=== PATIENT | male | born 1935 | race Caucasian/White ===

== ENCOUNTER 2017-09-04 11:50 | Day surgery (SDC) | payer OTHER, SELFPAY ==
--- NOTE | 2017-09-04 | PATH_ITS ---
[facility] Accession Number: [id number] . 01 Material submitted: . PART A: RANDOM COLON BIOPSIES PART B: COLON BIOPSY AT 20CM . 02 Diagnosis: A. Random Colon, Biopsies: Colonic mucosa with no diagnostic abnormality. Negative for active or microscopic colitis. Negative for granulomata, dysplasia or malignancy. . B. Colon at 20 cm, Biopsy: Colonic mucosa with no diagnostic abnormality. Negative for active or microscopic colitis. Negative for granulomata, dysplasia or malignancy. MRV/09/06/2017 . 02 Electronically signed: . Chau Carney MD, PhD, Pathologist NPI- [id number] . 01 Gross description: . Part A: RANDOM COLON BIOPSIES: Received in formalin is 1 fragment(s) of mathur, soft tissue measuring 1.5 x 0.6 x 0.2 cm in aggregate submitted entirely in 1 cassette(s) Part B: COLON BIOPSY AT 20CM: Received in formalin are 3 fragment(s) of mathur, soft tissue measuring 0.3 x 0.2 x 0.1 cm to 0.2 x 0.2 x 0.1 cm submitted entirely in 1 cassette(s) /TRC /TRC . 02 Pathologist provided ICD-10: R19.7 . 02 CPT . 631271, [id number] Performed at: 01 [facility] [address], [place], [place] [id number] MD Kendell Garcia MD Phone: [phone] Performed at: 02 [facility] [address] [place], [place] [id number] MD Ángel Duran MD Phone: [phone]
[2017-09-04 12:23] VITALS: BP 143/76; PULSE 64; RESP 20; TEMP 36.6; O2SAT 98
[2017-09-04] MEDS: SODIUM CHLORIDE 0.9% 1,000 ML 200 ML IV (12:30)
--- NOTE | 2017-09-04 14:08 | PM.OP.1 ---
Operative Date/Time/Diagnoses - Date of procedure: 09/04/17 Time of procedure: 14:08 Pre-op diagnosis: Personal history of colon cancer status post sigmoid colectomy Personal history of recurrent diff colitis Personal history of chronic diarrhea Post-op diagnosis: same Procedure & Clinicians Procedure: Colonoscopy to the cecum with multiple mucosal biopsies and cultures Same procedure as scheduled: Yes Indications: First history of colon cancer with last colonoscopy approximately 18 ago Surgeon: Judith Moreno Click Yes if Unassisted: Yes Anesthesia Type: Sedation (Versed 4 mg, fentanyl 150 mcg) Operative Notes Findings: 1. Excellent prep 2. No polyps or mass lesions 3. Anastomosis identified at 25 cm from the anal verge without any evidence of recurrence or stricture 4. Area of inflammation 20 cm from the anal verge. The inflammation is circumferential without any narrowing of the lumen. 5. Scattered diverticula throughout the colon 6. Grade 1 internal hemorrhoids Closure Type: not applicable Specimen(s): other (1. Random mucosal biopsies, 2. Biopsy at 20 cm from the anal verge, 3. Cultures) Estimated Blood Loss (mL): 1 Procedure in detail: After obtaining informed consent, the patient was brought to the GI suite and placed in the left lateral decubitus position on the examination table. After placement of appropriate monitors, the patient was given incremental doses of Versed and Fentanyl until an appropriate level of sedation was achieved. A time out was held per SCOAP protocol. A digital rectal examination was performed and did not reveal any masses or obstructing lesions. The colonoscope was gently passed into the patient's anus and the entire colon navigated to the level of the cecum with minimal difficulty. Once in the cecum, the scope was withdrawn being sure to go before and beyond all mucosal folds and prominences and get an excellent examination. The findings are noted above. At 25 cm from anal verge, the anastomosis was identified. It was widely patent without any evidence of narrowing. At 20 cm from the anal verge, we noted that area of circumferential inflammation with some fibrinous exudate superficially. Multiple biopsies were taken here and submitted separately. At the level of the rectal vault, the scope was retroflexed and the internal anal canal was examined. The scope was straightened and air aspirated from the colon. The instrument was removed from the patient's body and the procedure was concluded. The patient was allowed to awaken from sedation without difficulty and taken to the post-anesthesia care unit in good condition. Complications: none Condition: stable Disposition: PACU Plan for aftercare: 1. Discharge to home 2. We will contact you with pathology results and recommendations 3. Stop all antibiotics for now
[2017-09-04 14:14] VITALS: RESP 16; TEMP 36.4; O2SAT 98
[2017-09-04 14:24] VITALS: BP 147/69; PULSE 53; RESP 16; TEMP 36.3; O2SAT 99
--- NOTE | 2017-09-04 14:24 | PM.PREOP ---
Pre-operative Note Interval Note Pre-op Check: History & Physical Reviewed by Physician ASA Class (for procedural sedation): II
[2017-09-04 14:42] VITALS: PULSE 58; RESP 14; TEMP 36.3; O2SAT 99
[2017-09-04 15:35] LABS: Clostridium Difficile Tox PCR Negative for C. diff
--- NOTE | 2017-09-04 15:37 | SUR.PHASEII ---
pt ready to go at 1500.. dressed and conversant.. vss withinm preop levels.. abdomen soft... no nausea.. no pain.. taking hime home and dc instructions reviewedf
== END 2017-09-04 15:00 | disposition home or self-care (01) ==
PROVIDERS: PCP Internal Medicine; Visit Provider Surgery
PROC: 0DJD8ZZ Inspection of Lower Intestinal Tract, Via Natural or Artificial Opening Endoscopic (ICD-10-PCS; CPT 45378; principal; 2017-09-04 13:00)
DX: Z85.038 Personal history of other malignant neoplasm of large intestine (principal); K64.0 First degree hemorrhoids; K57.30 Diverticulosis of large intestine without perforation or abscess without bleeding; Z86.19 Personal history of other infectious and parasitic diseases
CPT/HCPCS: 45380; 87015; 87045; 87177; 87427; 87493; 87899; 99152

== ENCOUNTER 2017-11-22 13:29 | Inpatient (IN) | payer OTHER, SELFPAY ==
[2017-11-22 13:43] VITALS: BP 151/78; PULSE 74; RESP 17; TEMP 36.6; O2SAT 100; BMI 27.5
--- NOTE | 2017-11-22 13:55 | ED_ITS ---
HPI - Abdominal Pain General Chief Complaint: Abdominal Pain Stated Complaint: sent from dr vazquez office to get US Time Seen by Provider: 11/22/17 13:48 Source: patient Mode of arrival: ambulatory Limitations: no limitations History of Present Illness HPI narrative: Patient is an 82-year-old male who presents with abdominal pain. He says he feels like he has a blockage. He says for the last week or so does not feel like his food is going down. He was actually seen by his primary care physician today on I was instructed to come to emergency department for further evaluation. He has a history of colon cancer and pseudomembranous colitis. He is actually scheduled for a fecal transplant next week. He denies any nausea or vomiting he is passing gas and having some bowel movements but he overall feels like something is wrong. MD complaint: abdominal pain Related Data Home Medications Medication Instructions Recorded Confirmed enalapril maleate 5 mg PO QDAY #0 07/25/16 11/22/17 simvastatin 5 mg PO HS #0 07/25/16 11/22/17 promethazine 25 mg PO Q6H PRN 11/22/17 11/22/17 Previous Rx's Medication Instructions Recorded vancomycin 125 mg capsule 125 mg PO QID 28 Days #150 caplet 10/30/17 MDD 4 Allergies Allergy/AdvReac Type Severity Reaction Status Date / Time No Known Allergies Allergy Uncoded 11/22/17 13:49 Review of Systems Review of Systems All systems reviewed & are unremarkable except as noted in HPI and below Constitutional Denies chills, Denies fever(s), Denies lethargy and Denies weakness Cardiovascular Denies chest pain, Denies irregular heart rhythm, Denies lightheadedness, Denies palpitations, Denies dyspnea, Denies dyspnea on exertion and Denies orthopnea Respiratory Denies cough, Denies dyspnea, Denies dyspnea on exertion and Denies wheezing Gastrointestinal Gastrointestinal: Reports as per HPI Genitourinary Denies hematuria, Denies flank pain, Denies urinary incontinence and Denies urinary urgency Musculoskeletal Denies back pain, Denies muscle weakness, Denies numbness and Denies tingling Integumentary/Breasts Denies pruritus, Denies erythema, Denies rash and Denies wounds Neurologic Denies numbness, Denies tingling and Denies weakness Endocrine Denies palpitations Allergic/Immunologic Denies wheezing [facility] Medical History C. difficile colitis (Acute) Colon cancer (Acute) Surgical History History of colon resection (Acute) Social History household members: spouse Smoking Status: Former smoker alcohol intake: current Exam Initial Vital Signs Initial Vital Signs: Vital Signs Temperature 97.9 F 11/22/17 13:43 Pulse Rate 74 11/22/17 13:43 Respiratory Rate 17 11/22/17 13:43 Blood Pressure 151/78 H 11/22/17 13:43 Pulse Oximetry 100 11/22/17 13:43 Const General: cooperative, healthy appearing and well hydrated Nutritional Appearance: average body habitus and well nourished [facility] Head: normal to inspection and normocephalic Eyes General: appearance normal, both eyes and all related structures Neck Neck: normal visual inspection Resp Effort & Inspection: normal respiratory effort, able to speak in complete sentences, no respiratory distress and no use of accessory muscles Auscultation: clear to auscultation bilaterally, no rales, no rhonchi and no wheezes Cardio Rate: regular rate Rhythm: regular rhythm Heart Sounds: no click, no gallops, no murmurs and no rubs Pulses: normal peripheral pulses GI Inspection: normal to inspection Palpation: soft, No firm, No guarding and tender (Minimal, no localization) Skin General: no rashes or lesions noted, No jaundice and No petechiae Neuro General: alert, oriented x3, gait normal and no focal motor deficits Speech: speech normal Course Orders Ordered: ED Orders 11/22/17 14:04 Complete Blood Count AUTO DIFF Stat Comprehensive Metabolic Panel Stat Lipase Stat 11/22/17 14:05 CT abdomen pelvis w con Stat 11/22/17 17:32 Consult to General Surgery Routine 11/22/17 17:47 Consult to Dietitian, Adult Routine Sodium Chloride (Normal Saline 0.9%) 1,000 mls @ 125 mls/hr IV CONT FELY Last Admin: 11/22/17 17:54 Dose: 125 mls/hr Ondansetron HCl (Zofran) 4 mg IV Q4HR PRN PRN Reason: Nausea And Vomiting Discontinued Medications Sodium Chloride (Normal Saline 0.9%) 1,000 mls @ 150 mls/hr IV CONT FELY Last Infusion: 11/22/17 17:54 Dose: 150 mls/hr Infusion: 11/22/17 17:26 Dose: 150 mls/hr Admin: 11/22/17 14:30 Dose: 150 mls/hr Ondansetron HCl (Zofran) 4 mg IV NOW ONE Stop: 11/22/17 14:05 Last Admin: 11/22/17 14:30 Dose: 4 mg Vital Signs - 8 hr 11/22/17 13:43 11/22/17 16:30 11/22/17 17:00 Temperature 97.9 F Pulse Rate 74 72 63 Respiratory Rate 17 15 16 Blood Pressure 151/78 H Blood Pressure [Left Arm] 151/78 H 147/59 H Pulse Oximetry 100 100 99 11/22/17 17:37 Temperature 97.9 F Pulse Rate 67 Respiratory Rate 18 Blood Pressure 161/79 H Blood Pressure [Left Arm] Pulse Oximetry 97 MDM - Abdominal Pain Medical Records Attestation: I reviewed the patient's medical records. Lab Data Attestation: I reviewed the patient's lab results. Result diagrams: 11/22/17 14:04 11/22/17 14:04 Lab Results 11/22/17 11/22/17 Range/Units 14:04 14:04 WBC 6.5 (4.5-11.0) X10^3/uL RBC 4.08 L (4.5-5.9) X10^6/uL Hgb 13.0 L (13.5-17.5) g/dL Hct 37.3 L (41-53) % MCV 91.4 (80-100) fL MCH 31.9 (26-34) PG MCHC 34.9 (30-36) % RDW 13.2 (11.6-14.8) % Plt Count 270 (150-400) X10^3/uL Neut % (Auto) 78.8 H (50-75) % Lymph % (Auto) 10.6 L (25-40) % [place] % (Auto) 8.4 (3-14) % Eos % (Auto) 1.5 L (2-4) % Baso % (Auto) 0.7 (0-2) % Neut # (Auto) 5100 (2468-2872) /uL Sodium 138 (137-145) mmol/L Potassium 4.2 (3.4-5.1) mmol/L Chloride 100 (98-107) mmol/L Carbon Dioxide 29 (22-32) mmol/L BUN 14 (9-20) mg/dL Creatinine 0.70 (0.66-1.25) mg/dL Estimated GFR > 60.0 (>60) mL/min BUN/Creatinine Ratio 20.0 (6-22) Glucose 101 (80-110) mg/dL Calcium 8.9 (8.4-10.2) mg/dL Total Bilirubin 0.8 (0.2-1.3) mg/dL AST 31 (17-59) IU/L ALT 34 (21-72) IU/L Alkaline Phosphatase 46 (38-126) U/L Total Protein 6.1 L (6.3-8.2) g/dL Albumin 3.8 (3.5-5.0) g/dL Globulin 2.3 (1.7-4.1) g/dL Albumin/Globulin Ratio 1.7 (1.0-2.8) Lipase 181 (23-300) U/L Imaging Data CT scan - abdomen: Radiologist's impression: PROCEDURE: CT ABDOMEN PELVIS W CON INDICATIONS: abdominal pain history of colectomy and cancer TECHNIQUE: After the administration of intravenous contrast, 5 mm thick sections acquired from the diaphragm to the symphysis. 5 mm coronal and sagittal reformats were acquired. For radiation dose reduction, the following was used: automated exposure control, adjustment of mA and/or kV according to patient size. COMPARISON: [facility], CT, CHEST/ABD/PEL WITH CONTRAST, 08/10/2016, 9:09. FINDINGS: Image quality: Excellent. ABDOMEN: Lung bases: Lung bases are clear. Heart size is normal. Solid organs: There is a 9 mm area of low density in the right dome of the liver (im 14). Otherwise liver is radiographic normal. The pancreas, spleen, adrenal glands and right kidney are normal. Nonobstructive renal calculus otherwise left kidney is radiographically normal. Peritoneum and bowel: Postoperative changes in the distal colon. There is marked fluid filled enlargement of the small bowel with air-fluid levels which terminates in soft tissue adjacent to colonic wall postoperative change of the deep pelvis (best seen on se 5 im 41). Moderate stool throughout the remaining colon. Stomach and appendix are radiographically normal. Trace ascites. Nodes and vessels: Prominent mesenteric lymph nodes. Small mesenteric area of soft tissue measuring 11 mm may represent a further lymph node (se 2 im 60). Aorta and inferior vena cava are normal in size. Miscellaneous: No ventral hernias. PELVIS: Genitourinary: Bladder is decompressed causing wall thickening. Miscellaneous: Small fat-containing inguinal hernias with fluid extending into the right inguinal canal. There is soft tissue density in the presacral pelvic fat with several areas of low density with peripheral enhancement the largest of which measures 25 x 7 mm (se 2 im 73). Bones: No suspicious bony lesions. No vertebral body compression fractures. IMPRESSION: 1. High-grade partial small bowel obstruction with transition point in the deep pelvis adjacent to soft tissue thickening in the presacral fat and adjacent to postoperative change in the colon. 2. Extensive soft tissue in the presacral fat with areas of low density which do not definitely connect to loops of small bowel. This finding may represent tiny abscesses too small for aspiration or loops of small bowel distorted by the postoperative change in the surrounding fat. Following resolution of the patient's obstruction a CT of the pelvis with oral, rectal and IV contrast could differentiate these possibilities. 3. Tiny hepatic nodule new since the previous study is indeterminate. Given the patient's likely history of malignancy consider an MRI with and without contrast for further evaluation. Dictated by: Ronald Bennett M.D. on 11/22/2017 at 15:59 MDM Narrative Medical decision making narrative: Patient is ambulatory to the restroom. He appears comfortable he has not had any nausea or vomiting while in the ED. Dr. Moreno has refused CT and blood work. Agrees with admission. If no vomiting been no NG is needed. Discharge Plan Departure Patient Disposition: Admitted As Inpatient Clinical Impression: Small bowel obstruction Discharge Date/Time: 11/22/17 17:25 Interventions: ED Discharge Assessment Last Done: 11/22/17 17:24 Admit Date/Time: 11/22/17 16:56 Admit Provider: Judith Moreno
--- NOTE | 2017-11-22 14:05 | DI.CT.S_ITS ---
PROCEDURE: CT ABDOMEN PELVIS W CON INDICATIONS: abdominal pain history of colectomy and cancer TECHNIQUE: After the administration of intravenous contrast, 5 mm thick sections acquired from the diaphragm to the symphysis. 5 mm coronal and sagittal reformats were acquired. For radiation dose reduction, the following was used: automated exposure control, adjustment of mA and/or kV according to patient size. COMPARISON: [facility], CT, CHEST/ABD/PEL WITH CONTRAST, 08/10/2016, 9:09. FINDINGS: Image quality: Excellent. ABDOMEN: Lung bases: Lung bases are clear. Heart size is normal. Solid organs: There is a 9 mm area of low density in the right dome of the liver (im 14). Otherwise liver is radiographic normal. The pancreas, spleen, adrenal glands and right kidney are normal. Nonobstructive renal calculus otherwise left kidney is radiographically normal. Peritoneum and bowel: Postoperative changes in the distal colon. There is marked fluid filled enlargement of the small bowel with air-fluid levels which terminates in soft tissue adjacent to colonic wall postoperative change of the deep pelvis (best seen on se 5 im 41). Moderate stool throughout the remaining colon. Stomach and appendix are radiographically normal. Trace ascites. Nodes and vessels: Prominent mesenteric lymph nodes. Small mesenteric area of soft tissue measuring 11 mm may represent a further lymph node (se 2 im 60). Aorta and inferior vena cava are normal in size. Miscellaneous: No ventral hernias. PELVIS: Genitourinary: Bladder is decompressed causing wall thickening. Miscellaneous: Small fat-containing inguinal hernias with fluid extending into the right inguinal canal. There is soft tissue density in the presacral pelvic fat with several areas of low density with peripheral enhancement the largest of which measures 25 x 7 mm (se 2 im 73). Bones: No suspicious bony lesions. No vertebral body compression fractures. IMPRESSION: 1. High-grade partial small bowel obstruction with transition point in the deep pelvis adjacent to soft tissue thickening in the presacral fat and adjacent to postoperative change in the colon. 2. Extensive soft tissue in the presacral fat with areas of low density which do not definitely connect to loops of small bowel. This finding may represent tiny abscesses too small for aspiration or loops of small bowel distorted by the postoperative change in the surrounding fat. Following resolution of the patient's obstruction a CT of the pelvis with oral, rectal and IV contrast could differentiate these possibilities. 3. Tiny hepatic nodule new since the previous study is indeterminate. Given the patient's likely history of malignancy consider an MRI with and without contrast for further evaluation. Dictated by: Ronald Bennett M.D. on 11/22/2017 at 15:59 Approved by: Ronald Bennett M.D. on 11/22/2017 at 16:08
[2017-11-22] MEDS: ONDANSETRON 4 MG/2 ML INJ IV (14:30)
[2017-11-22] MEDS: SODIUM CHLORIDE 0.9% 1,000 ML 150 ML IV (14:30)
[2017-11-22 14:48] LABS: Add Manual Diff / Slide Review NO; Basophils Percent Auto 0.7 % (0-2); Eosinophils Percent Auto 1.5 % (2-4); Hematocrit 37.3 % (41-53); Lymphocytes Percent Auto 10.6 % (25-40); Mean Corpuscular HGB Conc 34.9 % (30-36); Mean Corpuscular Hemoglobin 31.9 PG (26-34); Mean Corpuscular Volume 91.4 fL (80-100); Monocytes Percent Auto 8.4 % (3-14); Neutrophils Absolute Auto 5100 /uL (3000-5900); Neutrophils Percent Auto 78.8 % (50-75); Platelet Count 270 X10^3/uL (150-400); Red Blood Cell Count 4.08 X10^6/uL (4.5-5.9); Red Cell Distribution Width 13.2 % (11.6-14.8); White Blood Cell Count 6.5 X10^3/uL (4.5-11.0)
[2017-11-22 15:13] LABS: Alanine Aminotransferase 34 IU/L (21-72); Albumin 3.8 g/dL (3.5-5.0); Albumin Globulin Ratio 1.7 (1.0-2.8); Alkaline Phosphatase 46 U/L (38-126); Aspartate Aminotransferase 31 IU/L (17-59); Bilirubin Total 0.8 mg/dL (0.2-1.3); Blood Urea Nitrogen 14 mg/dL (9-20); Calcium 8.9 mg/dL (8.4-10.2); Carbon Dioxide 29 mmol/L (22-32); Chloride 100 mmol/L (98-107); Estimated Glomerular Filt Rate > 60.0 mL/min (>60); Globulin 2.3 g/dL (1.7-4.1); Glucose 101 mg/dL (80-110); HEMOLYSIS < 15 (0-50); Lipase 181 U/L (23-300); Potassium 4.2 mmol/L (3.4-5.1); Sodium 138 mmol/L (137-145); Total Protein 6.1 g/dL (6.3-8.2)
[2017-11-22 16:30] VITALS: BP 151/78; PULSE 72; RESP 15; O2SAT 100
[2017-11-22 17:00] VITALS: BP 147/59; PULSE 63; RESP 16; O2SAT 99
[2017-11-22 17:37] VITALS: BP 161/79; PULSE 67; RESP 18; TEMP 36.6; O2SAT 97; BMI 27.8
[2017-11-22] MEDS: SODIUM CHLORIDE 0.9% 1,000 ML 125 ML IV (17:54)
--- NOTE | 2017-11-22 18:29 | P.HP_ITS ---
History of Present Illness Date Patient Seen: 11/22/17 Time Patient Seen: 18:22 Chief complaint: sent from dr vazquez office to get US Narrative: Pleasant 82-year-old gentleman who is well known to me from prior visits. He has a history of colon cancer and underwent a sigmoid colectomy and ileostomy with subsequent ostomy reversal. He also has a history of prostate cancer status post radical prostatectomy and radiation therapy. He presented to his primary care doctor this morning complaining of about 3 weeks of irregular bowels. He says that for the last 3 weeks or so he has had periods where he just had no appetite. He says that these episodes were interspersed with periods with large bowel movements. This most recent episode started this past Sunday and became progressively worse until last evening when he was very uncomfortable. He is quite stoic gentleman and so opted to not go to the emergency room and presented to his primary care physician's office today. He says he does not feel bad other than his belly is ?big and hard?. He has no appetite. He is not currently nauseated. He has been continuing to take all of his oral meds throughout this time. This includes vancomycin for recurrent C diff colitis. Dr. Vazquez sent him over to our emergency room for radiographic studies. He had a CT scan of the abdomen and pelvis that revealed a high-grade partial small-bowel obstruction and he is now admitted to the surgical service. Patient History Medical History C. difficile colitis (Acute) Colon cancer (Acute) Surgical History History of colon resection (Acute) Family & Social History Family History: Reviewed 11/22/17 by Judith Moreno MD Social History: household members spouse Prior Living Arrangements House Safety & Behavioral: Feels Safe in Current Yes Environment Been Physically Hurt or No Threatened By a Person Suicidal Ideation Description None Suicide Plan Description No Plan Tobacco & Substance use: Tobacco type cigarettes Smoking Status Former smoker alcohol intake current alcohol intake frequency holiday/special occasion Substance Use Type does not use Meds Home Medications Medication Instructions Recorded Confirmed Type enalapril maleate 5 mg PO QDAY #0 07/25/16 11/22/17 History simvastatin 5 mg PO HS #0 07/25/16 11/22/17 History vancomycin 125 mg capsule 125 mg PO QID 28 Days #150 caplet 10/30/17 11/22/17 Rx MDD 4 promethazine 25 mg PO Q6H PRN 11/22/17 11/22/17 History Allergies Allergy/AdvReac Type Severity Reaction Status Date / Time No Known Allergies Allergy Uncoded 11/22/17 13:49 Review of Systems Review of Systems All systems reviewed & are unremarkable except as noted in HPI and below Exam Vital Signs (past 8 hours): - 11/22/17 13:43 11/22/17 16:30 11/22/17 17:00 Temperature 97.9 F Pulse Rate 74 72 63 Respiratory Rate 17 15 16 Blood Pressure 151/78 H Blood Pressure [Left Arm] 151/78 H 147/59 H Pulse Oximetry 100 100 99 11/22/17 17:37 Temperature 97.9 F Pulse Rate 67 Respiratory Rate 18 Blood Pressure 161/79 H Blood Pressure [Left Arm] Pulse Oximetry 97 Oxygen Delivery Method Room Air Narrative Exam Narrative: Very pleasant gentleman he is in no obvious distress. He is comfortably conversing about his condition. He denies any abdominal pain or nausea currently. HEENT: Normocephalic and atraumatic, pupils equal round reactive to light accommodation with anicteric sclera Lungs: Clear to auscultation bilaterally Heart: Regular rate and rhythm without murmur Abdomen: Distended, tympanic, few high-pitched bowel sounds. Well-healed surgical incisions without palpable defect. Nontender to palpation. Extremities: Warm and well perfused. Objective Labs Result Diagrams: 11/22/17 14:04 11/22/17 14:04 Labs: Laboratory Results - last 24 hr 11/22/17 11/22/17 14:04 14:04 WBC 6.5 RBC 4.08 L Hgb 13.0 L Hct 37.3 L MCV 91.4 MCH 31.9 MCHC 34.9 RDW 13.2 Plt Count 270 Neut % (Auto) 78.8 H Lymph % (Auto) 10.6 L [place] % (Auto) 8.4 Eos % (Auto) 1.5 L Baso % (Auto) 0.7 Neut # (Auto) 5100 Sodium 138 Potassium 4.2 Chloride 100 Carbon Dioxide 29 BUN 14 Creatinine 0.70 Estimated GFR > 60.0 BUN/Creatinine Ratio 20.0 Glucose 101 Calcium 8.9 Total Bilirubin 0.8 AST 31 ALT 34 Alkaline Phosphatase 46 Total Protein 6.1 L Albumin 3.8 Globulin 2.3 Albumin/Globulin Ratio 1.7 Lipase 181 Assessment & Plan Plan: Assessment/Plan Narrative: Very pleasant gentleman with a fairly extensive past medical history who now presents with a high-grade small-bowel obstruction. I have talked to Laurel about the options. His labs are reassuring and he has no evidence of ischemic bowel. We are going to place an NG tube tonight and decompress his bowel. We will proceed with bowel rest and watchful waiting. Hopefully, this will resolve without surgical intervention. If not, he is a reasonable surgical candidate for our hospital. Quality VTE Deep Vein Thrombosis/Pulmonary Embolism Present on Admission: No
[2017-11-22] MEDS: DEXTROSE 5%-0.45% NS 1,000 ML 125 ML IV (18:56)
[2017-11-22] MEDS: LORazepam 2 MG/ML SYRINGE 0.5 MG IV (18:56)
--- NOTE | 2017-11-22 19:40 | PC.NURSE ---
ADMISSION received pt at approximately 1730 via fiona, accompanied by ED staff and . A&Ox3, pleasant and cooperative. abdomen slightly rounded, pt reports as hard but currently denies any abdominal pain or nausea/vomiting. bowel sounds hypoactive. pt reports + BM this morning and + burping currently. NG placed and connected to medium intermittent suction. pt tolerated placement well but unhappy about tubing having to stay in place. oriented to room, call light within reach.
[2017-11-22 20:10] VITALS: BP 154/79; PULSE 66; RESP 14; TEMP 36.5; O2SAT 97
[2017-11-22 23:00] VITALS: BP 147/70; PULSE 66; RESP 16; TEMP 36.7; O2SAT 99
--- NOTE | 2017-11-23 | DI.RAD.S_ITS ---
PROCEDURE: FL UPPER GI/SMALL BOWEL FOLLOW-THROUGH INDICATIONS: Small bowel obstruction. COMPARISON: [facility], CR, XR ACUTE ABDOMEN SERIES, 11/23/2017, 5:39. [facility], CT, CT ABDOMEN PELVIS W CON, 11/22/2017, 15:18. [facility], RF, BARIUM ENEMA, 11/13/2016, 9:49. [facility], CT, CHEST/ABD/PEL WITH CONTRAST, 08/10/2016, 9:09. FINDINGS: Preprocedural manager costing film demonstrates multiple loops of dilated small bowel consistent with known small bowel obstruction. There is a nasogastric tube with tip projecting over the expected location of the stomach and side-port over the expected location of the esophagus. Pelvic phleboliths and a surgical clip project over the pelvis. There are multilevel degenerative changes of the lumbar spine. Initial water-soluble Gastrografin administration through the nasogastric tube occurred at approximately 1230 hrs. on 11/23/17. Followup radiographs were obtained documenting the transit of the Gastrografin oral contrast through the small bowel throughout the abdomen, and demonstrated multiple loops of dilated small bowel consistent with known obstruction. Final abdominal radiograph obtained at 1615 hrs. on 11/23/17 (approximately 3 hours and 45 minutes later) documents failure of administered oral Gastrografin contrast to reach the cecum. IMPRESSION: Delayed transit time through the small bowel, consistent with known small bowel obstruction. Consider followup abdominal radiographs to resolution. Dictated by: Vinod Mohr M.D. on 11/23/2017 at 19:59 Approved by: Vinod Mohr M.D. on 11/23/2017 at 20:17
--- NOTE | 2017-11-23 | DI.RAD.S_ITS ---
PROCEDURE: XR ACUTE ABDOMEN SERIES INDICATIONS: Small bowel obstruction TECHNIQUE: One view chest and two views of the abdomen were acquired. COMPARISON: [facility], CT, CT ABDOMEN PELVIS W CON, 11/22/2017, 15:18. [facility], RF, BARIUM ENEMA, 11/13/2016, 9:49. FINDINGS: Surgical changes and devices: Nasogastric tube side port extends to above the EG junction. Chest: Lungs are clear. Heart size is normal. No pleural effusions. No pneumoperitoneum. Abdomen: Bowel gas pattern is abnormal with persistent small bowel mild gaseous prominence, and no free air. No suspicious calcifications. Visualized solid organ contours appear normal. Bones: No suspicious bony lesions. IMPRESSION: The nasogastric tube is within the esophagus and extends with its inferior tip into the gastric cardia but the side-port appears above the EG junction. It could be advanced 10-20 cm. Gas prominence within the small bowel is stable, no free air is found. Dictated by: Janes Rosales M.D. on 11/23/2017 at 11:06 Approved by: Janes Rosales M.D. on 11/23/2017 at 11:08
[2017-11-23 05:53] VITALS: BP 147/62; PULSE 64; RESP 18; TEMP 36.5; O2SAT 97
[2017-11-23 06:24] LABS: Blood Urea Nitrogen 9 mg/dL (9-20); Calcium 8.4 mg/dL (8.4-10.2); Carbon Dioxide 27 mmol/L (22-32); Chloride 103 mmol/L (98-107); Estimated Glomerular Filt Rate > 60.0 mL/min (>60); Glucose 107 mg/dL (80-110); HEMOLYSIS < 15 (0-50); Potassium 3.9 mmol/L (3.4-5.1); Sodium 137 mmol/L (137-145)
[2017-11-23 06:26] LABS: Add Manual Diff / Slide Review NO; Basophils Percent Auto 0.7 % (0-2); Hematocrit 35.5 % (41-53); Hemoglobin 12.2 g/dL (13.5-17.5); Lymphocytes Percent Auto 11.3 % (25-40); Mean Corpuscular HGB Conc 34.5 % (30-36); Mean Corpuscular Hemoglobin 31.8 PG (26-34); Monocytes Percent Auto 10.3 % (3-14); Neutrophils Absolute Auto 3900 /uL (3000-5900); Neutrophils Percent Auto 75.7 % (50-75); Platelet Count 219 X10^3/uL (150-400); Red Blood Cell Count 3.86 X10^6/uL (4.5-5.9); Red Cell Distribution Width 13.4 % (11.6-14.8); White Blood Cell Count 5.1 X10^3/uL (4.5-11.0)
[2017-11-23] MEDS: ENOXAPARIN 40 MG/0.4 ML SYRINGE SUBCUT (08:36)
--- NOTE | 2017-11-23 08:39 | CM.DANOTE ---
Addendum entered by Kayla Bragg LPN 11/23/17 08:48: Pt is alert and oriented at this time. Original Note: Discharge Planning/Care Management DCP: assessment: Case received, EMR reviewed and met this morning with pt. He is found lying in bed, looks comfortable, ng to suction in place and draining light colored material. Introduced self and role. Pt is an 82 year old male who admitted to care of surgical team. Dr. Moreno has dx high grade partial small bowel obstruction/in setting of prior abdominal surgeries. Payer: [employer] PCP: Dr. Florentino DCP team will follow as POC unfolds to assist with d/c issues and options as they arise. CM Discharge Assessment Start: 11/23/17 08:36 Freq: Status: Active Protocol: Document 11/23/17 08:37 ITV (Rec: 11/23/17 08:39 ITV [id number]) Discharge Planning Assessment Advance Directives? Yes Advance Directives on File No History Provided By Patient Medical Record Prior Living Arrangements House Household Members spouse Whiteboard Updated in Patient Room with Yes name and ext. 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
[2017-11-23 08:56] VITALS: BP 147/87; PULSE 62; RESP 18; TEMP 36.4; O2SAT 98
--- NOTE | 2017-11-23 11:25 | PC.NURSE ---
Addendum entered by Saira Wheeler R.N. 11/23/17 14:16: Pts NG tube advanced 7.8 inches. He tolerated well. Back to bed and ng tube with suction. He will be going back down for procedure for more pictures of his abdomen. Visiting with his now. Original Note: NG to low intermitant suction. Some drainage in canister. Pt incontinent of large amounts of urine. He is wearing a brief and pad, which he has soaked through both and needed a bed change. 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 He is getting IVF, this may be contributing to pts incontinence. Abdomen a bit distended and bt are hypoactive. Pt is resting supine and denies any pain.
--- NOTE | 2017-11-23 11:41 | PM.PN.1 ---
Subjective Date Patient Seen: 11/23/17 Time Patient Seen: 11:41 Interval history: Barry reports he had the ?most miserable night of my life? with the NG tube. He denies any nausea and denies any real abdominal pain. He says he still feels ?backed up?. He says he passed some gas this morning and had a bowel movement that his nurse describes as more of a smear. He is quite unhappy today. Exam Vital Signs (past 8 hours): - 11/23/17 05:53 11/23/17 08:56 Temperature 97.7 F 97.5 F L Pulse Rate 64 62 Respiratory Rate 18 18 Blood Pressure 147/62 H 147/87 H Pulse Oximetry 97 98 Oxygen Delivery Method Room Air Narrative Exam Narrative: Abdomen remains soft, hypoactive bowel sounds, nontender to palpation. Objective Labs Result Diagrams: 11/23/17 05:58 11/23/17 05:58 Labs: Laboratory Results - last 24 hr 11/22/17 11/22/17 11/23/17 14:04 14:04 05:58 WBC 6.5 5.1 RBC 4.08 L 3.86 L Hgb 13.0 L 12.2 L Hct 37.3 L 35.5 L MCV 91.4 92.0 MCH 31.9 31.8 MCHC 34.9 34.5 RDW 13.2 13.4 Plt Count 270 219 Neut % (Auto) 78.8 H 75.7 H Lymph % (Auto) 10.6 L 11.3 L [place] % (Auto) 8.4 10.3 Eos % (Auto) 1.5 L 2.0 Baso % (Auto) 0.7 0.7 Neut # (Auto) 5100 3900 Sodium 138 Potassium 4.2 Chloride 100 Carbon Dioxide 29 BUN 14 Creatinine 0.70 Estimated GFR > 60.0 BUN/Creatinine Ratio 20.0 Glucose 101 Calcium 8.9 Total Bilirubin 0.8 AST 31 ALT 34 Alkaline Phosphatase 46 Total Protein 6.1 L Albumin 3.8 Globulin 2.3 Albumin/Globulin Ratio 1.7 Lipase 181 11/23/17 05:58 WBC RBC Hgb Hct MCV MCH MCHC RDW Plt Count Neut % (Auto) Lymph % (Auto) [place] % (Auto) Eos % (Auto) Baso % (Auto) Neut # (Auto) Sodium 137 Potassium 3.9 Chloride 103 Carbon Dioxide 27 BUN 9 Creatinine 0.60 L Estimated GFR > 60.0 BUN/Creatinine Ratio 15.0 Glucose 107 Calcium 8.4 Total Bilirubin AST ALT Alkaline Phosphatase Total Protein Albumin Globulin Albumin/Globulin Ratio Lipase Assessment & Plan Plan: Assessment/Plan Narrative: Partial small bowel obstruction that was described as high-grade on recent CT scan. I have recommended an upper GI with Gastrografin to either correct this situation or further define the problem so that we can corrected surgically. Cole would like to avoid surgical intervention if at all possible. We will proceed with the study today. Quality VTE Deep Vein Thrombosis/Pulmonary Embolism Present on Admission: No
[2017-11-23] MEDS: ONDANSETRON 4 MG/2 ML INJ IV (15:56)
[2017-11-23 16:12] VITALS: BP 142/90; PULSE 84; RESP 18; TEMP 36.7; O2SAT 98
[2017-11-23] MEDS: SODIUM CHLORIDE 0.9% FLUSH 10 ML IV (17:58)
[2017-11-23] MEDS: DEXTROSE 5%-0.45% NS 1,000 ML 125 ML IV (17:58)
[2017-11-23 20:12] VITALS: BP 129/74; PULSE 90; RESP 16; TEMP 36.5; O2SAT 96
--- NOTE | 2017-11-23 21:19 | PC.NURSE ---
SHIFT NOTE Received pt with most of upper GI series completed. pt reports nausea, PRN zofran administered. pt also reports positive BM this shift x2 but pt had flushed his BM down the toilet before staff could inspect it. at approximately 1820, pt with large emesis, about 400ml. NG reconnected to LIS and MD notified. pt with about 1300ml output in canister thus far, states great relief from nausea. denies any abdominal pain. per MD, possible surgery tomorrow. call light within reach.
[2017-11-23 23:49] VITALS: BP 153/81; PULSE 75; RESP 18; TEMP 37.1; O2SAT 95
[2017-11-24] VITALS (24 sets, daily range): BP systolic 110–159; BP diastolic 59–94; PULSE 70–97; RESP 13–21; TEMP 35.9–36.6; O2SAT 91–98; BMI 27.8
--- NOTE | 2017-11-24 | PATH_ITS ---
[facility] Accession Number: [id number] . 01 Material submitted: . PART A: SMALL BOWEL PART B: PERITONEAL NODULE PART C: OMENTAL NODULE . 02 Diagnosis: A. 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 Multiple serosal adhesions and serositis. Negative for in situ dysplasia. . B. 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 . C. 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 V/11/30/2017 . 02 Comment: This case is reviewed in conjunction with the patient's previous colon resection specimen ([id number], 2016), and the adenocarcinoma in the current case is morphologically similar to the known colonic adenocarcinoma. . As part of routine research quality assurance analyst, Dr. Monzon has reviewed financial service representative sections from this case and agrees with the diagnosis of adenocarcinoma, morphologically consistent with colon primary. The finding of adenocarcinoma was reported to Dr. Moreno's office on 11/29/2017 at 11:50 a.m. . 02 Electronically signed: . Chau Carney MD, PhD, Pathologist NPI- [id number] . 01 Gross description: . A. Received in formalin, labeled with the patient's name and small bowel are five segments of small bowel. All of the segments have a dusky external surface with multiple adhesions. Segment #1 measures 23.5 cm in length by 4.5 cm in diameter and appears dilated. One end is stapled and one end is open. There is a centrally located defect partially closed by sutures. The mucosa from the defect to the stapled margin appears dark brown and the mucosa from the defect to the opened margin appears light brown. No masses are grossly identified. Segment #2 is stapled at both ends and measures 14 cm in length by 2.8 cm in diameter. The specimen is disrupted in multiple areas with hemorrhagic mucosa surrounding the disruptions. No masses are grossly identified. Segment #3 measures 0.7 cm in length by 2 cm in diameter and has a staple line running along the length of the specimen. There is a centrally located 4 cm disruption of the bowel wall. The mucosa appears hemorrhagic and granular. Segment #4 measures 3.2 cm in length by 1.3 cm in diameter and is stapled at one end and open at the opposite end. The mucosa is mathur-brown and granular. Segment #5 measures 4 cm in length by 1.3 cm in diameter with a staple line running along the length of the specimen. There is a 0.3 cm defect in the bowel wall. The mucosa is mathur-brown and granular. Also received separately are three pieces of firm mathur-brown fibrofatty tissue measuring 2 x 1.1 x 0.9 cm, 4.3 x 3.4 x 1.4 cm, and 5.5 x 2.9 x 1.5 cm. On sectioning, these pieces have a mathur-yellow to mathur-white, lobulated cut surface. Well Cleaner sections are submitted as follows: A1 - resection margins, segment #1; A2 - defect, segment #1; A3 - mucosa near stapled end, segment #1; A4 - mucosa near opened end segment #1; A5 - resection margin segment #2; A6 - disrupted area segment #2; A7 - normal appearing mucosa segment #2; A8 - financial service representative mucosa segment #3; A9 - financial service representative mucosa segment #4; A10 - financial service representative mucosa segment #5; A11 - separate fatty tissue; A12-A13 - additional sampling of serosal irregularities. Note: The gross specimen for part A is reviewed by Dr. Carney on 11/29/2017. No mucosal lesions are identified. Additional samples of serosal irregularities are submitted. (MS:[id number]) B. Received in formalin, labeled with the patient's name and peritoneal nodule is a 1.4 x 1 x 0.9 cm mathur-brown, fatty tissue. The specimen is bisected to reveal a mathur-yellow to mathur-white cut surface and entirely submitted in cassette B1. C. Received in formalin, labeled with the patient's name and omentum nodule is a 4.2 x 2.5 x 1.4 cm mathur-brown fatty tissue within which there is a 1.6 x 1.5 x 1.1 cm firm nodule which is bisected to reveal a mathur-white to mathur-brown cut surface. The nodule is entirely submitted in cassettes C1 and C2. (TESSA:[id number]) /MRV . 02 Pathologist provided ICD-10: Z85.038, C79.9 . 02 CPT . 168577, 493846, 901340 Performed at: 01 [facility] [address] [place] [address], [place], [place] [id number] MD Kendell Garcia MD Phone: [phone] Performed at: 02 [facility] [address] [place] [id number] MD Ángel Duran MD Phone: [phone]
--- NOTE | 2017-11-24 | DI.RAD.S_ITS ---
PROCEDURE: XR ABDOMEN 1V INDICATIONS: POSSIBLE LOST SUTURE NEEDLE TECHNIQUE: One view of the abdomen acquired. COMPARISON: None. FINDINGS: Surgical changes and devices: A surgical drain or epidural catheter is projected over the pelvis. Surgical clips are scattered throughout the pelvis. Anastomotic suture is present within the right upper quadrant. No radiodense suture needles visualized. Bowel: Bowel gas pattern is normal. Soft tissues: No suspicious abdominal calcifications. Visualized solid organ contours appear normal in size. Bones: No suspicious bony lesions. IMPRESSION: Postsurgical changes above. No radiodense needles visualized. Dictated by: Nabila Presley M.D. on 11/24/2017 at 15:25 Approved by: Nabila Presley M.D. on 11/24/2017 at 15:26
--- NOTE | 2017-11-24 | DI.RAD.S_ITS ---
PROCEDURE: XR CHEST 1V INDICATIONS: CENTRAL LINE TECHNIQUE: One view of the chest was acquired. COMPARISON: None. FINDINGS: Surgical changes and devices: Central venous catheter, the tip of which is projected over the SVC. There is an NG tube, the tip of which is projected over the gastric fundus. Lungs and pleura: No pleural effusions or pneumothorax. Lungs are clear. Mediastinum: Mediastinal contours appear normal. Heart size is normal. Bones and chest wall: No suspicious bony lesions. Overlying soft tissues appear unremarkable. IMPRESSION: Tubes and lines as above. No acute cardiopulmonary findings. Dictated by: Nabila Presley M.D. on 11/24/2017 at 15:24 Approved by: Nabila Presley M.D. on 11/24/2017 at 15:25
[2017-11-24] MEDS: DEXTROSE 5%-0.45% NS 1,000 ML 125 ML IV (02:44)
--- NOTE | 2017-11-24 08:53 | PC.NURSE ---
Patient spoke with Dr. Moreno over the phone and agreeable with plan of care and prepping for surgery at 9am. vss, patient up to bathroom, denies complaints. Picked up for surgery by team at 855am.
[2017-11-24] MEDS: LACTATED RINGERS 1,000 ML 42 ML IV ×5 (09:00→14:59)
[2017-11-24] MEDS: CEFOTETAN 2 GM/50 ML PIGGYBACK IV (09:42)
--- NOTE | 2017-11-24 10:24 | SUR.OPER ---
Supine on padded OR bed, head on pillow, arms secured on padded arm boards at <90 degrees abduction, legs uncrossed, safety belt at thigh, tape over blanket over lower legs.
[2017-11-24] MEDS: BUPIVACAINE 0.5% (PF) VIAL 30 ML INJ (10:34)
[2017-11-24] MEDS: LIDOCAINE 1% W/EPI INJ 20 ML INJ (10:34)
[2017-11-24] MEDS: metroNIDAZOLE 500 MG/100 ML PIGGYBACK 100 MG IV ×3 (13:02→23:13)
[2017-11-24] MEDS: ONDANSETRON 4 MG/2 ML INJ IV (15:14)
[2017-11-24] MEDS: HYDROMORPHONE 2 MG INJ 0.5 MG IV (15:16)
--- NOTE | 2017-11-24 15:21 | SUR.PHASEI ---
At 1505, emptied 450 ml of light red/blood tinged drainage out of pt illeostomy bag.
--- NOTE | 2017-11-24 15:56 | SUR.PHASEI ---
DIRECTLY BEFORE TRANSFERING PT TO ICU ROOM, JAMIE DRAINS WERE EMPTIED. LEFT JAMIE DRAIN EMPTIED OUT 50ML OF SANGUINEOUS FLUID AND RIGHT JAMIE DRAIN EMPTIED OUT 150 ML OF SANGUINEOUS FLUID. WHILE IN PACU, NG DRAINAGE AMOUNT 200ML OF BROWN LIQUID. PT TRANSFERED TO ICU IN STABLE CONDITION, VSS REMAINED STABLE. BEDSIDE REPORT GIVEN TO EFFIE BONILLA. TRANSFERED CARE OF PT TO EFFIE BONILLA.
[2017-11-24] MEDS: LACTATED RINGERS 1,000 ML 200 ML IV ×2 (16:15→22:40)
[2017-11-24] MEDS: HYDROMORPHONE PCA 6 MG/30 ML PCA.VIAL 2.5 MG IV ×2 (16:41→22:42)
--- NOTE | 2017-11-24 17:01 | P.OP_ITS ---
Operative Date/Time/Diagnoses Date of procedure: 11/24/17 Time of procedure: 17:01 Pre-op diagnosis: Small-bowel obstruction Post-op diagnosis: same Procedure & Clinicians Procedure: Laparotomy with extensive lysis of adhesions, small-bowel resection, and ileostomy Same procedure as scheduled: Yes Indications: Small-bowel obstruction Surgeon: Judith Moreno [employer] Instructor: Kofi Elizalde Click Yes if Unassisted: No Anesthesia Type: General (Kotlarczyk) Operative Notes Findings: 1. Extremely dilated and thickened small bowel from the ligament of Treitz to the proximal to mid ileum 2. Extensive intra-abdominal adhesive disease 3. Multiple peritoneal and mesenteric nodules ranging in size from 2 mm to 10 mm and larger. 4. Thin walled sigmoid colon with intact and patent anastomosis Closure Type: non-primary (Abdominal incision closed with loosely placed nylon and packed in between with iodoform gauze) Specimen(s): other Implants & Drains: Two - nineteen Anguillan Cristi drains Estimated Blood Loss (mL): 200 Blood products transfused: none Procedure in detail: After obtaining informed consent, the patient brought to the operating room and placed in the supine position on the operating table. Following successful induction of general endotracheal anesthesia, appropriate padding of all bony prominences, and placement of appropriate monitors, the abdomen is prepped and draped in the standard surgical fashion. A time-out was held per SCOAP protocol. Following infiltration with local anesthetic to create a field block, a midline incision was created to include the entire lower midline incision that existed as well as an additional segment about 3 cm proximally. The proximal portion was carried down through the skin subcutaneous tissue to enter the abdominal cavity sharply. We immediately visualized very thickened and edematous small bowel densely adherent to and within the anterior abdominal wall. This bowel was carefully and pains taking we liberated from the anterior abdominal wall, with the entire process of adhesiolysis taking at least 3 hr. Multiple sites of obstruction were noted including the abdominal wall and deep within the pelvis where several loops of bowel were densely adherent to the sacral promontory posteriorly and to the pelvic floor more anteriorly. We were eventually able to free the most dilated loops from the anterior abdominal wall. These loops appeared dusky and ischemic and profoundly thickened. I elected to resect the most damaged and abnormal appearing central portion of the segments. This was done by placing bowel clamps proximally and distally and dividing the bowel using EMMIE stapling devices. The bowel clamps were left in place while a stable anastomosis was created and the edges oversewn. It is notable that the stay sutures tore through the wall of the small bowel creating a leak proximal and distal to the new anastomosis. The stay sutures removed and the small leaks oversewn with 3 0 Vicryl suture. The stay sutures were replaced more medially. We were not able to safely free the more anterior attachments to the pelvic floor and so these loops were clamped with bowel clamps proximally and distally and delivered into the field with the understanding that an enterotomy would likely occur. It did in fact took her but spillage was extremely minimal due to the presence of bowel clamps. As these segments of bowel were very close to the ileocecal valve, we elected to divide the distal ileum at the ileocecal valve and then proximal to this enterotomy. This was done using a EMMIE stapling device. This entire segment of bowel was passed from the table with both ends stapled and bowel clamps in place. It was at approximately this time that I noted a very tiny leak, approximately 1 mm, in the anterior wall of the sigmoid colon. It was at this site that a loop of inflamed small bowel had been adherent. This area of the sigmoid was oversewn with Vicryl suture and then covered with omentum. No leak could be appreciated afterward. Due to the condition of the small bowel loops, the multiple enterotomies and leaks, and the general condition of the tissue, I elected to perform an ileostomy. This was done by creating a defect in the abdominal wall just medial to the anterior superior spine on the right side. The stapled ileum was passed through this defect. The ileum was quite edematous and the mesentery quite short creating quite a difficult ostomy. The abdomen was irrigated with multiple L of saline solution and aspirated free of all blood and particulate matter. Two hundred nineteen Anguillan Cristi drains were placed in the abdominal cavity. The 1st was placed deep within the pelvis and the 2nd in the right pericolic gutter inferior to the injured sigmoid colon. These were brought out on either side of the abdominal incision in the pelvis and sewn into place. The abdominal incision was closed with a looped Maxon suture and internal retention sutures were placed using 0 Prolene suture. The skin incision was irrigated copiously with saline solution and aspirated free of all fluid. It was closed loosely with nylon suture with the dermal tissues packed with half-inch iodoform gauze. A dry dressing was applied. We now turned our attention to the maturing of the ostomy. I attempted to create a traditional [place] ileostomy by rolling the edges of the ileum over creating a lip at the edges of the ostomy. The tissue was so edematous and so thickened that as it rolled over the mucosa would split and bleed slightly. The ostomy was matured as was allowed and the Gina fashion and otherwise the edges directly sewn to the dermal interface with Vicryl suture. The ostomy appeared viable and clear succus was obtained from it. The appliance was applied securely to the abdominal wall. All sponge, needle, and instrument counts were correct at conclusion of the case. The patient was allowed awaken from anesthesia without difficulty and taken to the postanesthesia care unit in good condition.
[2017-11-24] MEDS: PIPERACILLIN-TAZO 3.375 GM/50 ML FROZ.PIGGY IV ×2 (18:34→22:38)
--- NOTE | 2017-11-24 23:02 | PC.NURSE ---
klever note pt received from PACU. large abd drsg CDI iwth 2 Cristi drains. PERFECT BINDER FEEDER OFFBEARER initiated, settings 0.2/12/29. Later added 0.5 mg continuous per order. NGT with light brown fluid in tube, but not draining into suction tubing. Removed 3 way valve, added air to sump port, but no change. Advanced NGT 1 cm and retaped to nose.
[2017-11-25] VITALS (10 sets, daily range): BP systolic 100–128; BP diastolic 57–71; PULSE 93–99; RESP 10–16; TEMP 36.4–37; O2SAT 92–99
[2017-11-25] MEDS: PIPERACILLIN-TAZO 3.375 GM/50 ML FROZ.PIGGY IV ×4 (04:00→22:01)
[2017-11-25] MEDS: metroNIDAZOLE 500 MG/100 ML PIGGYBACK 100 MG IV ×4 (04:44→22:52)
[2017-11-25] MEDS: LACTATED RINGERS 1,000 ML 200 ML IV ×3 (04:44→16:59)
[2017-11-25 05:31] LABS: Add Manual Diff / Slide Review NO; Hematocrit 35.8 % (41-53); Hemoglobin 12.4 g/dL (13.5-17.5); Lymphocytes Percent Auto 3.5 % (25-40); Mean Corpuscular HGB Conc 34.6 % (30-36); Mean Corpuscular Hemoglobin 31.8 PG (26-34); Mean Corpuscular Volume 92.1 fL (80-100); Monocytes Percent Auto 7.6 % (3-14); Neutrophils Absolute Auto 10000 /uL (3000-5900); Neutrophils Percent Auto 88.9 % (50-75); Platelet Count 228 X10^3/uL (150-400); Red Blood Cell Count 3.88 X10^6/uL (4.5-5.9); Red Cell Distribution Width 13.4 % (11.6-14.8); White Blood Cell Count 11.2 X10^3/uL (4.5-11.0)
[2017-11-25 05:43] LABS: Alanine Aminotransferase 27 IU/L (21-72); Albumin 2.6 g/dL (3.5-5.0); Albumin Globulin Ratio 1.2 (1.0-2.8); Alkaline Phosphatase 31 U/L (38-126); Aspartate Aminotransferase 18 IU/L (17-59); BUN Creatinine Ratio 18.9 (6-22); Bilirubin Total 0.7 mg/dL (0.2-1.3); Blood Urea Nitrogen 17 mg/dL (9-20); Calcium 7.8 mg/dL (8.4-10.2); Carbon Dioxide 30 mmol/L (22-32); Chloride 101 mmol/L (98-107); Estimated Glomerular Filt Rate > 60.0 mL/min (>60); Globulin 2.1 g/dL (1.7-4.1); Glucose 150 mg/dL (80-110); HEMOLYSIS < 15 (0-50); Magnesium 1.5 mg/dL (1.6-2.3); Potassium 4.5 mmol/L (3.4-5.1); Sodium 137 mmol/L (137-145); Total Protein 4.7 g/dL (6.3-8.2)
[2017-11-25] MEDS: HYDROMORPHONE PCA 6 MG/30 ML PCA.VIAL 2.5 MG IV ×3 (06:20→22:11)
--- NOTE | 2017-11-25 07:27 | PC.NURSE ---
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 SR 90s, VSS, RA sats >92%, see vital trends. 100ml rust colored fluid from NGT, 225ml from Perez, Cristi drains patent with total 75ml, no output from ileostomy, see I/Os.
--- NOTE | 2017-11-25 14:36 | CM.DPC ---
DCP Cont: Met with patient, son and . Discussed needs for discharge. Patient has new ostomy. Patient alert and oriented, pleasant demeanor. Son and supportive. Asked patient about skilled rehab. Son and patient do not feel that he needs long term, did discuss home health, and feels that this would be adequate for him. Patient stated that he will be here for a few more days. Would be feasable for patient to see Gianna Sarkar for ostomy training. Gave Medicare choice list for patient and son, they can decide which home health agency thay want. Reminded them that [facility] does not service [facility]. Stated that he has had home health before. Patient still has NG tube and central line as well. Patient has had history of colon cancer, and has also had C-diff. P: DCP to continue to assess, likely home with home health, but will be determined by how he progresses in hospital. Helga Penaloza RN/Joint Machine Operator
[2017-11-25] MEDS: AA 5 %/CALCIUM/LYTES/DEXT 20 % 1,000 ML with MULTIVITAMIN 10 ML, TRACE ELEMENTS 1 ML 42.125 ML IV (18:21)
[2017-11-25] MEDS: FAT EMULSIONS 50 GM/250 ML EMULSION IV (18:26)
[2017-11-25] MEDS: PANTOPRAZOLE 40 MG VIAL IV (18:28)
--- NOTE | 2017-11-25 19:46 | PM.PN.1 ---
Subjective Date Patient Seen: 11/25/17 Time Patient Seen: 19:47 Interval history: Barry looks remarkably good this morning. He is already out of bed and into a chair with his family at his bedside. He says his pain is well controlled. Denies any nausea. Has many questions about what we found yesterday at about the implications. Urine output has picked up and is becoming ink technician in color. Exam Vital Signs (past 8 hours): - 11/25/17 12:12 11/25/17 16:00 Temperature 98 F 97.6 F Pulse Rate 99 H Respiratory Rate 12 10 L Blood Pressure 117/65 100/59 L Pulse Oximetry 94 92 Oxygen Delivery Method Room Air Oxygen Flow Rate 0 Narrative Exam Narrative: Lungs: Clear with good air movement bilaterally Heart: Sinus tachycardia, no murmur Abdomen: Soft, appropriately tender, hypoactive bowel sounds. Objective Labs Result Diagrams: 11/25/17 04:40 11/26/17 11:45 Labs: Laboratory Results - last 24 hr 11/25/17 11/25/17 04:40 04:40 WBC 11.2 H D RBC 3.88 L Hgb 12.4 L Hct 35.8 L MCV 92.1 MCH 31.8 MCHC 34.6 RDW 13.4 Plt Count 228 Neut % (Auto) 88.9 H Lymph % (Auto) 3.5 L [place] % (Auto) 7.6 Eos % (Auto) 0.0 L Baso % (Auto) 0.0 Neut # (Auto) 96900 H Sodium 137 Potassium 4.5 Chloride 101 Carbon Dioxide 30 BUN 17 Creatinine 0.90 Estimated GFR > 60.0 BUN/Creatinine Ratio 18.9 Glucose 150 H Calcium 7.8 L Magnesium 1.5 L Total Bilirubin 0.7 AST 18 ALT 27 Alkaline Phosphatase 31 L Total Protein 4.7 L Albumin 2.6 L Globulin 2.1 Albumin/Globulin Ratio 1.2 Assessment & Plan Plan: Assessment/Plan Narrative: Postop day 1 after extensive lysis of adhesions and small-bowel resection with ileostomy. We had a long conversation in the presence of his and son regarding the findings and the possibility of either extensive radiation damage to the small bowel or recurrent malignancy or both. Albumin is notably low but I think this is largely due to dilution. At any rate, he has not been eating well for at least 3-6 months. I have ordered TPN to start tonight. Quality VTE Deep Vein Thrombosis/Pulmonary Embolism Present on Admission: No
--- NOTE | 2017-11-25 19:50 | P.PN_ITS ---
Subjective Date Patient Seen: 11/25/17 Time Patient Seen: 19:47 Interval history: Barry looks remarkably good this morning. He is already out of bed and into a chair with his family at his bedside. He says his pain is well controlled. Denies any nausea. Has many questions about what we found yesterday at about the implications. Urine output has picked up and is becoming machine silver stripper in color. Exam Vital Signs (past 8 hours): - 11/25/17 12:12 11/25/17 16:00 Temperature 98 F 97.6 F Pulse Rate 99 H Respiratory Rate 12 10 L Blood Pressure 117/65 100/59 L Pulse Oximetry 94 92 Oxygen Delivery Method Room Air Oxygen Flow Rate 0 Narrative Exam Narrative: Lungs: Clear with good air movement bilaterally Heart: Sinus tachycardia, no murmur Abdomen: Soft, appropriately tender, hypoactive bowel sounds. Objective Labs Result Diagrams: 11/25/17 04:40 11/26/17 11:45 Labs: Laboratory Results - last 24 hr 11/25/17 11/25/17 04:40 04:40 WBC 11.2 H D RBC 3.88 L Hgb 12.4 L Hct 35.8 L MCV 92.1 MCH 31.8 MCHC 34.6 RDW 13.4 Plt Count 228 Neut % (Auto) 88.9 H Lymph % (Auto) 3.5 L [place] % (Auto) 7.6 Eos % (Auto) 0.0 L Baso % (Auto) 0.0 Neut # (Auto) 07260 H Sodium 137 Potassium 4.5 Chloride 101 Carbon Dioxide 30 BUN 17 Creatinine 0.90 Estimated GFR > 60.0 BUN/Creatinine Ratio 18.9 Glucose 150 H Calcium 7.8 L Magnesium 1.5 L Total Bilirubin 0.7 AST 18 ALT 27 Alkaline Phosphatase 31 L Total Protein 4.7 L Albumin 2.6 L Globulin 2.1 Albumin/Globulin Ratio 1.2 Assessment & Plan Plan: Assessment/Plan Narrative: Postop day 1 after extensive lysis of adhesions and small-bowel resection with ileostomy. We had a long conversation in the presence of his and son regarding the findings and the possibility of either extensive radiation damage to the small bowel or recurrent malignancy or both. Albumin is notably low but I think this is largely due to dilution. At any rate, he has not been eating well for at least 3-6 months. I have ordered TPN to start tonight. Quality VTE Deep Vein Thrombosis/Pulmonary Embolism Present on Admission: No
[2017-11-26] VITALS (7 sets, daily range): BP systolic 105–128; BP diastolic 46–60; PULSE 76–84; RESP 14–18; TEMP 36.4–37.1; O2SAT 94–98
[2017-11-26] MEDS: LACTATED RINGERS 1,000 ML 200 ML IV ×3 (00:34→13:09)
--- NOTE | 2017-11-26 01:15 | PC.NURSE ---
Requirements Engineer Note: 0000: Awake, alert, oriented X3. Resting in bed with HOB elevated 30 degrees. Dressing to rt IJ line reinforced. TPN infusing at 42cc/hr, with intralipids infusing at 25cc/hr and LR infusing at 200cc/hr. NGT to low intermittent suction, with small amt thick dark green secretions. Perez catheter patent, urine is clear yellow. Abdominal dressing cdi, Severino drains X2 intact and compressed. Ileostomy stoma is beefy red, with small amt serous fluid in bag.
[2017-11-26] MEDS: PIPERACILLIN-TAZO 3.375 GM/50 ML FROZ.PIGGY IV ×4 (03:38→22:00)
[2017-11-26] MEDS: metroNIDAZOLE 500 MG/100 ML PIGGYBACK 100 MG IV ×4 (04:59→23:36)
[2017-11-26] MEDS: HYDROMORPHONE PCA 6 MG/30 ML PCA.VIAL 2.5 MG IV ×3 (06:40→22:02)
[2017-11-26] MEDS: ENOXAPARIN 40 MG/0.4 ML SYRINGE SUBCUT (08:14)
[2017-11-26] MEDS: PANTOPRAZOLE 40 MG VIAL IV (08:14)
[2017-11-26 12:05] LABS: Alanine Aminotransferase 24 IU/L (21-72); Albumin 2.3 g/dL (3.5-5.0); Alkaline Phosphatase 32 U/L (38-126); Aspartate Aminotransferase 13 IU/L (17-59); BUN Creatinine Ratio 27.1 (6-22); Bilirubin Total 0.5 mg/dL (0.2-1.3); Blood Urea Nitrogen 19 mg/dL (9-20); Calcium 7.6 mg/dL (8.4-10.2); Carbon Dioxide 33 mmol/L (22-32); Chloride 101 mmol/L (98-107); Estimated Glomerular Filt Rate > 60.0 mL/min (>60); Globulin 2.2 g/dL (1.7-4.1); Glucose 134 mg/dL (80-110); HEMOLYSIS < 15 (0-50); Potassium 3.5 mmol/L (3.4-5.1); Sodium 136 mmol/L (137-145); Total Protein 4.5 g/dL (6.3-8.2)
[2017-11-26] MEDS: INSULIN ASPART 100 UNIT/ML INSULN PEN SUBCUT ×2 (12:46→18:16)
--- NOTE | 2017-11-26 14:48 | PC.NURSE ---
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 Pt states, I have so much more I need to get done. Pt up in chair for 3 hours in the am and then returned to bed. Hypoactive Bowel tones present but little drainage and no flatus evident in ileostomy bag (25 cc of SS fluid) Using DIESEL RETROFIT INSTALLER when reminded to when transferring but otherwise basal rate seems to be effective for pain control. Pt alert and oriented. TPN to continue.
--- NOTE | 2017-11-26 18:06 | PM.PNPO.1 ---
Subjective Date Patient Seen: 11/26/17 Time Patient Seen: 18:00 Interval history: Patient feels very well. His pain is well controlled on continuous low-dose LOGGING RAFTER LABORER. Said no ostomy output. He says his breathing is okay. He says he feels much better than he did the last time he had an operation. Exam Vital Signs (past 8 hours): - 11/26/17 12:00 11/26/17 16:21 Temperature 97.6 F 97.9 F Pulse Rate 78 78 Respiratory Rate 14 18 Blood Pressure 114/47 L 121/59 L Pulse Oximetry 96 98 Oxygen Delivery Method Room Air Oxygen Flow Rate 0 Narrative Exam Narrative: Operative no apparent distress. Moving air fairly well. His lungs are clear. Heart regular rate and rhythm. He does have a murmur about a 2 to 3/6 systolic murmur heard well at the left sternal border. His abdomen is distended but soft. Dressing is intact. I did not remove it. His ostomy is is a little discolored but clearly viable. Urine output has been adequate. Objective Labs Result Diagrams: 11/25/17 04:40 11/26/17 11:45 Labs: Laboratory Results - last 24 hr 11/26/17 11:45 Sodium 136 L Potassium 3.5 Chloride 101 Carbon Dioxide 33 H BUN 19 Creatinine 0.70 Estimated GFR > 60.0 BUN/Creatinine Ratio 27.1 H Glucose 134 H Calcium 7.6 L Total Bilirubin 0.5 AST 13 L ALT 24 Alkaline Phosphatase 32 L Total Protein 4.5 L Albumin 2.3 L Globulin 2.2 Albumin/Globulin Ratio 1.0 Assessment & Plan Post-op Postoperative Procedures Operation Date: 11/24/17 10:00 Actual Procedures Side Surgeon p small bowel resection with illeostomy and lysis of adhesions, central line placement Judith Moreno MD Postoperative day: 2 Postoperative status narrative: Patient is doing very well. Expected him to be in much more discomfort than he is. He had a lot of questions that I really could not answer beginning with his pathology report. I did explain to him that he was very ill at the time of his operation with I also mentioned to him the effect of radiation on his intestine. Await pathology report. I will back off on his IV fluid. Continue his TPN and increase the rate. Added more insulin to the bag. Time Spent With Patient less than 15 minutes Quality VTE Deep Vein Thrombosis/Pulmonary Embolism Present on Admission: No
[2017-11-26] MEDS: AA 5 %/CALCIUM/LYTES/DEXT 20 % 1,500 ML with MULTIVITAMIN 10 ML, TRACE ELEMENTS 1 ML, P... 62.958 ML IV (18:12)
[2017-11-26] MEDS: FAT EMULSIONS 50 GM/250 ML EMULSION IV (18:13)
[2017-11-26] MEDS: LACTATED RINGERS 1,000 ML 80 ML IV (20:19)
[2017-11-27] VITALS (10 sets, daily range): BP systolic 110–136; BP diastolic 49–61; PULSE 70–77; RESP 16–20; TEMP 36.3–36.9; O2SAT 93–97; BMI 27.8
[2017-11-27] MEDS: PIPERACILLIN-TAZO 3.375 GM/50 ML FROZ.PIGGY IV ×4 (03:35→21:14)
[2017-11-27] MEDS: metroNIDAZOLE 500 MG/100 ML PIGGYBACK 100 MG IV ×4 (04:38→22:34)
[2017-11-27] MEDS: HYDROMORPHONE PCA 6 MG/30 ML PCA.VIAL 2.5 MG IV ×3 (05:56→21:16)
[2017-11-27] MEDS: INSULIN ASPART 100 UNIT/ML INSULN PEN SUBCUT ×2 (05:59→12:05)
[2017-11-27] MEDS: PANTOPRAZOLE 40 MG VIAL IV (08:01)
[2017-11-27] MEDS: ENOXAPARIN 40 MG/0.4 ML SYRINGE SUBCUT (08:02)
[2017-11-27] MEDS: LACTATED RINGERS 1,000 ML 80 ML IV (12:04)
--- NOTE | 2017-11-27 14:18 | CM.DPC ---
Addendum entered by Kayla Bragg LPN 11/27/17 14:47: Would anticipate that PT/OT would be involved when appropriate to help define functional abilities and recommend d/c dispo setting from a therapy standpoint. Original Note: DCP: continued: case received, EMR reviewed. Pt progressing slowly, is on TPN. NG to suction still in place. Met with pt's and son in room while pt slept in bedside chair. Both confirmed that Dr. Moreno has been in earlier and that the pathologies from the surgery should be known tomorrow. (Dr. Moreno's noted not currently available.). Ostomy care: Did confirm with RN Keyonna that the appliance was on but no output since no input and she was unaware if an ostomy nurse was involved yet for teach/appliance specifics. Discussed this with family. Pt's said that ostomy specialist, Kimberly who works with the [facility] team in clinic was involved when pt had a prior surgery with ostomy (eventually ending in a surgical take-down) but that pt did not wish to have her involved again. She said Dr. Moreno was aware of same. DCPlanning team to followup on the HH issues. Need: Agency identified/family has choice list. Referral. HH orders. Face/Face completed. Need to make sure HH agency can accept [employer]. Pt has had HH in past but cannot remember which agency. At this point pt would seem several days out from d/c. Will look to Dr. Moreno for direction and DCP team will continue to follow to assist with d/c issues and options.
[2017-11-27] MEDS: AA 5 %/CALCIUM/LYTES/DEXT 20 % 1,500 ML with MULTIVITAMIN 10 ML, TRACE ELEMENTS 1 ML, P... 63.375 ML IV (18:13)
[2017-11-28] VITALS (12 sets, daily range): BP systolic 112–142; BP diastolic 49–78; PULSE 69–79; RESP 17–18; TEMP 36.3–36.9; O2SAT 96–99
[2017-11-28] MEDS: PIPERACILLIN-TAZO 3.375 GM/50 ML FROZ.PIGGY IV ×4 (03:45→21:34)
[2017-11-28] MEDS: metroNIDAZOLE 500 MG/100 ML PIGGYBACK 100 MG IV ×3 (05:03→17:30)
[2017-11-28] MEDS: HYDROMORPHONE PCA 6 MG/30 ML PCA.VIAL 2.5 MG IV ×3 (05:04→21:39)
[2017-11-28] MEDS: INSULIN ASPART 100 UNIT/ML INSULN PEN SUBCUT (06:13)
[2017-11-28] MEDS: LACTATED RINGERS 1,000 ML 80 ML IV (06:30)
--- NOTE | 2017-11-28 08:27 | PM.PN.1 ---
Subjective Date Patient Seen: 11/27/17 Time Patient Seen: 13:27 Interval history: Barry is in good spirits today. He has lots of questions about how ?serious? this situation with his pathology is. He says his pain is well controlled. All in all, he reports he feels pretty well. Exam Vital Signs (past 8 hours): - 11/28/17 00:35 11/28/17 04:05 Temperature 97.9 F 97.8 F Pulse Rate 72 71 Respiratory Rate 17 17 Blood Pressure 138/66 132/68 Pulse Oximetry 97 98 Oxygen Delivery Method Room Air Oxygen Flow Rate 0 Narrative Exam Narrative: Lungs are clear bilaterally Abdomen is soft, appropriately tender to palpation. Midline incision is clean with shadow drainage. Ostomy is dusky but viable. Minimal serous output. Extremities are warm with trace edema Objective Labs Result Diagrams: 11/25/17 04:40 11/26/17 11:45 Assessment & Plan Plan: Assessment/Plan Narrative: 1. Renew TPN 2. Check labs in the a.m. 3. Continue NG decompression Quality VTE Deep Vein Thrombosis/Pulmonary Embolism Present on Admission: No
[2017-11-28] MEDS: PANTOPRAZOLE 40 MG VIAL IV (09:13)
[2017-11-28] MEDS: ENOXAPARIN 40 MG/0.4 ML SYRINGE SUBCUT (09:13)
[2017-11-28 09:44] LABS: Alanine Aminotransferase 21 IU/L (21-72); Albumin 2.3 g/dL (3.5-5.0); Alkaline Phosphatase 35 U/L (38-126); Aspartate Aminotransferase 12 IU/L (17-59); BUN Creatinine Ratio 21.7 (6-22); Bilirubin Total 0.4 mg/dL (0.2-1.3); Blood Urea Nitrogen 13 mg/dL (9-20); Calcium 7.7 mg/dL (8.4-10.2); Carbon Dioxide 33 mmol/L (22-32); Chloride 98 mmol/L (98-107); Estimated Glomerular Filt Rate > 60.0 mL/min (>60); Globulin 2.2 g/dL (1.7-4.1); Glucose 120 mg/dL (80-110); HEMOLYSIS < 15 (0-50); Sodium 133 mmol/L (137-145); Total Protein 4.5 g/dL (6.3-8.2)
[2017-11-28 10:37] LABS: Add Manual Diff / Slide Review NO; Basophils Percent Auto 0.5 % (0-2); Eosinophils Percent Auto 3.8 % (2-4); Hematocrit 25.1 % (41-53); Hemoglobin 8.8 g/dL (13.5-17.5); Lymphocytes Percent Auto 7.1 % (25-40); Mean Corpuscular HGB Conc 35.1 % (30-36); Mean Corpuscular Hemoglobin 32.1 PG (26-34); Mean Corpuscular Volume 91.3 fL (80-100); Monocytes Percent Auto 10.9 % (3-14); Neutrophils Absolute Auto 4100 /uL (3000-5900); Neutrophils Percent Auto 77.7 % (50-75); Platelet Count 152 X10^3/uL (150-400); Red Blood Cell Count 2.75 X10^6/uL (4.5-5.9); Red Cell Distribution Width 13.3 % (11.6-14.8); White Blood Cell Count 5.2 X10^3/uL (4.5-11.0)
--- NOTE | 2017-11-28 10:52 | CM.DPC ---
DCP Cont: Checked in with patient, alert and oriented. Has re-emphasized that he does want home health for nursing. Surgeon had seen patient today. Is continuing on TPN at this time. Patient is also to work with ostomy nurse before discharge as well. P: DCP to continue to assess. Will need face to face signed before patient is discharged. Helga Penaloza RN/Personal Development Coach
--- NOTE | 2017-11-28 12:55 | CM.DPC ---
Addendum entered by Helga Penaloza R.N. 11/28/17 15:32: Spoke to Alexus at [facility], they do accept his insurance. Original Note: DCP Cont: Called and spoke to Alexus at [facility] to inquire if they take patient's insurance, which is [employer]. Alexus is requesting that we fax a face sheet for her to review and will let us know. Went ahead and faxed face sheet to her. P: DCP to continue to assess. Patient is not concerned about which home health agency he uses, as long as he gets nursing to come in and help with ostomy supplies. Will await response from Alexus regarding insurance. Helga Penaloza RN/Smoking Tobacco Cutter Operator
--- NOTE | 2017-11-28 17:13 | PM.PN.1 ---
Subjective Date Patient Seen: 11/28/17 Time Patient Seen: 17:13 Interval history: Postop day 4 after laparotomy with extensive lysis of adhesions, small-bowel resection, and ileostomy. Barry is in good spirits today. He reports his pain is controlled as usual. His Anne Marie is at his bedside and reports that he slept most of the day. She admits that he says he has not been able to sleep at night so she is grateful he has been sleeping in the day. Both ask about pathology. Pathology report is not available yet. Exam Vital Signs (past 8 hours): - 11/28/17 12:53 11/28/17 15:54 Temperature 98.5 F 97.4 F L Pulse Rate 69 70 Respiratory Rate 18 18 Blood Pressure 112/49 L 121/60 Pulse Oximetry 97 99 Oxygen Delivery Method Room Air Oxygen Flow Rate 0 Narrative Exam Narrative: Lungs: Clear bilaterally Heart: Regular rate and rhythm Abdomen: Soft, distended, very few bowel sounds. Minimal stool in the ostomy. Ostomy mucosa is dark but the ostomy itself is viable. Midline wound is clean. Packing is removed with significant drainage of serous fluid. Dressing is replaced with dry gauze after cleansing of the wound with Betadine. Extremities: Warm and well perfused Objective Labs Result Diagrams: 11/28/17 08:45 11/28/17 08:45 Labs: Laboratory Results - last 24 hr 11/28/17 11/28/17 08:45 08:45 WBC 5.2 RBC 2.75 L Hgb 8.8 L Hct 25.1 L MCV 91.3 MCH 32.1 MCHC 35.1 RDW 13.3 Plt Count 152 Neut % (Auto) 77.7 H Lymph % (Auto) 7.1 L [place] % (Auto) 10.9 Eos % (Auto) 3.8 Baso % (Auto) 0.5 Neut # (Auto) 4100 Sodium 133 L Potassium 4.0 Chloride 98 Carbon Dioxide 33 H BUN 13 Creatinine 0.60 L Estimated GFR > 60.0 BUN/Creatinine Ratio 21.7 Glucose 120 H Calcium 7.7 L Total Bilirubin 0.4 AST 12 L ALT 21 Alkaline Phosphatase 35 L Total Protein 4.5 L Albumin 2.3 L Globulin 2.2 Albumin/Globulin Ratio 1.0 Assessment & Plan Plan: Assessment/Plan Narrative: Cole continues to make progress. Bowel function is slow to return in this is not unexpected. TPN has been renewed. Continue antibiotics. Quality VTE Deep Vein Thrombosis/Pulmonary Embolism Present on Admission: No
[2017-11-28] MEDS: FAT EMULSIONS 50 GM/250 ML EMULSION IV (18:27)
[2017-11-28] MEDS: AA 5 %/CALCIUM/LYTES/DEXT 20 % 1,500 ML with MULTIVITAMIN 10 ML, TRACE ELEMENTS 1 ML, P... 63.375 ML IV (18:28)
--- NOTE | 2017-11-28 23:51 | PC.NURSE ---
Called Dr. Moreno to report patients NGT had fallen out. Okay to leave NGT out this shift, and she will be in to see patient in the morning.
[2017-11-29] MEDS: metroNIDAZOLE 500 MG/100 ML PIGGYBACK 100 MG IV ×5 (00:04→22:53)
--- NOTE | 2017-11-29 03:55 | PC.NURSE ---
NGT fell out. Received order to leave out overnight.
[2017-11-29] MEDS: PIPERACILLIN-TAZO 3.375 GM/50 ML FROZ.PIGGY IV ×4 (04:23→22:11)
[2017-11-29 05:30] VITALS: BP 112/52; PULSE 62; RESP 16; TEMP 36.5; O2SAT 98
[2017-11-29] MEDS: HYDROMORPHONE PCA 6 MG/30 ML PCA.VIAL 2.5 MG IV ×3 (06:27→22:13)
[2017-11-29] MEDS: INSULIN ASPART 100 UNIT/ML INSULN PEN SUBCUT ×2 (06:33→14:06)
--- NOTE | 2017-11-29 06:45 | PC.NURSE ---
LINUX SECURITY ADMINISTRATOR use this shift was 5.1mg.
[2017-11-29 09:00] VITALS: BP 115/56; PULSE 67; RESP 18; TEMP 36.6; O2SAT 99
[2017-11-29] MEDS: ENOXAPARIN 40 MG/0.4 ML SYRINGE SUBCUT (09:24)
[2017-11-29] MEDS: PANTOPRAZOLE 40 MG VIAL IV (09:25)
[2017-11-29 09:29] LABS: Magnesium 1.9 mg/dL (1.6-2.3); Phosphorous 3.1 mg/dL (2.3-3.7)
--- NOTE | 2017-11-29 11:53 | CM.DPC ---
DCP Cont: Spoke to . Let her know that the plan when patient is stable to return home with home health. She stated to leave [id number] form in chart. Placed in red chart, and asked about physical therapy as well. P: DCP to continue to assess. Patient's preference is to return home with home health. Have already confirmed with Alexus from [facility], they will accept his insurance. Will need to go home with some ostomy supplies so [facility] will be able to order. Helga Penaloza RN/Director Of Strategic Alliances
[2017-11-29 12:43] VITALS: BP 126/57; PULSE 62; RESP 18; TEMP 36.7; O2SAT 97
[2017-11-29 15:54] VITALS: BP 128/63; PULSE 65; RESP 20; TEMP 36.6; O2SAT 98
[2017-11-29] MEDS: AA 5 %/CALCIUM/LYTES/DEXT 20 % 1,500 ML with MULTIVITAMIN 10 ML, TRACE ELEMENTS 1 ML, P... 63.375 ML IV (18:25)
[2017-11-29 19:35] VITALS: BP 147/77; PULSE 76; RESP 20; TEMP 36.8; O2SAT 100
--- NOTE | 2017-11-29 20:52 | PC.NURSE ---
SHIFT NOTE Received pt sitting up in chair. A&Ox3, pleasant and cooperative. midline abdominal dressing CDI, bilateral CRYSTAL drains and ileostomy CDI. per pt report, Dr. Moreno came in during the evening and told him the preliminary pathology results. c/o minimal pain with dilaudid COMMAND POST SUPERINTENDENT. when transferring back to bed, pt reported feeling as though he could feel his stomach content about to come up, sensation subsided when HOB raised and pt denies any further sensation of nausea. pt currently resting on and off. call light within reach.
--- NOTE | 2017-11-29 21:11 | PM.PN.1 ---
Subjective Date Patient Seen: 11/29/17 Time Patient Seen: 16:11 Interval history: Barry is in good spirits this afternoon and sitting talking with his family. He reports he has minimal pain. He wants to know when he can go home. Concerned about his scrotal swelling. Asks again about pathology results. Denies nausea. Exam Vital Signs (past 8 hours): - 11/29/17 15:54 11/29/17 19:35 Temperature 97.9 F 98.3 F Pulse Rate 65 76 Respiratory Rate 20 20 Blood Pressure 128/63 147/77 H Pulse Oximetry 98 100 Oxygen Delivery Method Room Air Oxygen Flow Rate 0 Narrative Exam Narrative: Abdomen is soft with hypoactive bowel sounds. Ostomy is dusky but viable. Minimal bile tinged output. Wound is draining serous fluid through the widely spaced nylon sutures. Packing is removed. Objective Labs Result Diagrams: 11/28/17 08:45 11/28/17 08:45 Labs: Laboratory Results - last 24 hr 11/29/17 09:00 Phosphorus 3.1 Magnesium 1.9 Assessment & Plan Plan: Assessment/Plan Narrative: 1. Small-bowel obstruction. Ostomy is viable but he has minimal output and no evidence of true bowel function returned yet. TPN has been renewed. Electrolytes are all within acceptable limits. 2. Pathology-I have a verbal report from the pathologist only. 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 It will take another 48-72 hours to do further stains on the specimen. We have talked about various scenarios of available treatments. He wants to think about this tonight and will write down his questions so that we can discuss them on Sunday when I return. 3. Cole continues to have significant edema. I have decreased his IV fluid rate to a total of about 85 cc including TPN. Continued patient's and watchful waiting until edema improved some bowel function returns. 4. Cole his family both know that I will be out of town this weekend. My very capable partner, Dr. Isaac, we will see him in the interim. Quality VTE Deep Vein Thrombosis/Pulmonary Embolism Present on Admission: No
[2017-11-29] MEDS: ONDANSETRON 4 MG/2 ML INJ IV (22:13)
[2017-11-29 23:57] VITALS: BP 123/48; PULSE 63; RESP 16; TEMP 36.5; O2SAT 98
[2017-11-30] VITALS (8 sets, daily range): BP systolic 107–137; BP diastolic 49–73; PULSE 57–69; RESP 12–18; TEMP 36.3–36.9; O2SAT 93–98
[2017-11-30] MEDS: ONDANSETRON 4 MG/2 ML INJ IV (04:21)
[2017-11-30] MEDS: PIPERACILLIN-TAZO 3.375 GM/50 ML FROZ.PIGGY IV ×4 (04:21→21:36)
[2017-11-30] MEDS: metroNIDAZOLE 500 MG/100 ML PIGGYBACK 100 MG IV ×4 (05:07→22:21)
[2017-11-30] MEDS: INSULIN ASPART 100 UNIT/ML INSULN PEN SUBCUT ×3 (06:04→18:11)
[2017-11-30] MEDS: HYDROMORPHONE PCA 6 MG/30 ML PCA.VIAL 2.5 MG IV ×3 (06:09→22:24)
[2017-11-30] MEDS: PANTOPRAZOLE 40 MG VIAL IV (09:33)
[2017-11-30] MEDS: ENOXAPARIN 40 MG/0.4 ML SYRINGE SUBCUT (09:33)
[2017-11-30] MEDS: LACTATED RINGERS 1,000 ML 25 ML IV (14:42)
[2017-11-30] MEDS: FAT EMULSIONS 50 GM/250 ML EMULSION IV (18:19)
[2017-11-30] MEDS: AA 5 %/CALCIUM/LYTES/DEXT 20 % 1,500 ML with MULTIVITAMIN 10 ML, TRACE ELEMENTS 1 ML, P... 63.375 ML IV (18:19)
--- NOTE | 2017-11-30 18:49 | PM.PN.1 ---
Subjective Date Patient Seen: 11/30/17 Time Patient Seen: 17:29 Interval history: Denies any significant pain. No nausea or vomiting. Remains NPO except ice chips however. 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 He is not ambulating much as he feels somewhat weak. However, he has not worked with physical therapy since admission. Denies subjective fever or chills. Exam Vital Signs (past 8 hours): - 11/30/17 11:45 11/30/17 16:02 Temperature 97.6 F 98.1 F Pulse Rate 57 L 64 Respiratory Rate 12 18 Blood Pressure 137/57 L 107/54 L Pulse Oximetry 97 97 Oxygen Delivery Method Room Air Oxygen Flow Rate 0 Narrative Exam Narrative: Elderly male sitting comfortably in bedside chair in no acute distress. Alert oriented x3 and family are at the bedside during my entire visit Remains afebrile and hemodynamically stable with no tachycardia Urine output is adequate. Urine is clear in the Perez bag. Ileostomy is pink and viable with air in the pouch along with liquid effluent. Abdomen is soft and minimally distended. He is appropriately tender with no guarding or rebound. Midline incision is clean, dry, and intact without erythema or ecchymosis. No drainage. Extremities show no clubbing or cyanosis Objective Labs Result Diagrams: 11/28/17 08:45 11/28/17 08:45 Labs: No recent laboratory radiographic studies review Assessment & Plan Plan: Assessment/Plan Narrative: 82-year-old male slowly improving after laparotomy for malignant bowel obstruction requiring ileostomy. Final pathology is still pending. Patient is having return of bowel function somewhat slowly which is not unanticipated after the nature of his disease and operation required. Continue TPN. Repeat laboratory studies tomorrow. Consult physical therapy for ambulation and mobility. He may leave the incision open to air if he wishes in shower. Continue the drains although the output is quite minimal and serous only on examination. If he continues to have ileostomy output and we will advance him to liquid diet tomorrow. All questions were answered to his satisfaction, and he voiced understanding. Orders were written. Quality VTE Deep Vein Thrombosis/Pulmonary Embolism Present on Admission: No
[2017-12-01] VITALS (8 sets, daily range): BP systolic 103–128; BP diastolic 50–61; PULSE 61–70; RESP 16–20; TEMP 36.3–37.1; O2SAT 95–99
[2017-12-01] MEDS: PIPERACILLIN-TAZO 3.375 GM/50 ML FROZ.PIGGY IV ×4 (03:50→21:51)
[2017-12-01] MEDS: metroNIDAZOLE 500 MG/100 ML PIGGYBACK 100 MG IV ×4 (05:52→22:33)
[2017-12-01] MEDS: HYDROMORPHONE PCA 6 MG/30 ML PCA.VIAL 2.5 MG IV ×3 (05:53→21:53)
[2017-12-01] MEDS: INSULIN ASPART 100 UNIT/ML INSULN PEN SUBCUT ×3 (05:53→18:36)
[2017-12-01 05:57] LABS: BUN Creatinine Ratio 23.3 (6-22); Blood Urea Nitrogen 14 mg/dL (9-20); Calcium 8.3 mg/dL (8.4-10.2); Carbon Dioxide 30 mmol/L (22-32); Chloride 100 mmol/L (98-107); Estimated Glomerular Filt Rate > 60.0 mL/min (>60); Glucose 131 mg/dL (80-110); HEMOLYSIS < 15 (0-50); Potassium 4.3 mmol/L (3.4-5.1); Sodium 135 mmol/L (137-145)
[2017-12-01 05:59] LABS: Hematocrit 27.9 % (41-53); Hemoglobin 9.8 g/dL (13.5-17.5); Mean Corpuscular HGB Conc 35.1 % (30-36); Mean Corpuscular Hemoglobin 31.9 PG (26-34); Mean Corpuscular Volume 90.8 fL (80-100); Platelet Count 225 X10^3/uL (150-400); Red Blood Cell Count 3.07 X10^6/uL (4.5-5.9); Red Cell Distribution Width 13.5 % (11.6-14.8); White Blood Cell Count 5.4 X10^3/uL (4.5-11.0)
[2017-12-01 06:02] LABS: Add Manual Diff / Slide Review YES
[2017-12-01 06:24] LABS: Neutrophils Absolute Manual 4374 /uL (3000-5900); Total Cells Counted 100
[2017-12-01 06:25] LABS: RBC Morphology Normal Morphology
--- NOTE | 2017-12-01 06:45 | PC.NURSE ---
Pt is a very pleasant 82M who is AxOx4, vital signs stable. Abdominal incision is JILL, well approximated, clean, scant oozing drainage. Perez patent draining clear yellow urine Two CRYSTAL drains with negligible serosanguinous draingage. Ileostomy with good output of 250mL of dark greenish/black stool. Triple lumen IJ is clean, dry, intact, with IVF infusing including TPN. FS checked q6h and within normal ranges. No complaints of pain. Dilaudid RAW HIDE TRIMMER amount for shift was 3.6mL No nausea/emesis NPO except ice chips. Doing well with incentive spirometer use, does it on his own without needing encouragement. Able to reach 2,000. B/L SCDs on
[2017-12-01] MEDS: PANTOPRAZOLE 40 MG VIAL IV (09:33)
[2017-12-01] MEDS: ENOXAPARIN 40 MG/0.4 ML SYRINGE SUBCUT (09:33)
--- NOTE | 2017-12-01 12:11 | PC.NURSE ---
Addendum entered by Blanca Olson R.N. 12/01/17 15:00: pt tried beef broth, approx 50mls and stated feeling nauseated and couldn't stand the smell, ice water left at bedside for now. Other clear liquid diet options reviewed and pt declined at this time. Original Note: Day shift-Pt OOB to shower, 2PA, using walker, walks slowly. Ileostomy leaking at left side under wafer. After shower. Old ostomy pouch removed, area cleansed, stoma moist and red, surrounding skin intact. 45mm 2 piece ostomy pouch and wafer applied, pt tolerated well. Midline incision cleaned with NS flushes and gauze, incision draining at mid point sero-sang drainage. Abd pad loosely secured with paper tape. Pt tolerated well.
--- NOTE | 2017-12-01 12:26 | PM.PN.1 ---
Subjective Date Patient Seen: 12/01/17 Time Patient Seen: 11:31 Interval history: Denies nausea or vomiting. Otherwise had a relatively uneventful night. No subjective fever or chills. He is not particularly hungry at the moment. Continues to feel mildly distended throughout the abdomen. Also feeling somewhat weak and requires 2 person assistance to get out of bed. He is in good spirits otherwise and has no new complaints. No chest pain or shortness of breath. Pain is well controlled. Exam Vital Signs (past 8 hours): - 12/01/17 06:00 12/01/17 07:40 12/01/17 08:02 Temperature 98.8 F 98.0 F Pulse Rate 67 70 Respiratory Rate 16 20 Blood Pressure 115/52 L 103/51 L Pulse Oximetry 96 95 96 12/01/17 12:01 Temperature 97.8 F Pulse Rate 68 Respiratory Rate 18 Blood Pressure 127/61 Pulse Oximetry 99 Oxygen Delivery Method Room Air Oxygen Flow Rate 0 Narrative Exam Narrative: Elderly male lying comfortably in bed in no acute distress. Alert oriented x3. is at the bedside for my entire visit. Sclera nonicteric Chest clear to auscultation bilaterally with regular rate and rhythm. No crackles or wheezes. Abdomen is mildly distended and tympanitic. Bowel sounds are quiet. He is otherwise soft and appropriately tender. No guarding or rebound. Wound is clean, dry, and intact. Sutures remain in place. No purulent drainage. No erythema or ecchymoses. Ileostomy is pink and viable with some bilious effluent in the appliance. Appliance was recently changed this morning following his shower. Total output has been approximately 125 cc since yesterday. Extremities show no clubbing or cyanosis Objective Labs Result Diagrams: 12/01/17 05:30 12/01/17 05:30 Labs: Laboratory Results - last 24 hr 12/01/17 12/01/17 05:30 05:30 WBC 5.4 RBC 3.07 L Hgb 9.8 L Hct 27.9 L MCV 90.8 MCH 31.9 MCHC 35.1 RDW 13.5 Plt Count 225 Neut % (Auto) Not Reportable Lymph % (Auto) Not Reportable [place] % (Auto) Not Reportable Eos % (Auto) Not Reportable Baso % (Auto) Not Reportable Total Counted 100 Seg Neutrophils % 73.0 H Band Neutrophils % 8.0 H Lymphocytes % (Manual) 8.0 L Monocytes % (Manual) 4.0 Eosinophils % (Manual) 4.0 Basophils % (Manual) 1.0 Metamyelocytes % 2.0 H Neutrophils # (Manual) 4374 RBC Morphology Normal morphology Sodium 135 L Potassium 4.3 Chloride 100 Carbon Dioxide 30 BUN 14 Creatinine 0.60 L Estimated GFR > 60.0 BUN/Creatinine Ratio 23.3 H Glucose 131 H Calcium 8.3 L Magnesium 2.0 Assessment & Plan Plan: Assessment/Plan Narrative: 82-year-old male who remains stable following laparotomy and bowel resection for malignant obstruction requiring ileostomy. He continues to have postoperative ileus as anticipated following the required operation as well as his underlying pathology. Final pathology regarding the malignancy is still pending. Patient is aware of such. I will allow him some clear liquids by mouth today but will not advance his diet until such time he begins to have more vigorous ileostomy output and flatus in the appliance. Continue to be out of bed with the physical therapist and nursing staff. Continue TPN with no significant changes currently. Electrolytes are unremarkable. Continue Perez catheter per patient request. We discussed the risks and benefits of indwelling Perez catheter, but at this time the benefit outweighs the risk given his lack of mobility and baseline urinary incontinence which may lead to skin breakdown. Patient had questions regarding timing of ileostomy reversal. I explained that I could not answer his questions since it is unclear what further treatment he may or may not require and whether he would be a good candidate for ostomy reversal in the setting of a recurrent tumor. He voiced understanding. His also was in agreement with that assessment. Case was discussed with the attending nurse today. Orders were written. Quality VTE Deep Vein Thrombosis/Pulmonary Embolism Present on Admission: No
--- NOTE | 2017-12-01 15:00 | PT.IIE ---
Current Diagnoses Partial intestinal obstruction, unspecified as to cause (11/22/17) Surgery Performed Operation Date: 11/24/17 10:00 Actual Procedures p small bowel resection with illeostomy and lysis of adhesions, central line placement - Judith Moreno MD Surgical History (Last Reviewed 11/22/17 @ 18:25 by Judith Moreno MD) History of colon resection (Acute) Medical History (Last Reviewed 11/22/17 @ 18:25 by Judith Moreno MD) C. difficile colitis (Acute) Colon cancer (Acute) Physical Therapy Inpatient Evaluation/Re-Eval M1 PT/OT-IP Prior Functional Status Start: 12/01/17 15:43 Freq: Status: Active Protocol: Document 12/01/17 15:00 [facility] (Rec: 12/01/17 16:06 [facility] [id number]) Medical Review Prior Functional Status Medical History Reviewed Yes Communication WNL Mobility and Gait indep. community ambulation without device Activities of Daily Living and IADL's indep. 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 Social History Household Members spouse Living Arrangements House Number of Floors (Floors) Two Floors Number of Stairs To Enter/Railing? 3 SE R ascending bar to hold on to, stairs inside but does not need to use them Home Environment Standard Height Toilet Walk in Shower Built-In Shower Seat Additional Social History Comment unable to physically assist the pt. M2 PT-IP Current Condition Start: 12/01/17 15:43 Freq: Status: Active Protocol: Document 12/01/17 15:00 [facility] (Rec: 12/01/17 16:06 [facility] [id number]) Physical Therapy Current Condition Current Condition Evaluation Date 12/01/17 Treatment Diagnosis SBO s/p laparotomy, small bowel resection, ileostomy 11/24, dec. mobility Precautions Abdominal Surgery Precautions Log Roll Lifting Restrictions Gait Belt above Incisional Area Weight Bearing Status Weight Bearing Status Weight Bear as Tolerated M3 PT-IP Subjective Start: 12/01/17 15:43 Freq: Status: Active Protocol: Document 12/01/17 15:00 [facility] (Rec: 12/01/17 16:06 [facility] [id number]) Subjective Physical Therapy Visit Type Type Initial Evaluation Visit Start Time 14:30 Visit Stop Time 15:00 Total Visit Minutes 30 Number of MATRIX WORKER Visits 0 Physical Therapy Visit Comments Patient Comments pt notes that his goal is to go home Short Term Goals go home upon d/c. Therapy Pain Assessment Location Abdomen Intensity 2 Scale Used Numeric (1 - 10) M4 PT-IP Mobility and Gait Start: 12/01/17 15:43 Freq: Status: Active Protocol: Document 12/01/17 15:00 [facility] (Rec: 12/01/17 16:06 [facility] [id number]) PT-Bed Mobility Assessment Rolling Type of Rolling Log Rolling Roll to Right Level of Assist Minimal Assistance 1 Person Assistance Supine to Sit Supine to Sit Minimal Assistance 1 Person Assistance Bedrails Scooting Scooting to Edge of Bed Contact Guard Assistance PT-Transfer Assessment Sit to and From Stand Sit to and from Stand Contact Guard Assistance Equipment Transfer Assistive Device Gait Belt Front Wheeled Walker Transfers Transfer Destination Chair Transfer Technique Stand Step Pivot Transfer Ability Level of Assist Standby Assistance Gait Assessment Gait Gait Assistance Required: Standby Assistance Distance (Feet) (feet) 75 Assistive Devices Assistive Device Gait Belt Front Wheeled Walker Gait Deviations General Gait Pattern Decreased Stride Length Decreased Feet Clearance Factors Limiting Gait Function Factors Limiting Gait Function Decreased Activity Tolerance Decreased Strength Pain Poor Balance Comments Gait Comments standing rest break x1 min @ 35 ft. PT-Balance Assessment Sitting Balance and Reactions Static Sitting Balance Ability Good Dynamic Sitting Balance Ability Good Standing Balance and Reactions Static Standing Balance Ability Good Dynamic Standing Balance Ability Fair Device Used FWW M5 PT-IP Objective Assessments Start: 12/01/17 15:43 Freq: Status: Active Protocol: Document 12/01/17 15:00 [facility] (Rec: 12/01/17 16:06 [facility] [id number]) Orientation Orientation/Cognition Level of Alertness Alert Orientation Name Age Birthday Month Date Year Day of Week Place Situation Strength Comments Strength Comments not tested with MMT due to surgery, at least 3/5 for major LE muscle groups Coordination Assessment Gross Coordination Gross Coordination WNL Muscle Tone Muscle Tone WNL Yes Other Assessments Other Other Assessments mild swelling BLEs M6 PT-IP Treatment Start: 12/01/17 15:43 Freq: Status: Active Protocol: Document 12/01/17 15:00 [facility] (Rec: 12/01/17 16:06 [facility] [id number]) Physical Therapy Treatment Education Education Provided Precautions Safety M7 PT-IP Assessment and Plan Start: 12/01/17 15:43 Freq: Status: Active Protocol: Document 12/01/17 15:00 [facility] (Rec: 12/01/17 16:06 [facility] [id number]) PT Summary Assessment and Plan Potential Rehabilitation Potential Excellent Status of Condition at Evaluation Evolving Summary Impairments Pain Strength Balance Bed Mobility Transfers Gait Activity Tolerance Assessment Summary POD #7 laparotomy, small bowel resection, and ileostomy with potential malignant tumor. Unknown lab results as of this date. Pt able to ambulate 75 ft, with standing rest break in-between. He does require manual assistance and cuing to get safely out of bed, and would benefit from further log roll training. Pt at this time will need to achieve the listed goals in order to return home, but expect pt to continue to progress if pain and medical issues are under control. Goals Bed Mobility Goal Standby Assistance Transfer Goal Standby Assistance Gait Goal Standby Assistance Front Wheel Walker Gait Distance 150 Other Goals up/down 3 steps with R ascending rail and CGA Days to Meet Goals 4 Frequency of Treatment Frequency Of Treatment Twice a Day Treatment Plan Physical Therapy Treatment Plan Bed Mobility Training Transfer Training Gait Training Therapeutic Exercise Discharge Planning Neuromuscular Re-ed Recommendations To Nursing Amount of Assist Needed 1 Person Assist Discharge Recommendations PT Discharge Recommendations Home with 16/10 Assist Home Health
[2017-12-01] MEDS: AA 5 %/CALCIUM/LYTES/DEXT 20 % 1,500 ML with MULTIVITAMIN 10 ML, TRACE ELEMENTS 1 ML, P... 63.5 ML IV (18:36)
--- NOTE | 2017-12-01 23:25 | PC.NURSE ---
SHIFT NOTE per family, pt supposed to walk in hallways BID. pt reluctant to take second walk in hallways with staff, states he's too tired tonight and will try again tomorrow.
[2017-12-02] VITALS (9 sets, daily range): BP systolic 115–154; BP diastolic 51–74; PULSE 59–78; RESP 16–20; TEMP 36.3–36.8; O2SAT 96–100
[2017-12-02] MEDS: PIPERACILLIN-TAZO 3.375 GM/50 ML FROZ.PIGGY IV ×4 (03:52→22:02)
[2017-12-02] MEDS: metroNIDAZOLE 500 MG/100 ML PIGGYBACK 100 MG IV ×4 (05:45→22:56)
[2017-12-02] MEDS: HYDROMORPHONE PCA 6 MG/30 ML PCA.VIAL 2.5 MG IV ×3 (05:47→22:05)
[2017-12-02] MEDS: INSULIN ASPART 100 UNIT/ML INSULN PEN SUBCUT ×2 (05:48→11:57)
[2017-12-02] MEDS: PANTOPRAZOLE 40 MG VIAL IV (09:35)
[2017-12-02] MEDS: ENOXAPARIN 40 MG/0.4 ML SYRINGE SUBCUT (09:35)
--- NOTE | 2017-12-02 13:53 | PC.NURSE ---
Day Shift- Multiple offers of clear liquid items to pt, pt only wanted water, then agreed to try jello around 1215, pt still working slowly on jello. Very mild nausea ambulating to chair/halls, settles once in resting position. OOB to chair for approx 3hrs and ambulated in halls with PT. Back to bed around 1215, asleep from [id number]. Pt had multiple visitors this AM. Ileostomy appliance has small amount of flatus present in bag, liquid stool dark green/black in color. Midline dressing CDI with small amount of sero-sang drainage along bottom of ostomy appliance, area cleansed and dry gauze applied. Pt reports 0-2/10 dull aching across abd. High fall risk precautions in place.
--- NOTE | 2017-12-02 14:02 | PT.IPTN ---
Current Diagnoses Partial intestinal obstruction, unspecified as to cause (11/22/17) Surgery Performed Operation Date: 11/24/17 10:00 Actual Procedures p small bowel resection with illeostomy and lysis of adhesions, central line placement - Judith Moreno MD Physical Therapy Treatment Note M2 PT-IP Current Condition Start: 12/01/17 15:43 Freq: Status: Active Protocol: Document 12/01/17 15:00 [facility] (Rec: 12/01/17 16:06 [facility] [id number]) Physical Therapy Current Condition Current Condition Evaluation Date 12/01/17 Treatment Diagnosis SBO s/p laparotomy, small bowel resection, ileostomy 11/24, dec. mobility Precautions Abdominal Surgery Precautions Log Roll Lifting Restrictions Gait Belt above Incisional Area Weight Bearing Status Weight Bearing Status Weight Bear as Tolerated M3 PT-IP Subjective Start: 12/01/17 15:43 Freq: Status: Active Protocol: Document 12/02/17 11:45 [facility] (Rec: 12/02/17 14:02 [facility] [id number]) Subjective Physical Therapy Visit Type Type Treatment Note Visit Start Time 11:45 Visit Stop Time 12:05 Total Visit Minutes 20 Number of PSYCHOLOGICAL STRESS EVALUATOR Visits 1 Physical Therapy Visit Comments Patient Comments pt agreeable to do therapy. M4 PT-IP Mobility and Gait Start: 12/01/17 15:43 Freq: Status: Active Protocol: Document 12/02/17 11:45 [facility] (Rec: 12/02/17 14:02 [facility] [id number]) PT-Bed Mobility Assessment Sit to Supine Sit to Supine Minimal Assistance Scooting Scooting Up and Down in Bed Standby Assistance PT-Transfer Assessment Sit to and From Stand Sit to and from Stand Contact Guard Assistance Transfers Transfer Destination Bed Transfer Ability Level of Assist Standby Assistance Gait Assessment Gait Gait Assistance Required: Standby Assistance Distance (Feet) (feet) 120 Assistive Devices Assistive Device Gait Belt Front Wheeled Walker Gait Deviations General Gait Pattern Decreased Stride Length Decreased Feet Clearance Factors Limiting Gait Function Factors Limiting Gait Function Decreased Activity Tolerance Decreased Strength Pain Poor Balance Comments Gait Comments standing rest break x3 during ambulation. PT-Balance Assessment Sitting Balance and Reactions Static Sitting Balance Ability Good Dynamic Sitting Balance Ability Good Standing Balance and Reactions Static Standing Balance Ability Good Dynamic Standing Balance Ability Fair Device Used FWW M5 PT-IP Objective Assessments Start: 12/01/17 15:43 Freq: Status: Active Protocol: Document 12/01/17 15:00 [facility] (Rec: 12/01/17 16:06 [facility] [id number]) Orientation Orientation/Cognition Level of Alertness Alert Orientation Name Age Birthday Month Date Year Day of Week Place Situation Strength Comments Strength Comments not tested with MMT due to surgery, at least 3/5 for major LE muscle groups Coordination Assessment Gross Coordination Gross Coordination WNL Muscle Tone Muscle Tone WNL Yes Other Assessments Other Other Assessments mild swelling BLEs M6 PT-IP Treatment Start: 12/01/17 15:43 Freq: Status: Active Protocol: Document 12/01/17 15:00 [facility] (Rec: 12/01/17 16:06 [facility] [id number]) Physical Therapy Treatment Education Education Provided Precautions Safety M7 PT-IP Assessment and Plan Start: 12/01/17 15:43 Freq: Status: Active Protocol: Document 12/02/17 11:45 [facility] (Rec: 12/02/17 14:02 [facility] [id number]) PT Summary Assessment and Plan Potential Rehabilitation Potential Excellent Status of Condition at Evaluation Evolving Summary Impairments Pain Strength Balance Bed Mobility Transfers Gait Activity Tolerance Assessment Summary Pt increased ambulation in vazquez with step to gait pattern and steady pace. Pt required three rest breaks during gait. Pt needed Min A with BLE into bed. Pt has good walker use and safety awareness during ambulation. Goals Bed Mobility Goal Standby Assistance Transfer Goal Standby Assistance Gait Goal Standby Assistance Front Wheel Walker Gait Distance 150 Other Goals up/down 3 steps with R ascending rail and CGA Days to Meet Goals 4 Frequency of Treatment Frequency Of Treatment Twice a Day Treatment Plan Physical Therapy Treatment Plan Bed Mobility Training Transfer Training Gait Training Therapeutic Exercise Discharge Planning Neuromuscular Re-ed Recommendations To Nursing Amount of Assist Needed 1 Person Assist Discharge Recommendations PT Discharge Recommendations Home with 16/10 Assist Home Health
--- NOTE | 2017-12-02 15:37 | CM.DPC ---
DCP: continued: Met with pt and his in followup to d/c plan after EMR review. Pt notes Dr. Isaac was here earlier (his progress note is not yet available). Pt is working on his jello. Says food is finally starting to taste ok to him. Says that he knows that he will be starting on some typy of chemo. The surgeons have told him more should be known by Monday 12/04. Pt is working with PT and doing well. OT order is obtained to help in the overall functional assessment/d/c planning process. Pt looks relaxed and comfortable. He and his say they are preparing to enjoy a major horse race and will watch it on the IPAD since they cannot be present. Pt does say he thinks the surgeons are keeping him for several more days and he does continue to plan for home support and Danita LARA. Face/Face is still unsigned...is in Red Folder chart. [facility] to update Danita LARA tomorrow/Sunday 12/03 via fax so they are aware that the referral is still active. notes they will appreciate having an RN checking in and overseeing the ostomy management but both confirm they feel very comfortable with this part of his care needs. We've done it before. P: home when stable for same with Danita LARA RN....DCP team will be following.
--- NOTE | 2017-12-02 16:25 | PT.IPTN ---
Current Diagnoses Partial intestinal obstruction, unspecified as to cause (11/22/17) Surgery Performed Operation Date: 11/24/17 10:00 Actual Procedures p small bowel resection with illeostomy and lysis of adhesions, central line placement - Judith Moreno MD Physical Therapy Treatment Note M2 PT-IP Current Condition Start: 12/01/17 15:43 Freq: Status: Active Protocol: Document 12/01/17 15:00 [facility] (Rec: 12/01/17 16:06 [facility] [id number]) Physical Therapy Current Condition Current Condition Evaluation Date 12/01/17 Treatment Diagnosis SBO s/p laparotomy, small bowel resection, ileostomy 11/24, dec. mobility Precautions Abdominal Surgery Precautions Log Roll Lifting Restrictions Gait Belt above Incisional Area Weight Bearing Status Weight Bearing Status Weight Bear as Tolerated M3 PT-IP Subjective Start: 12/01/17 15:43 Freq: Status: Active Protocol: Document 12/02/17 14:36 [facility] (Rec: 12/02/17 16:25 [facility] [id number]) Subjective Physical Therapy Visit Type Type Patient Refusal Notes Pt refused stating he will walk with nursing after his horse race @ 4:00.
--- NOTE | 2017-12-02 16:37 | PM.PN.1 ---
Subjective Date Patient Seen: 12/02/17 Time Patient Seen: 13:31 Interval history: Feeling rather fatigued today. Fell asleep earlier this afternoon for a nap after a short ambulation in the hallway. Denies significant pain. No nausea or vomiting but he does feel subjectively distended with no real appetite. He tolerated few bites of Jell-O and clear liquids only. Perez catheter remains in place at his request. Denies fever or chills. He is awaiting results of a horse race later this afternoon in which 1 of his deeougbro[employer] horses will participate. Exam Vital Signs (past 8 hours): - 12/02/17 11:40 12/02/17 15:45 Temperature 97.7 F 98.2 F Pulse Rate 71 78 Respiratory Rate 18 18 Blood Pressure 115/53 L 154/74 H Pulse Oximetry 96 100 Oxygen Delivery Method Room Air Oxygen Flow Rate 0 Narrative Exam Narrative: Elderly male lying comfortably in bed in no acute distress. Alert oriented x3 but he does appear somewhat tired today. Subdued overall. is at the bedside along with a family friend. Patient seen and examined with the attending nurse today. Chest clear to auscultation bilaterally with regular rate and rhythm. Good cough effort. Abdomen remains distended and tympanitic. Few hypoactive bowel sounds. Wound is clean, dry, and intact with minimal serous drainage between sutures. No purulent drainage. No erythema or ecchymoses. Ileostomy appliance is in place collecting liquid bilious fluid only. No significant flatus. Total output from the ostomy is approximately 125 cc. Ostomy is otherwise pink and viable. He is appropriately tender to palpation without guarding or rebound. 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 His prolonged postoperative ileus is not unanticipated given the nature of his disease and required operation. We will continue TPN for nutritional support. Continue clear liquids only for now until such time he begins to have increased bowel function. Will continue the Perez catheter at his request although his mobility is slowly improving with physical therapy. Wound care and ileostomy care discussed with patient and family along with the attending nurse. He may shower as he wishes. All questions were answered to his satisfaction, and he voiced understanding. Orders were written. Quality VTE Deep Vein Thrombosis/Pulmonary Embolism Present on Admission: No
[2017-12-02] MEDS: AA 5 %/CALCIUM/LYTES/DEXT 20 % 1,500 ML with MULTIVITAMIN 10 ML, TRACE ELEMENTS 1 ML, P... 63.5 ML IV (18:14)
[2017-12-02] MEDS: LACTATED RINGERS 1,000 ML 25 ML IV (18:39)
[2017-12-03] VITALS (7 sets, daily range): BP systolic 119–141; BP diastolic 55–65; PULSE 62–69; RESP 16–18; TEMP 36.3–36.7; O2SAT 97–98
[2017-12-03] MEDS: PIPERACILLIN-TAZO 3.375 GM/50 ML FROZ.PIGGY IV ×4 (03:56→21:55)
[2017-12-03] MEDS: metroNIDAZOLE 500 MG/100 ML PIGGYBACK 100 MG IV ×4 (04:57→23:02)
[2017-12-03] MEDS: HYDROMORPHONE PCA 6 MG/30 ML PCA.VIAL 2.5 MG IV ×3 (06:20→18:25)
[2017-12-03] MEDS: INSULIN ASPART 100 UNIT/ML INSULN PEN SUBCUT ×2 (06:26→12:25)
[2017-12-03] MEDS: PANTOPRAZOLE 40 MG VIAL IV (08:42)
[2017-12-03] MEDS: ENOXAPARIN 40 MG/0.4 ML SYRINGE SUBCUT (08:42)
--- NOTE | 2017-12-03 09:19 | PT.IPTN ---
Current Diagnoses Partial intestinal obstruction, unspecified as to cause (11/22/17) Surgery Performed Operation Date: 11/24/17 10:00 Actual Procedures p small bowel resection with illeostomy and lysis of adhesions, central line placement - Judith Moreno MD Physical Therapy Treatment Note M2 PT-IP Current Condition Start: 12/01/17 15:43 Freq: Status: Active Protocol: Document 12/01/17 15:00 RCC (Rec: 12/01/17 16:06 [facility] [id number]) Physical Therapy Current Condition Current Condition Evaluation Date 12/01/17 Treatment Diagnosis SBO s/p laparotomy, small bowel resection, ileostomy 11/24, dec. mobility Precautions Abdominal Surgery Precautions Log Roll Lifting Restrictions Gait Belt above Incisional Area Weight Bearing Status Weight Bearing Status Weight Bear as Tolerated M3 PT-IP Subjective Start: 12/01/17 15:43 Freq: Status: Active Protocol: Document 12/03/17 09:17 LJ (Rec: 12/03/17 09:19 LJ [id number]) Subjective Physical Therapy Visit Type Type Patient Refusal Notes Pt had just walked in the hallway with [employer] and had an appointment with his accountant property very soon. Stated he will do PT later today. M4 PT-IP Mobility and Gait Start: 12/01/17 15:43 Freq: Status: Active Protocol:
--- NOTE | 2017-12-03 16:00 | OT.IP.EVAL ---
Current Diagnoses Partial intestinal obstruction, unspecified as to cause (11/22/17) Surgery Performed Operation Date: 11/24/17 10:00 Actual Procedures p small bowel resection with illeostomy and lysis of adhesions, central line placement - Judith Moreno MD Past Medical History (Last Reviewed 11/22/17 @ 18:25 by Judith Moreno MD) C. difficile colitis (Acute) Colon cancer (Acute) Surgical History (Last Reviewed 11/22/17 @ 18:25 by Judith Moreno MD) History of colon resection (Acute) Occupational Therapy Inpatient Evaluation/Re-Eval M1 PT/OT-IP Prior Functional Status Start: 12/01/17 15:43 Freq: Status: Active Protocol: Document 12/03/17 16:00 PJM (Rec: 12/03/17 17:45 PJ [id number]) Medical Review Prior Functional Status Medical History Reviewed Yes Diet/Fluid Consistency Regular Communication WNL Mobility and Gait indep. community ambulation without device Activities of Daily Living and IADL's indep. 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 Social History Household Members spouse Living Arrangements House Number of Floors (Floors) Two Floors Number of Stairs To Enter/Railing? 3 SE R ascending bar to hold on to, stairs inside but does not need to use them Home Environment Standard Height Toilet Walk in Shower Built-In Shower Seat Employment Status Retired Additional Social History Comment unable to physically assist the pt due to Parkinson's disease M2 OT-IP Current Condition Start: 12/03/17 17:26 Freq: Status: Active Protocol: Document 12/03/17 16:00 PJM (Rec: 12/03/17 17:45 PJ [id number]) Occupational Therapy Current Condition Current Condition Evaluation Date 12/03/17 Treatment Diagnosis decreased self care,mobility s /p laparatomy 11/24/17 w/SB resection,ileostomy, recurrent colon CA w/chemo pending Diagnosis Onset Date 11/22/17 Post Operative Precautions Abdominal Surgery Precautions Log Roll Lifting Restrictions Gait Belt above Incisional Area Other Precautions 5# lifting restriction per pt Weight Bearing Status Weight Bearing Status Weight Bear as Tolerated M3 OT- IP Subjective and Pain Start: 12/03/17 17:26 Freq: Status: Active Protocol: Document 12/03/17 16:00 PJM (Rec: 12/03/17 17:45 [facility] [id number]) OT- Subjective Occupational Therapy Visit Type Type Initial Evaluation Visit Start Time 15:25 Visit Stop Time 16:00 Total Visit Minutes 35 Notes her this session for education. Occupational Therapy Visit Comments Patient Comments I did better last time I had this kind of surgery. I am weaker this time. 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 M4 OT- IP ADL's Start: 12/03/17 17:26 Freq: Status: Active Protocol: Document 12/03/17 16:00 PJM (Rec: 12/03/17 17:45 [facility] [id number]) OT [id number] General Evaluation Diet Level for Self-Feeding clear liquids Self-Feeding Ability Independent OT ADL-Grooming General Evaluation Grooming Ability Standby Assistance Areas Needing Assistance Retrieving/Set-up of Grooming Items Combing/Brushing Hair Face Washing Comments OT Grooming Comments seated in chair OT ADL-Oral Care General Eval Oral Care Ability Standby Assistance Areas of Assistance Brushing Teeth Retrieving/Set-Up of Items Comments Oral Care Comments seated in chair OT ADL-Dressing General Eval Upper Body Dressing Ability Minimal Assistance Lower Body Dressing Ability Maximum Assistance Areas Needing Assistance Retrieving/Set-up of Clothing Pants/Shorts Socks Shoes Support Stockings Comments OT Dressing Comments Pt normally wears compression hose. to bring them in. Began education re: use of epitaxial reactor operator, sock aid. long shoe horn for lower body dressing as pt cannot reach feet due to abdominal incision and decreased flexibility. OT ADL-Toileting General Evaluation Toileting Ability Total Assistance Areas Needing Assistance Empty Catheter or Colostomy Comments OT Toileting Comments pt has santiago and new ileostomy ; had previous ileostomy 1 yr ago that had been reversed OT ADL-Bathing Comments OT Bathing Comments to be assessed as activity tolerance improves M5 OT- IP IADL's Start: 12/03/17 17:26 Freq: Status: Active Protocol: Document 12/03/17 16:00 PJM (Rec: 12/03/17 17:45 [facility] [id number]) OT-Instrumental Activities of Daily Living Deficits IADL Deficits Identified Deficits Home Safety Awareness Awareness of Need for Assistance at Home Good Awareness Ability to Problem Solve Emergency Able to Problem Solve Situations Medication Management Medication Management No Deficits Identified Money Management Money Management No Deficits Identified Meal Preparation Meal Preparation Caregiver Provides Assist Meal Preparation Comments assists, daughter lives nearby Shook Machine Operator Shook Machine Operator Caregiver Provides Assist Shook Machine Operator Comments assists, daughter lives nearby Driving Driving Caregiver Provides Assist Driving Comments to assist until pt able M6 OT- IP Functional Cognition Start: 12/03/17 17:26 Freq: Status: Active Protocol: Document 12/03/17 16:00 PJM (Rec: 12/03/17 17:45 [facility] [id number]) Cognitive Factors Limiting Selfcare Function Cognitive Ability Level of Alertness Alert Patient Orientation Name Age Birthday Month Date Year Day of Week Place Situation Attention Span Ability Capable of Focused Attention Capable of Sustained Attention Ability to Follow Commands Able to Follow One Step Commands Memory Description No Deficits Noted Safety Awareness No Deficits Noted Problem Solving Ability No deficits Noted Executive Function Ability No Deficits Noted Cognitive Comments Cognitive Assessment Comments Functional cognition appears WNL this session. OT- Vision and Hearing OT- Hearing Assessment OT- Hearing Assessment WFL OT- Vision Assessment Visual Acuity WFL Vision Assessment Comments Pt denies any recent vision changes M7 OT- IP Mobility and Balance Start: 12/03/17 17:26 Freq: Status: Active Protocol: Document 12/03/17 16:00 PJM (Rec: 12/03/17 17:45 [facility] [id number]) OT-Transfer Assessment Comments Mobility Comments Pt seen in chair this session. See P.T. notes. Pt plans to use his 's shower stall which has grab bars and non- skid mat. Began education re: shower chair options and resources. OT- Gait Assessment Comments Gait Ability Comments Pt seen in chair this session. See P.T. notes. OT- Balance Assessment Sitting Balance and Reactions Static Sitting Balance Ability Normal M8 OT- IP Objective Assessments Start: 12/03/17 17:26 Freq: Status: Active Protocol: Document 12/03/17 16:00 PJM (Rec: 12/03/17 17:45 [facility] [id number]) OT Gross Range of Motion Upper Extremity Range of Motion Assessment Within Functional Limits OT Strength Upper Extremity Strength Assessment Within Functional Limits OT- Coordination Assessment Comments Coordination Comments BUE WFL OT-Muscle Tone Assessment Muscle Tone WNL Yes OT Sensation Assessment Comments Summary Comments Pt denies deficits in BUE's Edema Edema Present Edema Comments BLE edema noted; pt reports more than usual M9 OT- IP Assessment and Plan Start: 12/03/17 17:26 Freq: Status: Active Protocol: Document 12/03/17 16:00 PJM (Rec: 12/03/17 17:45 PJM [id number]) OT Summary Assessment and Plan Potential Rehabilitation Potential Good Analytic Complexity at Evaluation Low Summary OT Impairments Pain Grooming Dressing Toileting Bathing Toilet Transfers Shower Transfers Assessment Summary Low complexity OT assessement completed. Pt presents with performance deficits in all functional mobility/transfers, activity tolerance, standing grooming, dressing, bathing and managing ileosotomy, Pt still has santiago in place. Pt is motivated to go home and would like home health RN/PT/ OT services if he continues to progress here. Note cannot provide physical assistance due to her own health issues, but can assist with information management officer and driving. Per , multiple other supportive family members live nearby. Goals Grooming Goal Independent Dressing Goal Independent Long Handled Shoe Horn Ethnology Teacher Sock Aid Toileting Goal Standby Assistance Bathing Goal Minimal Assistance Toilet Transfer Goal Independent Raised Toilet Seat Shower Transfer Goal Standby Assistance Walk-in Shower Shower Chair Grab Bars Patient/Caregiver Education Goal Demonstrate Post-Op Precautions Demonstrate Energy Conservation and Pacing Caregiver Independent Assisting Patient OT-Other Goals Grooming to be done standing at sink. Days to Meet Goals 3 Frequency of Treatment Frequency Of Treatment Once a Day Treatment Plan OT Treatment Plan ADL Training Functional Mobility Patient/Family Education Discharge Planning Discharge Recommendations OT Discharge Recommendations Home with / Assist Home Health Home Equipment Needs shower seat, epitaxial reactor operator, wide sock aid, long shoe horn, ? raised toilet seat
[2017-12-03] MEDS: diphenhydrAMINE 50 MG/ML VIAL 25 MG IV (17:47)
[2017-12-03] MEDS: LACTATED RINGERS 1,000 ML 25 ML IV (17:59)
[2017-12-03] MEDS: AA 5 %/CALCIUM/LYTES/DEXT 20 % 1,500 ML with MULTIVITAMIN 10 ML, TRACE ELEMENTS 1 ML, P... 63.5 ML IV (18:09)
--- NOTE | 2017-12-03 18:15 | PM.PNPO.1 ---
Subjective Date Patient Seen: 12/03/17 Time Patient Seen: 18:15 Interval history: Patient had an episode right-sided tremor and confusion immediately after injection of Benadryl. All of his symptoms have abated. He has no real pain and usually does not use his COMMUNITY LEADER. He has been having chronic itching. Exam Vital Signs (past 8 hours): - 12/03/17 15:29 Temperature 97.4 F L Pulse Rate 65 Respiratory Rate 18 Blood Pressure 125/65 Pulse Oximetry 98 Oxygen Delivery Method Room Air Oxygen Flow Rate 0 Narrative Exam Narrative: No apparent distress. Lungs are clear. Heart regular rate and rhythm without murmur gallop. Abdomen is protuberant soft. Ostomy is viable. Succus in the bag small amount. Midline is intact. No cellulitis. Alert and oriented x3. No lateralizing signs. Objective Labs Result Diagrams: 12/01/17 05:30 12/01/17 05:30 Assessment & Plan Post-op Postoperative Procedures Operation Date: 11/24/17 10:00 Actual Procedures Side Surgeon p small bowel resection with illeostomy and lysis of adhesions, central line placement Judith Moreno MD Postoperative status narrative: Not much ostomy output. Will not advance diet. Will stop his COMMUNITY LEADER as itching may be from that. I will also stop his Benadryl as he may be having a reaction to it similar to extraforaminal effects. We will continues TPN. New bag hanging. Encourage p.o. intake. Quality VTE Deep Vein Thrombosis/Pulmonary Embolism Present on Admission: No
--- NOTE | 2017-12-03 18:19 | P.PN_ITS ---
Subjective Date Patient Seen: 12/03/17 Time Patient Seen: 18:15 Interval history: Patient had an episode right-sided tremor and confusion immediately after injection of Benadryl. All of his symptoms have abated. He has no real pain and usually does not use his OPERATIONAL TRAINER. He has been having chronic itching. Exam Vital Signs (past 8 hours): - 12/03/17 15:29 Temperature 97.4 F L Pulse Rate 65 Respiratory Rate 18 Blood Pressure 125/65 Pulse Oximetry 98 Oxygen Delivery Method Room Air Oxygen Flow Rate 0 Narrative Exam Narrative: No apparent distress. Lungs are clear. Heart regular rate and rhythm without murmur gallop. Abdomen is protuberant soft. Ostomy is viable. Succus in the bag small amount. Midline is intact. No cellulitis. Alert and oriented x3. No lateralizing signs. Objective Labs Result Diagrams: 12/01/17 05:30 12/01/17 05:30 Assessment & Plan Post-op Postoperative Procedures Operation Date: 11/24/17 10:00 Actual Procedures Side Surgeon p small bowel resection with illeostomy and lysis of adhesions, central line placement Judith Moreno MD Postoperative status narrative: Not much ostomy output. Will not advance diet. Will stop his OPERATIONAL TRAINER as itching may be from that. I will also stop his Benadryl as he may be having a reaction to it similar to extraforaminal effects. We will continues TPN. New bag hanging. Encourage p.o. intake. Quality VTE Deep Vein Thrombosis/Pulmonary Embolism Present on Admission: No
[2017-12-03] MEDS: OXYCODONE IR 5 MG TABLET PO ×2 (19:44→23:52)
--- NOTE | 2017-12-03 20:28 | PC.NURSE ---
Addendum entered by Sanjuana Shultz R.N. 12/03/17 22:06: dressing changed to midline incision. greenish.yellow drainage to top and bottom of incision. new abd pad placed, paper tape secured. will continue to monitor. Original Note: Assumed care of pt from outgoing shift at 1500. Pt awake and alert. sitting in chair with multiple family members in room. pt stated he has had a very busy day. Pt uses call light. also come out of room asking for staff assistance. new tubing started and new TPN initiated for pt. will continue to monitor. 1746- pt requesting benadryl for the itching. given per May and pt then became very confused. stated well that was quite a trip when asked all orientation questions, pt able to answer correctly. Pt was very worried he was having a tia or some heart issue. some [facility] tasks completed without issue, hr normal. pt stated his hand felt weird and was looking at it almost as if he didnt know what it was, but when asked if he felt ok, if his hand hurt,m if he felt numb anywhere he stated, no, that was just quite a trip, wow. Pt encouraged to drink some water pt was very worried and anxious about this. Pt knew what was happening, pt did not try to get up from chair. will continue to monitor. 1944- oral pain medication given per MAY. and pt stated it helped. pt stated that it doesnt help as much as the other stuff did, but that he was doing OK. Pt uses call light. bed alarm on, side rails upx3. Pt stated at 2014 he wanted to get back in bed - TELEGRAPH OFFICE ROUTE AIDE helped with this. pt uses walker. will continue to monitor pt for safety. Pt uses call light
[2017-12-04] VITALS (9 sets, daily range): BP systolic 133–157; BP diastolic 58–98; PULSE 63–74; RESP 15–20; TEMP 36.2–36.9; O2SAT 95–100
[2017-12-04] MEDS: OXYCODONE IR 5 MG TABLET PO ×5 (03:14→21:30)
[2017-12-04] MEDS: PIPERACILLIN-TAZO 3.375 GM/50 ML FROZ.PIGGY IV ×4 (04:14→21:31)
[2017-12-04] MEDS: metroNIDAZOLE 500 MG/100 ML PIGGYBACK 100 MG IV ×4 (04:46→22:10)
--- NOTE | 2017-12-04 05:07 | PC.NURSE ---
shift superintendent: Pt's pain controlled with 1 tab Oxycodone. Shared with this RN that he wants to talk to his about going home stating I don't want to in the hospital and shares that he knows his body and thinks that he will not recover from this. Illeostomy draining liquid output that appears greenish black. Denies nausea but has no appetite.
[2017-12-04] MEDS: INSULIN ASPART 100 UNIT/ML INSULN PEN SUBCUT ×3 (06:46→18:05)
[2017-12-04] MEDS: PANTOPRAZOLE 40 MG VIAL IV (08:43)
[2017-12-04] MEDS: ENOXAPARIN 40 MG/0.4 ML SYRINGE SUBCUT (08:43)
--- NOTE | 2017-12-04 11:45 | PT.IPTN ---
Current Diagnoses Partial intestinal obstruction, unspecified as to cause (11/22/17) Surgery Performed Operation Date: 11/24/17 10:00 Actual Procedures p small bowel resection with illeostomy and lysis of adhesions, central line placement - Judith Moreno MD Physical Therapy Treatment Note M2 PT-IP Current Condition Start: 12/01/17 15:43 Freq: Status: Active Protocol: Document 12/01/17 15:00 RCC (Rec: 12/01/17 16:06 RCC [id number]) Physical Therapy Current Condition Current Condition Evaluation Date 12/01/17 Treatment Diagnosis SBO s/p laparotomy, small bowel resection, ileostomy 11/24, dec. mobility Precautions Abdominal Surgery Precautions Log Roll Lifting Restrictions Gait Belt above Incisional Area Weight Bearing Status Weight Bearing Status Weight Bear as Tolerated M3 PT-IP Subjective Start: 12/01/17 15:43 Freq: Status: Active Protocol: Document 12/04/17 09:25 CLB (Rec: 12/04/17 11:45 CLB [id number]) Subjective Physical Therapy Visit Type Type Treatment Note Visit Start Time 09:25 Visit Stop Time 09:48 Total Visit Minutes 23 Number of INTERNET MARKETER Visits 2 Physical Therapy Visit Comments Patient Comments pt agreeable to do therapy. M4 PT-IP Mobility and Gait Start: 12/01/17 15:43 Freq: Status: Active Protocol: Document 12/04/17 09:25 CLB (Rec: 12/04/17 11:45 CLB [id number]) PT-Bed Mobility Assessment Supine to Sit Supine to Sit Standby Assistance Scooting Scooting to Edge of Bed Standby Assistance PT-Transfer Assessment Sit to and From Stand Sit to and from Stand Contact Guard Assistance Transfers Transfer Destination Chair Transfer Ability Level of Assist Standby Assistance Gait Assessment Gait Gait Assistance Required: Standby Assistance Distance (Feet) (feet) 120 Assistive Devices Assistive Device Gait Belt Front Wheeled Walker Gait Deviations General Gait Pattern Decreased Stride Length Decreased Feet Clearance Flexed Trunk Factors Limiting Gait Function Factors Limiting Gait Function Decreased Activity Tolerance Decreased Strength Pain Poor Balance Comments Gait Comments pt able to ambulate in vazquez ~ 120ft SBA w/o rest breaks and denied SOB. M5 PT-IP Objective Assessments Start: 12/01/17 15:43 Freq: Status: Active Protocol: Document 12/01/17 15:00 RCC (Rec: 12/01/17 16:06 RCC [id number]) Orientation Orientation/Cognition Level of Alertness Alert Orientation Name Age Birthday Month Date Year Day of Week Place Situation Strength Comments Strength Comments not tested with MMT due to surgery, at least 3/5 for major LE muscle groups Coordination Assessment Gross Coordination Gross Coordination WNL Muscle Tone Muscle Tone WNL Yes Other Assessments Other Other Assessments mild swelling BLEs M6 PT-IP Treatment Start: 12/01/17 15:43 Freq: Status: Active Protocol: Document 12/01/17 15:00 RCC (Rec: 12/01/17 16:06 [facility] [id number]) Physical Therapy Treatment Education Education Provided Precautions Safety M7 PT-IP Assessment and Plan Start: 12/01/17 15:43 Freq: Status: Active Protocol: Document 12/04/17 09:25 CLB (Rec: 12/04/17 11:45 CLB [id number]) PT Summary Assessment and Plan Potential Rehabilitation Potential Excellent Status of Condition at Evaluation Evolving Summary Impairments Pain Strength Balance Bed Mobility Transfers Gait Activity Tolerance Assessment Summary Pt was lightheaded upon initial stand, pt was seated and BP was taken 144/82. Pt stood from chair and lightheadedness had subsided. Pt stated he is feeling better today and was able to ambulate w/o rest breaks. Pt stood from chair and lightheadedness had subsided. Goals Bed Mobility Goal Standby Assistance Transfer Goal Standby Assistance Gait Goal Standby Assistance Front Wheel Walker Gait Distance 150 Other Goals up/down 3 steps with R ascending rail and CGA Days to Meet Goals 4 Frequency of Treatment Frequency Of Treatment Twice a Day Treatment Plan Physical Therapy Treatment Plan Bed Mobility Training Transfer Training Gait Training Therapeutic Exercise Discharge Planning Neuromuscular Re-ed Recommendations To Nursing Amount of Assist Needed 1 Person Assist Discharge Recommendations PT Discharge Recommendations Home with 16/10 Assist Home Health
--- NOTE | 2017-12-04 14:05 | CM.DPC ---
DCP Cont: Patient continues to be on TPN, has midline. Was noted in Dr. Rebollar's note that patient has had a decrease in ostomy output, and will not be advancing diet at this point. Patient also has mid-line. P: DCP to continue to assess. Patient wishes to return home on home health. Will continue to note progress. Helga Penaloza RN/Marketing Instructor
--- NOTE | 2017-12-04 14:10 | OT.IP.TRT ---
Current Diagnoses Partial intestinal obstruction, unspecified as to cause (11/22/17) Surgery Performed Operation Date: 11/24/17 10:00 Actual Procedures p small bowel resection with illeostomy and lysis of adhesions, central line placement - Judith Moreno MD Occupational Therapy Treatment Note M2 OT-IP Current Condition Start: 12/03/17 17:26 Freq: Status: Active Protocol: Document 12/03/17 16:00 PJM (Rec: 12/03/17 17:45 PJ [id number]) Occupational Therapy Current Condition Current Condition Evaluation Date 12/03/17 Treatment Diagnosis decreased self care,mobility s /p laparatomy 11/24/17 w/SB resection,ileostomy Diagnosis Onset Date 11/22/17 Post Operative Precautions Abdominal Surgery Precautions Log Roll Lifting Restrictions Gait Belt above Incisional Area Other Precautions 5# lifting restriction per pt Weight Bearing Status Weight Bearing Status Weight Bear as Tolerated M3 OT- IP Subjective and Pain Start: 12/03/17 17:26 Freq: Status: Active Protocol: Document 12/04/17 14:10 PJM (Rec: 12/04/17 17:40 PJ [id number]) OT- Subjective Occupational Therapy Visit Type Type Treatment Note Visit Start Time 13:28 Visit Stop Time 14:10 Total Visit Minutes 42 Occupational Therapy Visit Comments Patient Comments Per , He was so depressed this morming. He thinks he is going to here and never go home. They are wondering about pt's prognosis and whether hospice should be involved. Patient/Caregiver Goals to go home OT Pain Assessment Pain When Pain Assessed After Treatment Pain Present Pain Present Pain Reported Location Abdomen Intensity 4 Scale Used Numeric (1 - 10) Description Aching Pain Behaviors Guarding Management Techniques Distraction Re-positioning Timing of Activity with Medications M4 OT- IP ADL's Start: 12/03/17 17:26 Freq: Status: Active Protocol: Document 12/04/17 14:10 PJM (Rec: 12/04/17 17:40 PJ [id number]) OT [id number] General Evaluation Self-Feeding Ability Independent Comments OT Self-Feeding Comments poor P.O. intake with pt eating small amounts of jello only for lunch OT ADL-Grooming General Evaluation Grooming Ability Standby Assistance Areas Needing Assistance Combing/Brushing Hair Comments OT Grooming Comments standing at sink with FWW OT ADL-Oral Care General Eval Oral Care Ability Standby Assistance Areas of Assistance Brushing Teeth Devices Oral Care Devices Toothbrush Comments Oral Care Comments standing at sink with FWW OT ADL-Dressing General Eval Lower Body Dressing Ability Moderate Assistance Areas Needing Assistance Socks Assistive Devices Dressing Assistive Devices Sock Aid Comments OT Dressing Comments Worked on donning pt's compression socks from home with wide sock aid. Pt's here for education and can assist pt if she is sitting in chair in front of him. Pt has potential to be modif indep with compression hose with practice. Written resource information for wide sock aid provided to pt's . OT ADL-Toileting General Evaluation Toileting Ability Maximum Assistance Areas Needing Assistance Empty Catheter or Colostomy Comments OT Toileting Comments pt still has santiago and new ileostomy OT ADL-Bathing Bathing Type Bathing Type Shower General Evaluation Bathing Ability Moderate Assistance Devices Bathing Equipment Hand Held Shower Sprayer Shower Chair with Arms Comments OT Bathing Comments per CARD ROOM MANAGER report M7 OT- IP Mobility and Balance Start: 12/03/17 17:26 Freq: Status: Active Protocol: Document 12/04/17 17:27 PJM (Rec: 12/04/17 17:40 PJM [id number]) OT-Transfer Assessment Sit to and From Stand Sit to and from Stand Contact Guard Assistance Transfers Transfer Ability Contact Guard Assistance Technique Transfer Destination Chair Toilet Transfer Technique Stand Step Pivot Devices Transfer Assistive Devices Gait Belt Front Wheeled Walker Comments Mobility Comments high toilet transfer with wall grab bar; recommend BSC over toilet marcie home to increase height and provide armrests OT- Gait Assessment Gait Gait Assistance Required: Contact Guard Assist Distance (Feet) (feet) 35 Assistive Devices Assistive Device Gait Belt Front Wheeled Walker Comments Gait Ability Comments no LOB noted with FWW, moves slowly OT- Balance Assessment Sitting Balance and Reactions Static Sitting Balance Ability Good Dynamic Sitting Balance Ability Good Standing Balance and Reactions Static Standing Balance Ability Good M9 OT- IP Assessment and Plan Start: 12/03/17 17:26 Freq: Status: Active Protocol: Document 12/04/17 17:27 PJM (Rec: 12/04/17 17:40 PJM [id number]) OT Summary Assessment and Plan Summary OT Impairments Pain Strength Balance Functional Mobility Dressing Toileting Bathing Toilet Transfers Shower Transfers Progress Towards Goals Slow Progress due to Medical Issues Assessment Summary Pt/ expressing much concern and grief re: pt's prognosis and pt feeling very depressed per . They have several questions for MD re: prognosis, treatment options. Both pt/ would like pt to discharge home and are open to hospice services if appropriate. Pt is making slow daily progress with mobility and self care and works hard during therapy sessions, but still on TPN with very poor PO intake. unable to provide much physical assist to pt but can do IADLS and they have several family members closeby. Goals Days to Meet Goals 3 Frequency of Treatment Frequency Of Treatment Once a Day Treatment Plan OT Treatment Plan ADL Training Functional Mobility Patient/Family Education Discharge Planning Discharge Recommendations OT Discharge Recommendations Home with 16/10 Assist Home Health OT/PT/bath aide Home Equipment Needs shower seat, semiconductor equipment technician, wide sock aid, long shoe horn, BSC over toilet
--- NOTE | 2017-12-04 16:13 | PT.IPTN ---
Current Diagnoses Partial intestinal obstruction, unspecified as to cause (11/22/17) Surgery Performed Operation Date: 11/24/17 10:00 Actual Procedures p small bowel resection with illeostomy and lysis of adhesions, central line placement - Judith Moreno MD Physical Therapy Treatment Note M2 PT-IP Current Condition Start: 12/01/17 15:43 Freq: Status: Active Protocol: Document 12/01/17 15:00 RCC (Rec: 12/01/17 16:06 RCC [id number]) Physical Therapy Current Condition Current Condition Evaluation Date 12/01/17 Treatment Diagnosis SBO s/p laparotomy, small bowel resection, ileostomy 11/24, dec. mobility Precautions Abdominal Surgery Precautions Log Roll Lifting Restrictions Gait Belt above Incisional Area Weight Bearing Status Weight Bearing Status Weight Bear as Tolerated M3 PT-IP Subjective Start: 12/01/17 15:43 Freq: Status: Active Protocol: Document 12/04/17 16:12 CLB (Rec: 12/04/17 16:13 CLB [id number]) Subjective Physical Therapy Visit Type Type Patient Refusal Notes Pt had just walked with nursing staff.
[2017-12-04] MEDS: AA 5 %/CALCIUM/LYTES/DEXT 20 % 1,500 ML with MULTIVITAMIN 10 ML, TRACE ELEMENTS 1 ML, P... 63.5 ML IV (18:05)
[2017-12-04] MEDS: FAT EMULSIONS 50 GM/250 ML EMULSION IV (18:05)
--- NOTE | 2017-12-04 18:21 | PM.PN.1 ---
Subjective Date Patient Seen: 12/04/17 Time Patient Seen: 18:21 Interval history: Barry has much on his mind today and is worrying a great deal. He tells me he was very depressed this morning and didnt feel he would ever leave the hospital. Worried that he doesnt have much appetite. Denies any pain. Happy the ostomy is working but doesnt appreciate the fact that it makes noise sometimes. Exam Vital Signs (past 8 hours): - 12/04/17 14:38 12/04/17 15:37 12/04/17 15:45 Temperature 98.4 F 97.2 F L Pulse Rate 70 70 Respiratory Rate 15 18 Blood Pressure 145/61 H 135/98 H Pulse Oximetry 100 96 96 Oxygen Delivery Method Room Air Oxygen Flow Rate 0 Narrative Exam Narrative: Lungs: clear bilaterally CV: RRR Abd: soft, active bowel sounds, incision is clean and healing, drains are minimal and serous. Drain sites are both irritated and uncomfortable. I pulled both drains and covered the sites with dry gauze and tape. Perez catheter is still in place. Ext: trace edema Objective Labs Result Diagrams: 12/01/17 05:30 12/01/17 05:30 Assessment & Plan Plan: Assessment/Plan Narrative: 1. Continue TPN tonight. Will plan to drop to half rate tomorrow to help with appetite concerns. 2. Advance to soft mechanical diet. 3. Remove Perez catheter in the AM. 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 4. Check chemistries in the AM. Quality VTE Deep Vein Thrombosis/Pulmonary Embolism Present on Admission: No
--- NOTE | 2017-12-04 22:23 | PC.NURSE ---
assumed care of pt form outgoing shift. belongings and call light within reach. pt out running errands, will continue to monitor. denies needs at this time. complained of pain, given pain pill per MAR. Pt rates pain 2/10 and requests pain pill, explained that the pain scale, and pt states well when he moves it goes to a 4/10. md in to pull drains. pt up and walked with RADIATION CONTROL WORKER. up in chair for majority of shift. got in bed around 8pm. tolerating lipids and TPN well. fluids infusing per order. discussed and educated pt about stool characteristics and ostomy. Pt worried he has c. diff. explained this to pt. Pt ate some ice cream, but doesn't feel like much else. hopefully with new diet order he will have a better appetite. will continue to monitor pt for safety. santiago patent and draining.
[2017-12-05] VITALS (9 sets, daily range): BP systolic 129–146; BP diastolic 52–69; PULSE 59–88; RESP 16–18; TEMP 36.3–37.2; O2SAT 95–99
[2017-12-05] MEDS: PIPERACILLIN-TAZO 3.375 GM/50 ML FROZ.PIGGY IV ×4 (04:14→21:32)
[2017-12-05] MEDS: OXYCODONE IR 5 MG TABLET PO ×4 (04:19→20:42)
[2017-12-05] MEDS: metroNIDAZOLE 500 MG/100 ML PIGGYBACK 100 MG IV ×4 (05:17→23:29)
[2017-12-05] MEDS: INSULIN ASPART 100 UNIT/ML INSULN PEN SUBCUT ×3 (06:03→18:22)
[2017-12-05 06:16] LABS: Add Manual Diff / Slide Review NO; Basophils Percent Auto 0.6 % (0-2); Eosinophils Percent Auto 1.5 % (2-4); Hematocrit 27.7 % (41-53); Hemoglobin 9.8 g/dL (13.5-17.5); Lymphocytes Percent Auto 5.9 % (25-40); Mean Corpuscular HGB Conc 35.4 % (30-36); Mean Corpuscular Hemoglobin 32.1 PG (26-34); Mean Corpuscular Volume 90.6 fL (80-100); Monocytes Percent Auto 9.5 % (3-14); Neutrophils Absolute Auto 6400 /uL (3000-5900); Neutrophils Percent Auto 82.5 % (50-75); Platelet Count 367 X10^3/uL (150-400); Red Blood Cell Count 3.05 X10^6/uL (4.5-5.9); Red Cell Distribution Width 13.8 % (11.6-14.8); White Blood Cell Count 7.7 X10^3/uL (4.5-11.0)
[2017-12-05 06:24] LABS: BUN Creatinine Ratio 18.3 (6-22); Blood Urea Nitrogen 11 mg/dL (9-20); Calcium 8.2 mg/dL (8.4-10.2); Carbon Dioxide 27 mmol/L (22-32); Chloride 105 mmol/L (98-107); Estimated Glomerular Filt Rate > 60.0 mL/min (>60); Glucose 149 mg/dL (80-110); HEMOLYSIS < 15 (0-50); Magnesium 2.1 mg/dL (1.6-2.3); Potassium 3.9 mmol/L (3.4-5.1); Sodium 139 mmol/L (137-145)
[2017-12-05 06:31] LABS: Prealbumin 16.7 mg/dL (17.6-36.0)
[2017-12-05] MEDS: ENOXAPARIN 40 MG/0.4 ML SYRINGE SUBCUT (09:25)
[2017-12-05] MEDS: PANTOPRAZOLE 40 MG VIAL IV (09:25)
--- NOTE | 2017-12-05 11:30 | PT.IPTN ---
Current Diagnoses Partial intestinal obstruction, unspecified as to cause (11/22/17) Surgery Performed Operation Date: 11/24/17 10:00 Actual Procedures p small bowel resection with illeostomy and lysis of adhesions, central line placement - Judith Moreno MD Physical Therapy Treatment Note M2 PT-IP Current Condition Start: 12/01/17 15:43 Freq: Status: Active Protocol: Document 12/01/17 15:00 RCC (Rec: 12/01/17 16:06 RCC [id number]) Physical Therapy Current Condition Current Condition Evaluation Date 12/01/17 Treatment Diagnosis SBO s/p laparotomy, small bowel resection, ileostomy 11/24, dec. mobility Precautions Abdominal Surgery Precautions Log Roll Lifting Restrictions Gait Belt above Incisional Area Weight Bearing Status Weight Bearing Status Weight Bear as Tolerated M3 PT-IP Subjective Start: 12/01/17 15:43 Freq: Status: Active Protocol: Document 12/05/17 11:30 GGD (Rec: 12/05/17 12:47 GGD [id number]) Subjective Physical Therapy Visit Type Type Treatment Note Visit Start Time 11:15 Visit Stop Time 11:30 Total Visit Minutes 15 Number of ORANGE PEEL OPERATOR Visits 3 Physical Therapy Visit Comments Patient Comments Pt willing to walk without assist device. M4 PT-IP Mobility and Gait Start: 12/01/17 15:43 Freq: Status: Active Protocol: Document 12/05/17 11:30 GGD (Rec: 12/05/17 12:47 GGD [id number]) PT-Transfer Assessment Sit to and From Stand Sit to and from Stand Standby Assistance Equipment Transfer Assistive Device Gait Belt Transfers Transfer Destination Chair Transfer Ability Level of Assist Standby Assistance Gait Assessment Gait Gait Assistance Required: Standby Assistance Distance (Feet) (feet) 150 Able to Maintain Weight Bearing Status Yes During Gait Assistive Devices Assistive Device None Gait Belt Gait Deviations General Gait Pattern Antalgic Wide Based Gait Factors Limiting Gait Function Factors Limiting Gait Function Decreased Activity Tolerance Decreased Strength M5 PT-IP Objective Assessments Start: 12/01/17 15:43 Freq: Status: Active Protocol: Document 12/01/17 15:00 RCC (Rec: 12/01/17 16:06 RCC [id number]) Orientation Orientation/Cognition Level of Alertness Alert Orientation Name Age Birthday Month Date Year Day of Week Place Situation Strength Comments Strength Comments not tested with MMT due to surgery, at least 3/5 for major LE muscle groups Coordination Assessment Gross Coordination Gross Coordination WNL Muscle Tone Muscle Tone WNL Yes Other Assessments Other Other Assessments mild swelling BLEs M6 PT-IP Treatment Start: 12/01/17 15:43 Freq: Status: Active Protocol: Document 12/01/17 15:00 RCC (Rec: 12/01/17 16:06 RCC [id number]) Physical Therapy Treatment Education Education Provided Precautions Safety M7 PT-IP Assessment and Plan Start: 12/01/17 15:43 Freq: Status: Active Protocol: Document 12/05/17 11:30 GGD (Rec: 12/05/17 12:47 GGD [id number]) PT Summary Assessment and Plan Summary Assessment Summary Pt improving with gait. He was able to ambulated without LOB without assistive device. He does feel safer with FWW, will get a FWW for home. Frequency of Treatment Frequency Of Treatment Once a Day Treatment Plan Physical Therapy Treatment Plan Bed Mobility Training Transfer Training Gait Training Therapeutic Exercise Discharge Planning Neuromuscular Re-ed Other Recommendations and Next Treatment Stair before D/C Focus Recommendations To Nursing Amount of Assist Needed 1 Person Assist
--- NOTE | 2017-12-05 11:54 | PM.PN.1 ---
Subjective Date Patient Seen: 12/05/17 Time Patient Seen: 11:54 Interval history: Barry is feeling a little more optimistic today. He reports that the ice cream tasted really but he did not like his breakfast. He did eat a little bit of egg but it just did not taste good to him. He tells me now that his appetite is starting to return. He feels like maybe he will be a little bit hungry for lunch. Worried about getting his catheter out. When he had a catheter placed after his prostatectomy, he developed fairly severe urosepsis when the catheter was pulled. He wants to avoid that happening again. He has already walked in the halls once this morning and reports that he did not even need the walker. Exam Vital Signs (past 8 hours): - 12/05/17 06:13 12/05/17 07:30 12/05/17 07:40 Temperature 98.1 F 98.3 F Pulse Rate 65 59 L Respiratory Rate 16 18 Blood Pressure 146/60 H 129/52 L Pulse Oximetry 97 99 98 Oxygen Delivery Method Room Air Oxygen Flow Rate 0 Narrative Exam Narrative: Lungs: Clear bilaterally Heart: Regular rate and rhythm Abdomen: Soft, appropriately tender to palpation, active bowel sounds. Right lower quadrant ostomy is producing green thin fluid consistent with succus. Midline wound is improving daily. No erythema or drainage. Drain sites are clean today. Extremities: Trace edema bilaterally Objective Labs Result Diagrams: 12/05/17 06:02 12/05/17 06:02 Labs: Laboratory Results - last 24 hr 12/05/17 12/05/17 06:02 06:02 WBC 7.7 RBC 3.05 L Hgb 9.8 L Hct 27.7 L MCV 90.6 MCH 32.1 MCHC 35.4 RDW 13.8 Plt Count 367 Neut % (Auto) 82.5 H Lymph % (Auto) 5.9 L [place] % (Auto) 9.5 Eos % (Auto) 1.5 L Baso % (Auto) 0.6 Neut # (Auto) 6400 H Sodium 139 Potassium 3.9 Chloride 105 Carbon Dioxide 27 BUN 11 Creatinine 0.60 L Estimated GFR > 60.0 BUN/Creatinine Ratio 18.3 Glucose 149 H Calcium 8.2 L Phosphorus 3.0 Magnesium 2.1 Prealbumin 16.7 L Assessment & Plan Plan: Assessment/Plan Narrative: Progressing well after complex lysis of adhesions and ileostomy following bowel obstruction secondary to recurrent colon cancer. 1. We will decrease TPN by cycling at between 6:00 p.m. and 6:00 a.m. only once this bag is completed. Hopefully this will stimulate his appetite a bit more 2. Continue Zosyn for 24 hr following Perez removal. The Perez will be removed this morning and the patient is free to shower with help. 3. Plan to stop IV fluids, TPN, and antibiotics all in the morning. If the patient is able to tolerate significant p.o., we will plan to discharge hopefully on Sunday. 4. Home health following discharge to help with ostomy management. Quality VTE Deep Vein Thrombosis/Pulmonary Embolism Present on Admission: No
--- NOTE | 2017-12-05 11:58 | P.PN_ITS ---
Subjective Date Patient Seen: 12/05/17 Time Patient Seen: 11:54 Interval history: Mary Ann is feeling a little more optimistic today. He reports that the ice cream tasted really but he did not like his breakfast. He did eat a little bit of egg but it just did not taste good to him. He tells me now that his appetite is starting to return. He feels like maybe he will be a little bit hungry for lunch. Worried about getting his catheter out. When he had a catheter placed after his prostatectomy, he developed fairly severe urosepsis when the catheter was pulled. He wants to avoid that happening again. He has already walked in the halls once this morning and reports that he did not even need the walker. K Exam Vital Signs (past 8 hours): - 12/05/17 06:13 12/05/17 07:30 12/05/17 07:40 Temperature 98.1 F 98.3 F Pulse Rate 65 59 L Respiratory Rate 16 18 Blood Pressure 146/60 H 129/52 L Pulse Oximetry 97 99 98 Oxygen Delivery Method Room Air Oxygen Flow Rate 0 Narrative Exam Narrative: Lungs: Clear bilaterally Heart: Regular rate and rhythm Abdomen: Soft, appropriately tender to palpation, active bowel sounds. Right lower quadrant ostomy is producing green thin fluid consistent with succus. Midline wound is improving daily. No erythema or drainage. Drain sites are clean today. Extremities: Trace edema bilaterally Objective Labs Result Diagrams: 12/05/17 06:02 12/05/17 06:02 Labs: Laboratory Results - last 24 hr 12/05/17 12/05/17 06:02 06:02 WBC 7.7 RBC 3.05 L Hgb 9.8 L Hct 27.7 L MCV 90.6 MCH 32.1 MCHC 35.4 RDW 13.8 Plt Count 367 Neut % (Auto) 82.5 H Lymph % (Auto) 5.9 L [place] % (Auto) 9.5 Eos % (Auto) 1.5 L Baso % (Auto) 0.6 Neut # (Auto) 6400 H Sodium 139 Potassium 3.9 Chloride 105 Carbon Dioxide 27 BUN 11 Creatinine 0.60 L Estimated GFR > 60.0 BUN/Creatinine Ratio 18.3 Glucose 149 H Calcium 8.2 L Phosphorus 3.0 Magnesium 2.1 Prealbumin 16.7 L Assessment & Plan Plan: Assessment/Plan Narrative: Progressing well after complex lysis of adhesions and ileostomy following bowel obstruction secondary to recurrent colon cancer. 1. We will decrease TPN by cycling at between 6:00 p.m. and 6:00 a.m. only once this bag is completed. Hopefully this will stimulate his appetite a bit more 2. Continue Zosyn for 24 hr following Perez removal. The Perez will be removed this morning and the patient is free to shower with help. 3. Plan to stop IV fluids, TPN, and antibiotics all in the morning. If the patient is able to tolerate significant p.o., we will plan to discharge hopefully on Sunday. 4. Home health following discharge to help with ostomy management. Quality VTE Deep Vein Thrombosis/Pulmonary Embolism Present on Admission: No
--- NOTE | 2017-12-05 14:28 | PC.NURSE ---
Post-op: Pt reports he is feeling better today. Yesterday he said he was down in the dumps. Thought he was going to . He said he talked w/MD for a long time and he felt much better after that. Has been up amb x2 today so far. Has been participating in ostomy care. Has sat in the chair most of the day. Did take out santiago after speaking w/MD. SShe's the doctor, shes the boss. Pt was given a brief to wear as he is highly concerned about inc of urine post prostate procedure. No void yet. Po pain med x2 and effective. Ostomy patent of flatus and stool. Abd distended but soft, feels bloated but says abd is better than what it was. Denies any concerns. Cont w/poc.
--- NOTE | 2017-12-05 15:00 | OT.IP.TRT ---
Current Diagnoses Partial intestinal obstruction, unspecified as to cause (11/22/17) Surgery Performed Operation Date: 11/24/17 10:00 Actual Procedures p small bowel resection with illeostomy and lysis of adhesions, central line placement - Judith Moreno MD Occupational Therapy Treatment Note M2 OT-IP Current Condition Start: 12/03/17 17:26 Freq: Status: Active Protocol: Document 12/03/17 16:00 PJM (Rec: 12/03/17 17:45 PJM [id number]) Occupational Therapy Current Condition Current Condition Evaluation Date 12/03/17 Treatment Diagnosis decreased self care,mobility s /p laparatomy 11/24/17 w/SB resection,ileostomy Diagnosis Onset Date 11/22/17 Post Operative Precautions Abdominal Surgery Precautions Log Roll Lifting Restrictions Gait Belt above Incisional Area Other Precautions 5# lifting restriction per pt Weight Bearing Status Weight Bearing Status Weight Bear as Tolerated M3 OT- IP Subjective and Pain Start: 12/03/17 17:26 Freq: Status: Active Protocol: Document 12/05/17 15:00 PJM (Rec: 12/05/17 16:59 PJM [id number]) OT- Subjective Occupational Therapy Visit Type Type Treatment Note Visit Start Time 14:35 Visit Stop Time 15:00 Total Visit Minutes 25 Notes Pt's son and here for education this session. Occupational Therapy Visit Comments Patient Comments I feel much better today and Dr Can thinks I might go home Sunday. Patient/Caregiver Goals to go home OT Pain Assessment Pain When Pain Assessed After Treatment Pain Present Pain Present Denied Pain M4 OT- IP ADL's Start: 12/03/17 17:26 Freq: Status: Active Protocol: Document 12/05/17 15:00 PJM (Rec: 12/05/17 16:59 PJM [id number]) OT ADL-Grooming General Evaluation Grooming Ability Standby Assistance Areas Needing Assistance Combing/Brushing Hair Face Washing Comments OT Grooming Comments standing at sink 4 min without a device OT ADL-Oral Care General Eval Oral Care Ability Standby Assistance Areas of Assistance Brushing Teeth Devices Oral Care Devices Toothbrush Comments Oral Care Comments standing at sink without a device OT ADL-Dressing General Eval Lower Body Dressing Ability Standby Assistance Areas Needing Assistance Socks Comments OT Dressing Comments I can get my socks on without that sock aid. Pt able to don and doff short socks with no c/o pain today. states she will assist him with compression hose PRN with pt in bed. cannot squat or kneel to assist pt due to her Parkinson's. OT ADL-Toileting Comments OT Toileting Comments Provided further education to pt/family re: need to obtain BSC for use over toilet by Sunday including rental options. They will borrow or rent one. OT ADL-Bathing Comments OT Bathing Comments Provided further education to pt/family re: best options for shower seat for pt. Recommend seat with backrest and armrests. Son states he will assist pt with obtaining one. O M7 OT- IP Mobility and Balance Start: 12/03/17 17:26 Freq: Status: Active Protocol: Document 12/05/17 15:00 PJM (Rec: 12/05/17 16:59 PJM [id number]) OT-Transfer Assessment Sit to and From Stand Sit to and from Stand Standby Assistance Transfers Transfer Ability Standby Assistance Technique Transfer Destination Car Chair Transfer Technique Stand Step Pivot Devices Transfer Assistive Devices None Comments Mobility Comments Provided education re: car transfers and best vehicle for transport. Pt's large SUV is too high. He will use son's lower small SUV for transport. OT- Gait Assessment Gait Gait Assistance Required: Standby Assistance Distance (Feet) (feet) 20 Assistive Devices Assistive Device None Comments Gait Ability Comments Pt wanting to try ambulation to sink without a device and per P.T. notes has done some walking in [place] without FWW. OT- Balance Assessment Sitting Balance and Reactions Static Sitting Balance Ability Good Dynamic Sitting Balance Ability Good Standing Balance and Reactions Static Standing Balance Ability Good Dynamic Standing Balance Ability Fair Comments Other Balance Tests/Deviations/Treatment no device M9 OT- IP Assessment and Plan Start: 12/03/17 17:26 Freq: Status: Active Protocol: Document 12/05/17 15:00 PJM (Rec: 12/05/17 16:59 PJM [id number]) OT Summary Assessment and Plan Potential Rehabilitation Potential Good Summary Progress Towards Goals Progressing Toward Goals Assessment Summary Pt's affect much brighter after discussion re: prognosis and tx plan with Dr Can yesterday evening. He is more motivated to eat today and is making good progress with mobility. He is able to walk short distances in room without FWW with no LOB this session. Pt demonstrating increased independence with lower body dressing. Family to obtain BSC for use over toilet and shower seat with back and arms prior to d/c home, possibly 12/07/17 if pt medically stable an clears P.T . Goals Grooming Goal Independent Dressing Goal Independent Long Handled Shoe Horn Systems Spec Toileting Goal Standby Assistance Bathing Goal Minimal Assistance Toilet Transfer Goal Independent Raised Toilet Seat Shower Transfer Goal Standby Assistance Walk-in Shower Shower Chair Grab Bars Patient/Caregiver Education Goal Demonstrate Post-Op Precautions Demonstrate Energy Conservation and Pacing Caregiver Independent Assisting Patient OT-Other Goals Grooming to be done standing at sink. Days to Meet Goals 2 Frequency of Treatment Frequency Of Treatment Once a Day Treatment Plan OT Treatment Plan ADL Training Functional Mobility Patient/Family Education Discharge Planning Discharge Recommendations OT Discharge Recommendations Home with 16/10 Assist Home Health Home Equipment Needs shower seat, workers compensation legal secretary, long shoe horn, BSC over toilet
--- NOTE | 2017-12-05 16:28 | DIET.PN ---
Diet advanced to soft/low fiber. Ate 25-50% meals today. TPN continued Added Ensure Surgery Shake BID to meals
[2017-12-05] MEDS: LACTATED RINGERS 1,000 ML 25 ML IV (16:54)
[2017-12-05] MEDS: CALCIUM IV (18:21)
[2017-12-05] MEDS: DEXT IV (18:21)
[2017-12-05] MEDS: [UNRECOGNIZED DRUG - OTHER] IV (18:21)
[2017-12-05] MEDS: MULTIVITAMIN IV (18:21)
[2017-12-05] MEDS: LYTES IV (18:21)
[2017-12-05] MEDS: TRACE ELEMENTS IV (18:21)
--- NOTE | 2017-12-05 22:11 | PC.NURSE ---
assumed care of pt form outgoing shift. pt in much better spirits today, states he is looking forward to dinner, belongings and call light within reach.discussed new orders with pt and he complies. TPN started, pt does dribble, up and walked with zinc plating machine operator once and floating rn once, tolerated well. pt uses call light. chair alarm on. has sweatpants on. uses brief. pt back to bed after evening walks with TYRE RETREADER and pt tolerated well. Pt bed alarm on, side rails upx3, belongings and call light within reach. will continue to monitor emptied pt ostomy and some thicker pasty/fluffy/soft, unformed stool now excreting. still passing flatus, emptied and charted, pt cooperated in ostomy care. 1700- pt only ate ice cream for dinner. denied want for anyting else, will continuwe to monitor.
[2017-12-06] VITALS (9 sets, daily range): BP systolic 135–151; BP diastolic 55–74; PULSE 61–74; RESP 16–20; TEMP 36.6–37.2; O2SAT 97–100
[2017-12-06] MEDS: OXYCODONE IR 5 MG TABLET PO ×4 (02:45→18:54)
[2017-12-06] MEDS: PIPERACILLIN-TAZO 3.375 GM/50 ML FROZ.PIGGY IV ×4 (03:42→22:29)
[2017-12-06] MEDS: metroNIDAZOLE 500 MG/100 ML PIGGYBACK 100 MG IV ×3 (04:26→18:30)
[2017-12-06] MEDS: ENOXAPARIN 40 MG/0.4 ML SYRINGE SUBCUT (08:56)
[2017-12-06] MEDS: PANTOPRAZOLE 40 MG VIAL IV (08:56)
--- NOTE | 2017-12-06 11:16 | PT.IPTN ---
Current Diagnoses Partial intestinal obstruction, unspecified as to cause (11/22/17) Surgery Performed Operation Date: 11/24/17 10:00 Actual Procedures p small bowel resection with illeostomy and lysis of adhesions, central line placement - Judith Moreno MD Physical Therapy Treatment Note M2 PT-IP Current Condition Start: 12/01/17 15:43 Freq: Status: Active Protocol: Document 12/01/17 15:00 RCC (Rec: 12/01/17 16:06 RCC [id number]) Physical Therapy Current Condition Current Condition Evaluation Date 12/01/17 Treatment Diagnosis SBO s/p laparotomy, small bowel resection, ileostomy 11/24, dec. mobility Precautions Abdominal Surgery Precautions Log Roll Lifting Restrictions Gait Belt above Incisional Area Weight Bearing Status Weight Bearing Status Weight Bear as Tolerated M3 PT-IP Subjective Start: 12/01/17 15:43 Freq: Status: Active Protocol: Document 12/06/17 10:18 LRN (Rec: 12/06/17 11:12 LRN [id number]) Subjective Physical Therapy Visit Type Type Treatment Note Visit Start Time 10:18 Visit Stop Time 10:43 Total Visit Minutes 25 Number of MARINE EQUIPMENT PRESERVATION INSPECTOR Visits 0 Physical Therapy Visit Comments Patient Comments Pt agreeable to therapy. States he has no pain. Wants to use the walker for safety, I can walk without it but would like to use it while in the hospital. M4 PT-IP Mobility and Gait Start: 12/01/17 15:43 Freq: Status: Active Protocol: Document 12/06/17 10:18 LRN (Rec: 12/06/17 11:12 LRN [id number]) PT-Transfer Assessment Sit to and From Stand Sit to and from Stand Standby Assistance Equipment Transfer Assistive Device None Comments Mobility Comments Pt sitting at start of therapy . He transferred sit to stand independently, but once standing requested use of walker for static standing as a just in case. Pt was left standing at sink with SMALL KICK PRESS OPERATOR present to brush his teeth. SMALL KICK PRESS OPERATOR agrees to return pt to chair and be responsible for proper placement of tray table, call light, phone. Pt spouse present throughout therapy and was present at end of therapy. Gait Assessment Gait Gait Assistance Required: Independent Distance (Feet) 150 Able to Maintain Weight Bearing Status Yes During Gait Assistive Devices Assistive Device Gait Belt Standard Walker Gait Deviations General Gait Pattern Wide Based Gait Factors Limiting Gait Function Factors Limiting Gait Function Decreased Activity Tolerance Decreased Strength Comments Gait Comments Pt ambulated to stairs and back to room. TUG performed in 17 sec's (mean is 13.5 sec' s). Stair Climbing Assessment Evaluation Level of Assist On Stairs Independent Devices Stair Climbing Assistive Devices Right Railing Technique/Endurance Stair Climbing Direction Ascend and Descend Stair Climbing Technique Step Over Step Number of Steps Climbed 4 Query Text: Stair Climbing Set # Repetitions (reps) 2 Comments Stair Climbing Comments Pt is very stable ascending, slow on descent. Pt was safe and independent with one rail. M5 PT-IP Objective Assessments Start: 12/01/17 15:43 Freq: Status: Active Protocol: Document 12/01/17 15:00 RCC (Rec: 12/01/17 16:06 RCC [id number]) Orientation Orientation/Cognition Level of Alertness Alert Orientation Name Age Birthday Month Date Year Day of Week Place Situation Strength Comments Strength Comments not tested with MMT due to surgery, at least 3/5 for major LE muscle groups Coordination Assessment Gross Coordination Gross Coordination WNL Muscle Tone Muscle Tone WNL Yes Other Assessments Other Other Assessments mild swelling BLEs M6 PT-IP Treatment Start: 12/01/17 15:43 Freq: Status: Active Protocol: Document 12/06/17 10:18 LRN (Rec: 12/06/17 11:14 LRN [id number]) Physical Therapy Treatment Other Treatments Other Treatment Performed Pt educated in stair ambulation. TUG test performed. M7 PT-IP Assessment and Plan Start: 12/01/17 15:43 Freq: Status: Active Protocol: Document 12/06/17 10:18 LRN (Rec: 12/06/17 11:12 LRN [id number]) PT Summary Assessment and Plan Summary Impairments Strength Activity Tolerance Assessment Summary Pt is safe for ambulation with walker independently, but due to fear would be safer with SBA of spouse without a walker . Previously he was noted to be able to ambulate without LOB without an assistive device. The pt requires assist to mobilize while in hospital due to IV needs. His TUG test shows he is not yet at norm and is therefore at a mild risk of falling without use of an assistive device. Pt and spouse show good awareness of safety issues with walking without an assistive device. Outpatient physical therapy would be appropriate to help build strength and endurance for greater functional demands once the pt is discharged home. The pt appears safe and independent with mobility using a FWW at this time and is ready to transfer care to nursing to mobilize as needed. No further therapy progression is needed at this time. Nursing is aware. Goals Bed Mobility Goal Standby Assistance Transfer Goal Standby Assistance Gait Goal Standby Assistance Front Wheel Walker Gait Distance 150 Other Goals up/down 3 steps with R ascending rail and CGA Days to Meet Goals 4 Treatment Plan Other Recommendations and Next Treatment Pt to continue to mobilize Focus with nursing as needed with use of walker independently or SBA without assistive device. Recommendations To Nursing Amount of Assist Needed Standby Assistance Discharge Recommendations PT Discharge Recommendations Home with Assistance Other Discharge Recommendations FWW for home. Spouse to assist. Outpt PT to improve general strength and endurance. Pt is being discharged from inpatient physical therapy and will continue to mobilize with nursing as needed. Equipment Needed for Home Before FWW, spouse is planning on Discharge getting one.
--- NOTE | 2017-12-06 14:05 | OT.IP.TRT ---
Current Diagnoses Partial intestinal obstruction, unspecified as to cause (11/22/17) Surgery Performed Operation Date: 11/24/17 10:00 Actual Procedures p small bowel resection with illeostomy and lysis of adhesions, central line placement - Judith Moreno MD Occupational Therapy Treatment Note M2 OT-IP Current Condition Start: 12/03/17 17:26 Freq: Status: Active Protocol: Document 12/03/17 16:00 PJM (Rec: 12/03/17 17:45 PJM [id number]) Occupational Therapy Current Condition Current Condition Evaluation Date 12/03/17 Treatment Diagnosis decreased self care,mobility s /p laparatomy 11/24/17 w/SB resection,ileostomy Diagnosis Onset Date 11/22/17 Post Operative Precautions Abdominal Surgery Precautions Log Roll Lifting Restrictions Gait Belt above Incisional Area Other Precautions 5# lifting restriction per pt Weight Bearing Status Weight Bearing Status Weight Bear as Tolerated M3 OT- IP Subjective and Pain Start: 12/03/17 17:26 Freq: Status: Active Protocol: Document 12/06/17 1405 PJM (Rec: 12/06/17 16:55 PJM [id number]) OT- Subjective Occupational Therapy Visit Type Type Discharge Summary Visit Start Time 13:10 Visit Stop Time 14:05 Total Visit Minutes 55 Notes Pt's here for education and assisting pt with shower this session. Occupational Therapy Visit Comments Patient Comments I am ready for some ice cream at end of session. Patient/Caregiver Goals to go home tomorrow OT Pain Assessment Pain When Pain Assessed After Treatment Pain Present Pain Present Denied Pain M4 OT- IP ADL's Start: 12/03/17 17:26 Freq: Status: Active Protocol: Document 12/06/17 16:45 PJM (Rec: 12/06/17 16:55 PJ [id number]) OT [id number] General Evaluation Self-Feeding Ability Independent OT ADL-Grooming General Evaluation Grooming Ability Standby Assistance Comments OT Grooming Comments standing at sink for up to 5-6 min OT ADL-Oral Care General Eval Oral Care Ability Standby Assistance Comments Oral Care Comments standing at sink for up to 5-6 min OT ADL-Dressing General Eval Upper Body Dressing Ability Independent Lower Body Dressing Ability Standby Assistance Comments OT Dressing Comments Pt able to don sweat pants, compression hose and non skid socks seated in chair. Good balance when standing to pull pants over hips. Pt adaptive equipment used. OT ADL-Toileting General Evaluation Toileting Ability Independent Minimal Assistance Areas Needing Assistance Empty Catheter or Colostomy Comments OT Toileting Comments Pt indep with urination. Pt still needs assist with ileostomy bag management, but plans to switch to his familiar ostomy bag once home. OT ADL-Bathing Bathing Type Bathing Type Shower General Evaluation Bathing Ability Minimal Assistance Areas Needing Assistance Wash/Dry Upper Body Devices Bathing Equipment Long Handled Sponge or Public Affairs Director Held Shower Sprayer Shower Chair without Arms Grab Bars Comments OT Bathing Comments able to assist pt appropriately with seated/ standing shower today. She will obtain shower seat with arms for pt use at home. Long bath sponge provided. M5 OT- IP IADL's Start: 12/03/17 17:26 Freq: Status: Active Protocol: Document 12/06/17 1405 PJ (Rec: 12/06/17 16:55 [facility] [id number]) OT-Instrumental Activities of Daily Living Deficits IADL Deficits Identified Deficits Home Safety Awareness Awareness of Need for Assistance at Home Good Awareness Ability to Problem Solve Emergency Able to Problem Solve Situations Medication Management Medication Management No Deficits Identified Caregiver Provides Supervision Money Management Money Management No Deficits Identified Meal Preparation Meal Preparation Caregiver Provides Assist Fiber Optics Technician Fiber Optics Technician Caregiver Provides Assist Driving Driving Caregiver Provides Assist M6 OT- IP Functional Cognition Start: 12/03/17 17:26 Freq: Status: Active Protocol: Document 12/06/17 1405 PJM (Rec: 12/06/17 16:55 [facility] [id number]) Cognitive Factors Limiting Selfcare Function Cognitive Ability Level of Alertness Alert Patient Orientation Name Age Birthday Month Date Year Day of Week Place Situation Attention Span Ability Capable of Focused Attention Capable of Sustained Attention Ability to Follow Commands Able to Follow Multi-Step Commands Memory Description No Deficits Noted Safety Awareness Underestimates Need for Assistance Problem Solving Ability No deficits Noted Executive Function Ability No Deficits Noted Cognitive Comments Cognitive Assessment Comments Pt occasionally underestimates need for assistance; very motivated to be independent. aware and able to assist/ cue pt appropriately. OT- Vision and Hearing OT- Hearing Assessment OT- Hearing Assessment WFL OT- Vision Assessment Visual Acuity Glasses All The Time Vision Assessment Comments No recent vision changes. M7 OT- IP Mobility and Balance Start: 12/03/17 17:26 Freq: Status: Active Protocol: Document 12/06/17 1405 PJM (Rec: 12/06/17 16:55 [facility] [id number]) OT-Transfer Assessment Sit to and From Stand Sit to and from Stand Standby Assistance Transfers Transfer Ability Standby Assistance Technique Transfer Destination Car Chair Shower Stall Transfer Technique Stand Step Pivot Devices Transfer Assistive Devices None Comments Mobility Comments Pt/ have been educated and verbalize understanding re: car, shower stall and BSC over toilet transfers. to obtain BSC for use over toilet. OT- Gait Assessment Gait Gait Assistance Required: Standby Assistance Distance (Feet) 20 Assistive Devices Assistive Device None OT- Balance Assessment Sitting Balance and Reactions Static Sitting Balance Ability Normal Dynamic Sitting Balance Ability Normal Standing Balance and Reactions Static Standing Balance Ability Good Dynamic Standing Balance Ability Good M8 OT- IP Objective Assessments Start: 12/03/17 17:26 Freq: Status: Active Protocol: Document 12/03/17 1405 PJM (Rec: 12/03/17 17:45 [facility] [id number]) OT Gross Range of Motion Upper Extremity Range of Motion Assessment Within Functional Limits OT Strength Upper Extremity Strength Assessment Within Functional Limits OT- Coordination Assessment Comments Coordination Comments BUE WFL OT-Muscle Tone Assessment Muscle Tone WNL Yes OT Sensation Assessment Comments Summary Comments Pt denies deficits in BUE's Edema Edema Present Edema Comments BLE edema significantly decreased with use of knee high compression hose from home M9 OT- IP Assessment and Plan Start: 12/03/17 17:26 Freq: Status: Active Protocol: Document 12/06/17 1405 PJM (Rec: 12/06/17 16:55 [facility] [id number]) OT Summary Assessment and Plan Summary Progress Towards Goals Safe For Discharge Goals Met Assessment Summary All education completed today with pt/ re: adapted ADLs. Pt/ work well together and she is able to assist pt appropriately with shower. Pt SBA to independent with other self care. Pt has made excellent improvement with activity tolerance this week. All OT goals achieved for this admission. Frequency of Treatment Frequency Of Treatment Discharge Discharge Recommendations OT Discharge Recommendations Home with 16/10 Assist Other Discharge Recommendations no further OT services needed Home Equipment Needs to obtain BSC for use over toilet and shower seat with back and armrests
--- NOTE | 2017-12-06 16:43 | PM.PN.1 ---
Subjective Date Patient Seen: 12/06/17 Time Patient Seen: 16:43 Interval history: Barry is in good spirits today. Preparing to be discharged tomorrow. Feels reasonably comfortable with his ostomy situation. Thinks his appetite will return to a much more normal level once he gets home and can have the food he likes. Exam Vital Signs (past 8 hours): - 12/06/17 12:00 12/06/17 15:49 12/06/17 16:32 Temperature 98.0 F 97.9 F Pulse Rate 70 70 Respiratory Rate 18 Blood Pressure 137/74 146/68 H Pulse Oximetry 100 100 100 Oxygen Delivery Method Room Air Oxygen Flow Rate 0 Narrative Exam Narrative: Abdomen is soft, active bowel sounds. Midline incision is healing with the spaces between nylon sutures closed now. Right lower quadrant ostomy output is significantly thicker than it was yesterday. 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 Plan is for discharge in the morning with home health. We will make referral to Oncology we will see him back in the office next week. Quality VTE Deep Vein Thrombosis/Pulmonary Embolism Present on Admission: No
[2017-12-06] MEDS: SODIUM CHLORIDE 0.9% 250 ML 21 ML IV (22:31)
[2017-12-07] VITALS: O2SAT 99
[2017-12-07] MEDS: metroNIDAZOLE 500 MG/100 ML PIGGYBACK 100 MG IV ×3 (00:24→11:32)
[2017-12-07] MEDS: OXYCODONE IR 5 MG TABLET PO ×3 (00:36→12:27)
[2017-12-07] MEDS: PIPERACILLIN-TAZO 3.375 GM/50 ML FROZ.PIGGY IV ×2 (04:26→10:50)
[2017-12-07 06:00] VITALS: BP 143/66; PULSE 66; RESP 16; TEMP 37.2; O2SAT 97
[2017-12-07 06:35] LABS: Add Manual Diff / Slide Review NO; Basophils Percent Auto 0.6 % (0-2); Eosinophils Percent Auto 1.4 % (2-4); Hematocrit 28.6 % (41-53); Mean Corpuscular Hemoglobin 31.6 PG (26-34); Mean Corpuscular Volume 90.2 fL (80-100); Monocytes Percent Auto 10.8 % (3-14); Neutrophils Absolute Auto 5800 /uL (3000-5900); Neutrophils Percent Auto 80.2 % (50-75); Platelet Count 410 X10^3/uL (150-400); Red Blood Cell Count 3.17 X10^6/uL (4.5-5.9); White Blood Cell Count 7.3 X10^3/uL (4.5-11.0)
[2017-12-07 06:36] LABS: Alanine Aminotransferase 24 IU/L (21-72); Albumin 2.7 g/dL (3.5-5.0); Alkaline Phosphatase 64 U/L (38-126); Aspartate Aminotransferase 20 IU/L (17-59); Bilirubin Total 0.7 mg/dL (0.2-1.3); Blood Urea Nitrogen 16 mg/dL (9-20); Calcium 8.2 mg/dL (8.4-10.2); Carbon Dioxide 27 mmol/L (22-32); Chloride 106 mmol/L (98-107); Estimated Glomerular Filt Rate > 60.0 mL/min (>60); Globulin 2.6 g/dL (1.7-4.1); Glucose 98 mg/dL (80-110); HEMOLYSIS < 15 (0-50); Sodium 140 mmol/L (137-145); Total Protein 5.3 g/dL (6.3-8.2)
[2017-12-07 07:07] LABS: Carcinoembryonic Antigen 1.6 ng/mL (0.1-3.0)
[2017-12-07 08:00] VITALS: BP 110/58; PULSE 78; RESP 18; TEMP 36.6; O2SAT 96
--- NOTE | 2017-12-07 08:17 | PC.NURSE ---
Patient orders reviewed at 0030. documentation did not save.
[2017-12-07] MEDS: ENOXAPARIN 40 MG/0.4 ML SYRINGE SUBCUT (09:14)
[2017-12-07 09:15] VITALS: O2SAT 96
[2017-12-07] MEDS: PANTOPRAZOLE 40 MG VIAL IV (09:15)
--- NOTE | 2017-12-07 12:19 | PC.NURSE ---
Addendum entered by Estelita Horn R.N. 12/07/17 13:45: DC - reviewed dc instructions with patient, family members, script was filled earlier am by spouse, given oxycodone 5mg with lunch, positioned supine back in bed, central line sutures removed and dc'd per protocol, blue tip intact, dsg over, had pt remain flat, then escorted via wc by portable feed mill operator with clothing, black bag, phone and chargers. Original Note: AM NOTE - pt is alert, seated chair for breakfast, states he is going home today, has midline inc open to air with spaced sutures, no active drainage, ileostomy with lt thin green/brown fluid, pain managed with earlier oxycodone and prefers to have prior to discharge, in this am with ileostomy supplies from her office, pt had cared for colostomy prior to this surg in past and is proficient care of appliance.
--- NOTE | 2017-12-07 14:31 | CM.DPC ---
DCP: continued: Case was again received yesterday and discussed case in team meeting yesterday. Pt was continuing to progress slowly and was awaiting a final update on his overall prognosis and POC after d/c from Dr. Moreno. He was mobilizing well and continued with plan for home with his . Spoke with Dr. Moreno yesterday at 1600 after she had updated pt and his . She confirm that pt would likely be going home today, she completed the Face/Face paperwork and said RN only was needed. Discussed ostomy supplies as pt had refused the ostomy specialist team (see prior DCP notes early in stay). She said she would get a packet of supplies together for pt at d/c that would be be usable to him until RN had a change to get an order is for same. She will be seeing pt in clinic. Note that pt did received the d/c order at some point today. Went to check in with pt and he had already gone. Danita LARA is updated and [facility] will fax the d/c paperwork and updated clinical (no d/c summary in yet) now.
--- NOTE | 2017-12-07 17:35 | PM.DS.1 ---
History of Present Illness Chief complaint: sent from dr vazquez office to get US Narrative: Pleasant 82-year-old gentleman who is well known to me from prior visits. He has a history of colon cancer and underwent a sigmoid colectomy and ileostomy with subsequent ostomy reversal. He also has a history of prostate cancer status post radical prostatectomy and radiation therapy. He presented to his primary care doctor this morning complaining of about 3 weeks of irregular bowels. He says that for the last 3 weeks or so he has had periods where he just had no appetite. He says that these episodes were interspersed with periods with large bowel movements. This most recent episode started this past Sunday and became progressively worse until last evening when he was very uncomfortable. He is quite stoic gentleman and so opted to not go to the emergency room and presented to his primary care physician's office today. He says he does not feel bad other than his belly is ?big and hard?. He has no appetite. He is not currently nauseated. He has been continuing to take all of his oral meds throughout this time. This includes vancomycin for recurrent C diff colitis. Dr. Vazquez sent him over to our emergency room for radiographic studies. He had a CT scan of the abdomen and pelvis that revealed a high-grade partial small-bowel obstruction and he is now admitted to the surgical service. 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 Murray was admitted to the hospital and placed on bowel rest. He did not improve significantly and upper GI and small bowel follow through revealed a high grade obstruction. Mr. Polanco was taken to the operating room where he underwent an exploratory laparotomy with extensive lysis of adhesions, small-bowel resection, and end ileostomy. Due to his poor nutritional status and the condition of his bowel, he was immediately started on parental nutrition. Brittney improved daily throughout his stay here. He was cooperative with all therapies and treatments and took is little pain medicine as possible. By the day of discharge, his wound is clean and healing well. All packing has been removed and sutures are still in place. He is walking the halls unassisted. He is eating a soft mechanical diet as desired. His labs are all within acceptable limits. He is not new to ostomy management and so he has been given supplies and home health has been arranged to help him with his ileostomy care. He will be referred to Oncology for an appointment in approximately 3-4 weeks. We will order an outpatient PET scan also to completed in about 3 weeks. Status at Discharge Cognitive/behavioral status at discharge: Alert and oriented x3. Behavior is within normal limits. Functional status at discharge: independent ambulation Overall status at discharge: patient is progressing back to baseline Time Spent with Patient Less than 30 minutes Exam Vital Signs (past 8 hours): Oxygen Delivery Method Room Air Oxygen Flow Rate 0 Objective Labs Result Diagrams: 12/07/17 06:05 12/07/17 06:05 Labs: Laboratory Results - last 24 hr 12/07/17 12/07/17 06:05 06:05 WBC 7.3 RBC 3.17 L Hgb 10.0 L Hct 28.6 L MCV 90.2 MCH 31.6 MCHC 35.0 RDW 14.0 Plt Count 410 H Neut % (Auto) 80.2 H Lymph % (Auto) 7.0 L [place] % (Auto) 10.8 Eos % (Auto) 1.4 L Baso % (Auto) 0.6 Neut # (Auto) 5800 Sodium 140 Potassium 4.0 Chloride 106 Carbon Dioxide 27 BUN 16 Creatinine 0.80 Estimated GFR > 60.0 BUN/Creatinine Ratio 20.0 Glucose 98 Calcium 8.2 L Total Bilirubin 0.7 AST 20 ALT 24 Alkaline Phosphatase 64 Total Protein 5.3 L Albumin 2.7 L Globulin 2.6 Albumin/Globulin Ratio 1.0 Carcinoembryonic Ag 1.6 Discharge Plan Discharge Plan Patient Disposition: Home Health Service Discharge Med Rec/Prescriptions Prescriptions: New oxycodone 5 mg capsule 5 mg PO Q3H PRN (Reason: pain) Qty: 30 RF: 0 Continue enalapril maleate 5 MG tablet 5 mg PO QDAY Qty: 0 RF: 0 simvastatin 5 MG tablet 5 mg PO HS Qty: 0 RF: 0 vancomycin 125 mg capsule 125 mg PO QID MDD 4 28 Days Qty: 150 RF: 1 promethazine 25 mg Tablet 25 mg PO Q6H PRN (Reason: Nausea) RF: 0 No Action oxycodone 5 mg tablet 5 mg PO Q4HR PRN (Reason: Pain, Moderate (4-6)) Qty: 30 RF: 0 Follow up/Referrals: Silvia Vazquez MD [Primary Care Provider] - (please call & schedule follow up appointment with dr vazquez [phone]) Provider Discharge Instructions Diet: Diet as Tolerated Diet comment: Low residue Skin/Wound/Dressing Care Report to your healthcare provider any signs of infection, such as:: chills, fever, night sweats, increased pain and unusual drainage Visit Report/Discharge Packet Instructions: DI for Small Bowel Resection with Ileostomy Visit Report Forms: Stroke Signs & Symptoms Discharge Data Primary Care Provider: Silvia Vazquez Attending Provider: Judith Moreno Admit Date/Time: 11/22/17 16:56 Discharges patient from system. Discharge Date/Time: 12/07/17 13:25 Quality VTE Deep Vein Thrombosis/Pulmonary Embolism Present on Admission: No
== END 2017-12-07 13:25 | disposition home health service (06) | DRG 330 ==
LOC: ED 14:08 → AC 16:57 → ICU 10-28 13:10
PROVIDERS: Specialist; Surgery; Admitting Provider Surgery; Emergency Provider Emergency Medicine; PCP Internal Medicine; Visit Provider Surgery
PROC: 0DB80ZZ Excision of Small Intestine, Open Approach (ICD-10-PCS; CPT 49000; principal; 2017-11-24 10:00)
DX: C78.4 Secondary malignant neoplasm of small intestine (principal); K56.51 Intestinal adhesions [bands], with partial obstruction; A04.71 Enterocolitis due to Clostridium difficile, recurrent; E44.0 Moderate protein-calorie malnutrition; K56.7 Ileus, unspecified; K59.8 Other specified functional intestinal disorders; Z68.30 Body mass index [BMI] 30.0-30.9, adult; Z85.038 Personal history of other malignant neoplasm of large intestine; G25.1 Drug-induced tremor; T45.0X5A Adverse effect of antiallergic and antiemetic drugs, initial encounter; Y92.230 Patient room in hospital as the place of occurrence of the external cause; Z87.891 Personal history of nicotine dependence; R60.9 Edema, unspecified
CPT/HCPCS: 36415; 36591; 36592; 44144; 71045; 74018; 74022; 74177; 74245; 76000; 80048; 80053; 82378; 82962; 83690; 83735; 84100; 84134; 85025; 87797; 96361; 96374; 97116; 97162; 97165; 97530; 97535; 99282; 99284; B4189; C9113; J0330; J1100; J1170; J1200; J1650; J2060; J2405; J2543; J2704; J3010; J3480; Q9967

== ENCOUNTER 2017-12-18 17:35 | Emergency (ER) | payer OTHER, SELFPAY ==
[2017-12-18 17:54] VITALS: BP 126/104; PULSE 96; RESP 16; TEMP 36.8; O2SAT 100; BMI 25.8
--- NOTE | 2017-12-18 18:10 | PC.NURSE ---
Patient with new colostomy (11/24/17)
[2017-12-18 18:11] LABS: Add Manual Diff / Slide Review NO; Basophils Percent Auto 0.5 % (0-2); Eosinophils Percent Auto 1.4 % (2-4); Hematocrit 35.3 % (41-53); Hemoglobin 12.2 g/dL (13.5-17.5); Lymphocytes Percent Auto 8.7 % (25-40); Mean Corpuscular HGB Conc 34.6 % (30-36); Mean Corpuscular Hemoglobin 31.3 PG (26-34); Mean Corpuscular Volume 90.5 fL (80-100); Monocytes Percent Auto 9.7 % (3-14); Neutrophils Absolute Auto 5800 /uL (3000-5900); Neutrophils Percent Auto 79.7 % (50-75); Platelet Count 353 X10^3/uL (150-400); White Blood Cell Count 7.3 X10^3/uL (4.5-11.0)
[2017-12-18 18:12] VITALS: BP 116/74; PULSE 88; RESP 18; O2SAT 98
--- NOTE | 2017-12-18 18:35 | DI.RAD.S_ITS ---
PROCEDURE: XR ACUTE ABDOMEN SERIES INDICATIONS: Abdominal pain TECHNIQUE: One view chest and two views of the abdomen were acquired. COMPARISON: [facility], CR, XR ABDOMEN 1V, 11/24/2017, 15:10. FINDINGS: Surgical changes and devices: None. Chest: Lungs are clear. Heart size is normal. No pleural effusions. No pneumoperitoneum. Abdomen: Bowel gas pattern is nonspecific. There is mild gaseous distention of several loops of small bowel and scattered air-fluid levels. Contrast material is noted in the colon. Multiple surgical clips noted in the pelvis. No suspicious calcifications. Visualized solid organ contours appear normal. Bones: No suspicious bony lesions. IMPRESSION: Nonspecific bowel gas pattern with gaseous distention of loops of small bowel and scattered air-fluid levels which could be due to ileus versus early/partial small bowel obstruction. Dictated by: Callie Lantigua MD, PhD on 12/18/2017 at 18:50 Approved by: Callie Lantigua MD, PhD on 12/18/2017 at 18:51
[2017-12-18 18:39] LABS: INR 1.1 (0.9-1.3); Prothrombin Time 12.2 SECONDS (10.1-12.7)
[2017-12-18 18:42] LABS: PTT Partial Thromboplastin Tim 29 SECONDS (26.4-36.2)
[2017-12-18 18:50] LABS: Alanine Aminotransferase 97 IU/L (21-72); Albumin 4.2 g/dL (3.5-5.0); Albumin Globulin Ratio 1.4 (1.0-2.8); Alkaline Phosphatase 112 U/L (38-126); Aspartate Aminotransferase 67 IU/L (17-59); BUN Creatinine Ratio 27.8 (6-22); Bilirubin Total 0.8 mg/dL (0.2-1.3); Blood Urea Nitrogen 25 mg/dL (9-20); Calcium 9.7 mg/dL (8.4-10.2); Carbon Dioxide 27 mmol/L (22-32); Chloride 97 mmol/L (98-107); Estimated Glomerular Filt Rate > 60.0 mL/min (>60); Glucose 132 mg/dL (80-110); HEMOLYSIS < 15 (0-50); Lactate (Lactic Acid) 1.2 mmol/L (0.7-2.1); Lipase 160 U/L (23-300); Potassium 4.2 mmol/L (3.4-5.1); Sodium 135 mmol/L (137-145); Total Protein 7.2 g/dL (6.3-8.2)
--- NOTE | 2017-12-18 19:16 | PC.NURSE ---
Green liquid stool from Colostomy;
[2017-12-18 19:17] VITALS: BP 122/64; PULSE 75; RESP 16; TEMP 36.3; O2SAT 99
--- NOTE | 2017-12-19 04:10 | ED.NAVMDI ---
HPI - Nausea/Vomiting/Diarrhea General Chief complaint: Nausea/Vomiting/Diarrhea Stated complaint: NAUSEA, VOMITING, STOMA NOT MOVING Time Seen by Provider: 12/18/17 18:00 Source: patient and family Mode of arrival: ambulatory Limitations: no limitations History of Present Illness HPI Narrative: 82-year-old male with history of small-bowel obstruction and relatively recent ileostomy presents with his for evaluation of abdominal pain with decreased stool in his ostomy bag. Patient was in normal state of health until this afternoon when he started noticing some nausea and generalized abdominal discomfort. He then noted some change in the output through his stoma. He does admit to using some anti diarrheal medications over the past few days. He denies fever or chills. His pain is worse with motion and improves with rest MD complaint: nausea and abdominal pain Onset (ago): hour(s) Description of Diarrhea: none Associated Abdominal Pain: Yes Location of pain: diffuse Severity: mild Quality: cramping Pain Consistency: intermittent Relieving factors: none Exacerbating factors: none Associated symptoms: denies other symptoms Related Data Home Medications Medication Instructions Recorded Confirmed enalapril maleate 5 mg PO QDAY #0 07/25/16 12/18/17 simvastatin 5 mg PO HS #0 07/25/16 12/18/17 Allergies Allergy/AdvReac Type Severity Reaction Status Date / Time No Known Drug Allergies Allergy Verified 12/18/17 17:54 Review of Systems Review of Systems All systems reviewed & are unremarkable except as noted in HPI and below Constitutional Denies chills, Denies fever(s), Denies lethargy and Denies weakness Eyes Denies change in vision, Denies eye discharge, Denies irritation and Denies loss of vision ENT Ears, Nose, Mouth, and Throat: Denies change in voice, Denies neck pain and Denies sore throat Cardiovascular Denies chest pain, Denies irregular heart rhythm, Denies lightheadedness, Denies palpitations, Denies dyspnea, Denies dyspnea on exertion and Denies orthopnea Respiratory Denies cough, Denies dyspnea, Denies dyspnea on exertion and Denies wheezing Gastrointestinal Gastrointestinal: Reports abdominal pain, Denies change in bowel habits, Denies diarrhea, Denies nausea and Denies vomiting Genitourinary Denies hematuria, Denies flank pain, Denies urinary incontinence and Denies urinary urgency Musculoskeletal Denies neck pain Integumentary/Breasts Denies pruritus, Denies erythema, Denies rash and Denies wounds Neurologic Denies confusion, Denies loss of vision and Denies weakness Psychiatric Denies anxiety, Denies confusion, Denies depression, Denies homicidal ideation and Denies suicidal ideation Endocrine Denies palpitations Hematologic/Lymphatic Denies easy bruising Allergic/Immunologic Denies wheezing [facility] Medical History C. difficile colitis (Acute) Colon cancer (Acute) Surgical History History of colon resection (Acute) Social History household members: spouse Smoking Status: Former smoker alcohol intake: current Exam Narrative Exam Narrative: GENERAL: 82-year-old male appears uncomfortable. HEAD: Atraumatic. Normocephalic. No temporal or scalp tenderness. EYES: Pupils equal round and reactive. Extraocular motions intact. No scleral icterus. No injection or drainage. ENT: Nose without bleeding, purulent drainage or septal hematoma. Throat without erythema, tonsillar hypertrophy or exudate. Uvula midline. Airway patent. NECK: Trachea midline. No JVD or lymphadenopathy. Supple, nontender, no meningeal signs. CARDIOVASCULAR: Regular rate and rhythm without murmurs, gallops, or rubs. RESPIRATORY: Clear to auscultation. Breath sounds equal bilaterally. No wheezes, rales, or rhonchi. GASTROINTESTINAL: Abdomen soft, non-tender, nondistended. No hepato-splenomegaly, or palpable masses. No guarding. No stool in ostomy bag EXTREMITIES: No clubbing, cyanosis, or edema. No joint tenderness, effusion, or edema noted. BACK: Nontender without deformity or crepitance. No flank tenderness. NEURO: AOx3. SKIN: No rash or erythema. Initial Vital Signs Initial Vital Signs: Vital Signs Temperature 98.2 F 12/18/17 17:54 Pulse Rate 96 H 12/18/17 17:54 Respiratory Rate 16 12/18/17 17:54 Blood Pressure 126/104 H 12/18/17 17:54 Pulse Oximetry 100 12/18/17 17:54 Course Orders Ordered: Discontinued Medications Sodium Chloride (Normal Saline 0.9%) 500 mls @ 21 mls/hr IV CONT FELY Ondansetron HCl (Zofran) 4 mg IV NOW ONE Stop: 12/18/17 18:03 MDM - Nausea/Vomiting/Diarrhea Medical Records Attestation: I reviewed the patient's medical records. Lab Data Attestation: I reviewed the patient's lab results. Result diagrams: 12/18/17 16:00 12/18/17 16:00 Lab Results 12/18/17 12/18/17 12/18/17 Range/Units 16:00 16:00 16:00 WBC 7.3 (4.5-11.0) X10^3/uL RBC 3.90 L (4.5-5.9) X10^6/uL Hgb 12.2 L (13.5-17.5) g/dL Hct 35.3 L (41-53) % MCV 90.5 (80-100) fL MCH 31.3 (26-34) PG MCHC 34.6 (30-36) % RDW 14.0 (11.6-14.8) % Plt Count 353 (150-400) X10^3/uL Neut % (Auto) 79.7 H (50-75) % Lymph % (Auto) 8.7 L (25-40) % [place] % (Auto) 9.7 (3-14) % Eos % (Auto) 1.4 L (2-4) % Baso % (Auto) 0.5 (0-2) % Neut # (Auto) 5800 (5911-7582) /uL PT 12.2 (10.1-12.7) SECONDS INR 1.1 (0.9-1.3) APTT 29 (26.4-36.2) SECONDS Sodium 135 L (137-145) mmol/L Potassium 4.2 (3.4-5.1) mmol/L Chloride 97 L (98-107) mmol/L Carbon Dioxide 27 (22-32) mmol/L BUN 25 H (9-20) mg/dL Creatinine 0.90 (0.66-1.25) mg/dL Estimated GFR > 60.0 (>60) mL/min BUN/Creatinine Ratio 27.8 H (6-22) Glucose 132 H (80-110) mg/dL Lactate (0.7-2.1) mmol/L Calcium 9.7 (8.4-10.2) mg/dL Total Bilirubin 0.8 (0.2-1.3) mg/dL AST 67 H (17-59) IU/L ALT 97 H (21-72) IU/L Alkaline Phosphatase 112 (38-126) U/L Total Protein 7.2 (6.3-8.2) g/dL Albumin 4.2 (3.5-5.0) g/dL Globulin 3.0 (1.7-4.1) g/dL Albumin/Globulin Ratio 1.4 (1.0-2.8) Lipase 160 (23-300) U/L 12/18/17 Range/Units 16:00 WBC (4.5-11.0) X10^3/uL RBC (4.5-5.9) X10^6/uL Hgb (13.5-17.5) g/dL Hct (41-53) % MCV (80-100) fL MCH (26-34) PG MCHC (30-36) % RDW (11.6-14.8) % Plt Count (150-400) X10^3/uL Neut % (Auto) (50-75) % Lymph % (Auto) (25-40) % [place] % (Auto) (3-14) % Eos % (Auto) (2-4) % Baso % (Auto) (0-2) % Neut # (Auto) (1372-9032) /uL PT (10.1-12.7) SECONDS INR (0.9-1.3) APTT (26.4-36.2) SECONDS Sodium (137-145) mmol/L Potassium (3.4-5.1) mmol/L Chloride (98-107) mmol/L Carbon Dioxide (22-32) mmol/L BUN (9-20) mg/dL Creatinine (0.66-1.25) mg/dL Estimated GFR (>60) mL/min BUN/Creatinine Ratio (6-22) Glucose (80-110) mg/dL Lactate 1.2 (0.7-2.1) mmol/L Calcium (8.4-10.2) mg/dL Total Bilirubin (0.2-1.3) mg/dL AST (17-59) IU/L ALT (21-72) IU/L Alkaline Phosphatase (38-126) U/L Total Protein (6.3-8.2) g/dL Albumin (3.5-5.0) g/dL Globulin (1.7-4.1) g/dL Albumin/Globulin Ratio (1.0-2.8) Lipase (23-300) U/L Imaging Data Abdominal x-ray: Radiologist's impression: Patient: Barry Murray CMR#: [id number] : 6Acct:[id number] Age/Sex: 82 / MDate of Service: 12/18/17 Loc: ED Accession Number: [id number] Procedure: XR acute abdomen series Ordering Provider: Valdo Landis D.O. PROCEDURE: XR ACUTE ABDOMEN SERIES INDICATIONS: Abdominal pain TECHNIQUE: One view chest and two views of the abdomen were acquired. COMPARISON: [facility], CR, XR ABDOMEN 1V, 11/24/2017, 15:10. FINDINGS: Surgical changes and devices: None. Chest: Lungs are clear. Heart size is normal. No pleural effusions. No pneumoperitoneum. Abdomen: Bowel gas pattern is nonspecific. There is mild gaseous distention of several loops of small bowel and scattered air-fluid levels. Contrast material is noted in the colon. Multiple surgical clips noted in the pelvis. No suspicious calcifications. Visualized solid organ contours appear normal. Bones: No suspicious bony lesions. IMPRESSION: Nonspecific bowel gas pattern with gaseous distention of loops of small bowel and scattered air-fluid levels which could be due to ileus versus early/partial small bowel obstruction. Dictated by: Callie Lantigua MD, PhD on 12/18/2017 at 18:50 Approved by: Callie Lantigua MD, PhD on 12/18/2017 at 18:[address] [facility] Narrative Medical decision making narrative: Patient with history of small-bowel obstruction presents with concerns of a repeat occurrence. He admitted the had been using anti diarrheal stools and likely became bit backed up as the result. Imaging shows no obvious obstruction. During his visit he began passing stool through his ostomy. He was evaluated by his surgeon who will follow up closely as an outpatient. Discharge Plan Departure Patient Disposition: Home Clinical Impression: Constipation Discharge Date/Time: 12/18/17 19:17 Interventions: ED Discharge Assessment Last Done: 12/18/17 19:17 Instructions: DI for Constipation -- Child Activity Restrictions/Additional Instructions: *You have been diagnosed with [ acute constipation ] *What to do: *Take medications as directed, but avoid loperamide *Follow up with Dr. Moreno as planned *Return to ER if you should have any new, worsening or concerning symptoms Prescriptions: No Action enalapril maleate 5 MG tablet 5 mg PO QDAY Qty: 0 RF: 0 simvastatin 5 MG tablet 5 mg PO HS Qty: 0 RF: 0 Referrals: Silvia Florentino MD [Primary Care Provider] - Judith Moreno MD [Physician] -
--- NOTE | 2017-12-19 04:14 | ED_ITS ---
HPI - Nausea/Vomiting/Diarrhea General Chief complaint: Nausea/Vomiting/Diarrhea Stated complaint: NAUSEA, VOMITING, STOMA NOT MOVING Time Seen by Provider: 12/18/17 18:00 Source: patient and family Mode of arrival: ambulatory Limitations: no limitations History of Present Illness HPI Narrative: 82-year-old male with history of small-bowel obstruction and relatively recent ileostomy presents with his for evaluation of abdominal pain with decreased stool in his ostomy bag. Patient was in normal state of health until this afternoon when he started noticing some nausea and generalized abdominal discomfort. He then noted some change in the output through his stoma. He does admit to using some anti diarrheal medications over the past few days. He denies fever or chills. His pain is worse with motion and improves with rest MD complaint: nausea and abdominal pain Onset (ago): hour(s) Description of Diarrhea: none Associated Abdominal Pain: Yes Location of pain: diffuse Severity: mild Quality: cramping Pain Consistency: intermittent Relieving factors: none Exacerbating factors: none Associated symptoms: denies other symptoms Related Data Home Medications Medication Instructions Recorded Confirmed enalapril maleate 5 mg PO QDAY #0 07/25/16 12/18/17 simvastatin 5 mg PO HS #0 07/25/16 12/18/17 Allergies Allergy/AdvReac Type Severity Reaction Status Date / Time No Known Drug Allergies Allergy Verified 12/18/17 17:54 Review of Systems Review of Systems All systems reviewed & are unremarkable except as noted in HPI and below Constitutional Denies chills, Denies fever(s), Denies lethargy and Denies weakness Eyes Denies change in vision, Denies eye discharge, Denies irritation and Denies loss of vision ENT Ears, Nose, Mouth, and Throat: Denies change in voice, Denies neck pain and Denies sore throat Cardiovascular Denies chest pain, Denies irregular heart rhythm, Denies lightheadedness, Denies palpitations, Denies dyspnea, Denies dyspnea on exertion and Denies orthopnea Respiratory Denies cough, Denies dyspnea, Denies dyspnea on exertion and Denies wheezing Gastrointestinal Gastrointestinal: Reports abdominal pain, Denies change in bowel habits, Denies diarrhea, Denies nausea and Denies vomiting Genitourinary Denies hematuria, Denies flank pain, Denies urinary incontinence and Denies urinary urgency Musculoskeletal Denies neck pain Integumentary/Breasts Denies pruritus, Denies erythema, Denies rash and Denies wounds Neurologic Denies confusion, Denies loss of vision and Denies weakness Psychiatric Denies anxiety, Denies confusion, Denies depression, Denies homicidal ideation and Denies suicidal ideation Endocrine Denies palpitations Hematologic/Lymphatic Denies easy bruising Allergic/Immunologic Denies wheezing [facility] Medical History C. difficile colitis (Acute) Colon cancer (Acute) Surgical History History of colon resection (Acute) Social History household members: spouse Smoking Status: Former smoker alcohol intake: current Exam Narrative Exam Narrative: GENERAL: 82-year-old male appears uncomfortable. HEAD: Atraumatic. Normocephalic. No temporal or scalp tenderness. EYES: Pupils equal round and reactive. Extraocular motions intact. No scleral icterus. No injection or drainage. ENT: Nose without bleeding, purulent drainage or septal hematoma. Throat without erythema, tonsillar hypertrophy or exudate. Uvula midline. Airway patent. NECK: Trachea midline. No JVD or lymphadenopathy. Supple, nontender, no meningeal signs. CARDIOVASCULAR: Regular rate and rhythm without murmurs, gallops, or rubs. RESPIRATORY: Clear to auscultation. Breath sounds equal bilaterally. No wheezes , rales, or rhonchi. GASTROINTESTINAL: Abdomen soft, non-tender, nondistended. No hepato-splenomegaly , or palpable masses. No guarding. No stool in ostomy bag EXTREMITIES: No clubbing, cyanosis, or edema. No joint tenderness, effusion, or edema noted. BACK: Nontender without deformity or crepitance. No flank tenderness. NEURO: AOx3. SKIN: No rash or erythema. Initial Vital Signs Initial Vital Signs: Vital Signs Temperature 98.2 F 12/18/17 17:54 Pulse Rate 96 H 12/18/17 17:54 Respiratory Rate 16 12/18/17 17:54 Blood Pressure 126/104 H 12/18/17 17:54 Pulse Oximetry 100 12/18/17 17:54 Course Orders Ordered: Discontinued Medications Sodium Chloride (Normal Saline 0.9%) 500 mls @ 21 mls/hr IV CONT FELY Ondansetron HCl (Zofran) 4 mg IV NOW ONE Stop: 12/18/17 18:03 MDM - Nausea/Vomiting/Diarrhea Medical Records Attestation: I reviewed the patient's medical records. Lab Data Attestation: I reviewed the patient's lab results. Result diagrams: 12/18/17 16:00 12/18/17 16:00 Lab Results 12/18/17 12/18/17 12/18/17 Range/Units 16:00 16:00 16:00 WBC 7.3 (4.5-11.0) X10^3/uL RBC 3.90 L (4.5-5.9) X10^6/uL Hgb 12.2 L (13.5-17.5) g/dL Hct 35.3 L (41-53) % MCV 90.5 (80-100) fL MCH 31.3 (26-34) PG MCHC 34.6 (30-36) % RDW 14.0 (11.6-14.8) % Plt Count 353 (150-400) X10^3/uL Neut % (Auto) 79.7 H (50-75) % Lymph % (Auto) 8.7 L (25-40) % [place] % (Auto) 9.7 (3-14) % Eos % (Auto) 1.4 L (2-4) % Baso % (Auto) 0.5 (0-2) % Neut # (Auto) 5800 (2677-9576) /uL PT 12.2 (10.1-12.7) SECONDS INR 1.1 (0.9-1.3) APTT 29 (26.4-36.2) SECONDS Sodium 135 L (137-145) mmol/L Potassium 4.2 (3.4-5.1) mmol/L Chloride 97 L (98-107) mmol/L Carbon Dioxide 27 (22-32) mmol/L BUN 25 H (9-20) mg/dL Creatinine 0.90 (0.66-1.25) mg/dL Estimated GFR > 60.0 (>60) mL/min BUN/Creatinine Ratio 27.8 H (6-22) Glucose 132 H (80-110) mg/dL Lactate (0.7-2.1) mmol/L Calcium 9.7 (8.4-10.2) mg/dL Total Bilirubin 0.8 (0.2-1.3) mg/dL AST 67 H (17-59) IU/L ALT 97 H (21-72) IU/L Alkaline Phosphatase 112 (38-126) U/L Total Protein 7.2 (6.3-8.2) g/dL Albumin 4.2 (3.5-5.0) g/dL Globulin 3.0 (1.7-4.1) g/dL Albumin/Globulin Ratio 1.4 (1.0-2.8) Lipase 160 (23-300) U/L 12/18/17 Range/Units 16:00 WBC (4.5-11.0) X10^3/uL RBC (4.5-5.9) X10^6/uL Hgb (13.5-17.5) g/dL Hct (41-53) % MCV (80-100) fL MCH (26-34) PG MCHC (30-36) % RDW (11.6-14.8) % Plt Count (150-400) X10^3/uL Neut % (Auto) (50-75) % Lymph % (Auto) (25-40) % [place] % (Auto) (3-14) % Eos % (Auto) (2-4) % Baso % (Auto) (0-2) % Neut # (Auto) (7324-8459) /uL PT (10.1-12.7) SECONDS INR (0.9-1.3) APTT (26.4-36.2) SECONDS Sodium (137-145) mmol/L Potassium (3.4-5.1) mmol/L Chloride (98-107) mmol/L Carbon Dioxide (22-32) mmol/L BUN (9-20) mg/dL Creatinine (0.66-1.25) mg/dL Estimated GFR (>60) mL/min BUN/Creatinine Ratio (6-22) Glucose (80-110) mg/dL Lactate 1.2 (0.7-2.1) mmol/L Calcium (8.4-10.2) mg/dL Total Bilirubin (0.2-1.3) mg/dL AST (17-59) IU/L ALT (21-72) IU/L Alkaline Phosphatase (38-126) U/L Total Protein (6.3-8.2) g/dL Albumin (3.5-5.0) g/dL Globulin (1.7-4.1) g/dL Albumin/Globulin Ratio (1.0-2.8) Lipase (23-300) U/L Imaging Data Abdominal x-ray: Radiologist's impression: Patient: Barry Murray CMR#: [id number] : 6Acct:[id number] Age/Sex: 82 / MDate of Service: 12/18/17 Loc: ED Accession Number: [id number] Procedure: XR acute abdomen series Ordering Provider: Valdo Landis D.O. PROCEDURE: XR ACUTE ABDOMEN SERIES INDICATIONS: Abdominal pain TECHNIQUE: One view chest and two views of the abdomen were acquired. COMPARISON: [facility], CR, XR ABDOMEN 1V, 11/24/2017, 15:10. FINDINGS: Surgical changes and devices: None. Chest: Lungs are clear. Heart size is normal. No pleural effusions. No pneumoperitoneum. Abdomen: Bowel gas pattern is nonspecific. There is mild gaseous distention of several loops of small bowel and scattered air-fluid levels. Contrast material is noted in the colon. Multiple surgical clips noted in the pelvis. No suspicious calcifications. Visualized solid organ contours appear normal. Bones: No suspicious bony lesions. IMPRESSION: Nonspecific bowel gas pattern with gaseous distention of loops of small bowel and scattered air-fluid levels which could be due to ileus versus early/ partial small bowel obstruction. Dictated by: Callie Lantigua MD, PhD on 12/18/2017 at 18:50 Approved by: Callie Lantigua MD, PhD on 12/18/2017 at 18:51 [facility] Narrative Medical decision making narrative: Patient with history of small-bowel obstruction presents with concerns of a repeat occurrence. He admitted the had been using anti diarrheal stools and likely became bit backed up as the result. Imaging shows no obvious obstruction. During his visit he began passing stool through his ostomy. He was evaluated by his surgeon who will follow up closely as an outpatient. Discharge Plan Departure Patient Disposition: Home Clinical Impression: Constipation Discharge Date/Time: 12/18/17 19:17 Interventions: ED Discharge Assessment Last Done: 12/18/17 19:17 Instructions: DI for Constipation -- Child Activity Restrictions/Additional Instructions: *You have been diagnosed with [ acute constipation ] *What to do: *Take medications as directed, but avoid loperamide *Follow up with Dr. Moreno as planned *Return to ER if you should have any new, worsening or concerning symptoms Prescriptions: No Action enalapril maleate 5 MG tablet 5 mg PO QDAY Qty: 0 RF: 0 simvastatin 5 MG tablet 5 mg PO HS Qty: 0 RF: 0 Referrals: Silvia Florentino MD [Primary Care Provider] - Judith Moreno MD [Physician] -
== END 2017-12-18 19:17 | disposition home or self-care (01) ==
PROVIDERS: Emergency Provider Emergency Medicine; Family Provider Internal Medicine; PCP Internal Medicine; Referring Provider Surgery
DX: K59.00 Constipation, unspecified (principal)
CPT/HCPCS: 74022; 80053; 83605; 83690; 85025; 85610; 85730; 99282; 99284

== ENCOUNTER 2017-12-26 11:01 | Emergency (ER) | payer OTHER, SELFPAY ==
[2017-12-26 11:14] VITALS: BP 85/57; PULSE 98; RESP 20; TEMP 36.4; O2SAT 100; BMI 24.3
[2017-12-26 11:49] LABS: Add Manual Diff / Slide Review NO; Basophils Percent Auto 0.7 % (0-2); Eosinophils Percent Auto 0.8 % (2-4); Hematocrit 38.1 % (41-53); Hemoglobin 13.4 g/dL (13.5-17.5); Lymphocytes Percent Auto 10.5 % (25-40); Mean Corpuscular HGB Conc 35.2 % (30-36); Mean Corpuscular Hemoglobin 31.1 PG (26-34); Mean Corpuscular Volume 88.5 fL (80-100); Monocytes Percent Auto 9.6 % (3-14); Neutrophils Absolute Auto 7000 /uL (3000-5900); Neutrophils Percent Auto 78.4 % (50-75); Platelet Count 292 X10^3/uL (150-400); Red Blood Cell Count 4.31 X10^6/uL (4.5-5.9); Red Cell Distribution Width 14.2 % (11.6-14.8); White Blood Cell Count 8.9 X10^3/uL (4.5-11.0)
[2017-12-26 11:55] LABS: Alanine Aminotransferase 105 IU/L (21-72); Albumin 4.6 g/dL (3.5-5.0); Albumin Globulin Ratio 1.5 (1.0-2.8); Alkaline Phosphatase 90 U/L (38-126); Aspartate Aminotransferase 63 IU/L (17-59); BUN Creatinine Ratio 37.5 (6-22); Blood Urea Nitrogen 60 mg/dL (9-20); Calcium 9.9 mg/dL (8.4-10.2); Carbon Dioxide 31 mmol/L (22-32); Chloride 87 mmol/L (98-107); Estimated Glomerular Filt Rate 41.6 mL/min (>60); Glucose 134 mg/dL (80-110); HEMOLYSIS < 15 (0-50); Sodium 131 mmol/L (137-145); Total Protein 7.6 g/dL (6.3-8.2)
[2017-12-26 11:58] LABS: Potassium 5.4 mmol/L (3.4-5.1)
[2017-12-26 12:00] VITALS: BP 108/61; PULSE 76; RESP 18
[2017-12-26 13:00] VITALS: BP 106/65; PULSE 80; RESP 22; O2SAT 99
--- NOTE | 2017-12-26 13:36 | DI.CT.S_ITS ---
PROCEDURE: CT ABDOMEN PELVIS W CON INDICATIONS: abdominal pain, cancer, not tolerating solids. TECHNIQUE: After the administration of oral and intravenous contrast, 5 mm thick sections acquired from the diaphragms to the symphysis. 5 mm thick coronal and sagittal reformats were performed. For radiation dose reduction, the following was used: automated exposure control, adjustment of mA and/or kV according to patient size. COMPARISON: [facility], CT, CT ABDOMEN PELVIS W CON, 11/22/2017, 15:18. FINDINGS: Image quality: Excellent. ABDOMEN: Lung bases: Trace pulmonary radiopacities are present within the right lower lobe (series 3, image 13). No pleural effusion. Heart is normal size. Solid organs: Liver is normal in size and overall enhancement. A hypoattenuating 1.5 cm diameter lesion is present within hepatic segment VIII which is increased from 0.6 cm on the study dated 11/22/17 (series 2, image 20). Gallbladder is mildly contracted. Biliary system is non-dilated. Pancreas enhances normally. Spleen is normal in size and enhancement. No adrenal nodules. Kidneys are normal in size and enhancement, without hydronephrosis. Peritoneum and bowel: The stomach is filled with contrast. The small bowel demonstrates normal caliber and wall thickness. An ileostomy is present within the right lower quadrant. There is circumferential wall thickening of the rectosigmoid. More superiorly, there is pericolonic fat stranding of the distal sigmoid colon. There is scattered diverticular outpouchings throughout the colon. No other mucosal thickening or pericolonic fat stranding of the colon. Nodes and vessels: No retroperitoneal or mesenteric adenopathy. Aorta and inferior vena cava are normal in caliber. There are scattered atheromatous calcifications throughout the aorta and iliac arteries bilaterally. Miscellaneous: No ventral hernias. PELVIS: Genitourinary: Bladder wall thickness is normal. Miscellaneous: No inguinal hernias or adenopathy. Bones: No suspicious bony lesions. No vertebral body compression fractures. IMPRESSION: 1. Circumferential wall thickening of the rectosigmoid which is new when compared with the study dated 11/22/17. Pericolonic fat stranding is present within this region. It is unclear whether this represents an acute colitis or may simply represent postoperative changes after recent bowel obstruction and resultant ileostomy. This finding was discussed with Dr. Quinonez at 3:02 PM on 12/26/17. 2. No other acute intra-abdominal findings. Normal appendix. 3. Increased size of a hypoattenuating lesion within hepatic segment VIII suspicious for progression of hepatic metastasis. Dictated by: Nabila Presley M.D. on 12/26/2017 at 14:54 Approved by: Nabila Presley M.D. on 12/26/2017 at 15:04
[2017-12-26 14:00] VITALS: BP 115/75; PULSE 76; RESP 15; O2SAT 100
--- NOTE | 2017-12-26 15:19 | PC.NURSE ---
report received from Rosemary Russell RN .
[2017-12-26 15:35] VITALS: BP 124/80; PULSE 75; RESP 16; O2SAT 100
[2017-12-26 17:45] VITALS: BP 117/66; PULSE 83; RESP 25; O2SAT 100
--- NOTE | 2018-01-03 16:44 | ED_ITS ---
HPI - Weakness General Chief complaint: Weakness Stated complaint: weight loss Time Seen by Provider: 12/26/17 11:54 Source: patient Mode of arrival: ambulatory Limitations: no limitations History of Present Illness HPI Narrative: Patient states that he has a history of prostatic and colon cancer. He states he is not currently on could chemotherapy but that he is scheduled to start soon, and that lately his appetite has just been decreasing. He states that he tries to eat, but as soon as he starts to eat, he just feels that nothing is going through. He denies vomiting, and states he has had output into his ileostomy bag. However, he has had to stop eating solid food and have only Ensure, otherwise he will not eat anything. Patient denies fevers , abdominal pain, cough, chills, dysuria, or blood in his ostomy output. He states that he had a bowel obstruction several weeks back, but has not had other problems since except for the decreased appetite. Patient does note that he has been a little weaker than usual. Relieving factors: none Exacerbating factors: none Context: other (See above) Related Data Home Medications Medication Instructions Recorded Confirmed enalapril maleate 5 mg PO QDAY #0 07/25/16 01/02/18 simvastatin 5 mg PO DAILY #0 07/25/16 01/02/18 ondansetron 1 tab PO PRN PRN 01/02/18 01/02/18 oxycodone 1 tab PO DIRECTED 01/02/18 01/02/18 Previous Rx's Medication Instructions Recorded nitroglycerin 0.4 mg sublingual 0.4 mg SL Q5-15M PRN #10 tab 12/28/17 tablet Allergies Allergy/AdvReac Type Severity Reaction Status Date / Time No Known Drug Allergies Allergy Verified 12/18/17 17:54 Review of Systems Review of Systems All systems reviewed & are unremarkable except as noted in HPI and below Constitutional Denies chills, Denies fever(s), Denies lethargy and Denies weakness Eyes Denies change in vision, Denies eye discharge, Denies irritation and Denies loss of vision ENT Ears, Nose, Mouth, and Throat: Denies change in voice, Denies neck pain and Denies sore throat Cardiovascular Denies chest pain, Denies irregular heart rhythm, Denies lightheadedness, Denies palpitations, Denies dyspnea, Denies dyspnea on exertion and Denies orthopnea Respiratory Denies cough, Denies dyspnea, Denies dyspnea on exertion and Denies wheezing Gastrointestinal Gastrointestinal: Denies abdominal pain, Denies change in bowel habits, Denies diarrhea, Denies nausea and Denies vomiting Comments: Decreased appetite, early satiety. Genitourinary Denies hematuria, Denies flank pain, Denies urinary incontinence and Denies urinary urgency Musculoskeletal Denies neck pain Integumentary/Breasts Denies pruritus, Denies erythema, Denies rash and Denies wounds Neurologic Denies confusion, Denies loss of vision and Denies weakness Psychiatric Denies anxiety, Denies confusion, Denies depression, Denies homicidal ideation and Denies suicidal ideation Endocrine Denies palpitations Hematologic/Lymphatic Denies easy bruising Allergic/Immunologic Denies wheezing [facility] Medical History C. difficile colitis (Acute) Colon cancer (Acute) Surgical History H/O shoulder surgery (Acute) Status post ORIF of fracture of ankle (Acute) History of colon resection (Acute) Family History Son Cancer Father Cancer Social History household members: spouse Smoking Status: Former smoker alcohol intake: current Exam Initial Vital Signs Initial Vital Signs: Vital Signs Temperature 97.6 F 12/26/17 11:14 Pulse Rate 98 H 12/26/17 11:14 Respiratory Rate 20 12/26/17 11:14 Blood Pressure 85/57 L 12/26/17 11:14 Pulse Oximetry 100 12/26/17 11:14 Const General: cooperative and well developed Nutritional Appearance: well nourished Orientation: alert, awake, oriented x3 and not confused [facility] Head: normocephalic and atraumatic Ears: external ears normal Nose: external nose normal and No nasal discharge Face and sinus: face symmetric and No dry mucous membranes Mouth: oral mucosae normal and moist mucous membranes Teeth and gingiva: dentition normal Eyes General: appearance normal, both eyes and all related structures Eyelids: eyelids normal Conjunctivae: conjunctivae normal Sclera: sclerae normal Pupils: PERRL EOM: EOM intact bilaterally Neck Neck: normal visual inspection, trachea midline, No lymphadenopathy, No midline deformity and No JVD Lymphatic: No lymphedema Chest Chest: normal inspection of the chest Resp Effort & Inspection: normal respiratory effort, able to speak in complete sentences, no respiratory distress and no use of accessory muscles Auscultation: clear to auscultation bilaterally, no rales, no rhonchi and no wheezes Cardio Rate: regular rate Rhythm: regular rhythm Heart Sounds: no click, no gallops, no murmurs and no rubs Pulses: normal peripheral pulses GI Inspection: non-distended Palpation: soft, no hepatosplenomegaly, No guarding, No pulsatile mass and No tender Other: Ileostomy site is healthy in appearance. Bag contains moderate amount of brownish stool. No distinct food chunks are noted. No blood. Mild amount of air is noted in the bag. Back/Spine/Pelvis Back: No CVA tenderness Cervical Spine: cervical ROM normal and No pain with cervical ROM Thoracic/Lumbar Spine: thoracic and lumbar spine normal to inspection Skin General: no rashes or lesions noted, No jaundice and No petechiae Neuro General: alert, oriented x3, gait normal and no focal motor deficits Speech: speech normal Extrem General: full ROM, no clubbing, cyanosis or edema, no pedal edema and no calf tenderness Psych Appearance: well kempt Mental Status: mental status grossly normal Attitude: cooperative Thought Content: normal and suicidality Judgment: judgment good Course Course Narrative: The patient was given IV fluids and worked up with labs and CT scan, both of which were unremarkable, with the exception of a liver mass which has grown a bit larger in the interim since the last CT scan. I did discuss the results with the patient and his . At this point, I do not know why the patient has a decreased appetite. I have advised him to talk with his oncologist about options to deal with this, including appetite stimulants. Ideally, this should be done prior to the patient's initiation of chemotherapy. Orders Ordered: ED Orders 12/26/17 11:36 Complete Blood Count AUTO DIFF Stat Comprehensive Metabolic Panel Stat Vital Signs - 8 hr 12/26/17 11:14 12/26/17 12:00 Temperature 97.6 F Pulse Rate 98 H 76 Respiratory Rate 20 18 Blood Pressure 85/57 L Blood Pressure [Left Arm] 108/61 Pulse Oximetry 100 MDM - Weakness Medical Records Attestation: I reviewed the patient's medical records. Lab Data Attestation: I reviewed the patient's lab results. Result diagrams: 12/26/17 11:36 12/26/17 11:36 Lab Results 12/26/17 12/26/17 Range/Units 11:36 11:36 WBC 8.9 (4.5-11.0) X10^3/uL RBC 4.31 L (4.5-5.9) X10^6/uL Hgb 13.4 L (13.5-17.5) g/dL Hct 38.1 L (41-53) % MCV 88.5 (80-100) fL MCH 31.1 (26-34) PG MCHC 35.2 (30-36) % RDW 14.2 (11.6-14.8) % Plt Count 292 (150-400) X10^3/uL Neut % (Auto) 78.4 H (50-75) % Lymph % (Auto) 10.5 L (25-40) % [place] % (Auto) 9.6 (3-14) % Eos % (Auto) 0.8 L (2-4) % Baso % (Auto) 0.7 (0-2) % Neut # (Auto) 7000 H (9092-9611) /uL Sodium 131 L (137-145) mmol/L Potassium 5.4 H D (3.4-5.1) mmol/L Chloride 87 L (98-107) mmol/L Carbon Dioxide 31 (22-32) mmol/L BUN 60 H (9-20) mg/dL Creatinine 1.60 H (0.66-1.25) mg/dL Estimated GFR 41.6 L (>60) mL/min BUN/Creatinine Ratio 37.5 H (6-22) Glucose 134 H (80-110) mg/dL Calcium 9.9 (8.4-10.2) mg/dL Total Bilirubin 1.0 (0.2-1.3) mg/dL AST 63 H (17-59) IU/L ALT 105 H (21-72) IU/L Alkaline Phosphatase 90 (38-126) U/L Total Protein 7.6 (6.3-8.2) g/dL Albumin 4.6 (3.5-5.0) g/dL Globulin 3.0 (1.7-4.1) g/dL Albumin/Globulin Ratio 1.5 (1.0-2.8) Urine Dip Bedside Urine Glucose Negative Bedside Urine Bilirubin - Negative Bedside Urine Ketone - Negative Urine Specific [place] 1.010 Bedside Urine Occult Blood - Negative Bedside Urine pH 6.0 Bedside Urine Protein - Negative Bedside Urine Urobilinogen - Negative Bedside Urine Nitrite - Negative Bedside Urine Leukocytes - Negative Esterase Imaging Data CT scan - abdomen: Radiologist's impression: PROCEDURE: CT ABDOMEN PELVIS W CON INDICATIONS: abdominal pain, cancer, not tolerating solids. TECHNIQUE: After the administration of oral and intravenous contrast, 5 mm thick sections acquired from the diaphragms to the symphysis. 5 mm thick coronal and sagittal reformats were performed. For radiation dose reduction, the following was used: automated exposure control, adjustment of mA and/or kV according to patient size. COMPARISON: [facility], CT, CT ABDOMEN PELVIS W CON, 11/22/2017, 15:18. FINDINGS: Image quality: Excellent. ABDOMEN: Lung bases: Trace pulmonary radiopacities are present within the right lower lobe (series 3, image 13). No pleural effusion. Heart is normal size. Solid organs: Liver is normal in size and overall enhancement. A hypoattenuating 1.5 cm diameter lesion is present within hepatic segment VIII which is increased from 0.6 cm on the study dated 11/22/17 (series 2, image 20). Gallbladder is mildly contracted. Biliary system is non-dilated. Pancreas enhances normally. Spleen is normal in size and enhancement. No adrenal nodules. Kidneys are normal in size and enhancement, without hydronephrosis. Peritoneum and bowel: The stomach is filled with contrast. The small bowel demonstrates normal caliber and wall thickness. An ileostomy is present within the right lower quadrant. There is circumferential wall thickening of the rectosigmoid. More superiorly, there is pericolonic fat stranding of the distal sigmoid colon. There is scattered diverticular outpouchings throughout the colon. No other mucosal thickening or pericolonic fat stranding of the colon. Nodes and vessels: No retroperitoneal or mesenteric adenopathy. Aorta and inferior vena cava are normal in caliber. There are scattered atheromatous calcifications throughout the aorta and iliac arteries bilaterally. Miscellaneous: No ventral hernias. PELVIS: Genitourinary: Bladder wall thickness is normal. Miscellaneous: No inguinal hernias or adenopathy. Bones: No suspicious bony lesions. No vertebral body compression fractures. IMPRESSION: 1. Circumferential wall thickening of the rectosigmoid which is new when compared with the study dated 11/22/17. Pericolonic fat stranding is present within this region. It is unclear whether this represents an acute colitis or may simply represent postoperative changes after recent bowel obstruction and resultant ileostomy. This finding was discussed with Dr. Quinonez at 3:02 PM on 12/26/17. 2. No other acute intra-abdominal findings. Normal appendix. 3. Increased size of a hypoattenuating lesion within hepatic segment VIII suspicious for progression of hepatic metastasis. Dictated by: Nabila Presley M.D. on 12/26/2017 at 14:54 Approved by: Nabila Presley M.D. on 12/26/2017 at 15:04 Discharge Plan Departure Patient Disposition: Home Clinical Impression: Decrease in appetite Discharge Date/Time: 12/26/17 17:46 Interventions: ED Discharge Assessment Last Done: 12/26/17 17:45 Instructions: DI for Poor Appetite Activity Restrictions/Additional Instructions: Your CT scan does not show any problems in the remainder of your bowel. You have some thickening and inflammation in your lower abdomen and pelvis which is likely residual from the radiation you had. You do have good output into your ileostomy bag, and there is no evidence of an obstruction at this time. Please follow up with your doctor to discuss your appetite changes, and what can be done about your inability to tolerate solid food. Prescriptions: No Action enalapril maleate 5 MG tablet 5 mg PO QDAY Qty: 0 RF: 0 simvastatin 5 MG tablet 5 mg PO DAILY Qty: 0 RF: 0 nitroglycerin 0.4 mg tablet, sublingual 0.4 mg SL Q5-15M PRN (Reason: chest pain) Qty: 10 RF: 0 ondansetron 4 mg tablet,disintegrating 1 tab PO PRN PRN (Reason: Nausea) RF: 0 oxycodone 1 tab PO DIRECTED RF: 0 Referrals: Silvia Florentino MD [Primary Care Provider] -
== END 2017-12-26 17:46 | disposition home or self-care (01) ==
PROVIDERS: Emergency Provider Emergency Medicine; Family Provider Internal Medicine; PCP Internal Medicine
DX: R63.0 Anorexia (principal); Z85.038 Personal history of other malignant neoplasm of large intestine; Z85.46 Personal history of malignant neoplasm of prostate
CPT/HCPCS: 36591; 74177; 80053; 81003; 85025; 99283; 99285

== ENCOUNTER 2018-01-02 16:30 | Observation (INO) | payer OTHER, SELFPAY ==
--- NOTE | 2018-01-02 16:46 | ED_ITS ---
HPI - Abdominal Pain General Chief Complaint: Abdominal Pain Stated Complaint: Thinks he has a bowel obstruction Time Seen by Provider: 01/02/18 16:41 Source: patient and family Mode of arrival: wheelchair Limitations: no limitations History of Present Illness HPI narrative: Patient is an 82-year-old male with a history of colon cancer. He does have a colostomy in place. He was at his oncologist's office today to discuss what appears to be a recent finding that he has liver metastasis. He is not currently undergoing chemotherapy. His visit today was to discuss further treatment. While at the office is reported that he stated that for the past week he has not felt very well. Has not tolerated any oral intake to include food or fluids. He states he just does not feel like he wants to eat. Has no appetite. Some nausea. There was some concern about a potential bowel obstruction. He apparently has had bowel obstructions in the past however he states that he cleaned the colostomy bag prior to his ER visit and there is stool in his colostomy bag today. Related Data Home Medications Medication Instructions Recorded Confirmed enalapril maleate 5 mg PO QDAY #0 07/25/16 01/02/18 simvastatin 5 mg PO DAILY #0 07/25/16 01/02/18 ondansetron 1 tab PO PRN PRN 01/02/18 01/02/18 oxycodone 1 tab PO DIRECTED 01/02/18 01/02/18 Previous Rx's Medication Instructions Recorded nitroglycerin 0.4 mg sublingual 0.4 mg SL Q5-15M PRN #10 tab 12/28/17 tablet Allergies Allergy/AdvReac Type Severity Reaction Status Date / Time No Known Drug Allergies Allergy Verified 12/18/17 17:54 Review of Systems Constitutional Denies chills, Reports fatigue, Denies fever(s), Denies headache(s), Reports lethargy and Reports malaise ENT Ears, Nose, Mouth, and Throat: Denies dizziness and Denies headache(s) Cardiovascular Denies chest pain and Denies dyspnea Respiratory Denies dyspnea Gastrointestinal Gastrointestinal: Reports abdominal pain and Denies change in bowel habits Genitourinary Denies dysuria Musculoskeletal Denies myalgias and Denies arthralgias Integumentary/Breasts Denies lesions and Denies rash Neurologic Reports behavioral changes, Denies confusion, Denies dizziness, Denies headache( s) and Denies focal weakness Psychiatric Reports behavioral changes and Denies confusion Endocrine Reports fatigue Hematologic/Lymphatic Denies easy bleeding and Denies easy bruising ON LICENSE OF [facility] Medical History C. difficile colitis (Acute) Colon cancer (Acute) Surgical History History of colon resection (Acute) Social History household members: spouse Smoking Status: Former smoker alcohol intake: current Exam Initial Vital Signs Initial Vital Signs: Vital Signs Temperature 98.4 F 01/02/18 16:51 Pulse Rate 76 01/02/18 16:51 Respiratory Rate 16 01/02/18 16:51 Blood Pressure 147/76 H 01/02/18 16:51 Pulse Oximetry 96 01/02/18 16:51 Const General: cooperative, comfortable, well groomed and No acute distress Orientation: alert, awake and oriented x3 HENMT Head: normal to inspection and normocephalic Resp Effort & Inspection: normal respiratory effort Auscultation: clear to auscultation bilaterally Cardio Rate: regular rate Rhythm: regular rhythm Pulses: radial pulses present GI Inspection: non-distended Palpation: soft, No firm and No tender Other: Colostomy bag in place with brown stool Skin Lesions: no lesions Rashes: no rashes Neuro General: alert, awake and oriented x3 Cognition: normal cognition Speech: speech normal Extrem General: normal to inspection and capillary refill normal Psych Appearance: grossly normal and well kempt Mood: congruent mood Affect: normal affect Course Orders Ordered: ED Orders 01/02/18 17:03 Complete Blood Count AUTO DIFF Stat Comprehensive Metabolic Panel Stat Lactate (Lactic Acid) Stat Lipase Stat Procalcitonin Stat 01/02/18 17:53 EKG-12 Lead Stat 01/02/18 20:25 Urinalysis and Microscopic Stat Urine Culture Stat 01/02/18 21:34 US renal complete Stat Sodium Chloride (Normal Saline 0.9%) 1,000 mls @ 150 mls/hr IV CONT FELY Last Admin: 01/02/18 18:01 Dose: 150 mls/hr Discontinued Medications Dextrose (D50w) 25 gm IV NOW ONE Stop: 01/02/18 20:25 Last Admin: 01/02/18 20:45 Dose: 25 gm Insulin Human Regular (Humulin R) 5 unit IV NOW ONE Stop: 01/02/18 20:25 Last Admin: 01/02/18 20:45 Dose: 5 unit Ondansetron HCl (Zofran) 4 mg IV NOW ONE Stop: 01/02/18 18:00 Last Admin: 01/02/18 18:01 Dose: 4 mg Oxycodone/Acetaminophen (Percocet 5/325) 1 tab PO NOW ONE Stop: 01/02/18 17:26 Last Admin: 01/02/18 17:31 Dose: 1 tab Vital Signs - 8 hr 01/02/18 16:51 01/02/18 19:30 Temperature 98.4 F Pulse Rate 76 68 Respiratory Rate 16 12 Blood Pressure 147/76 H Blood Pressure [Right Arm] 127/62 Pulse Oximetry 96 99 MDM - Abdominal Pain Medical Records Attestation: I reviewed the patient's medical records. Lab Data Attestation: I reviewed the patient's lab results. Result diagrams: 01/02/18 17:03 01/02/18 17:03 Lab Results 01/02/18 01/02/18 01/02/18 Range/Units 17:03 17:03 17:03 WBC 12.8 H (4.5-11.0) X10^3/uL RBC 4.61 (4.5-5.9) X10^6/uL Hgb 13.9 (13.5-17.5) g/dL Hct 40.7 L (41-53) % MCV 88.3 (80-100) fL MCH 30.2 (26-34) PG MCHC 34.2 (30-36) % RDW 14.0 (11.6-14.8) % Plt Count 242 (150-400) X10^3/uL Neut % (Auto) 86.0 H (50-75) % Lymph % (Auto) 5.2 L (25-40) % Ralls % (Auto) 8.4 (3-14) % Eos % (Auto) 0.2 L (2-4) % Baso % (Auto) 0.2 (0-2) % Neut # (Auto) 14357 H (4841-1251) /uL Sodium 122 L (137-145) mmol/L Potassium 6.3 H* (3.4-5.1) mmol/L Chloride 84 L (98-107) mmol/L Carbon Dioxide 24 (22-32) mmol/L BUN 93 H (9-20) mg/dL Creatinine 4.60 H (0.66-1.25) mg/dL Estimated GFR 12.3 L (>60) mL/min BUN/Creatinine Ratio 20.2 (6-22) Glucose 133 H (80-110) mg/dL Lactate (0.7-2.1) mmol/L Calcium 9.6 (8.4-10.2) mg/dL Total Bilirubin 1.6 H (0.2-1.3) mg/dL AST 77 H (17-59) IU/L ALT 140 H (21-72) IU/L Alkaline Phosphatase 114 (38-126) U/L Total Protein 7.6 (6.3-8.2) g/dL Albumin 4.5 (3.5-5.0) g/dL Globulin 3.1 (1.7-4.1) g/dL Albumin/Globulin Ratio 1.5 (1.0-2.8) Lipase 271 (23-300) U/L Procalcitonin 0.17 (<0.5) ng/mL Urine Color Urine Appearance Urine pH (4.5-8.0) Ur Specific [place] (1.000-1.035) Urine Protein (Negative) Urine Glucose (UA) (Normal) g/dL Urine Ketones (NEGATIVE) Urine Occult Blood (Negative) Urine Nitrate (Negative) Urine Bilirubin (NEGATIVE) Urine Urobilinogen (0.2) E.U./dL Ur Leukocyte Esterase (NEGATIVE) Urine RBC (0-5/HPF) Urine WBC (0-5/HPF) Ur Squamous Epith Cells Urine Bacteria (None) Ur Culture Indicated? Micro UA Comment 01/02/18 01/02/18 Range/Units 17:03 20:25 WBC (4.5-11.0) X10^3/uL RBC (4.5-5.9) X10^6/uL Hgb (13.5-17.5) g/dL Hct (41-53) % MCV (80-100) fL MCH (26-34) PG MCHC (30-36) % RDW (11.6-14.8) % Plt Count (150-400) X10^3/uL Neut % (Auto) (50-75) % Lymph % (Auto) (25-40) % Ralls % (Auto) (3-14) % Eos % (Auto) (2-4) % Baso % (Auto) (0-2) % Neut # (Auto) (2879-8663) /uL Sodium (137-145) mmol/L Potassium (3.4-5.1) mmol/L Chloride (98-107) mmol/L Carbon Dioxide (22-32) mmol/L BUN (9-20) mg/dL Creatinine (0.66-1.25) mg/dL Estimated GFR (>60) mL/min BUN/Creatinine Ratio (6-22) Glucose (80-110) mg/dL Lactate 1.3 (0.7-2.1) mmol/L Calcium (8.4-10.2) mg/dL Total Bilirubin (0.2-1.3) mg/dL AST (17-59) IU/L ALT (21-72) IU/L Alkaline Phosphatase (38-126) U/L Total Protein (6.3-8.2) g/dL Albumin (3.5-5.0) g/dL Globulin (1.7-4.1) g/dL Albumin/Globulin Ratio (1.0-2.8) Lipase (23-300) U/L Procalcitonin (<0.5) ng/mL Urine Color Yellow Urine Appearance Cloudy Urine pH 6.0 (4.5-8.0) Ur Specific [place] 1.010 (1.000-1.035) Urine Protein Negative (Negative) Urine Glucose (UA) Negative (Normal) g/dL Urine Ketones Negative (NEGATIVE) Urine Occult Blood 3+ H (Negative) Urine Nitrate Negative (Negative) Urine Bilirubin Negative (NEGATIVE) Urine Urobilinogen 0.2 (0.2) E.U./dL Ur Leukocyte Esterase 1+ H (NEGATIVE) Urine RBC 1-5/hpf (0-5/HPF) Urine WBC 5-10/hpf H (0-5/HPF) Ur Squamous Epith Cells None seen Urine Bacteria Many (>30) H (None) Ur Culture Indicated? Not Reportable Micro UA Comment Not Reportable ECG Data Attestation: I personally reviewed and interpreted this ECG as follows: Prior ECG tracings: not available for review Interpretation: Sinus rhythm Left bundle branch block Ventricular rate is 67 Left axis deviation No ST T wave changes MDM Narrative Medical decision making narrative: Patient is alert and oriented. He has a benign abdominal exam and a soft. No vomiting. Does have brown stool in the colostomy. I have low concern secondary to his exam for a bowel obstruction. Patient is afebrile. Does have an elevated white blood cell count however normal lactate. Urine shows bacteria but no other signs of an infection. Unsure as the exact etiology of the white blood cell count. Patient is also hyperkalemic, hyponatremic and in acute renal failure. A bladder scan shows a postvoid residual of greater than 400 cc of urine. A Perez catheter was placed. Patient is also started on fluids. Was given insulin and glucose for the hyperkalemia. No EKG changes from this. I suspect that his acute renal failure is secondary to a mixture of pre renal and post renal. I suspect that the hyponatremia and the hyperkalemia secondary to this. Renal ultrasound ordered. Care turned over to night provider at 2135 to follow up on this and disposition. Discharge Plan Departure Patient Disposition: [facility] Clinical Impression: Acute renal failure, Hyponatremia, Hyperkalemia, Colon cancer, Fatigue Prescriptions: No Action enalapril maleate 5 MG tablet 5 mg PO QDAY Qty: 0 RF: 0 simvastatin 5 MG tablet 5 mg PO DAILY Qty: 0 RF: 0 nitroglycerin 0.4 mg tablet, sublingual 0.4 mg SL Q5-15M PRN (Reason: chest pain) Qty: 10 RF: 0 ondansetron 4 mg tablet,disintegrating 1 tab PO PRN PRN (Reason: Nausea) RF: 0 oxycodone 1 tab PO DIRECTED RF: 0
[2018-01-02 16:51] VITALS: BP 147/76; PULSE 76; RESP 16; TEMP 36.9; O2SAT 96; BMI 23.8
[2018-01-02 17:22] LABS: Add Manual Diff / Slide Review NO; Basophils Percent Auto 0.2 % (0-2); Eosinophils Percent Auto 0.2 % (2-4); Hematocrit 40.7 % (41-53); Hemoglobin 13.9 g/dL (13.5-17.5); Lymphocytes Percent Auto 5.2 % (25-40); Mean Corpuscular HGB Conc 34.2 % (30-36); Mean Corpuscular Hemoglobin 30.2 PG (26-34); Mean Corpuscular Volume 88.3 fL (80-100); Monocytes Percent Auto 8.4 % (3-14); Neutrophils Absolute Auto 11000 /uL (3000-5900); Platelet Count 242 X10^3/uL (150-400); Red Blood Cell Count 4.61 X10^6/uL (4.5-5.9); White Blood Cell Count 12.8 X10^3/uL (4.5-11.0)
[2018-01-02] MEDS: OXYCODONE/ACETAMINOPHEN 5/325 TABLET 1 TAB PO (17:31)
[2018-01-02 17:40] LABS: Alanine Aminotransferase 140 IU/L (21-72); Albumin 4.5 g/dL (3.5-5.0); Albumin Globulin Ratio 1.5 (1.0-2.8); Alkaline Phosphatase 114 U/L (38-126); Aspartate Aminotransferase 77 IU/L (17-59); BUN Creatinine Ratio 20.2 (6-22); Bilirubin Total 1.6 mg/dL (0.2-1.3); Blood Urea Nitrogen 93 mg/dL (9-20); Calcium 9.6 mg/dL (8.4-10.2); Carbon Dioxide 24 mmol/L (22-32); Chloride 84 mmol/L (98-107); Estimated Glomerular Filt Rate 12.3 mL/min (>60); Globulin 3.1 g/dL (1.7-4.1); Glucose 133 mg/dL (80-110); HEMOLYSIS < 15 (0-50); Lipase 271 U/L (23-300); Sodium 122 mmol/L (137-145); Total Protein 7.6 g/dL (6.3-8.2)
[2018-01-02 17:41] LABS: Lactate (Lactic Acid) 1.3 mmol/L (0.7-2.1)
[2018-01-02 17:52] LABS: Potassium 6.3 mmol/L (3.4-5.1)
[2018-01-02] MEDS: ONDANSETRON 4 MG/2 ML INJ IV (18:01)
[2018-01-02] MEDS: SODIUM CHLORIDE 0.9% 1,000 ML 150 ML IV (18:01)
[2018-01-02 18:18] LABS: Procalcitonin 0.17 ng/mL (<0.5)
[2018-01-02 19:30] VITALS: BP 127/62; PULSE 68; RESP 12; O2SAT 99
[2018-01-02 20:41] LABS: Appearance Urine UA CLOUDY; Bilirubin Urine UA NEGATIVE (NEGATIVE); Color Urine UA YELLOW; Glucose Urine UA NEGATIVE (Normal); Ketones Urine UA NEGATIVE (NEGATIVE); Leukocyte Esterase Urine UA 1+ (NEGATIVE); Nitrite Urine UA Negative (Negative); Occult Blood Urine UA 3+ (Negative); Protein Urine UA NEGATIVE (Negative); Urobilinogen Urine UA 0.2 E.U./dL (0.2)
[2018-01-02] MEDS: INSULIN REGULAR 100 UNIT/ML 3 ML VIAL IV (20:45)
[2018-01-02] MEDS: DEXTROSE 50 % IN WATER 25 GM/50 ML SYRINGE IV (20:45)
[2018-01-02 20:48] LABS: Bacteria Urine Many (>30); RBC Urine 1-5/HPF (0-5/HPF); Squamous Epithelial Cell Urine None Seen; WBC Urine 5-10/HPF (0-5/HPF)
--- NOTE | 2018-01-02 21:34 | DI.US.S_ITS ---
PROCEDURE: US RENAL COMPLETE INDICATIONS: eval for hydro TECHNIQUE: Real-time scanning was performed of the kidneys and bladder, with image documentation. COMPARISON: None. FINDINGS: Kidneys: Kidneys are normal in size. Right kidney measures 10.7 cm long; left kidney measures 11.0 cm long. Right renal cortical thickness is 1.8 cm; left renal cortical thickness is 1.6 cm. Renal cortical echotexture is normal. No hydronephrosis or nephrolithiasis. No suspicious solid mass lesions. Bladder: Pre-void bladder volume is 229 mL[address] catheter in place. Following drainage a Perez catheter residual bladder volume is 0 mL. Pre-void images demonstrate no intraluminal masses or stones. On pre-void images, the right are left ureteral jets are noted with color Doppler interrogation. (Of note, ureteral jets may not be detectable in up to 25% of cases due to insufficient differences in specific gravity between ureteral and bladder urine). Miscellaneous: No free pelvic fluid. IMPRESSION: Normal renal sonogram without evidence of hydronephrosis. Dictated by: Callie Lantigua MD, PhD on 01/03/2018 at 7:43 Approved by: Callie Lantigua MD, PhD on 01/03/2018 at 7:45
[2018-01-02 23:20] LABS: HEMOLYSIS < 15 (0-50); Potassium 5.1 mmol/L (3.4-5.1)
[2018-01-03] VITALS (9 sets, daily range): BP systolic 105–143; BP diastolic 55–70; PULSE 61–70; RESP 13–18; TEMP 36.3–36.8; O2SAT 96–100; BMI 23.8
--- NOTE | 2018-01-03 02:04 | PC.NURSE ---
Addendum entered by Ayanna Dai R.N. 01/03/18 04:09: Patient did not have any orders after an hour and a half being on the floor, so I called Dr. Greer who asked me to submit orders of: admit pt as inpatient, NS @85/hr, BNP in AM, as tolerated diet, Oxycodone according to his home schedule, Zofran 4mg, IV, Q4. is staying in room tonight (Kierra). Patient is still comfortable and denying pain. Original Note: NOC Patient arrive from ED at 0200, stood and pivot to bed from wheelchair. AO, pleasant, and denying pain and nausea (received 4mg Zofran, 1 percocet, 35 D50, 5U insulin, and 1L fluid in ED). VS stable at 143/70, 64, at 99% RA. Perez placed downstairs, colostomy draining. Went to oncology appointment today at 1400, didn't feel well (n/v/pain), onocology decided not to start chemo and pt reported to ED. Labs in ED show hyperkalemia (6.5 and trending down to 5.1 at 2300), hyponatremic, ALT- 140 AST- 77, Creatinine- 4.6 WBC's- 12.8, and GRF of 12.6. Patient has been diagnosed with colon cancer and renal failure. POC is to admit until there is a bed available at a facility with dialysis. Dr. Greer accepted pt.
[2018-01-03] MEDS: SODIUM CHLORIDE 0.9% FLUSH 10 ML IV (04:24)
[2018-01-03] MEDS: SODIUM CHLORIDE 0.9% 1,000 ML 84 ML IV ×2 (04:24→16:16)
[2018-01-03 05:46] LABS: B Type Natriuretic Peptide < 100.0 (<100)
--- NOTE | 2018-01-03 08:24 | PC.NURSE ---
Day shift: Dr Hearn made aware by this automobile service writer of UA results and will look to see if she wants Pt on Telemetry.
--- NOTE | 2018-01-03 11:20 | P.HP_ITS ---
History of Present Illness Date Patient Seen: 01/03/18 Narrative: Patient is a 82-year-old male with a history of colon cancer, status post colectomy, colostomy takedown and ileostomy placement. Patient had ever current small-bowel obstruction in November. He subsequently recovered from that. He reports about a week and half ago noting decreased appetite. Nausea and vomiting. And right lower quadrant pain. Patient describes pain over the right kidney. He denies any fever or chills. Patient was scheduled to see his oncologist yesterday for a new patient appointment. He complained of feeling poorly with decreased appetite and nausea and vomiting and he was sent to the emergency room for evaluation. In the emergency room the patient was found to be in acute renal failure. He also was found to have hyperkalemia and hyponatremia. Attempts were made to transfer him to another psych facility with dialysis capabilities and this was unsuccessful. He was admitted to the hospital for further evaluation. The patient notes he has had significant weight loss. He has noted dysuria with frequent urination over the past week and a half. He has a history of prostate cancer. He reports using diaper once per day which has been adequate until a week and half ago. He denies any blood in his urine. He does have a history of C diff colitis and reports usual diarrhea with that. He has no diarrhea at this time although his stool is soft and somewhat formed. He denies any headache blurred vision or double vision. He has a mild cough. No hematemesis or melena or bright red blood per ileostomy. He denies any shortness of breath or chest pain. He has no lower extremity edema. He has no significant joint pains. The patient is admitted to the hospital at this time for further evaluation. Patient History Medical History C. difficile colitis (Acute) Colon cancer (Acute) Surgical History H/O shoulder surgery (Acute) Status post ORIF of fracture of ankle (Acute) History of colon resection (Acute) Family & Social History Family History: Reviewed 01/02/18 by Liam Casper DO Family history unavailable: Yes Social History: household members spouse Prior Living Arrangements House Safety & Behavioral: Feels Safe in Current Yes Environment Suicidal Ideation Description None Suicide Plan Description No Plan Tobacco & Substance use: Tobacco type cigarettes Smoking Status Former smoker alcohol intake current alcohol intake frequency holiday/special occasion Substance Use Type does not use Meds Home Medications Medication Instructions Recorded Confirmed Type enalapril maleate 5 mg PO QDAY #0 07/25/16 01/02/18 History simvastatin 5 mg PO DAILY #0 07/25/16 01/02/18 History nitroglycerin 0.4 mg sublingual 0.4 mg SL Q5-15M PRN #10 tab 12/28/17 01/02/18 Rx tablet ondansetron 1 tab PO PRN PRN 01/02/18 01/02/18 History oxycodone 1 tab PO DIRECTED 01/02/18 01/02/18 History Allergies Allergy/AdvReac Type Severity Reaction Status Date / Time No Known Drug Allergies Allergy Verified 12/18/17 17:54 Review of Systems Review of Systems All systems reviewed & are unremarkable except as noted in HPI and below Exam Vital Signs (past 8 hours): - 01/03/18 05:35 01/03/18 08:00 Temperature 97.4 F L 97.5 F L Pulse Rate 61 61 Respiratory Rate 17 16 Blood Pressure 119/56 L 107/60 Pulse Oximetry 98 100 Oxygen Delivery Method Room Air Narrative Exam Narrative: Pleasant male in No acute distress HEENT: NC/ AT/ EOMI, oropharynx dry mucus membranes Neck: supple without adenopathy Lungs: Clear to auscultation CV: RRR nl Sl S2 Abd: multiple well healed surgical scars, iliostomy in the right upper quadrant with soft formed stool, bowel tones hypoactive, belly non tender, no rebound, no masses, no rigidity EXt: No edema Neuro: non focal Skin: no lesions Psychiatric: normal mentation, no confusion, delusions, or hallucinations Objective Labs Result Diagrams: 01/02/18 17:03 01/02/18 23:04 Labs: Laboratory Results - last 24 hr 01/02/18 01/02/18 01/02/18 17:03 17:03 17:03 WBC 12.8 H RBC 4.61 Hgb 13.9 Hct 40.7 L MCV 88.3 MCH 30.2 MCHC 34.2 RDW 14.0 Plt Count 242 Neut % (Auto) 86.0 H Lymph % (Auto) 5.2 L [place] % (Auto) 8.4 Eos % (Auto) 0.2 L Baso % (Auto) 0.2 Neut # (Auto) 19663 H Sodium 122 L Potassium 6.3 H* Chloride 84 L Carbon Dioxide 24 BUN 93 H Creatinine 4.60 H Estimated GFR 12.3 L BUN/Creatinine Ratio 20.2 Glucose 133 H Lactate Calcium 9.6 Total Bilirubin 1.6 H AST 77 H ALT 140 H Alkaline Phosphatase 114 B-Natriuretic Peptide Total Protein 7.6 Albumin 4.5 Globulin 3.1 Albumin/Globulin Ratio 1.5 Lipase 271 Procalcitonin 0.17 Urine Color Urine Appearance Urine pH Ur Specific [place] Urine Protein Urine Glucose (UA) Urine Ketones Urine Occult Blood Urine Nitrate Urine Bilirubin Urine Urobilinogen Ur Leukocyte Esterase Urine RBC Urine WBC Ur Squamous Epith Cells Urine Bacteria Ur Culture Indicated? Micro UA Comment 01/02/18 01/02/18 01/02/18 17:03 20:25 23:04 WBC RBC Hgb Hct MCV MCH MCHC RDW Plt Count Neut % (Auto) Lymph % (Auto) [place]cd[place] % (Auto) Eos % (Auto) Baso % (Auto) Neut # (Auto) Sodium Potassium 5.1 D Chloride Carbon Dioxide BUN Creatinine Estimated GFR BUN/Creatinine Ratio Glucose Lactate 1.3 Calcium Total Bilirubin AST ALT Alkaline Phosphatase B-Natriuretic Peptide Total Protein Albumin Globulin Albumin/Globulin Ratio Lipase Procalcitonin Urine Color Yellow Urine Appearance Cloudy Urine pH 6.0 Ur Specific [place] 1.010 Urine Protein Negative Urine Glucose (UA) Negative Urine Ketones Negative Urine Occult Blood 3+ H Urine Nitrate Negative Urine Bilirubin Negative Urine Urobilinogen 0.2 Ur Leukocyte Esterase 1+ H Urine RBC 1-5/hpf Urine WBC 5-10/hpf H Ur Squamous Epith Cells None seen Urine Bacteria Many (>30) H Ur Culture Indicated? Not Reportable Micro UA Comment Not Reportable 01/03/18 05:16 WBC RBC Hgb Hct MCV MCH MCHC RDW Plt Count Neut % (Auto) Lymph % (Auto) [place] % (Auto) Eos % (Auto) Baso % (Auto) Neut # (Auto) Sodium Potassium Chloride Carbon Dioxide BUN Creatinine Estimated GFR BUN/Creatinine Ratio Glucose Lactate Calcium Total Bilirubin AST ALT Alkaline Phosphatase B-Natriuretic Peptide < 100.0 Total Protein Albumin Globulin Albumin/Globulin Ratio Lipase Procalcitonin Urine Color Urine Appearance Urine pH Ur Specific [place] Urine Protein Urine Glucose (UA) Urine Ketones Urine Occult Blood Urine Nitrate Urine Bilirubin Urine Urobilinogen Ur Leukocyte Esterase Urine RBC Urine WBC Ur Squamous Epith Cells Urine Bacteria Ur Culture Indicated? Micro UA Comment Assessment & Plan (1) Cancer of sigmoid colon: Problem details: Patient has no evidence of a small bowel obstruction. Overall he was able to eat today, has improved nausea and pain Current visit: No Status: Acute (2) Prostate cancer: Problem details: This may be the etiology of his urinary retention, patient was able to empty his bladder up until one week ago Current visit: No Status: Acute (3) Hyponatremia: Problem details: Likely secondary to volume depletion Current visit: Yes Status: Acute (4) Hyperkalemia: Problem details: Secondary to renal failure/ DINO-I. DINO-I on hold now, given glucose, insulin last night with improvement Current visit: Yes Status: Acute (5) Acute renal failure: Problem details: Multifactorial, likely secondary to urinary retention, DINO-I and dehydration- Will continue to follow labs daily. Hopefully dialysis will not be indicated, but if so, will plan to transfer accordingly Qualifiers: Acute renal failure type: unspecified Qualified Code(s): N17.9 - Acute kidney failure, unspecified Current visit: Yes Status: Acute (6) Acute urinary retention: Problem details: Perez catheter in place, start flomax Current visit: Yes Status: Acute (7) Urinary tract infection: Problem details: Started ceftriaxone Current visit: Yes Status: Acute Plan: Assessment/Plan Narrative: Full code per patient wishes Quality VTE Deep Vein Thrombosis/Pulmonary Embolism Present on Admission: No
[2018-01-03] MEDS: CEFTRIAXONE 1 GM/50 ML FROZ.PIGGY IV (11:31)
--- NOTE | 2018-01-03 12:09 | CM.DANOTE ---
Addendum entered by Kayla Bragg LPN 01/03/18 13:38: [facility] confirms pt is open to their service for RN. Original Note: Discharge Planning/Care Management DCP: assessment: case received, EMR reviewed and met this morning with pt. His was in the room and on her cell. Continued her cell conversation during the conversation. Introduced self and role. Pt is an 82 year old male who admitted early this morning to care of hospitalist team. PCP: Dr. Florentino. Payer: [employer]. Pt is was in process of an initial visit with oncology when he was, instead, sent to the ER. His understanding was that he needed emergent dialysis but a transfer bed was not available. I'm just hear until they tell me what hospital I will be transferred to. Discussed in team rounds. Dr. Hearn has now seen patient and sorted out the dx and POC. Pt being treated for a UTI and urinary retention and will a transfer for dialysis will be facilitated IF this is indicated. Have left a vm for [facility] to see if pt remains open to service with that agency. [facility] will continue to look into this and will document her findings. P: to be determined. CM Discharge Assessment Start: 01/03/18 12:02 Freq: Status: Active Protocol: Document 01/03/18 12:02 ITV (Rec: 01/03/18 12:08 ITV [id number]) Discharge Planning Assessment History Provided By Patient Medical Record Has Patient been admitted in last 30 Yes days? Comment Admitted to on 11/22/2017 with a d/c home on 12/07, new ostomy and [facility]. Prior Living Arrangements House Household Members spouse Is patient alert and oriented? Yes Whiteboard Updated in Patient Room with Yes name and ext. # of Self Storage Manager Review Status In Process Next Review Type Continued Stay Review
--- NOTE | 2018-01-03 12:40 | PC.NURSE ---
Day shift: Pt stated that he was not hungry at for lunch. He drank one Luna lemon/wilton and had one Dole fruit cup. Denies nausea. Denies pain. Call light in reach. Will continue to monitor.
[2018-01-03] MEDS: ONDANSETRON 4 MG/2 ML INJ IV (13:31)
--- NOTE | 2018-01-03 13:38 | CM.DPC ---
Clinicals faxed to [facility]
[2018-01-03] MEDS: TAMSULOSIN 0.4 MG CAPSULE PO (14:14)
--- NOTE | 2018-01-03 14:26 | PC.NURSE ---
Patient has been lethargic napped throughout the day. Patient felt nauseas after his small lunch and was given IVP 4mg of 4mg/2mL zofran. Patient also started on flomax per MD's orders.
[2018-01-03 15:00] LABS: Add Manual Diff / Slide Review NO; Basophils Percent Auto 0.2 % (0-2); Eosinophils Percent Auto 0.8 % (2-4); Hematocrit 33.4 % (41-53); Hemoglobin 11.5 g/dL (13.5-17.5); Mean Corpuscular HGB Conc 34.6 % (30-36); Mean Corpuscular Hemoglobin 30.9 PG (26-34); Mean Corpuscular Volume 89.2 fL (80-100); Monocytes Percent Auto 8.7 % (3-14); Neutrophils Absolute Auto 6300 /uL (3000-5900); Neutrophils Percent Auto 81.3 % (50-75); Platelet Count 181 X10^3/uL (150-400); Red Blood Cell Count 3.74 X10^6/uL (4.5-5.9); White Blood Cell Count 7.7 X10^3/uL (4.5-11.0)
[2018-01-03 15:32] LABS: BUN Creatinine Ratio 40.6 (6-22); Blood Urea Nitrogen 65 mg/dL (9-20); Calcium 8.8 mg/dL (8.4-10.2); Carbon Dioxide 27 mmol/L (22-32); Chloride 91 mmol/L (98-107); Estimated Glomerular Filt Rate 41.6 mL/min (>60); Glucose 118 mg/dL (80-110); HEMOLYSIS < 15 (0-50); Potassium 5.2 mmol/L (3.4-5.1); Sodium 129 mmol/L (137-145)
[2018-01-03] MEDS: SIMVASTATIN 10 MG TABLET 5 MG PO (21:08)
[2018-01-03] MEDS: HEPARIN 5,000 UNIT/ML VIAL 5000 UNIT SUBCUT (21:08)
--- NOTE | 2018-01-03 22:41 | PC.NURSE ---
01/03 2242; pt alert and oriented x4, vss on RA, denies pain. Perez draining to gravity. Ileostomy pouch changed once after adhesive failed and leaked out. Tele reading NSR. Renal labs improving. Standby assist with ambulation.
[2018-01-04] VITALS: BP 108/54; PULSE 65; RESP 16; TEMP 36.7; O2SAT 97
[2018-01-04 06:08] LABS: Add Manual Diff / Slide Review NO; Basophils Percent Auto 0.3 % (0-2); Eosinophils Percent Auto 1.3 % (2-4); Hematocrit 32.1 % (41-53); Hemoglobin 11.3 g/dL (13.5-17.5); Mean Corpuscular HGB Conc 35.2 % (30-36); Mean Corpuscular Hemoglobin 31.3 PG (26-34); Mean Corpuscular Volume 88.8 fL (80-100); Monocytes Percent Auto 9.8 % (3-14); Neutrophils Absolute Auto 5100 /uL (3000-5900); Neutrophils Percent Auto 78.6 % (50-75); Platelet Count 167 X10^3/uL (150-400); Red Blood Cell Count 3.61 X10^6/uL (4.5-5.9); Red Cell Distribution Width 13.9 % (11.6-14.8); White Blood Cell Count 6.5 X10^3/uL (4.5-11.0)
[2018-01-04 06:09] VITALS: BP 131/67; PULSE 69; RESP 16; TEMP 36.5; O2SAT 100
[2018-01-04 06:16] LABS: Alanine Aminotransferase 97 IU/L (21-72); Albumin 3.2 g/dL (3.5-5.0); Albumin Globulin Ratio 1.2 (1.0-2.8); Alkaline Phosphatase 89 U/L (38-126); Aspartate Aminotransferase 50 IU/L (17-59); BUN Creatinine Ratio 41.8 (6-22); Bilirubin Total 0.6 mg/dL (0.2-1.3); Blood Urea Nitrogen 46 mg/dL (9-20); Calcium 8.7 mg/dL (8.4-10.2); Carbon Dioxide 26 mmol/L (22-32); Chloride 95 mmol/L (98-107); Estimated Glomerular Filt Rate > 60.0 mL/min (>60); Globulin 2.7 g/dL (1.7-4.1); Glucose 105 mg/dL (80-110); HEMOLYSIS < 15 (0-50); Potassium 4.5 mmol/L (3.4-5.1); Sodium 129 mmol/L (137-145); Total Protein 5.9 g/dL (6.3-8.2)
[2018-01-04] MEDS: SODIUM CHLORIDE 0.9% 1,000 ML 84 ML IV (06:28)
[2018-01-04] MEDS: HEPARIN 5,000 UNIT/ML VIAL 5000 UNIT SUBCUT (08:54)
[2018-01-04 08:55] VITALS: BP 113/52; PULSE 68; RESP 16; TEMP 36.3; O2SAT 100
[2018-01-04] MEDS: TAMSULOSIN 0.4 MG CAPSULE PO (08:55)
[2018-01-04] MEDS: CEFTRIAXONE 1 GM/50 ML FROZ.PIGGY IV (08:55)
[2018-01-04 09:20] VITALS: O2SAT 100
--- NOTE | 2018-01-04 13:04 | P.DS_ITS ---
History of Present Illness Date Patient Seen: 01/04/18 Time Patient Seen: 13:02 Chief complaint: Thinks he has a bowel obstruction Narrative: Patient is 82 years of age male that is admitted to the hospital with poor eating habits and GI distress. On initial work-up patient is noted to have renal failure. Patient is also noted to have urine retention which was addressed quite effectively with a Perez catheter when placed. Unfortunately, patient was perceived as likely requiring dialysis. Was also a oncology consultation indicating patient may be appropriate for hospice. This certainly cause quite a bit of alarm and the patient was not transferred as the individuals caring for the patient had intended. Patient was also noted to have urinary tract infection was started on antibiotics to treat. Urine culture was submitted. Discharge Providers Date of admission: 01/03/18 01:39 Primary care physician: Silvia Florentino MD Discharge provider: Juma Alberts MD Discharge Date: 01/04/18 Summary Discharge Diagnosis: Cancer of sigmoid colon: Patient had no evidence of a small bowel obstruction. Patient's general well-being improved quite remarkably once admitted to the hospital with a Perez catheter placed antibiotic provided. Patient was noted to start eating better on January 03. Today on day of discharge patient is eating quite well and quite surprising to the patient as well as his . Patient denies having any problem with his appetite whatsoever this point. (2) Prostate cancer: This may be the etiology of his urinary retention, patient was able to empty his bladder up until one week ago Once the urine retention began approximately a week ago he digressed quite a bit. Patient on Flomax with a Perez catheter. Patient is to have the Perez catheter remain in place with a leg bag until seen by a urologist in outpatient setting Patient also will be seeing his primary care physician Dr Florentino in [place] Patient's urologist from the past is Dr. Hale located in [place]., patient' s will try to make an appoint with him to see Dr. Murray early next week (3) Hyponatremia: Likely secondary to volume depletion Patient is eating quite well now and I expect there should be a improved in the electrolytes in the next week that follows. Patient's sodium levels 131 on December 26. Hyperkalemia: Secondary to renal failure/ DINO-I. DINO-I on hold now, given glucose, insulin last night with improvement Potassium level normalized in a.m. on January 04 (5) Acute renal failure: likely secondary to urinary retention, DINO-I and dehydration- Serum creatinine in normal range in a.m. on January 04. (6) Acute urinary retention: Perez catheter in place, started flomax at 0.4 mg daily (7) Urinary tract infection: Started ceftriaxone Urine culture came back with Klebsiella sensitive to most antibiotics described Will discharge patient home on Augmentin for the next 8 days while awaiting to see the urologist. Status: Acute Hospital Course: Patient admitted to the hospital with urinary tension with the urinary tract infection. The symptoms of urine retention appear to have began about 7-10 days ago. Patient had poor oral intake over the past week as a consequence. Patient notes feeling terrible when he got admitted. Patient started eating better yesterday. Today patient and his both note that he is eating normally and anxious for discharge. Patient understands he continues to take fluids and can return to the hospital if any increased pain or other symptoms were to be noted. Status at Discharge Cognitive/behavioral status at discharge: Awake and alert no apparent distress Functional status at discharge: independent ambulation Time Spent with Patient Greater than 30 minutes (40 min) Exam Vital Signs (past 8 hours): - 01/04/18 06:09 01/04/18 08:55 01/04/18 09:20 Temperature 97.7 F 97.4 F L Pulse Rate 69 68 Respiratory Rate 16 16 Blood Pressure 131/67 113/52 L Pulse Oximetry 100 100 100 Oxygen Delivery Method Room Air Oxygen Flow Rate 0 Narrative Exam Narrative: General appearance he is awake and alert no apparent distress well oriented Respiratory clear to auscultation with good air flow Cardiovascular regular rate rhythm no murmurs GI is benign soft nontender positive bowel sounds Neurologic no focal neurologic changes cranial nerves 2-12 grossly intact Objective Labs Result Diagrams: 01/04/18 05:45 01/04/18 05:45 Labs: Laboratory Results - last 24 hr 01/03/18 01/03/18 01/04/18 14:17 14:17 05:45 WBC 7.7 6.5 RBC 3.74 L 3.61 L Hgb 11.5 L 11.3 L Hct 33.4 L 32.1 L MCV 89.2 88.8 MCH 30.9 31.3 MCHC 34.6 35.2 RDW 14.0 13.9 Plt Count 181 167 Neut % (Auto) 81.3 H 78.6 H Lymph % (Auto) 9.0 L 10.0 L [place] % (Auto) 8.7 9.8 Eos % (Auto) 0.8 L 1.3 L Baso % (Auto) 0.2 0.3 Neut # (Auto) 6300 H 5100 Sodium 129 L Potassium 5.2 H Chloride 91 L Carbon Dioxide 27 BUN 65 H Creatinine 1.60 H Estimated GFR 41.6 L BUN/Creatinine Ratio 40.6 H Glucose 118 H Calcium 8.8 Total Bilirubin AST ALT Alkaline Phosphatase Total Protein Albumin Globulin Albumin/Globulin Ratio 01/04/18 05:45 WBC RBC Hgb Hct MCV MCH MCHC RDW Plt Count Neut % (Auto) Lymph % (Auto) [place] % (Auto) Eos % (Auto) Baso % (Auto) Neut # (Auto) Sodium 129 L Potassium 4.5 Chloride 95 L Carbon Dioxide 26 BUN 46 H Creatinine 1.10 Estimated GFR > 60.0 BUN/Creatinine Ratio 41.8 H Glucose 105 Calcium 8.7 Total Bilirubin 0.6 AST 50 ALT 97 H Alkaline Phosphatase 89 Total Protein 5.9 L Albumin 3.2 L Globulin 2.7 Albumin/Globulin Ratio 1.2 Discharge Plan Discharge Plan Patient Disposition: Home Discharge Med Rec/Prescriptions Prescriptions: New amoxicillin-pot clavulanate [Augmentin] 875-125 mg tablet 1 tab PO BID Qty: 16 RF: 0 tamsulosin [Flomax] 0.4 mg capsule 0.4 mg PO DAILY Qty: 30 RF: 3 Continue enalapril maleate 5 MG tablet 5 mg PO QDAY Qty: 0 RF: 0 simvastatin 5 MG tablet 5 mg PO DAILY Qty: 0 RF: 0 nitroglycerin 0.4 mg tablet, sublingual 0.4 mg SL Q5-15M PRN (Reason: chest pain) Qty: 10 RF: 0 ondansetron 4 mg tablet,disintegrating 1 tab PO PRN PRN (Reason: Nausea) RF: 0 oxycodone 1 tab PO DIRECTED RF: 0 Follow up/Referrals: Silvia Florentino MD [Primary Care Provider] - Provider Discharge Instructions Diet: Diet as Tolerated and Regular Skin/Wound/Dressing Care Report to your healthcare provider any signs of infection, such as:: chills, fever, night sweats, increased pain and unusual drainage Discharge Data Primary Care Provider: Silvia Florentino Attending Provider: Dillan Greer Admit Date/Time: 01/03/18 01:39 Quality VTE Deep Vein Thrombosis/Pulmonary Embolism Present on Admission: No
[2018-01-04 14:08] VITALS: BP 100/55
--- NOTE | 2018-01-04 14:23 | DIET.PN ---
Pt reports appetite is improving. He has been drinking ensure shakes w/ meals. Potassium levels resolving. Continue to monitor PO intake and weight.
--- NOTE | 2018-01-04 15:20 | CM.DPNOTE ---
DCP: continued: DC order: noted. Case discussed today in Team Rounds. Dr. Alberts met with pt and his and has deemed him stable for home today with resumption of MARCO RN. Danita LARA is updated and info plus resume orders faxed by SERGIO.
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
== END 2018-01-04 15:05 | disposition home or self-care (01) | DRG 682 ==
LOC: ED 01-03 01:22 → AC 01-03 07:46
PROVIDERS: Emergency Medicine; Internal Medicine; Admitting Provider Internal Medicine; Emergency Provider Emergency Medicine; Family Provider Internal Medicine; PCP Internal Medicine; Visit Provider Internal Medicine
DX: N17.9 Acute kidney failure, unspecified (principal); E43 Unspecified severe protein-calorie malnutrition; E87.1 Hypo-osmolality and hyponatremia; N39.0 Urinary tract infection, site not specified; E87.5 Hyperkalemia; R33.9 Retention of urine, unspecified; Z93.3 Colostomy status; Z87.891 Personal history of nicotine dependence; B96.1 Klebsiella pneumoniae [K. pneumoniae] as the cause of diseases classified elsewhere; E86.9 Volume depletion, unspecified
CPT/HCPCS: 36415; 51705; 51798; 76770; 80048; 80053; 81001; 82962; 83605; 83690; 83880; 84132; 84145; 85025; 87077; 87086; 87186; 93005; 96361; 96374; 96375; 99285; G0378; J1644; J2405

== ENCOUNTER 2018-01-10 15:15 | Emergency (ER) | payer OTHER, SELFPAY ==
[2018-01-03 01:46] VITALS: BMI 23.8
[2018-01-10 15:15] VITALS: BP 108/60; PULSE 96; RESP 16; TEMP 36.4; O2SAT 100
[2018-01-10 16:22] LABS: Alanine Aminotransferase 84 IU/L (21-72); Albumin 4.2 g/dL (3.5-5.0); Albumin Globulin Ratio 1.6 (1.0-2.8); Alkaline Phosphatase 98 U/L (38-126); Aspartate Aminotransferase 47 IU/L (17-59); BUN Creatinine Ratio 35.6 (6-22); Bilirubin Total 0.6 mg/dL (0.2-1.3); Blood Urea Nitrogen 32 mg/dL (9-20); Calcium 9.7 mg/dL (8.4-10.2); Carbon Dioxide 25 mmol/L (22-32); Chloride 93 mmol/L (98-107); Estimated Glomerular Filt Rate > 60.0 mL/min (>60); Globulin 2.6 g/dL (1.7-4.1); Glucose 104 mg/dL (80-110); HEMOLYSIS < 15 (0-50); Sodium 127 mmol/L (137-145); Total Protein 6.8 g/dL (6.3-8.2)
[2018-01-10 16:24] LABS: Mean Corpuscular HGB Conc 35.4 % (30-36); Mean Corpuscular Hemoglobin 31.1 PG (26-34); Platelet Count 291 X10^3/uL (150-400); Potassium 5.6 mmol/L (3.4-5.1); Red Blood Cell Count 3.86 X10^6/uL (4.5-5.9); Red Cell Distribution Width 14.1 % (11.6-14.8); White Blood Cell Count 7.8 X10^3/uL (4.5-11.0)
--- NOTE | 2018-01-10 16:43 | PC.NURSE ---
Bladder irrigated with 500cc sterile water. 500cc return fluids out
--- NOTE | 2018-01-10 17:00 | ED_ITS ---
HPI - Male Genitourinary <NICK Swan - Last Filed: 01/10/18 22:14> General Chief complaint: Urogenital-Male Stated complaint: STATES PLUGGED CATHETER Time Seen by Provider: 01/10/18 15:17 Source: patient Mode of arrival: ambulatory Limitations: no limitations History of Present Illness HPI Narrative: 82-year-old male with history of colon cancer admitted to the hospital last week due to acute renal failure secondary to acute urinary retention here for complaint of having Perez catheter complications. He states that he noticed that he is leaking by the Perez catheter that is in place and says that he thinks it is plugged. He states that he is feeling better and is taking antibiotics for urinary tract infection. He has an appointment with Urology next week for further evaluation. He denies any pain. No fevers no chills. No nausea vomiting. Positive p.o. intake. Related Data Home Medications Medication Instructions Recorded Confirmed enalapril maleate 5 mg PO QDAY #0 07/25/16 01/10/18 simvastatin 5 mg PO DAILY #0 07/25/16 01/10/18 ondansetron 1 tab PO PRN PRN 01/02/18 01/10/18 oxycodone 1 tab PO DIRECTED 01/02/18 01/02/18 Previous Rx's Medication Instructions Recorded nitroglycerin 0.4 mg sublingual 0.4 mg SL Q5-15M PRN #10 tab 12/28/17 tablet amoxicillin-pot clavulanate 1 tab PO BID #16 tab 01/04/18 [Augmentin] tamsulosin [Flomax] 0.4 mg PO DAILY #30 cap 01/04/18 Allergies Allergy/AdvReac Type Severity Reaction Status Date / Time No Known Drug Allergies Allergy Verified 12/18/17 17:54 Review of Systems <NICK Swan - Last Filed: 01/10/18 22:14> Review of Systems All systems reviewed & are unremarkable except as noted in HPI and below Constitutional Denies chills, Denies fever(s), Denies lethargy and Denies weakness Eyes Denies change in vision, Denies eye discharge, Denies irritation and Denies loss of vision ENT Ears, Nose, Mouth, and Throat: Denies change in voice, Denies neck pain and Denies sore throat Cardiovascular Denies chest pain, Denies irregular heart rhythm, Denies lightheadedness, Denies palpitations, Denies dyspnea, Denies dyspnea on exertion and Denies orthopnea Respiratory Denies cough, Denies dyspnea, Denies dyspnea on exertion and Denies wheezing Gastrointestinal Gastrointestinal: Denies abdominal pain, Denies change in bowel habits, Denies diarrhea, Denies nausea and Denies vomiting Genitourinary Denies hematuria, Denies flank pain, Denies urinary incontinence and Denies urinary urgency Comments: Feels that Perez catheter is plugged Musculoskeletal Denies neck pain Integumentary/Breasts Denies pruritus, Denies erythema, Denies rash and Denies wounds Neurologic Denies confusion, Denies loss of vision and Denies weakness Psychiatric Denies anxiety, Denies confusion, Denies depression, Denies homicidal ideation and Denies suicidal ideation Endocrine Denies palpitations Hematologic/Lymphatic Denies easy bruising Allergic/Immunologic Denies wheezing Exam <NICK Swan - Last Filed: 01/10/18 22:14> Initial Vital Signs Initial Vital Signs: Vital Signs Temperature 97.6 F 01/10/18 15:15 Pulse Rate 96 H 01/10/18 15:15 Respiratory Rate 16 01/10/18 15:15 Blood Pressure 108/60 01/10/18 15:15 Pulse Oximetry 100 01/10/18 15:15 Const General: cooperative and well developed Nutritional Appearance: well nourished Orientation: alert, awake, oriented x3 and not confused [facility] Mouth: oral mucosae normal and moist mucous membranes Eyes Conjunctivae: conjunctivae normal Sclera: sclerae normal Pupils: PERRL EOM: EOM intact bilaterally Chest Chest: normal inspection of the chest Resp Effort & Inspection: normal respiratory effort, able to speak in complete sentences, no respiratory distress and no use of accessory muscles Auscultation: clear to auscultation bilaterally, no rales, no rhonchi and no wheezes Cardio Rate: regular rate Rhythm: regular rhythm Heart Sounds: no click, no gallops, no murmurs and no rubs GI Inspection: non-distended Palpation: soft, no hepatosplenomegaly, No guarding, No pulsatile mass and No tender Auscultation: normal bowel sounds General: No CVA tenderness Penis: normal penis Other: Perez catheter was removed with a new Perez catheter placed with irrigation of the bladder. Some clots came out with irrigation. Perez catheter was draining well. CBC was obtained and showed anemia however is consistent with his prior lab values. Chem panel shows decrease of his creatinine 2.9. And normal GFR. Potassium was still elevated at 5.6. Patient states that he felt better after changing the Perez catheter. He will follow up with Urology next week as scheduled. Urinalysis was obtained and appears to show that urinary tract infection is clearing. It was positive for RBCs because of the clots. For any worsening symptoms return to the emergency room. Skin General: no rashes or lesions noted, No jaundice and No petechiae Neuro General: alert, oriented x3, gait normal and no focal motor deficits Speech: speech normal <Liam Casper DO - Last Filed: 01/11/18 07:12> Initial Vital Signs Initial Vital Signs: Vital Signs Temperature 97.6 F 01/10/18 15:15 Pulse Rate 96 H 01/10/18 15:15 Respiratory Rate 16 01/10/18 15:15 Blood Pressure 108/60 01/10/18 15:15 Pulse Oximetry 100 01/10/18 15:15 Course <NICK Swan - Last Filed: 01/10/18 22:14> Orders Ordered: ED Orders 01/10/18 16:05 Complete Blood Count AUTO DIFF Stat Comprehensive Metabolic Panel Stat 01/10/18 16:35 Urinalysis and Microscopic Stat Urine Culture Stat Vital Signs - 8 hr 01/10/18 15:15 01/10/18 17:34 Temperature 97.6 F Pulse Rate 96 H 75 Respiratory Rate 16 18 Blood Pressure 108/60 Blood Pressure [Left Arm] 138/71 Pulse Oximetry 100 100 <Liam Casper DO - Last Filed: 01/11/18 07:12> Orders Ordered: ED Orders 01/10/18 16:05 Complete Blood Count AUTO DIFF Stat Comprehensive Metabolic Panel Stat 01/10/18 16:35 Urinalysis and Microscopic Stat Urine Culture Stat Vital Signs - 8 hr 01/10/18 15:15 01/10/18 17:34 Temperature 97.6 F Pulse Rate 96 H 75 Respiratory Rate 16 18 Blood Pressure 108/60 Blood Pressure [Left Arm] 138/71 Pulse Oximetry 100 100 MDM - Male Genitourinary <NICK Swan - Last Filed: 01/10/18 22:14> Lab Data Result diagrams: 01/10/18 16:05 01/10/18 16:05 Lab Results 01/10/18 01/10/18 01/10/18 Range/Units 16:05 16:05 16:35 WBC 7.8 (4.5-11.0) X10^3/uL RBC 3.86 L (4.5-5.9) X10^6/uL Hgb 12.0 L (13.5-17.5) g/dL Hct 34.0 L (41-53) % MCV 88.0 (80-100) fL MCH 31.1 (26-34) PG MCHC 35.4 (30-36) % RDW 14.1 (11.6-14.8) % Plt Count 291 (150-400) X10^3/uL Neut % (Auto) Disability Insurance Claim Examiner Lymph % (Auto) Disability Insurance Claim Examiner Hunt % (Auto) Disability Insurance Claim Examiner Eos % (Auto) Disability Insurance Claim Examiner Baso % (Auto) Disability Insurance Claim Examiner Neut # (Auto) Disability Insurance Claim Examiner Total Counted 100 Seg Neutrophils % 70.0 (38-70) % Band Neutrophils % 8.0 H (3-7) % Lymphocytes % (Manual) 11.0 L (25-45) % Monocytes % (Manual) 7.0 (2-11) % Metamyelocytes % 3.0 H (-0) % Myelocytes % 1.0 H (-0) % Neutrophils # (Manual) 6084 H (8938-6005) /uL RBC Morphology Normal morphology Sodium 127 L (137-145) mmol/L Potassium 5.6 H (3.4-5.1) mmol/L Chloride 93 L (98-107) mmol/L Carbon Dioxide 25 (22-32) mmol/L BUN 32 H (9-20) mg/dL Creatinine 0.90 (0.66-1.25) mg/dL Estimated GFR > 60.0 (>60) mL/min BUN/Creatinine Ratio 35.6 H (6-22) Glucose 104 (80-110) mg/dL Calcium 9.7 (8.4-10.2) mg/dL Total Bilirubin 0.6 (0.2-1.3) mg/dL AST 47 (17-59) IU/L ALT 84 H (21-72) IU/L Alkaline Phosphatase 98 (38-126) U/L Total Protein 6.8 (6.3-8.2) g/dL Albumin 4.2 (3.5-5.0) g/dL Globulin 2.6 (1.7-4.1) g/dL Albumin/Globulin Ratio 1.6 (1.0-2.8) Urine Color Yellow Urine Appearance Clear Urine pH 5.0 (4.5-8.0) Ur Specific [place] 1.020 (1.000-1.035) Urine Protein 2+ H (Negative) Urine Glucose (UA) Negative (Normal) g/dL Urine Ketones Trace H (NEGATIVE) Urine Occult Blood 3+ H (Negative) Urine Nitrate Negative (Negative) Urine Bilirubin Negative (NEGATIVE) Urine Urobilinogen 0.2 (0.2) E.U./dL Ur Leukocyte Esterase Trace H (NEGATIVE) Urine RBC 10-30/hpf H (0-5/HPF) Urine WBC 1-5/hpf (0-5/HPF) Urine Bacteria Few (2-10) H (None) Ur Culture Indicated? Specimen cultured Micro UA Comment Unspun urine sample MDM Narrative Medical decision making narrative: CBC was obtained and shows anemia however is consistent with his prior lab values otherwise unremarkable. Chem panel was obtained and shows low sodium of 127 and elevated potassium of 5.6 also consistent with his prior lab values most likely secondary to his recent renal failure. Perez catheter was changed and the bladder was irrigated with clots removed and then Perez catheter was draining well. Urinalysis shows clearing of urinary tract infection and was positive for RBCs secondary to the clots. He will follow up with Urology next week as scheduled. For any worsening symptoms return to the emergency room. <Liam Casper DO - Last Filed: 01/11/18 07:12> Lab Data Lab Results 01/10/18 01/10/18 01/10/18 Range/Units 16:05 16:05 16:35 WBC 7.8 (4.5-11.0) X10^3/uL RBC 3.86 L (4.5-5.9) X10^6/uL Hgb 12.0 L (13.5-17.5) g/dL Hct 34.0 L (41-53) % MCV 88.0 (80-100) fL MCH 31.1 (26-34) PG MCHC 35.4 (30-36) % RDW 14.1 (11.6-14.8) % Plt Count 291 (150-400) X10^3/uL Neut % (Auto) Disability Insurance Claim Examiner Lymph % (Auto) Disability Insurance Claim Examiner Hunt % (Auto) Disability Insurance Claim Examiner Eos % (Auto) Disability Insurance Claim Examiner Baso % (Auto) Disability Insurance Claim Examiner Neut # (Auto) Disability Insurance Claim Examiner Total Counted 100 Seg Neutrophils % 70.0 (38-70) % Band Neutrophils % 8.0 H (3-7) % Lymphocytes % (Manual) 11.0 L (25-45) % Monocytes % (Manual) 7.0 (2-11) % Metamyelocytes % 3.0 H (-0) % Myelocytes % 1.0 H (-0) % Neutrophils # (Manual) 6084 H (5997-2470) /uL RBC Morphology Normal morphology Sodium 127 L (137-145) mmol/L Potassium 5.6 H (3.4-5.1) mmol/L Chloride 93 L (98-107) mmol/L Carbon Dioxide 25 (22-32) mmol/L BUN 32 H (9-20) mg/dL Creatinine 0.90 (0.66-1.25) mg/dL Estimated GFR > 60.0 (>60) mL/min BUN/Creatinine Ratio 35.6 H (6-22) Glucose 104 (80-110) mg/dL Calcium 9.7 (8.4-10.2) mg/dL Total Bilirubin 0.6 (0.2-1.3) mg/dL AST 47 (17-59) IU/L ALT 84 H (21-72) IU/L Alkaline Phosphatase 98 (38-126) U/L Total Protein 6.8 (6.3-8.2) g/dL Albumin 4.2 (3.5-5.0) g/dL Globulin 2.6 (1.7-4.1) g/dL Albumin/Globulin Ratio 1.6 (1.0-2.8) Urine Color Yellow Urine Appearance Clear Urine pH 5.0 (4.5-8.0) Ur Specific [place] 1.020 (1.000-1.035) Urine Protein 2+ H (Negative) Urine Glucose (UA) Negative (Normal) g/dL Urine Ketones Trace H (NEGATIVE) Urine Occult Blood 3+ H (Negative) Urine Nitrate Negative (Negative) Urine Bilirubin Negative (NEGATIVE) Urine Urobilinogen 0.2 (0.2) E.U./dL Ur Leukocyte Esterase Trace H (NEGATIVE) Urine RBC 10-30/hpf H (0-5/HPF) Urine WBC 1-5/hpf (0-5/HPF) Urine Bacteria Few (2-10) H (None) Ur Culture Indicated? Specimen cultured Micro UA Comment Unspun urine sample Discharge Plan Departure Patient Disposition: Home Clinical Impression: Complication of Perez catheter Discharge Date/Time: 01/10/18 18:00 Interventions: ED Discharge Assessment Last Done: 01/10/18 18:00 Instructions: How to Care for Your Perez Catheter -- Male Activity Restrictions/Additional Instructions: Perez catheter was changed today and irrigated removing clots from the bladder so that Perez catheter will drain. Laboratory results show anemia however is consistent with her prior lab values. Laboratory results also show that your creatinine was 0.9 today and GFR was normal. Potassium remained high at 5.6 and your sodium remain low at 127. Follow up with primary care provider for re- evaluation next week. Follow up with Urology next week as scheduled for further evaluation. For any worsening symptoms return to the emergency room. Prescriptions: No Action enalapril maleate 5 MG tablet 5 mg PO QDAY Qty: 0 RF: 0 simvastatin 5 MG tablet 5 mg PO DAILY Qty: 0 RF: 0 nitroglycerin 0.4 mg tablet, sublingual 0.4 mg SL Q5-15M PRN (Reason: chest pain) Qty: 10 RF: 0 ondansetron 4 mg tablet,disintegrating 1 tab PO PRN PRN (Reason: Nausea) RF: 0 oxycodone 1 tab PO DIRECTED RF: 0 amoxicillin-pot clavulanate [Augmentin] 875-125 mg tablet 1 tab PO BID Qty: 16 RF: 0 tamsulosin [Flomax] 0.4 mg capsule 0.4 mg PO DAILY Qty: 30 RF: 3 Referrals: Silvia Florentino MD [Primary Care Provider] - <Liam Casper DO - Last Filed: 01/11/18 07:12> Cosign ED Attending Jim Attestation: I was available for consultation during this patient's emergency department encounter
[2018-01-10 17:05] LABS: Appearance Urine UA CLEAR; Bilirubin Urine UA NEGATIVE (NEGATIVE); Color Urine UA YELLOW; Glucose Urine UA NEGATIVE (Normal); Ketones Urine UA TRACE (NEGATIVE); Leukocyte Esterase Urine UA TRACE (NEGATIVE); Nitrite Urine UA NEGATIVE (Negative); Occult Blood Urine UA 3+ (Negative); Protein Urine UA 2+ (Negative); Urobilinogen Urine UA 0.2 E.U./dL (0.2)
[2018-01-10 17:09] LABS: RBC Urine 10-30/HPF (0-5/HPF); WBC Urine 1-5/HPF (0-5/HPF)
[2018-01-10 17:10] LABS: Bacteria Urine Few (2-10); Culture Indicated Urine Specimen Cultured
[2018-01-10 17:11] LABS: Urine Comments UNSPUN URINE SAMPLE
[2018-01-10 17:27] LABS: Add Manual Diff / Slide Review YES
[2018-01-10 17:33] LABS: Neutrophils Absolute Manual 6084 /uL (3000-5900); RBC Morphology Normal Morphology; Total Cells Counted 100
[2018-01-10 17:34] VITALS: BP 138/71; PULSE 75; RESP 18; O2SAT 100
== END 2018-01-10 18:00 | disposition home or self-care (01) ==
PROVIDERS: Emergency Provider Nurse Practitioner Family; Family Provider Internal Medicine; PCP Internal Medicine; Referring Provider Surgery
DX: T83.9XXA Unspecified complication of genitourinary prosthetic device, implant and graft, initial encounter (principal)
CPT/HCPCS: 36415; 51700; 51705; 51798; 80053; 81001; 85025; 87086; 99283

== ENCOUNTER → 2018-01-21 12:52 | Outpatient (CLI) | payer OTHER, SELFPAY ==
[2018-01-03 01:46] VITALS: BMI 23.8
== END ==
PROVIDERS: Family Provider Internal Medicine; PCP Internal Medicine; Visit Provider Surgery

== ENCOUNTER → 2018-01-29 12:48 | Outpatient (CLI) | payer OTHER, SELFPAY ==
[2018-01-03 01:46] VITALS: BMI 23.8
--- NOTE | 2018-01-29 13:32 | DI.CT.S_ITS ---
PROCEDURE: CT CHEST ABD PEL W CON INDICATIONS: Restaging colon cancer TECHNIQUE: After the administration of oral and intravenous contrast, 5 mm thick sections acquired from the lung apices to the symphysis. 5 mm coronal and sagittal reformats were performed, with additional 7 mm coronal MIP reformats through the lungs. For radiation dose reduction, the following was used: automated exposure control, adjustment of mA and/or kV according to patient size. COMPARISON: [facility], CT, CHEST/ABD/PEL WITH CONTRAST, 08/10/2016, 9:09. [facility], CT, CT ABDOMEN PELVIS W CON, 12/26/2017, 14:28. FINDINGS: Image quality: Excellent. CHEST: Lungs and pleura: 4 mm sub-solid nodular density is seen in posterior aspect of right upper lobe, unchanged from prior study series 3 image 17. No new pulmonary nodular mass is seen. No air space opacities. No pleural effusions or pneumothorax. Central and peripheral airways appear patent and normal in caliber. Mediastinum: Heart size is normal. No pericardial effusion. No mediastinal or hilar adenopathy by size criteria. Thoracic aorta and central pulmonary arteries are normal in size. Esophagus is normal in caliber. No hiatal hernia. Chest wall: No axillary or supraclavicular adenopathy by size criteria. Thyroid gland is within normal limits. ABDOMEN: Solid organs: Liver is normal in size. Previously described 1.5 cm hypoattenuating lesion in anterior right hepatic lobe now measures 2.7 x 2 cm in size. No new hepatic lesion is seen. Gallbladder is within normal limits. Biliary system is non dilated. Pancreas enhances normally. Spleen is normal in size and enhancement. No adrenal nodules. Kidneys demonstrate normal size and enhancement, without hydronephrosis. Peritoneum and bowel: Post surgical changes in right lower quadrant abdomen is again seen with right-sided ileostomy in place, unchanged from previous study. Circumferential wall thickening of rectosigmoid colon is again seen and is unchanged. No new area of abnormal bowel wall thickening. No free fluid or free air. No evidence of bowel obstruction. Nodes and vessels: No retroperitoneal or mesenteric adenopathy by size criteria. Aorta and inferior vena cava are normal in size. Miscellaneous: No ventral hernias. PELVIS: Genitourinary: Mild diffuse bladder wall thickening is noted. No gross discrete bladder wall mass. Miscellaneous: No inguinal hernias or adenopathy. Bones: No suspicious bony lesions. No vertebral body compression fractures. IMPRESSION: 1. Stable 4 mm subtle sub-solid nodular density in posterior aspect of right upper lobe, unchanged from prior study. Further CT followup is recommended. 2. Bilateral lung gagnon are otherwise clear. Airways patent. No mediastinal or hilar adenopathy. 3. No abdominal or pelvic adenopathy. 4. Postsurgical changes in lower abdomen and pelvis. No bowel obstruction. Nonspecific diffuse wall thickening involving rectosigmoid colon, not significantly changed in appearance from previous study. Local recurrence cannot be entirely excluded. This could also be representing colitis in this region. 5. Interval increase in size of hypoattenuating lesion involving right lobe of liver, suggestive of worsening metastatic disease. Dictated by: Yehuda Freeman M.D. on 01/29/2018 at 14:18 Approved by: Yehuda Freeman M.D. on 01/29/2018 at 14:32
== END ==
PROVIDERS: Family Provider Surgery; PCP Internal Medicine
DX: C18.7 Malignant neoplasm of sigmoid colon (principal); C61 Malignant neoplasm of prostate; K76.9 Liver disease, unspecified; R91.1 Solitary pulmonary nodule
CPT/HCPCS: 71260; 74177; Q9967

== ENCOUNTER → 2018-01-29 13:00 | Outpatient (CLI) | payer OTHER, SELFPAY ==
[2018-01-03 01:46] VITALS: BMI 23.8
[2018-01-29 15:48] LABS: Clostridium Difficile Tox PCR Negative for C. diff
== END ==
PROVIDERS: Family Provider Surgery; PCP Internal Medicine; Visit Provider Surgery
DX: R19.4 Change in bowel habit (principal)
CPT/HCPCS: 87493

== ENCOUNTER 2018-04-30 06:29 | Day surgery (SDC) | payer OTHER, SELFPAY ==
[2018-04-17 12:34] VITALS: BMI 23.8
[2018-04-25 13:29] VITALS: BMI 24.3
[2018-04-30] VITALS (7 sets, daily range): BP systolic 118–145; BP diastolic 51–69; PULSE 67–75; RESP 12–20; TEMP 36–36.9; O2SAT 98–100; BMI 24.3
--- NOTE | 2018-04-30 | DI.RAD.S_ITS ---
PROCEDURE: XR CHEST 1V INDICATIONS: post port TECHNIQUE: One view of the chest was acquired. COMPARISON: [facility], CR, CHEST 2 VIEW, 04/08/2014, 13:16. [facility], CT, CT CHEST ABD PEL W CON, 01/29/2018, 13:56. [facility], CR, XR CHEST 1V, 11/24/2017, 15:07. FINDINGS: Surgical changes and devices: A left-sided chest port is seen, with the tip overlying the superior aspect of the superior cava, 6 cm above the cavoatrial junction. Lungs and pleura: Lungs are clear. No pleural effusions or pneumothorax. There is an apparent nipple shadow seen overlying the left lower lung. Mediastinum: Mediastinal contours appear normal. Heart size is normal. Bones and chest wall: No suspicious bony lesions. Age-appropriate bony degenerative changes are seen. There is a remote, healed right midclavicle fracture. Overlying soft tissues appear unremarkable. IMPRESSION: The tip of the chest port overlies the superior aspect of the superior vena cava. Dictated by: Tuan Rodgers M.D. on 04/30/2018 at 8:56 Approved by: Tuan Rodgers M.D. on 04/30/2018 at 8:57
[2018-04-30] MEDS: LACTATED RINGERS 1,000 ML 42 ML IV (07:14)
[2018-04-30] MEDS: CEFAZOLIN 1 GM VIAL 2 GM IV (08:27)
--- NOTE | 2018-04-30 08:39 | SUR.OPER ---
Supine on padded OR bed, head on pillow, arms padded and tucked at sides, legs uncrossed, safety belt at thigh, tape over blanket over lower legs .
[2018-04-30] MEDS: BUPIVACAINE 0.5% (PF) VIAL 10 ML INJ (08:45)
[2018-04-30] MEDS: LIDOCAINE 1% W/EPI INJ 10 ML INJ (08:46)
--- NOTE | 2018-04-30 08:59 | PM.OP.1 ---
Operative Date/Time/Diagnoses Date of procedure: 04/30/18 Time of procedure: 08:59 Pre-op diagnosis: Metastatic colon cancer Post-op diagnosis: same Procedure & Clinicians Procedure: Left subclavian PowerPort placement Same procedure as scheduled: Yes Indications: Power port for facilitation of chemotherapy Surgeon: Judith Moreno Click Yes if Unassisted: Yes Anesthesia Type: General (Dr. Barnard) Operative Notes Findings: Power port in good position in the superior vena cava Closure Type: primary Prosthetic devices, grafts, tissues, transplants, or devices: Low-profile power port Estimated Blood Loss (mL): 5 Procedure in detail: After obtaining informed consent, the patient was brought to the operating room and placed in the supine position on the operating table. Following successful induction of general endotracheal anesthesia, appropriate padding of all bony prominences, and placement of appropriate monitors, the left chest was prepped and draped in a standard surgical fashion. A timeout was held per SCOAP protocol. A mixture of local anesthetics was infiltrated in the deltopectoral groove on the left side. The right subclavian vein was accessed via the Seldinger technique and a wire was gently placed into the vein. Fluoroscopy was used to verify position of the wire in the subclavian vein. We next created a pocket of approximately 2 cm inferior to the access site of the vein. This was checked for size and found to fit the port nicely. The included tunneling device was used to place the tubing and the pocket connecting it to the access site of the subclavian vein. The tubing was trimmed to an appropriate length and connected to the Port-A-Cath. The Port-A-Cath was sewn into place in the pocket using interrupted Prolene sutures. The pocket was closed in 2 layers. The dilator and introducer were then gently passed over the wire and into the subclavian vein. The wire and dilator were removed leaving only the introducer. The tubing was then placed in the introducer and the introducer removed per cable television installer's directions. The port was then flushed with saline solution and found to be functional and in good position. It was then hep-locked with 2000 units of heparin. The incision was closed in 2 layers with Vicryl and Monocryl sutures. Dermabond was applied to the skin. All sponge, needle, and instrument counts were correct at the conclusion of the case. Patient was allowed to awaken from anesthesia and taken to the post-anesthesia care unit in good condition. Complications: none Condition: stable Disposition: PACU Plan for aftercare: 1. Discharge to home 2. The port is ready for use.
--- NOTE | 2018-04-30 09:02 | P.OP_ITS ---
Operative Date/Time/Diagnoses Date of procedure: 04/30/18 Time of procedure: 08:59 Pre-op diagnosis: Metastatic colon cancer Post-op diagnosis: same Procedure & Clinicians Procedure: Left subclavian PowerPort placement Same procedure as scheduled: Yes Indications: Power port for facilitation of chemotherapy Surgeon: Judith Moreno Click Yes if Unassisted: Yes Anesthesia Type: General (Dr. Barnard) Operative Notes Findings: Power port in good position in the superior vena cava Closure Type: primary Prosthetic devices, grafts, tissues, transplants, or devices: Low-profile power port Estimated Blood Loss (mL): 5 Procedure in detail: After obtaining informed consent, the patient was brought to the operating room and placed in the supine position on the operating table. Following successful induction of general endotracheal anesthesia, appropriate padding of all bony prominences, and placement of appropriate monitors, the left chest was prepped and draped in a standard surgical fashion. A timeout was held per SCOAP protocol. A mixture of local anesthetics was infiltrated in the deltopectoral groove on the left side. The right subclavian vein was accessed via the Seldinger technique and a wire was gently placed into the vein. Fluoroscopy was used to verify position of the wire in the subclavian vein. We next created a pocket of approximately 2 cm inferior to the access site of the vein. This was checked for size and found to fit the port nicely. The included tunneling device was used to place the tubing and the pocket connecting it to the access site of the subclavian vein. The tubing was trimmed to an appropriate length and connected to the Port-A-Cath. The Port-A-Cath was sewn into place in the pocket using interrupted Prolene sutures. The pocket was closed in 2 layers. The dilator and introducer were then gently passed over the wire and into the subclavian vein. The wire and dilator were removed leaving only the introducer. The tubing was then placed in the introducer and the introducer removed per cost estimating manager's directions. The port was then flushed with saline solution and found to be functional and in good position. It was then hep- locked with 2000 units of heparin. The incision was closed in 2 layers with Vicryl and Monocryl sutures. Dermabond was applied to the skin. All sponge, needle, and instrument counts were correct at the conclusion of the case. Patient was allowed to awaken from anesthesia and taken to the post-anesthesia care unit in good condition. Complications: none Condition: stable Disposition: PACU Plan for aftercare: 1. Discharge to home 2. The port is ready for use.
--- NOTE | 2018-04-30 09:02 | PM.PREOP ---
Pre-operative Note Interval Note History & Physical reviewed/Exam performed by Physician: Yes Changes to H&P: No
== END 2018-04-30 10:10 | disposition home or self-care (01) ==
PROVIDERS: Family Provider Internal Medicine; PCP Internal Medicine; Visit Provider Surgery
PROC: (CPT 36561; principal; 2018-04-30 07:45)
DX: C18.9 Malignant neoplasm of colon, unspecified (principal); Z87.891 Personal history of nicotine dependence
CPT/HCPCS: 36561; 71045; 76000; C1788; J0690; J1644; J2405; J2704

== ENCOUNTER 2018-05-17 13:52 | Emergency (ER) | payer OTHER, SELFPAY ==
[2018-04-17 12:34] VITALS: BMI 23.8
[2018-05-17 13:56] VITALS: BP 109/64; PULSE 82; RESP 15; TEMP 36.6; O2SAT 100; BMI 24.3
--- NOTE | 2018-05-17 14:57 | ED.NAVMDI ---
HPI - Nausea/Vomiting/Diarrhea General Chief complaint: Nausea/Vomiting/Diarrhea Stated complaint: Can't eat or drink, feeling faint Time Seen by Provider: 05/17/18 14:20 Source: patient Mode of arrival: ambulatory Limitations: no limitations History of Present Illness HPI Narrative: An 82-year-old male presenting with diarrhea. 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 He had chemotherapy 2 days ago which point he also received some IV fluid. He typically does get some diarrhea after his treatments however this time it does seem to be significantly worse. He has an ostomy he has noted significant ostomy output over the last 2 days. He has changed the bag here more than once. He has no abdominal pain no nausea or vomiting no fevers. His he does have a history of C diff. He is already on Imodium. MD complaint: diarrhea Onset (ago): day(s) (2) Description of Diarrhea: watery Related Data Home Medications Medication Instructions Recorded Confirmed loperamide [Imodium A-D] 2 mg PO TID 05/17/18 05/17/18 Previous Rx's Medication Instructions Recorded nitroglycerin 0.4 mg sublingual 0.4 mg SL Q5-15M PRN #10 tab 12/28/17 tablet potassium chloride 20 meq PO DAILY #2 tab 05/17/18 Allergies Allergy/AdvReac Type Severity Reaction Status Date / Time No Known Drug Allergies Allergy Verified 05/17/18 13:56 Review of Systems Review of Systems GENERAL: Denies chills, fatigue, malaise, fever, sweats, travel HEENT: Denies sinus pain, ear pain, sore throat, difficulty swallowing, neck pain RESPIRATORY: Denies dyspnea, cough, wheezing, hemoptysis, sputum. CARDIOVASCULAR: Denies chest pain, palpitations, orthopnea, edema GASTROINTESTINAL: See HPI : Denies dysuria, frequency, incontinence, hematuria, urinary retention, flank pain. MUSCULOSKELETAL: Denies weakness, joint pain, or bony pain SKIN: No rash, no erythema, no pruritus NEUROLOGIC: Denies weakness, dizziness, headache, numbness, change in speech, confusion PSYCHIATRIC: No concerning psychosocial issues. 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 difficile colitis (Acute) Colon cancer (Acute) Surgical History H/O shoulder surgery (Acute) S/P colostomy takedown (Acute) Status post ORIF of fracture of ankle (Acute) History of colon resection (Acute) Family History Son Cancer Father Cancer Social History household members: spouse Smoking Status: Former smoker alcohol intake: current Family History Son Cancer Father Cancer Social History household members: spouse Smoking Status: Former smoker alcohol intake: current Exam Initial Vital Signs Initial Vital Signs: Vital Signs Temperature 97.8 F 05/17/18 13:56 Pulse Rate 82 05/17/18 13:56 Respiratory Rate 15 05/17/18 13:56 Blood Pressure 109/64 05/17/18 13:56 Pulse Oximetry 100 05/17/18 13:56 GENERAL: alert well-appearing elderly male no acute distress HEENT: Head atraumatic,EOMI, NECK IS SUPPLE MOIST MUCOUS MEMBRANES CARDIOVASCULAR: Regular rate and rhythm without murmurs, rubs or gallops. RESPIRATORY: Breath sounds equal bilaterally, no wheezes rales or rhonchi. ABDOMEN: Soft, right-sided ostomy noted bag is full of watery liquid diarrhea. EXTREMITIES: Normal range of motion, no clubbing or edema. Neurovascularly intact. left leg does have more swelling than right. Patient states that this is normal for him since surgeries. NEUROLOGICAL: Alert and oriented x4.Normal gait and speech. SKIN: Warm, dry, no laceration, no petechiae, no rashes or lesions. Course Orders Ordered: ED Orders 05/17/18 15:10 GI Panel (Film Array) Stat 05/17/18 15:51 Complete Blood Count AUTO DIFF Stat Comprehensive Metabolic Panel Stat Lipase Stat 05/17/18 18:17 Urine Microscopic Stat Sodium Chloride (Normal Saline 0.9%) 1,000 mls @ 1,000 mls/hr IV CONT FELY Last Infusion: 05/17/18 18:42 Dose: 0 mls/hr Admin: 05/17/18 15:30 Dose: 1,000 mls/hr Discontinued Medications Ondansetron HCl (Zofran) 4 mg IV NOW ONE Stop: 05/17/18 17:46 Last Admin: 05/17/18 17:56 Dose: 4 mg Potassium Chloride (Klor-Con M20) 40 meq PO NOW ONE Stop: 05/17/18 17:27 Last Admin: 05/17/18 18:05 Dose: 40 meq Vital Signs - 8 hr 05/17/18 13:56 05/17/18 18:29 Temperature 97.8 F Pulse Rate 82 68 Respiratory Rate 15 18 Blood Pressure 109/64 Blood Pressure [Left Arm] 130/57 L Pulse Oximetry 100 100 MDM - Nausea/Vomiting/Diarrhea Lab Data Attestation: I reviewed the patient's lab results. Result diagrams: 05/17/18 15:51 05/17/18 15:51 Lab Results 05/17/18 05/17/18 05/17/18 Range/Units 15:10 15:51 15:51 WBC 3.2 L (4.5-11.0) X10^3/uL RBC 2.37 L (4.5-5.9) X10^6/uL Hgb 8.5 L (13.5-17.5) g/dL Hct 24.0 L (41-53) % MCV 101.1 H (80-100) fL MCH 36.0 H (26-34) PG MCHC 35.6 (30-36) % RDW 17.6 H (11.6-14.8) % Plt Count 190 (150-400) X10^3/uL Neut % (Auto) 76.4 H (50-75) % Lymph % (Auto) 11.2 L (25-40) % [place] % (Auto) 11.6 (3-14) % Eos % (Auto) 0.6 L (2-4) % Baso % (Auto) 0.2 (0-2) % Neut # (Auto) 2500 (0829-1319) /uL Lymph # (Auto) 400 L (7146-0155) /uL [place] # (Auto) 400 (0-900) /uL Eos # (Auto) 0 (0-450) /uL Baso # (Auto) 0 (0-100) /uL Sodium 133 L (137-145) mmol/L Potassium 3.0 L (3.4-5.1) mmol/L Chloride 94 L (98-107) mmol/L Carbon Dioxide 26 (22-32) mmol/L BUN 42 H (9-20) mg/dL Creatinine 1.30 H (0.66-1.25) mg/dL Estimated GFR 52.9 L (>60) mL/min BUN/Creatinine Ratio 32.3 H (6-22) Glucose 133 H (80-110) mg/dL Calcium 8.9 (8.4-10.2) mg/dL Total Bilirubin 1.4 H (0.2-1.3) mg/dL AST 41 (17-59) IU/L ALT 43 (21-72) IU/L Alkaline Phosphatase 50 (38-126) U/L Total Protein 6.3 (6.3-8.2) g/dL Albumin 4.0 (3.5-5.0) g/dL Globulin 2.3 (1.7-4.1) g/dL Albumin/Globulin Ratio 1.7 (1.0-2.8) Lipase 127 (23-300) U/L Urine RBC (0-5/HPF) Urine WBC (0-5/HPF) Urine Bacteria (None) Ur Culture Indicated? Stl C. cayetanensis PCR Not detected (Not Detect) Stool Rotavirus (PCR) Not detected (Not Detect) Stool Adenovirus (PCR) Not detected (Not Detect) Stool Astrovirus (PCR) Not detected (Not Detect) Stool Cryptosporidium PCR Not detected (Not Detect) Stl E.coli Shiga Tox PCR Not detected (Not Detect) St Sh/Enteroin Ecoli PCR Not detected (Not Detect) Stool E coli O157 PCR TNP Stl Enterotoxigenic E PCR Not detected (Not Detect) Stool EPEC (PCR) Not detected (Not Detect) Stl E. histolytica PCR Not detected (Not Detect) Stool Giardia Lamblia PCR Not detected (Not Detect) Stool Sapovirus (PCR) Not detected (Not Detect) Stl P. shigelloides PCR Not detected (Not Detect) St Y.enterocolitica PCR Not detected (Not Detect) Stool Vibrio (PCR) Not detected (Not Detect) Stl Vibrio cholerae PCR Not detected (Not Detect) Stl Enteroaggr Ecoli PCR Not detected (Not Detect) Stl Norovirus GI/GII PCR Not detected (Not Detect) Campylobacter (PCR) Not detected (Not Detect) C. difficile Tox (PCR) Not detected (Not Detect) Salmonella (PCR) Not detected (Not Detect) 05/17/18 Range/Units 18:17 WBC (4.5-11.0) X10^3/uL RBC (4.5-5.9) X10^6/uL Hgb (13.5-17.5) g/dL Hct (41-53) % MCV (80-100) fL MCH (26-34) PG MCHC (30-36) % RDW (11.6-14.8) % Plt Count (150-400) X10^3/uL Neut % (Auto) (50-75) % Lymph % (Auto) (25-40) % [place] % (Auto) (3-14) % Eos % (Auto) (2-4) % Baso % (Auto) (0-2) % Neut # (Auto) (7242-2177) /uL Lymph # (Auto) (4294-1955) /uL [place] # (Auto) (0-900) /uL Eos # (Auto) (0-450) /uL Baso # (Auto) (0-100) /uL Sodium (137-145) mmol/L Potassium (3.4-5.1) mmol/L Chloride (98-107) mmol/L Carbon Dioxide (22-32) mmol/L BUN (9-20) mg/dL Creatinine (0.66-1.25) mg/dL Estimated GFR (>60) mL/min BUN/Creatinine Ratio (6-22) Glucose (80-110) mg/dL Calcium (8.4-10.2) mg/dL Total Bilirubin (0.2-1.3) mg/dL AST (17-59) IU/L ALT (21-72) IU/L Alkaline Phosphatase (38-126) U/L Total Protein (6.3-8.2) g/dL Albumin (3.5-5.0) g/dL Globulin (1.7-4.1) g/dL Albumin/Globulin Ratio (1.0-2.8) Lipase (23-300) U/L Urine RBC 5-10/hpf H (0-5/HPF) Urine WBC 10-30/hpf H (0-5/HPF) Urine Bacteria Many (>30) H (None) Ur Culture Indicated? Specimen cultured Stl C. cayetanensis PCR (Not Detect) Stool Rotavirus (PCR) (Not Detect) Stool Adenovirus (PCR) (Not Detect) Stool Astrovirus (PCR) (Not Detect) Stool Cryptosporidium PCR (Not Detect) Stl E.coli Shiga Tox PCR (Not Detect) St Sh/Enteroin Ecoli PCR (Not Detect) Stool E coli O157 PCR Stl Enterotoxigenic E PCR (Not Detect) Stool EPEC (PCR) (Not Detect) Stl E. histolytica PCR (Not Detect) Stool Giardia Lamblia PCR (Not Detect) Stool Sapovirus (PCR) (Not Detect) Stl P. shigelloides PCR (Not Detect) St Y.enterocolitica PCR (Not Detect) Stool Vibrio (PCR) (Not Detect) Stl Vibrio cholerae PCR (Not Detect) Stl Enteroaggr Ecoli PCR (Not Detect) Stl Norovirus GI/GII PCR (Not Detect) Campylobacter (PCR) (Not Detect) C. difficile Tox (PCR) (Not Detect) Salmonella (PCR) (Not Detect) Urine Dip Bedside Urine Glucose Negative Bedside Urine Bilirubin - Negative Bedside Urine Ketone +/- 5 Urine Specific [place] 1.030 Bedside Urine Occult Blood +/- Bedside Urine pH 5.5 Bedside Urine Protein +/- 15 Bedside Urine Urobilinogen - Negative Bedside Urine Nitrite - Negative Bedside Urine Leukocytes + 70 Esterase MDM Narrative Medical decision making narrative: Patient is tolerating oral fluids. His abdomen remains soft. At this time I do not think imaging is needed or required. GI panel is negative for infection this is likely from his chemotherapy. He is already taking Imodium. Recommend he follow with his primary and oncology. Discharge Plan Departure Patient Disposition: Home Clinical Impression: Acute hypokalemia Diarrhea Qualifiers: Diarrhea type: unspecified type Qualified Code(s): R19.7 - Diarrhea, unspecified Activity Restrictions/Additional Instructions: *You have been diagnosed with diarrhea and low potassium *What to do: diarrhea is likely from chemotherapy. All low potassium also from diarrhea. increase of fluid in take with in Ensure, Jell-O, applesauce, broth or fluid of your choice *Continue to take medications as directed - Potassium chloride 20mEq daily for 2 days--> FAXED TO [employer] [facility] *Follow up with your primary care provider in 2-3 days *Return to ER if you should have worsening diarrhea, inability to tolerate fluids, increasing pain or vomiting or any new, worsening or concerning symptoms Prescriptions: New potassium chloride 20 mEq tablet extended release 20 meq PO DAILY Qty: 2 RF: 0 No Action nitroglycerin 0.4 mg tablet, sublingual 0.4 mg SL Q5-15M PRN (Reason: chest pain) Qty: 10 RF: 0 loperamide [Imodium A-D] 2 mg Capsule 2 mg PO TID RF: 0 Referrals: Silvia Florentino MD [Primary Care Provider] - Venancio Reyes MD [Physician] -
[2018-05-17] MEDS: SODIUM CHLORIDE 0.9% 1,000 ML 1000 ML IV (15:30)
[2018-05-17 16:02] LABS: Add Manual Diff / Slide Review NO; Basophils Absolute Auto 0 /uL (0-100); Basophils Percent Auto 0.2 % (0-2); Eosinophils Absolute Auto 0 /uL (0-450); Eosinophils Percent Auto 0.6 % (2-4); Hemoglobin 8.5 g/dL (13.5-17.5); Lymphocytes Absolute Auto 400 /uL (1100-4500); Lymphocytes Percent Auto 11.2 % (25-40); Mean Corpuscular HGB Conc 35.6 % (30-36); Mean Corpuscular Volume 101.1 fL (80-100); Monocytes Absolute Auto 400 /uL (0-900); Monocytes Percent Auto 11.6 % (3-14); Neutrophils Absolute Auto 2500 /uL (1500-7000); Neutrophils Percent Auto 76.4 % (50-75); Platelet Count 190 X10^3/uL (150-400); Red Blood Cell Count 2.37 X10^6/uL (4.5-5.9); Red Cell Distribution Width 17.6 % (11.6-14.8); White Blood Cell Count 3.2 X10^3/uL (4.5-11.0)
[2018-05-17 16:15] LABS: Alanine Aminotransferase 43 IU/L (21-72); Albumin Globulin Ratio 1.7 (1.0-2.8); Alkaline Phosphatase 50 U/L (38-126); Aspartate Aminotransferase 41 IU/L (17-59); BUN Creatinine Ratio 32.3 (6-22); Bilirubin Total 1.4 mg/dL (0.2-1.3); Blood Urea Nitrogen 42 mg/dL (9-20); Calcium 8.9 mg/dL (8.4-10.2); Carbon Dioxide 26 mmol/L (22-32); Chloride 94 mmol/L (98-107); Estimated Glomerular Filt Rate 52.9 mL/min (>60); Globulin 2.3 g/dL (1.7-4.1); Glucose 133 mg/dL (80-110); HEMOLYSIS < 15 (0-50); Lipase 127 U/L (23-300); Sodium 133 mmol/L (137-145); Total Protein 6.3 g/dL (6.3-8.2)
--- NOTE | 2018-05-17 16:19 | PC.NURSE ---
assisted pt with illeostomy
[2018-05-17] MEDS: ONDANSETRON 4 MG/2 ML INJ IV (17:56)
[2018-05-17] MEDS: POTASSIUM CHLORIDE 20 MEQ TAB 40 MEQ PO (18:05)
[2018-05-17 18:29] VITALS: BP 130/57; PULSE 68; RESP 18; O2SAT 100
--- NOTE | 2018-05-17 18:32 | PC.NURSE ---
helped with illeostomy
[2018-05-17 18:42] LABS: Campylobacter Not Detected (Not Detect); Clostridium difficile toxin AB Not Detected (Not Detect); Cryptosporidium Not Detected (Not Detect); Enteroaggregative E.coli Not Detected (Not Detect); Enteropathogenic E.coli Not Detected (Not Detect); Enterotoxigenic E.coli It/st Not Detected (Not Detect); Plesiomonsa shigelloides Not Detected (Not Detect); Salmonella Not Detected (Not Detect); Shiga-like toxin-prod E.coli Not Detected (Not Detect); Shigella/Enteroinvasive E.coli Not Detected (Not Detect); Vibrio Not Detected (Not Detect); Vibrio cholerae Not Detected (Not Detect); Yersinia enterocolitica Not Detected (Not Detect)
--- NOTE | 2018-05-17 18:42 | ED_ITS ---
HPI - Nausea/Vomiting/Diarrhea General Chief complaint: Nausea/Vomiting/Diarrhea Stated complaint: Can't eat or drink, feeling faint Time Seen by Provider: 05/17/18 14:20 Source: patient Mode of arrival: ambulatory Limitations: no limitations History of Present Illness HPI Narrative: An 82-year-old male presenting with diarrhea. 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 He had chemotherapy 2 days ago which point he also received some IV fluid. He typically does get some diarrhea after his treatments however this time it does seem to be significantly worse. He has an ostomy he has noted significant ostomy output over the last 2 days. He has changed the bag here more than once. He has no abdominal pain no nausea or vomiting no fevers. His he does have a history of C diff. He is already on Imodium. MD complaint: diarrhea Onset (ago): day(s) (2) Description of Diarrhea: watery Related Data Home Medications Medication Instructions Recorded Confirmed loperamide [Imodium A-D] 2 mg PO TID 05/17/18 05/17/18 Previous Rx's Medication Instructions Recorded nitroglycerin 0.4 mg sublingual 0.4 mg SL Q5-15M PRN #10 tab 12/28/17 tablet potassium chloride 20 meq PO DAILY #2 tab 05/17/18 Allergies Allergy/AdvReac Type Severity Reaction Status Date / Time No Known Drug Allergies Allergy Verified 05/17/18 13:56 Review of Systems Review of Systems GENERAL: Denies chills, fatigue, malaise, fever, sweats, travel HEENT: Denies sinus pain, ear pain, sore throat, difficulty swallowing, neck pain RESPIRATORY: Denies dyspnea, cough, wheezing, hemoptysis, sputum. CARDIOVASCULAR: Denies chest pain, palpitations, orthopnea, edema GASTROINTESTINAL: See HPI : Denies dysuria, frequency, incontinence, hematuria, urinary retention, flank pain. MUSCULOSKELETAL: Denies weakness, joint pain, or bony pain SKIN: No rash, no erythema, no pruritus NEUROLOGIC: Denies weakness, dizziness, headache, numbness, change in speech, confusion PSYCHIATRIC: No concerning psychosocial issues. 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 difficile colitis (Acute) Colon cancer (Acute) Surgical History H/O shoulder surgery (Acute) S/P colostomy takedown (Acute) Status post ORIF of fracture of ankle (Acute) History of colon resection (Acute) Family History Son Cancer Father Cancer Social History household members: spouse Smoking Status: Former smoker alcohol intake: current Family History Son Cancer Father Cancer Social History household members: spouse Smoking Status: Former smoker alcohol intake: current Exam Initial Vital Signs Initial Vital Signs: Vital Signs Temperature 97.8 F 05/17/18 13:56 Pulse Rate 82 05/17/18 13:56 Respiratory Rate 15 05/17/18 13:56 Blood Pressure 109/64 05/17/18 13:56 Pulse Oximetry 100 05/17/18 13:56 GENERAL: alert well-appearing elderly male no acute distress HEENT: Head atraumatic,EOMI, NECK IS SUPPLE MOIST MUCOUS MEMBRANES CARDIOVASCULAR: Regular rate and rhythm without murmurs, rubs or gallops. RESPIRATORY: Breath sounds equal bilaterally, no wheezes rales or rhonchi. ABDOMEN: Soft, right-sided ostomy noted bag is full of watery liquid diarrhea. EXTREMITIES: Normal range of motion, no clubbing or edema. Neurovascularly intact. left leg does have more swelling than right. Patient states that this is normal for him since surgeries. NEUROLOGICAL: Alert and oriented x4.Normal gait and speech. SKIN: Warm, dry, no laceration, no petechiae, no rashes or lesions. Course Orders Ordered: ED Orders 05/17/18 15:10 GI Panel (Film Array) Stat 05/17/18 15:51 Complete Blood Count AUTO DIFF Stat Comprehensive Metabolic Panel Stat Lipase Stat 05/17/18 18:17 Urine Microscopic Stat Sodium Chloride (Normal Saline 0.9%) 1,000 mls @ 1,000 mls/hr IV CONT FELY Last Infusion: 05/17/18 18:42 Dose: 0 mls/hr Admin: 05/17/18 15:30 Dose: 1,000 mls/hr Discontinued Medications Ondansetron HCl (Zofran) 4 mg IV NOW ONE Stop: 05/17/18 17:46 Last Admin: 05/17/18 17:56 Dose: 4 mg Potassium Chloride (Klor-Con M20) 40 meq PO NOW ONE Stop: 05/17/18 17:27 Last Admin: 05/17/18 18:05 Dose: 40 meq Vital Signs - 8 hr 05/17/18 13:56 05/17/18 18:29 Temperature 97.8 F Pulse Rate 82 68 Respiratory Rate 15 18 Blood Pressure 109/64 Blood Pressure [Left Arm] 130/57 L Pulse Oximetry 100 100 MDM - Nausea/Vomiting/Diarrhea Lab Data Attestation: I reviewed the patient's lab results. Result diagrams: 05/17/18 15:51 05/17/18 15:51 Lab Results 05/17/18 05/17/18 05/17/18 Range/Units 15:10 15:51 15:51 WBC 3.2 L (4.5-11.0) X10^3/uL RBC 2.37 L (4.5-5.9) X10^6/uL Hgb 8.5 L (13.5-17.5) g/dL Hct 24.0 L (41-53) % MCV 101.1 H (80-100) fL MCH 36.0 H (26-34) PG MCHC 35.6 (30-36) % RDW 17.6 H (11.6-14.8) % Plt Count 190 (150-400) X10^3/uL Neut % (Auto) 76.4 H (50-75) % Lymph % (Auto) 11.2 L (25-40) % [place] % (Auto) 11.6 (3-14) % Eos % (Auto) 0.6 L (2-4) % Baso % (Auto) 0.2 (0-2) % Neut # (Auto) 2500 (2876-7097) /uL Lymph # (Auto) 400 L (0801-0185) /uL [place] # (Auto) 400 (0-900) /uL Eos # (Auto) 0 (0-450) /uL Baso # (Auto) 0 (0-100) /uL Sodium 133 L (137-145) mmol/L Potassium 3.0 L (3.4-5.1) mmol/L Chloride 94 L (98-107) mmol/L Carbon Dioxide 26 (22-32) mmol/L BUN 42 H (9-20) mg/dL Creatinine 1.30 H (0.66-1.25) mg/dL Estimated GFR 52.9 L (>60) mL/min BUN/Creatinine Ratio 32.3 H (6-22) Glucose 133 H (80-110) mg/dL Calcium 8.9 (8.4-10.2) mg/dL Total Bilirubin 1.4 H (0.2-1.3) mg/dL AST 41 (17-59) IU/L ALT 43 (21-72) IU/L Alkaline Phosphatase 50 (38-126) U/L Total Protein 6.3 (6.3-8.2) g/dL Albumin 4.0 (3.5-5.0) g/dL Globulin 2.3 (1.7-4.1) g/dL Albumin/Globulin Ratio 1.7 (1.0-2.8) Lipase 127 (23-300) U/L Urine RBC (0-5/HPF) Urine WBC (0-5/HPF) Urine Bacteria (None) Ur Culture Indicated? Stl C. cayetanensis PCR Not detected (Not Detect) Stool Rotavirus (PCR) Not detected (Not Detect) Stool Adenovirus (PCR) Not detected (Not Detect) Stool Astrovirus (PCR) Not detected (Not Detect) Stool Cryptosporidium PCR Not detected (Not Detect) Stl E.coli Shiga Tox PCR Not detected (Not Detect) St Sh/Enteroin Ecoli PCR Not detected (Not Detect) Stool E coli O157 PCR TNP Stl Enterotoxigenic E PCR Not detected (Not Detect) Stool EPEC (PCR) Not detected (Not Detect) Stl E. histolytica PCR Not detected (Not Detect) Stool Giardia Lamblia PCR Not detected (Not Detect) Stool Sapovirus (PCR) Not detected (Not Detect) Stl P. shigelloides PCR Not detected (Not Detect) St Y.enterocolitica PCR Not detected (Not Detect) Stool Vibrio (PCR) Not detected (Not Detect) Stl Vibrio cholerae PCR Not detected (Not Detect) Stl Enteroaggr Ecoli PCR Not detected (Not Detect) Stl Norovirus GI/GII PCR Not detected (Not Detect) Campylobacter (PCR) Not detected (Not Detect) C. difficile Tox (PCR) Not detected (Not Detect) Salmonella (PCR) Not detected (Not Detect) 05/17/18 Range/Units 18:17 WBC (4.5-11.0) X10^3/uL RBC (4.5-5.9) X10^6/uL Hgb (13.5-17.5) g/dL Hct (41-53) % MCV (80-100) fL MCH (26-34) PG MCHC (30-36) % RDW (11.6-14.8) % Plt Count (150-400) X10^3/uL Neut % (Auto) (50-75) % Lymph % (Auto) (25-40) % [place] % (Auto) (3-14) % Eos % (Auto) (2-4) % Baso % (Auto) (0-2) % Neut # (Auto) (8534-9213) /uL Lymph # (Auto) (6138-3572) /uL [place] # (Auto) (0-900) /uL Eos # (Auto) (0-450) /uL Baso # (Auto) (0-100) /uL Sodium (137-145) mmol/L Potassium (3.4-5.1) mmol/L Chloride (98-107) mmol/L Carbon Dioxide (22-32) mmol/L BUN (9-20) mg/dL Creatinine (0.66-1.25) mg/dL Estimated GFR (>60) mL/min BUN/Creatinine Ratio (6-22) Glucose (80-110) mg/dL Calcium (8.4-10.2) mg/dL Total Bilirubin (0.2-1.3) mg/dL AST (17-59) IU/L ALT (21-72) IU/L Alkaline Phosphatase (38-126) U/L Total Protein (6.3-8.2) g/dL Albumin (3.5-5.0) g/dL Globulin (1.7-4.1) g/dL Albumin/Globulin Ratio (1.0-2.8) Lipase (23-300) U/L Urine RBC 5-10/hpf H (0-5/HPF) Urine WBC 10-30/hpf H (0-5/HPF) Urine Bacteria Many (>30) H (None) Ur Culture Indicated? Specimen cultured Stl C. cayetanensis PCR (Not Detect) Stool Rotavirus (PCR) (Not Detect) Stool Adenovirus (PCR) (Not Detect) Stool Astrovirus (PCR) (Not Detect) Stool Cryptosporidium PCR (Not Detect) Stl E.coli Shiga Tox PCR (Not Detect) St Sh/Enteroin Ecoli PCR (Not Detect) Stool E coli O157 PCR Stl Enterotoxigenic E PCR (Not Detect) Stool EPEC (PCR) (Not Detect) Stl E. histolytica PCR (Not Detect) Stool Giardia Lamblia PCR (Not Detect) Stool Sapovirus (PCR) (Not Detect) Stl P. shigelloides PCR (Not Detect) St Y.enterocolitica PCR (Not Detect) Stool Vibrio (PCR) (Not Detect) Stl Vibrio cholerae PCR (Not Detect) Stl Enteroaggr Ecoli PCR (Not Detect) Stl Norovirus GI/GII PCR (Not Detect) Campylobacter (PCR) (Not Detect) C. difficile Tox (PCR) (Not Detect) Salmonella (PCR) (Not Detect) Urine Dip Bedside Urine Glucose Negative Bedside Urine Bilirubin - Negative Bedside Urine Ketone +/- 5 Urine Specific [place] 1.030 Bedside Urine Occult Blood +/- Bedside Urine pH 5.5 Bedside Urine Protein +/- 15 Bedside Urine Urobilinogen - Negative Bedside Urine Nitrite - Negative Bedside Urine Leukocytes + 70 Esterase MDM Narrative Medical decision making narrative: Patient is tolerating oral fluids. His abdomen remains soft. At this time I do not think imaging is needed or required. GI panel is negative for infection this is likely from his chemotherapy. He is already taking Imodium. Recommend he follow with his prim chuyita and oncology. Discharge Plan Departure Patient Disposition: Home Clinical Impression: Acute hypokalemia Diarrhea Qualifiers: Diarrhea type: unspecified type Qualified Code(s): R19.7 - Diarrhea, unspecified Activity Restrictions/Additional Instructions: *You have been diagnosed with diarrhea and low potassium *What to do: diarrhea is likely from chemotherapy. All low potassium also from diarrhea. increase of fluid in take with in Ensure, Jell-O, applesauce, broth or fluid of your choice *Continue to take medications as directed - Potassium chloride 20mEq daily for 2 days--> FAXED TO [employer] [facility] [address] [place] *Follow up with your primary care provider in 2-3 days *Return to ER if you should have worsening diarrhea, inability to tolerate fluids, increasing pain or vomiting or any new, worsening or concerning symptoms Prescriptions: New potassium chloride 20 mEq tablet extended release 20 meq PO DAILY Qty: 2 RF: 0 No Action nitroglycerin 0.4 mg tablet, sublingual 0.4 mg SL Q5-15M PRN (Reason: chest pain) Qty: 10 RF: 0 loperamide [Imodium A-D] 2 mg Capsule 2 mg PO TID RF: 0 Referrals: Silvia Florentino MD [Primary Care Provider] - Venancio Reyes MD [Physician] -
[2018-05-17 18:43] LABS: Adenovirus F 40/41 Not Detected (Not Detect); Astrovirus Not Detected (Not Detect); Cyclospora cayetanensis Not Detected (Not Detect); Entamoeba histolytica Not Detected (Not Detect); Giardia lamblia Not Detected (Not Detect); Norovirus GI/GII Not Detected (Not Detect); Rotavirus A Not Detected (Not Detect); Sapovirus Not Detected (Not Detect)
[2018-05-17 18:54] LABS: WBC Urine 10-30/HPF (0-5/HPF)
[2018-05-17 18:55] LABS: Bacteria Urine Many (>30); Culture Indicated Urine Specimen Cultured; RBC Urine 5-10/HPF (0-5/HPF)
[2018-05-17 19:20] VITALS: BP 124/74; PULSE 72; RESP 14; O2SAT 99
== END 2018-05-17 19:27 | disposition home or self-care (01) ==
PROVIDERS: Emergency Provider Emergency Medicine; Family Provider Internal Medicine; PCP Internal Medicine
DX: E87.6 Hypokalemia (principal); R19.7 Diarrhea, unspecified
CPT/HCPCS: 36591; 80053; 81003; 81015; 83690; 85025; 87077; 87086; 87186; 87507; 96361; 96374; 99284; J2405

== ENCOUNTER 2018-05-18 21:33 | Inpatient (IN) | payer OTHER, SELFPAY ==
[2018-04-17 12:34] VITALS: BMI 23.8
[2018-05-18] MEDS: SODIUM CHLORIDE 0.9% 1,000 ML 1000 ML IV (21:20)
[2018-05-18 21:33] VITALS: BP 123/71; PULSE 92; RESP 18; TEMP 37.1; O2SAT 100
[2018-05-18 21:55] VITALS: BP 128/81; PULSE 92; RESP 18; O2SAT 100
--- NOTE | 2018-05-18 22:03 | DI.RAD.S_ITS ---
PROCEDURE: XR ACUTE ABDOMEN SERIES INDICATIONS: change in bowel habits, ileostomy TECHNIQUE: One view chest and two views of the abdomen were acquired. COMPARISON: [facility], CT, CT CHEST ABD PEL W CON, 01/29/2018, 13:56. [facility], CR, XR ACUTE ABDOMEN SERIES, 12/18/2017, 18:14. FINDINGS: Surgical changes and devices: None. Chest: Lungs are clear. Heart size is normal. No pleural effusions. No pneumoperitoneum. Abdomen: Bowel gas pattern is normal. Moderate stool. No suspicious calcifications. Visualized solid organ contours appear normal. Bones: No suspicious bony lesions. IMPRESSION: Moderate stool without obstruction. Dictated by: Dary Bowen M.D. on 05/19/2018 at 9:40 Approved by: Dary Bowen M.D. on 05/19/2018 at 9:41
[2018-05-18 22:24] LABS: Add Manual Diff / Slide Review NO; Basophils Absolute Auto 0 /uL (0-100); Basophils Percent Auto 0.1 % (0-2); Eosinophils Absolute Auto 0 /uL (0-450); Eosinophils Percent Auto 0.2 % (2-4); Hematocrit 27.6 % (41-53); Hemoglobin 9.9 g/dL (13.5-17.5); Lymphocytes Absolute Auto 300 /uL (1100-4500); Lymphocytes Percent Auto 9.9 % (25-40); Mean Corpuscular HGB Conc 35.8 % (30-36); Mean Corpuscular Hemoglobin 36.4 PG (26-34); Mean Corpuscular Volume 101.5 fL (80-100); Monocytes Absolute Auto 300 /uL (0-900); Monocytes Percent Auto 8.4 % (3-14); Neutrophils Absolute Auto 2500 /uL (1500-7000); Neutrophils Percent Auto 81.4 % (50-75); Platelet Count 199 X10^3/uL (150-400); Red Blood Cell Count 2.72 X10^6/uL (4.5-5.9); Red Cell Distribution Width 17.8 % (11.6-14.8); White Blood Cell Count 3.1 X10^3/uL (4.5-11.0)
--- NOTE | 2018-05-18 22:25 | PC.NURSE ---
drawn by eve from lab
[2018-05-18 22:34] LABS: Blood Urea Nitrogen 45 mg/dL (9-20); Calcium 9.9 mg/dL (8.4-10.2); Carbon Dioxide 25 mmol/L (22-32); Chloride 99 mmol/L (98-107); Estimated Glomerular Filt Rate 44.8 mL/min (>60); Glucose 147 mg/dL (80-110); HEMOLYSIS < 15 (0-50); Potassium 3.7 mmol/L (3.4-5.1); Sodium 139 mmol/L (137-145)
--- NOTE | 2018-05-18 22:34 | PC.NURSE ---
pt has history of cancer with iliostomy. He reports there has been no solid stools for some time now in the ostomy bag. Pt believes he cought a bad gi bug and the chemo is making it worse. he was seen here yesterday for same and has had no improvment.
--- NOTE | 2018-05-18 23:23 | ED.WEAKNESS ---
HPI - Weakness General Chief complaint: Weakness Stated complaint: Dizzy, weakness Time Seen by Provider: 05/18/18 21:35 Source: patient, family and EMS Mode of arrival: EMS Limitations: no limitations History of Present Illness HPI Narrative: 82-year-old male nonsmoker presents by EMS for evaluation of generalized weakness, dizziness and lightheadedness. 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 He was seen yesterday and was given IV fluids and potassium replacement but symptoms persisted despite his best efforts to drink plenty of fluids. He becomes significantly dizzy and lightheaded upon sitting up and near syncopal. MD Complaint: generalized weakness Onset (ago): day(s) Duration: constant Location: generalized Migration: none Severity: moderate Related Data Home Medications Medication Instructions Recorded Confirmed nitroglycerin 1 tab SUBLINGUAL PRN PRN 05/19/18 05/19/18 tamsulosin 0.4 mg PO DAILY 05/19/18 05/19/18 Previous Rx's Medication Instructions Recorded potassium chloride 20 meq PO DAILY #2 tab 05/17/18 Allergies Allergy/AdvReac Type Severity Reaction Status Date / Time No Known Drug Allergies Allergy Verified 05/17/18 13:56 Review of Systems Constitutional Denies chills, Denies fever(s), Denies lethargy and Reports weakness Eyes Denies change in vision, Denies eye discharge, Denies irritation and Denies loss of vision ENT Ears, Nose, Mouth, and Throat: Denies change in voice, Denies neck pain and Denies sore throat Cardiovascular Denies chest pain, Denies irregular heart rhythm, Denies lightheadedness, Denies palpitations, Denies dyspnea, Denies dyspnea on exertion and Denies orthopnea Respiratory Denies cough, Denies dyspnea, Denies dyspnea on exertion and Denies wheezing Gastrointestinal Gastrointestinal: Denies abdominal pain, Denies change in bowel habits, Reports loose stools, Denies nausea and Denies vomiting Genitourinary Denies hematuria, Denies flank pain, Denies urinary incontinence and Denies urinary urgency Musculoskeletal Denies neck pain Integumentary/Breasts Denies pruritus, Denies erythema, Denies rash and Denies wounds Neurologic Denies confusion, Denies loss of vision and Reports weakness Psychiatric Denies anxiety, Denies confusion, Denies depression, Denies homicidal ideation and Denies suicidal ideation Endocrine Denies palpitations Hematologic/Lymphatic Denies easy bruising Allergic/Immunologic Denies wheezing [facility] Medical History C. 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 Normocephalic. No temporal or scalp tenderness. EYES: Pupils equal round and reactive. Extraocular motions intact. No scleral icterus. No injection or drainage. ENT: Dry membranes Nose without bleeding, purulent drainage or septal hematoma. Throat without erythema, tonsillar hypertrophy or exudate. Uvula midline. Airway patent. NECK: Trachea midline. No JVD or lymphadenopathy. Supple, nontender, no meningeal signs. CARDIOVASCULAR: Regular rate and rhythm without murmurs, gallops, or rubs. RESPIRATORY: Clear to auscultation. Breath sounds equal bilaterally. No wheezes, rales, or rhonchi. GASTROINTESTINAL: Abdomen soft, non-tender, nondistended. Loose stool in ostomy EXTREMITIES: No clubbing, cyanosis, or edema. No joint tenderness, effusion, or edema noted. BACK: Nontender without deformity or crepitance. No flank tenderness. NEURO: AOx3. SKIN: No rash or erythema. poor turgor Initial Vital Signs Initial Vital Signs: Vital Signs Temperature 98.7 F 05/18/18 21:33 Pulse Rate 92 H 05/18/18 21:33 Respiratory Rate 18 05/18/18 21:33 Blood Pressure 123/71 05/18/18 21:33 Pulse Oximetry 100 05/18/18 21:33 Course Orders Ordered: ED Orders 05/18/18 22:03 XR acute abdomen series Stat 05/18/18 22:12 Basic Metabolic Panel Stat Complete Blood Count AUTO DIFF Stat 05/19/18 01:09 Education, smoking cessation ONGOING 05/19/18 01:17 Consult to Dietitian, Adult Routine Consult to Discharge Planning Routine Consult to Pastoral Services Routine 05/19/18 04:20 Basic Metabolic Panel DAILY Complete Blood Count AUTO DIFF DAILY Magnesium Routine 05/20/18 05:00 Basic Metabolic Panel DAILY Complete Blood Count AUTO DIFF DAILY Enoxaparin Sodium (Lovenox) 40 mg SUBCUT DAILY [facility] Heparin Sodium (Porcine) (Heparin Lock Port) 500 unit IV PRN PRN PRN Reason: Flush Cefepime HCl 2 gm/ Sodium (Chloride) 100 mls @ 200 mls/hr IV Q12H FEYL Last Admin: 05/19/18 03:03 Dose: 200 mls/hr Dextrose/Sodium Chloride (Dextrose 5%-0.45% Ns) 1,000 mls @ 150 mls/hr IV CONT FELY Stop: 05/19/18 07:54 Last Admin: 05/19/18 02:18 Dose: 150 mls/hr Potassium Chloride 20 meq/ (Sodium Chloride) 260 mls @ 130 mls/hr IV NOW ONE Stop: 05/19/18 05:34 Last Admin: 05/19/18 04:24 Dose: 130 mls/hr Loperamide HCl (Immodium Liquid) 2 mg PO Q4HR PRN PRN Reason: Diarrhea Morphine Sulfate (Morphine) 2 mg IV Q4HR PRN PRN Reason: Pain, Moderate (4-6) Nitroglycerin (Nitrostat) 0.4 mg SL [id number] PRN PRN Reason: Chest Pain Ondansetron HCl (Zofran) 4 mg IV Q8HR PRN PRN Reason: Nausea And Vomiting Sodium Chloride (Normal Saline 0.9% Flush) 10 ml IV PRN PRN PRN Reason: Flush Tamsulosin HCl (Flomax) 0.4 mg PO DAILY FELY Discontinued Medications Heparin Sodium (Porcine) (Heparin Lock Port) 500 unit IV BID [facility] Sodium Chloride (Normal Saline 0.9%) 1,000 mls @ 1,000 mls/hr IV BOLUS ONE Stop: 05/18/18 23:00 Last Infusion: 05/19/18 00:30 Dose: 1,000 mls/hr Admin: 05/18/18 21:20 Dose: 1,000 mls/hr Reevaluation(s) Reevaluation #1: patient is back for second time in as many days. He has had a liter of fluid and still feels quite weak. He is not well enough to go home. Vital Signs - 8 hr 05/18/18 21:33 05/18/18 21:55 05/18/18 23:56 Temperature 98.7 F Pulse Rate 92 H 92 H 93 H Respiratory Rate 18 18 16 Blood Pressure 123/71 Blood Pressure [Left Arm] 128/81 124/80 Pulse Oximetry 100 100 100 05/19/18 01:23 Temperature 97.8 F Pulse Rate 95 H Respiratory Rate 16 Blood Pressure 134/72 Blood Pressure [Left Arm] Pulse Oximetry 100 MDM - Weakness Lab Data Result diagrams: 05/19/18 04:20 05/19/18 04:20 Lab Results 05/18/18 05/18/18 05/19/18 Range/Units 22:12 22:12 04:20 WBC 3.1 L 3.2 L (4.5-11.0) X10^3/uL RBC 2.72 L 2.44 L (4.5-5.9) X10^6/uL Hgb 9.9 L 8.8 L (13.5-17.5) g/dL Hct 27.6 L 24.9 L (41-53) % MCV 101.5 H 102.0 H (80-100) fL MCH 36.4 H 36.0 H (26-34) PG MCHC 35.8 35.3 (30-36) % RDW 17.8 H 17.5 H (11.6-14.8) % Plt Count 199 187 (150-400) X10^3/uL Neut % (Auto) 81.4 H 78.2 H (50-75) % Lymph % (Auto) 9.9 L 14.5 L (25-40) % Towns % (Auto) 8.4 6.6 (3-14) % Eos % (Auto) 0.2 L 0.3 L (2-4) % Baso % (Auto) 0.1 0.4 (0-2) % Neut # (Auto) 2500 2500 (5858-1214) /uL Lymph # (Auto) 300 L 500 L (3558-1584) /uL [place] # (Auto) 300 200 (0-900) /uL Eos # (Auto) 0 0 (0-450) /uL Baso # (Auto) 0 0 (0-100) /uL Sodium 139 (137-145) mmol/L Potassium 3.7 (3.4-5.1) mmol/L Chloride 99 (98-107) mmol/L Carbon Dioxide 25 (22-32) mmol/L BUN 45 H (9-20) mg/dL Creatinine 1.50 H (0.66-1.25) mg/dL Estimated GFR 44.8 L (>60) mL/min BUN/Creatinine Ratio 30.0 H (6-22) Glucose 147 H (80-110) mg/dL Calcium 9.9 (8.4-10.2) mg/dL Magnesium (1.6-2.3) mg/dL 05/19/18 05/19/18 Range/Units 04:20 04:20 WBC (4.5-11.0) X10^3/uL RBC (4.5-5.9) X10^6/uL Hgb (13.5-17.5) g/dL Hct (41-53) % MCV (80-100) fL MCH (26-34) PG MCHC (30-36) % RDW (11.6-14.8) % Plt Count (150-400) X10^3/uL Neut % (Auto) (50-75) % Lymph % (Auto) (25-40) % [place] % (Auto) (3-14) % Eos % (Auto) (2-4) % Baso % (Auto) (0-2) % Neut # (Auto) (6520-4803) /uL Lymph # (Auto) (2211-5766) /uL [place] # (Auto) (0-900) /uL Eos # (Auto) (0-450) /uL Baso # (Auto) (0-100) /uL Sodium 138 (137-145) mmol/L Potassium 3.4 (3.4-5.1) mmol/L Chloride 102 (98-107) mmol/L Carbon Dioxide 25 (22-32) mmol/L BUN 49 H (9-20) mg/dL Creatinine 1.40 H (0.66-1.25) mg/dL Estimated GFR 48.5 L (>60) mL/min BUN/Creatinine Ratio 35.0 H (6-22) Glucose 169 H (80-110) mg/dL Calcium 9.3 (8.4-10.2) mg/dL Magnesium 2.1 (1.6-2.3) mg/dL Discharge Plan Departure Patient Disposition: Admitted as Observation Clinical Impression: Acute dehydration, Weakness Discharge Date/Time: 05/19/18 00:31 Interventions: ED Discharge Assessment Last Done: 05/19/18 00:29 Referrals: Silvia Florentino MD [Primary Care Provider] - Admit Date/Time: 05/18/18 23:56 Admit Provider: Cody Marrero
--- NOTE | 2018-05-18 23:26 | ED_ITS ---
HPI - Weakness General Chief complaint: Weakness Stated complaint: Dizzy, weakness Time Seen by Provider: 05/18/18 21:35 Source: patient, family and EMS Mode of arrival: EMS Limitations: no limitations History of Present Illness HPI Narrative: 82-year-old male nonsmoker presents by EMS for evaluation of generalized weakness, dizziness and lightheadedness. 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 He was seen yesterday and was given IV fluids and potassium replacement but symptoms persisted despite his best efforts to drink plenty of fluids. He becomes significantly dizzy and lightheaded upon sitting up and near syncopal. MD Complaint: generalized weakness Onset (ago): day(s) Duration: constant Location: generalized Migration: none Severity: moderate Related Data Home Medications Medication Instructions Recorded Confirmed nitroglycerin 1 tab SUBLINGUAL PRN PRN 05/19/18 05/19/18 tamsulosin 0.4 mg PO DAILY 05/19/18 05/19/18 Previous Rx's Medication Instructions Recorded potassium chloride 20 meq PO DAILY #2 tab 05/17/18 Allergies Allergy/AdvReac Type Severity Reaction Status Date / Time No Known Drug Allergies Allergy Verified 05/17/18 13:56 Review of Systems Constitutional Denies chills, Denies fever(s), Denies lethargy and Reports weakness Eyes Denies change in vision, Denies eye discharge, Denies irritation and Denies loss of vision ENT Ears, Nose, Mouth, and Throat: Denies change in voice, Denies neck pain and Denies sore throat Cardiovascular Denies chest pain, Denies irregular heart rhythm, Denies lightheadedness, Denies palpitations, Denies dyspnea, Denies dyspnea on exertion and Denies orthopnea Respiratory Denies cough, Denies dyspnea, Denies dyspnea on exertion and Denies wheezing Gastrointestinal Gastrointestinal: Denies abdominal pain, Denies change in bowel habits, Reports loose stools, Denies nausea and Denies vomiting Genitourinary Denies hematuria, Denies flank pain, Denies urinary incontinence and Denies urinary urgency Musculoskeletal Denies neck pain Integumentary/Breasts Denies pruritus, Denies erythema, Denies rash and Denies wounds Neurologic Denies confusion, Denies loss of vision and Reports weakness Psychiatric Denies anxiety, Denies confusion, Denies depression, Denies homicidal ideation and Denies suicidal ideation Endocrine Denies palpitations Hematologic/Lymphatic Denies easy bruising Allergic/Immunologic Denies wheezing [facility] Medical History C. 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 Normocephalic. No temporal or scalp tenderness. EYES: Pupils equal round and reactive. Extraocular motions intact. No scleral icterus. No injection or drainage. ENT: Dry membranes Nose without bleeding, purulent drainage or septal hematoma. Throat without erythema, tonsillar hypertrophy or exudate. Uvula midline. Airway patent. NECK: Trachea midline. No JVD or lymphadenopathy. Supple, nontender, no meningeal signs. CARDIOVASCULAR: Regular rate and rhythm without murmurs, gallops, or rubs. RESPIRATORY: Clear to auscultation. Breath sounds equal bilaterally. No wheezes, rales, or rhonchi. GASTROINTESTINAL: Abdomen soft, non-tender, nondistended. Loose stool in ostomy EXTREMITIES: No clubbing, cyanosis, or edema. No joint tenderness, effusion, or edema noted. BACK: Nontender without deformity or crepitance. No flank tenderness. NEURO: AOx3. SKIN: No rash or erythema. poor turgor Initial Vital Signs Initial Vital Signs: Vital Signs Temperature 98.7 F 05/18/18 21:33 Pulse Rate 92 H 05/18/18 21:33 Respiratory Rate 18 05/18/18 21:33 Blood Pressure 123/71 05/18/18 21:33 Pulse Oximetry 100 05/18/18 21:33 Course Orders Ordered: ED Orders 05/18/18 22:03 XR acute abdomen series Stat 05/18/18 22:12 Basic Metabolic Panel Stat Complete Blood Count AUTO DIFF Stat 05/19/18 01:09 Education, smoking cessation ONGOING 05/19/18 01:17 Consult to Dietitian, Adult Routine Consult to Discharge Planning Routine Consult to Pastoral Services Routine 05/19/18 04:20 Basic Metabolic Panel DAILY Complete Blood Count AUTO DIFF DAILY Magnesium Routine 05/20/18 05:00 Basic Metabolic Panel DAILY Complete Blood Count AUTO DIFF DAILY Enoxaparin Sodium (Lovenox) 40 mg SUBCUT DAILY [facility] Heparin Sodium (Porcine) (Heparin Lock Port) 500 unit IV PRN PRN PRN Reason: Flush Cefepime HCl 2 gm/ Sodium (Chloride) 100 mls @ 200 mls/hr IV Q12H FELY Last Admin: 05/19/18 03:03 Dose: 200 mls/hr Dextrose/Sodium Chloride (Dextrose 5%-0.45% Ns) 1,000 mls @ 150 mls/hr IV CONT FELY Stop: 05/19/18 07:54 Last Admin: 05/19/18 02:18 Dose: 150 mls/hr Potassium Chloride 20 meq/ (Sodium Chloride) 260 mls @ 130 mls/hr IV NOW ONE Stop: 05/19/18 05:34 Last Admin: 05/19/18 04:24 Dose: 130 mls/hr Loperamide HCl (Immodium Liquid) 2 mg PO Q4HR PRN PRN Reason: Diarrhea Morphine Sulfate (Morphine) 2 mg IV Q4HR PRN PRN Reason: Pain, Moderate (4-6) Nitroglycerin (Nitrostat) 0.4 mg SL [id number] PRN PRN Reason: Chest Pain Ondansetron HCl (Zofran) 4 mg IV Q8HR PRN PRN Reason: Nausea And Vomiting Sodium Chloride (Normal Saline 0.9% Flush) 10 ml IV PRN PRN PRN Reason: Flush Tamsulosin HCl (Flomax) 0.4 mg PO DAILY FELY Discontinued Medications Heparin Sodium (Porcine) (Heparin Lock Port) 500 unit IV BID [facility] Sodium Chloride (Normal Saline 0.9%) 1,000 mls @ 1,000 mls/hr IV BOLUS ONE Stop: 05/18/18 23:00 Last Infusion: 05/19/18 00:30 Dose: 1,000 mls/hr Admin: 05/18/18 21:20 Dose: 1,000 mls/hr Reevaluation(s) Reevaluation #1: patient is back for second time in as many days. He has had a liter of fluid and still feels quite weak. He is not well enough to go home. Vital Signs - 8 hr 05/18/18 21:33 05/18/18 21:55 05/18/18 23:56 Temperature 98.7 F Pulse Rate 92 H 92 H 93 H Respiratory Rate 18 18 16 Blood Pressure 123/71 Blood Pressure [Left Arm] 128/81 124/80 Pulse Oximetry 100 100 100 05/19/18 01:23 Temperature 97.8 F Pulse Rate 95 H Respiratory Rate 16 Blood Pressure 134/72 Blood Pressure [Left Arm] Pulse Oximetry 100 MDM - Weakness Lab Data Result diagrams: 05/19/18 04:20 05/19/18 04:20 Lab Results 05/18/18 05/18/18 05/19/18 Range/Units 22:12 22:12 04:20 WBC 3.1 L 3.2 L (4.5-11.0) X10^3/uL RBC 2.72 L 2.44 L (4.5-5.9) X10^6/uL Hgb 9.9 L 8.8 L (13.5-17.5) g/dL Hct 27.6 L 24.9 L (41-53) % MCV 101.5 H 102.0 H (80-100) fL MCH 36.4 H 36.0 H (26-34) PG MCHC 35.8 35.3 (30-36) % RDW 17.8 H 17.5 H (11.6-14.8) % Plt Count 199 187 (150-400) X10^3/uL Neut % (Auto) 81.4 H 78.2 H (50-75) % Lymph % (Auto) 9.9 L 14.5 L (25-40) % [place] % (Auto) 8.4 6.6 (3-14) % Eos % (Auto) 0.2 L 0.3 L (2-4) % Baso % (Auto) 0.1 0.4 (0-2) % Neut # (Auto) 2500 2500 (9662-8794) /uL Lymph # (Auto) 300 L 500 L (1106-1455) /uL [place] # (Auto) 300 200 (0-900) /uL Eos # (Auto) 0 0 (0-450) /uL Baso # (Auto) 0 0 (0-100) /uL Sodium 139 (137-145) mmol/L Potassium 3.7 (3.4-5.1) mmol/L Chloride 99 (98-107) mmol/L Carbon Dioxide 25 (22-32) mmol/L BUN 45 H (9-20) mg/dL Creatinine 1.50 H (0.66-1.25) mg/dL Estimated GFR 44.8 L (>60) mL/min BUN/Creatinine Ratio 30.0 H (6-22) Glucose 147 H (80-110) mg/dL Calcium 9.9 (8.4-10.2) mg/dL Magnesium (1.6-2.3) mg/dL 05/19/18 05/19/18 Range/Units 04:20 04:20 WBC (4.5-11.0) X10^3/uL RBC (4.5-5.9) X10^6/uL Hgb (13.5-17.5) g/dL Hct (41-53) % MCV (80-100) fL MCH (26-34) PG MCHC (30-36) % RDW (11.6-14.8) % Plt Count (150-400) X10^3/uL Neut % (Auto) (50-75) % Lymph % (Auto) (25-40) % [place] % (Auto) (3-14) % Eos % (Auto) (2-4) % Baso % (Auto) (0-2) % Neut # (Auto) (1691-8742) /uL Lymph # (Auto) (7084-3045) /uL [place] # (Auto) (0-900) /uL Eos # (Auto) (0-450) /uL Baso # (Auto) (0-100) /uL Sodium 138 (137-145) mmol/L Potassium 3.4 (3.4-5.1) mmol/L Chloride 102 (98-107) mmol/L Carbon Dioxide 25 (22-32) mmol/L BUN 49 H (9-20) mg/dL Creatinine 1.40 H (0.66-1.25) mg/dL Estimated GFR 48.5 L (>60) mL/min BUN/Creatinine Ratio 35.0 H (6-22) Glucose 169 H (80-110) mg/dL Calcium 9.3 (8.4-10.2) mg/dL Magnesium 2.1 (1.6-2.3) mg/dL Discharge Plan Departure Patient Disposition: Admitted as Observation Clinical Impression: Acute dehydration, Weakness Discharge Date/Time: 05/19/18 00:31 Interventions: ED Discharge Assessment Last Done: 05/19/18 00:29 Referrals: Silvia Florentino MD [Primary Care Provider] - Admit Date/Time: 05/18/18 23:56 Admit Provider: Cody Marrero
[2018-05-18 23:56] VITALS: BP 124/80; PULSE 93; RESP 16; O2SAT 100
[2018-05-19] VITALS (15 sets, daily range): BP systolic 95–151; BP diastolic 47–97; PULSE 77–125; RESP 15–18; TEMP 36.4–36.6; O2SAT 98–100; BMI 23.6
--- NOTE | 2018-05-19 | DI.ECHO.S_ITS ---
[place] [facility]---------+ [facility] +---------+ : : [address] : : : : [id number] : : : : Phone: [phone] Echocardiogram Report + + :Name: SINDHU VILLALPANDO Study Date: 05/20/2018 Height: 70 in : :[facility] Exam Location: [place] Weight: 149 lb : : Gender: Male BSA: 1.8 m2 : :: 1935 Age: 82 yrs BP: 131/66 mmHg: :Reason For Study: New onset atrial fibrillation : :Ordering Physician: Sameer : :Hospitalist Performed By: Joanne Stauffer : :Referring: GIL GARCIA : + + Interpretation Summary Normal sinus rhythm. Normal LV size; there is global hypokinesis; worst movement is demonstrated by mid-inferior hypokinesis. EF is 45-50%. RV is mildly dilated with normal RV function. Mitral valve leaflets are normal; mild MAC; otherwise no significant valvular abnormlaities. No prior study availbale for comparison. Procedure: A two-dimensional transthoracic echocardiogram with color flow and Doppler was performed. The study quality was technically adequate. There is no prior echocardiogram noted for this patient. Acoustic imaging windows were limited due to patient's port covering the parasternal window. The patient was imaged in a supine position. The patient was in normal sinus rhythm during the exam. The patient had occasional PACs during the exam. Left Ventricle: The left ventricle is grossly normal size. Left ventricular ejection fraction is estimated to be 45 +/- 5%. There is moderate global hypokinesis of the left ventricle. Right Ventricle: The right ventricle is mildly dilated. The right ventricular systolic function is normal. Atria: The left atrium grossly appears normal in size. (Unable to accurately measure due to suboptimal image quality). The right atrium grossly appears normal in size. Mitral Valve: The mitral valve leaflets appear mildly thickened, but open well. There is mild mitral annular calcification. There is mild mitral regurgitation. The mitral regurgitant jet is eccentrically directed. Aortic Valve: The aortic valve is trileaflet. The aortic valve opens well. There is no hemodynamically significant valvular aortic stenosis. No aortic regurgitation is present. Tricuspid Valve: The tricuspid valve is normal in structure and function. There is mild tricuspid regurgitation. The right ventricular systolic pressure is estimated to be at least 28 mmHg based on an estimated right atrial pressure of 3 mm Hg. Pulmonic Valve: The pulmonic valve is not well seen, but is grossly normal. There is a trace or physiologic amount of pulmonic regurgitation. Great Vessels: The aortic root is normal size. The ascending aorta could not be visualized. The IVC is of normal diameter and collapses greater than 50% with a sniff. This suggests a low right atrial pressure of 3 mm Hg. Pericardium/ Pleura There is an anterior echo-free space consistent with a fat pad. There is no pericardial effusion. There is no pleural effusion. MMode/2D Measurements & Calculations LVOT diam: 2.4 cm TAPSE: 2.3 cm Ao root diam: 3.8 cm Doppler Measurements & Calculations Ao V2 max: 105.7 cm/sec LVOT Max Michael: 86.1 cm/sec Ao V2 mean: 80.8 cm/sec LV V1 max P.0 mmHg Ao max P.5 mmHg LV V1 VTI: 14.6 cm Ao mean P.7 mmHg LIS(I,D): 2.8 cm2 Ao V2 VTI: 22.9 cm LIS(V,D): 3.6 cm2 sev ratio: 0.64 LIS indexed to BSA (cm^2/m^2): 1.5 MV E max michael: 55.3 cm/sec TR max michael: 249.1 cm/sec MV A max michael: 108.9 cm/sec TR max P.8 mmHg MV E/A: 0.51 Med Peak E' Michael: 2.9 cm/sec E/E' med: 18.7 Lat Peak E' Michael: 6.8 cm/sec E/E' lat: 8.1 E/e' average: 13.4 MV dec time: 0.12 sec SV(LVOT): 64.1 ml Electronically signed by: Rani Obando M.D. on Reading Physician:05/20/2018 06:49 PM
--- NOTE | 2018-05-19 00:04 | PC.NURSE ---
pt reports feeling hungry which is a change from the way he has been feeling lately. He asked for an ensure and rhonda sandie which was provided. Pt reports having a typical routine of getting up every 2 hours at night to empty colostomy and urinate. He has not had urine or stool output he considerd normal for a few days. He states that everything will go straight thru me in four hours.
--- NOTE | 2018-05-19 01:56 | P.HP_ITS ---
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 Patient was seen in the ER yesterday at which time was evaluated for exacerbation post chemo diarrhea. The patient reports that he is on his 5th round of chemotherapy and a 2nd session with significant reduction in his CEA to 0.7 and has a typical diarrhea 2 days following treatment that lasts for 2 days. The patient indicates that this time the diarrhea is much more perfuse having to change his ileostomy bag multiple times with progressive weakness prompting him to present to the ER yesterday. He had been taking Imodium which has been his usual treatment of his diarrhea symptoms. On ER evaluation he was found to be dehydrated and hypokalemic and was discharged to home following repletion of potassium and rehydration and able tolerate oral fluids. While in the ER yesterday the patient had a GI PCR completed which was negative for GI infection including C difficile. He did have a urine sample that was sent for culture which demonstrates gram-negative bacilli with susceptibilities to follow. Today the patient had ongoing diarrhea and had episode of nausea and vomiting. He reports becoming severely orthostatic stating that when he sat up be felt he was going to pass out prompting to return to the ER today. Patient denies complaints of pain only that of malaise and fatigue with marked orthostatic dizziness. The patient denies syncopal episode, falls or injury. Reports no complaints of headache or visual changes, head congestion or sore throat. He has had a history of chest pain associated with activity and relieved with rest, his last episode was a couple of months ago. He has been prescribed nitroglycerin which he has not used. He denies palpitations, shortness of breath or cough. He denies abdominal pain. He does have left leg swelling following prostatectomy. He has been able to keep down Ensure and drinking Brandin a-Cola. He reports urinating every 2-1/2 hours otherwise he has urinary leakage and is taking tamsulosin daily Patient presented tonight to the ER at 9:33 p.m. at which time was found to be afebrile with temperature of 98.7? has a BP of 123/71, heart rate of 92, respirations of 18 and 100% oxygen saturation on room air. Did have lab work repeated which showed a white count of 3.1, hemoglobin of 9.9 and a hematocrit of 27.6. His sodium and potassium within normal range and he has a BUN of 45 and a creatinine of 1.5 up from 1.2. His BUN creatinine ratio is 30-1. He has is his serum glucose of 147. At this time the patient is admitted to the hospital for intractable diarrhea post chemotherapy, UTI that has not been treated and acute dehydration. Patient History Medical History C. difficile colitis (Acute) Chest pain (Acute) Colon cancer (Acute) HTN (hypertension) (Acute) Hoarseness (Acute) Hyperlipidemia (Acute) Ileostomy in place (Acute) Ringing in ears (Acute) Surgical History History of prostatectomy (Acute) H/O shoulder surgery (Acute) History of colon resection (Acute) S/P colostomy takedown (Acute) Status post ORIF of fracture of ankle (Acute) Family History Son Cancer Father Cancer Social History household members: spouse Smoking Status: Former smoker alcohol intake: current Family & Social History Social History: household members spouse Prior Living Arrangements House Safety & Behavioral: Feels Safe in Current Yes Environment Been Physically Hurt or No Threatened By a Person Suicidal Ideation Description None Suicide Plan Description No Plan Tobacco & Substance use: Tobacco type cigarettes Smoking Status Former smoker alcohol intake current alcohol intake frequency holiday/special occasion Substance Use Type does not use Comment: The patient has been for 64 years and lives in a single family home with his . His mother and father have his father of cancer and mother of old age though she was a smoker as well. He has a brother and sister who both his brother of alcoholism and a sister from lung c ancer. He has a son has esophageal cancer. 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 Smoking: The patient smoked for approximately 5-10 years and quit over 50 years ago. 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 Meds Home Medications Medication Instructions Recorded Confirmed Type potassium chloride 20 meq PO DAILY #2 tab 05/17/18 05/19/18 Rx nitroglycerin 1 tab SUBLINGUAL PRN PRN 05/19/18 05/19/18 History tamsulosin 0.4 mg PO DAILY 05/19/18 05/19/18 History Allergies Allergy/AdvReac Type Severity Reaction Status Date / Time No Known Drug Allergies Allergy Verified 05/17/18 13:56 Review of Systems Review of Systems All systems reviewed & are unremarkable except as noted in HPI and below Exam Vital Signs (past 8 hours): - 05/18/18 21:33 05/18/18 21:55 05/18/18 23:56 Temperature 98.7 F Pulse Rate 92 H 92 H 93 H Respiratory Rate 18 18 16 Blood Pressure 123/71 Blood Pressure [Left Arm] 128/81 124/80 Pulse Oximetry 100 100 100 05/19/18 01:23 Temperature 97.8 F Pulse Rate 95 H Respiratory Rate 16 Blood Pressure 134/72 Blood Pressure [Left Arm] Pulse Oximetry 100 Oxygen Delivery Method Nasal Cannula Oxygen Flow Rate 2 Narrative Exam Narrative: General: Well developed elderly male, well nourished, ill- appearing Skin: Warm, dry, pink, no rashes, no visible lesions HEENT: Normocephalic, PERRLA, EOMs intact without nystagmus, conjunctiva moist, sclera is anicteric, hearing grossly normal, no sinus tenderness to percussion, oropharynx is dry and pink without lesions or exudate, uvula midline, posterior pharynx without inflammation, no cervical lymphadenopathy Neck: Supple, no masses, no thyromegaly, trachea midline, no carotid bruits or JVD, no supraclavicular lymphadenopathy Cardiac: Tachycardic rate with regular rhythm, S1-S2, no murmur appreciated, no gallops or rubs, 2+ radial pulse, 1+ dorsalis pedis pulse, capillary refill is brisk, no edema Chest: Symmetrical movement, breathing non labored, no cough present, BS equal bilateral without coarseness, crackles or wheezes Abdomen: Soft, no tenderness or guarding, tympany to percussion bilateral upper quadrants dull bilateral lower quadrants, ileostomy with the thin watery green drainage, was at a is pink, no organomegaly, no flank or suprapubic pain, BS normal. Back: Normal curvature, no tenderness to palpation, no CVA tenderness on percussion Extremities: Full ROM, no synovial effusions or deformities, strength 5/5 and symmetrical, gait not assessed Neuro: AAOx4, cranial nerves II-XII grossly intact, distal sensation intact to light touch, no paresthesias Psych: pleasant, thought coherent, stable mood and congruent affect Objective Labs Result Diagrams: 05/18/18 22:12 05/18/18 22:12 Labs: Laboratory Results - last 24 hr 05/18/18 05/18/18 22:12 22:12 WBC 3.1 L RBC 2.72 L Hgb 9.9 L Hct 27.6 L MCV 101.5 H MCH 36.4 H MCHC 35.8 RDW 17.8 H Plt Count 199 Neut % (Auto) 81.4 H Lymph % (Auto) 9.9 L [place] % (Auto) 8.4 Eos % (Auto) 0.2 L Baso % (Auto) 0.1 Neut # (Auto) 2500 Lymph # (Auto) 300 L [place] # (Auto) 300 Eos # (Auto) 0 Baso # (Auto) 0 Sodium 139 Potassium 3.7 Chloride 99 Carbon Dioxide 25 BUN 45 H Creatinine 1.50 H Estimated GFR 44.8 L BUN/Creatinine Ratio 30.0 H Glucose 147 H Calcium 9.9 Assessment & Plan Assessment & Plan narrative: This is an 82-year-old male patient who was acutely dehydrated with intractable diarrhea, dehydration and marked orthostasis. 1. Intractable diarrhea, acute -patient has chronic diarrhea associated with chemotherapy treatments however this episode has not resolved despite usual treatment with Imodium. -the patient was seen in the ER yesterday and returned again today both times significantly dehydrated. -the patient has been consuming Ensure and Coca-Cola. At this time will provide bowel rest the patient will be NPO -patient will be cautiously rehydrated with D5 0.45% normal saline at 1:50 a.m. an hour for 1 L and then will re-evaluate. -ileostomy with slightly reduced output at time evaluation, will continue Imodium as needed -will request dietary consult 2. Elevated serum creatinine, acute -patient is dehydrated with elevation in creatinine from 1.3 yesterday to 1.5 today -patient reports marked reduction in urinary output consistent with dehydration. -patient received a 1 L bolus of normal saline in the ER and will be cautiously rehydrated as noted above 3. Stable angina, chronic -the patient describes chest pain with activity and is relieved with rest -he has been prescribed nitroglycerin that he states he has not needed -the patient reports last episode of chest pain was ?a couple of months ago? and denies any chest pain shortness of breath or palpitations -the patient will remain on telemetry and nitroglycerin is ordered as needed 4. Small intestine cancer, chronic -patient is on 5th round, 2nd session of chemotherapy with reduction in CEA down to 0.7 per patient report -patient without other apparent complications of chemo treatment 5. Hypertension, presumed resolved -patient states he is no longer taking antihypertensives 6. Hyperlipidemia, presumed resolved -per patient he states he no longer needs to take medication Patient is admitted to the hospital observation status due to severity of illness and risk complications. Expected length of stay is less than 2 midnights. 3. Time Spent With Patient Time with patient: 15-24 minutes Quality VTE Deep Vein Thrombosis/Pulmonary Embolism Present on Admission: No
--- NOTE | 2018-05-19 02:07 | PC.NURSE ---
Addendum entered by Elaine Grant R.N. 05/19/18 06:16: ICU notified coordinator of Afib with a rate of 150. This RN assessed pt and alerted NICK Marrero of findings. HVAC/R INSTRUCTOR ordered a stat ECG and additional labs. Pt continued to demonstrate Afib with a rate of 95 during assessment. Pt had been standing to urinate during episode of tachycardia and was symptomatic per pt self-report. Power port is now accessed and will be administering an additional 40 meq potassium rider after previous 20 meq potassium rider per MAY. Original Note: Addendum entered by Elaine Grant R.N. 05/19/18 03:41: ICU notified this RN of a self-limiting burst of SVT, NICK Marrero notified. Original Note: Admission/Shift Note: Pt arrived via stretcher to room accompanied by , Saira, and SENIOR PROPERTY ACCOUNTANT. Pt unable to transfer self due to weakness and feeling like I'm going to pass out. Pt changed out of own t-shirt into yellow fall risk gown, ileostomy bag emptied, connected to IV pump, and 2L O2 by NC. Admission assessment noted for c/o diarrhea and ongoing nausea r/t pt's stated c/o chemotherapy treatment and abrasion to L palm from prehospital injury. All other systems WNL and no redness noted on coccyx. Pt familiar to hospital and unit, given call light and education on how to use, to call if needs to get out of bed for any reason, safety checks performed including bed alarm activated, pt is NPO status at this time, is rooming in and given warm blankets. Telemetry initiated and pt will be measured for compression stockings and applied if available.
[2018-05-19] MEDS: DEXTROSE 5%-0.45% NS 1,000 ML 150 ML IV (02:18)
[2018-05-19] MEDS: CEFEPIME 2 GM in SODIUM CHLORIDE 0.9% 100 ML 200 ML IV (03:03)
[2018-05-19] MEDS: POTASSIUM CHLORIDE 20 MEQ in SODIUM CHLORIDE 0.9% 250 ML 130 ML IV (04:24)
[2018-05-19 04:40] LABS: Add Manual Diff / Slide Review NO; Basophils Absolute Auto 0 /uL (0-100); Basophils Percent Auto 0.4 % (0-2); Eosinophils Absolute Auto 0 /uL (0-450); Eosinophils Percent Auto 0.3 % (2-4); Hemoglobin 8.8 g/dL (13.5-17.5); Lymphocytes Absolute Auto 500 /uL (1100-4500); Lymphocytes Percent Auto 14.5 % (25-40); Mean Corpuscular HGB Conc 35.3 % (30-36); Monocytes Absolute Auto 200 /uL (0-900); Monocytes Percent Auto 6.6 % (3-14); Neutrophils Absolute Auto 2500 /uL (1500-7000); Neutrophils Percent Auto 78.2 % (50-75); Platelet Count 187 X10^3/uL (150-400); Red Blood Cell Count 2.44 X10^6/uL (4.5-5.9); Red Cell Distribution Width 17.5 % (11.6-14.8); White Blood Cell Count 3.2 X10^3/uL (4.5-11.0)
[2018-05-19 04:45] LABS: Blood Urea Nitrogen 49 mg/dL (9-20); Calcium 9.3 mg/dL (8.4-10.2); Carbon Dioxide 25 mmol/L (22-32); Chloride 102 mmol/L (98-107); Estimated Glomerular Filt Rate 48.5 mL/min (>60); Glucose 169 mg/dL (80-110); HEMOLYSIS < 15 (0-50); Magnesium 2.1 mg/dL (1.6-2.3); Potassium 3.4 mmol/L (3.4-5.1); Sodium 138 mmol/L (137-145)
[2018-05-19 04:47] LABS: Hematocrit 24.9 % (41-53)
[2018-05-19 06:14] LABS: Troponin I 0.015 ng/mL (0.01-0.034)
[2018-05-19] MEDS: POTASSIUM CHLORIDE 40 MEQ in SODIUM CHLORIDE 0.9% 500 ML 130 ML IV (06:20)
[2018-05-19 07:01] LABS: TSH w/ Reflex to FT4 0.75 uIU/mL (0.47-4.68)
--- NOTE | 2018-05-19 08:13 | PC.NURSE ---
Addendum entered by Blanca Olson R.N. 05/19/18 16:09: Pt tolerating clear liquid diet, ileostomy output is green liquid with a lot of flatus build up in bag. Pt calls staff when needs to be burped or emptied. Pt reports that the ostomy appliance is due to be changed today as this is the 3rd day. Pt does not have his ostomy supplies at [facility], pt's will bring from home tomorrow. Original Note: Reported from night RN to cancel U/A as urine sample was taken from 05/17 ED visit and awaiting cultures. Therefore ED order for U/A cancelled. Pt A&OX4, Anne Marie in room. Pt states had chemo last Sun and next due this coming Sun. Pt on his 2nd round and completed his 5th cycle last Sun. Total 6 cycles with chemo infusions weekly. Pt denies chest pain, nausea, abd pain/tenderness/bloating. Denies shortness of breath. States feeling better than when admitted.Orthostatic BP/P done by MUD WORKER. Lying 146/84 P 86 Sitting 139/82 P 96 Standing 117/57 P 125 - Pt reported feeling dizzy and light-headed with standing. Rec'd call from ICU, HR on assistant toddler teacher was 130. K+40meq IV infusing to chest port, Pt NPO except meds. High fall risk precautions in place, bed alarm on. Pt weaned from 2L NC to 1L NC. O2 sat 99-100%. On continuous O2 monitoring.
[2018-05-19] MEDS: TAMSULOSIN 0.4 MG CAPSULE PO (09:09)
[2018-05-19] MEDS: ENOXAPARIN 40 MG/0.4 ML SYRINGE SUBCUT (09:10)
--- NOTE | 2018-05-19 12:32 | PM.PN.1 ---
Subjective Date Patient Seen: 05/19/18 Interval history: Chart Reviewed, Patient seen and examined. He reports diarrhea has resolved but he still feels very weak and dizzy. The patient developed Paroxysmal Atrial Fibrillation last night and spontaneously converted to sinus rhythm. His urine is growing KLebsiella, sensitive to all antibiotics other than ampicillin. The patient would like to try to eat today. No shortness of breath. He still feels pretty ill. Exam Vital Signs (past 8 hours): - 05/19/18 05:40 05/19/18 07:35 05/19/18 07:40 Temperature 97.5 F L Pulse Rate 93 H Pulse Rate [Orthostatic Lying] Pulse Rate [Orthostatic Sitting] Pulse Rate [Orthostatic Standing] Respiratory Rate 15 Blood Pressure 142/97 H Blood Pressure [Orthostatic Lying] Blood Pressure [Orthostatic Sitting] Blood Pressure [Orthostatic Standing] Pulse Oximetry 100 100 99 05/19/18 07:45 05/19/18 08:50 05/19/18 09:20 Temperature 97.5 F L Pulse Rate 86 Pulse Rate [Orthostatic Lying] 86 Pulse Rate [Orthostatic Sitting] 96 H Pulse Rate [Orthostatic Standing] 125 H Respiratory Rate 16 Blood Pressure 146/84 H Blood Pressure [Orthostatic Lying] 146/84 H Blood Pressure [Orthostatic Sitting] 139/82 Blood Pressure [Orthostatic Standing] 117/57 L Pulse Oximetry 100 99 99 05/19/18 09:34 05/19/18 12:04 Temperature Pulse Rate Pulse Rate [Orthostatic Lying] Pulse Rate [Orthostatic Sitting] Pulse Rate [Orthostatic Standing] Respiratory Rate Blood Pressure Blood Pressure [Orthostatic Lying] Blood Pressure [Orthostatic Sitting] Blood Pressure [Orthostatic Standing] Pulse Oximetry 99 98 Fraction of Inspired Oxygen 21 Oxygen Delivery Method Room Air Oxygen Flow Rate 0 Narrative Exam Narrative: Ill appearing male Lungs: clear to auscultation CV: RRR nl Sl S2 2/6 ZORA Abd: soft/ non tender/ non distended, liquid stool in iliostomy bag Ext: no edema Objective Labs Result Diagrams: 05/19/18 04:20 05/19/18 04:20 Labs: Laboratory Results - last 24 hr 05/18/18 05/18/18 05/19/18 22:12 22:12 04:20 WBC 3.1 L 3.2 L RBC 2.72 L 2.44 L Hgb 9.9 L 8.8 L Hct 27.6 L 24.9 L MCV 101.5 H 102.0 H MCH 36.4 H 36.0 H MCHC 35.8 35.3 RDW 17.8 H 17.5 H Plt Count 199 187 Neut % (Auto) 81.4 H 78.2 H Lymph % (Auto) 9.9 L 14.5 L [place] % (Auto) 8.4 6.6 Eos % (Auto) 0.2 L 0.3 L Baso % (Auto) 0.1 0.4 Neut # (Auto) 2500 2500 Lymph # (Auto) 300 L 500 L [place] # (Auto) 300 200 Eos # (Auto) 0 0 Baso # (Auto) 0 0 Sodium 139 Potassium 3.7 Chloride 99 Carbon Dioxide 25 BUN 45 H Creatinine 1.50 H Estimated GFR 44.8 L BUN/Creatinine Ratio 30.0 H Glucose 147 H Calcium 9.9 Magnesium Troponin I TSH 05/19/18 05/19/18 05/19/18 04:20 04:20 04:20 WBC RBC Hgb Hct MCV MCH MCHC RDW Plt Count Neut % (Auto) Lymph % (Auto) [place] % (Auto) Eos % (Auto) Baso % (Auto) Neut # (Auto) Lymph # (Auto) [place] # (Auto) Eos # (Auto) Baso # (Auto) Sodium 138 Potassium 3.4 Chloride 102 Carbon Dioxide 25 BUN 49 H Creatinine 1.40 H Estimated GFR 48.5 L BUN/Creatinine Ratio 35.0 H Glucose 169 H Calcium 9.3 Magnesium 2.1 Troponin I 0.015 TSH 05/19/18 06:03 WBC RBC Hgb Hct MCV MCH MCHC RDW Plt Count Neut % (Auto) Lymph % (Auto) [place] % (Auto) Eos % (Auto) Baso % (Auto) Neut # (Auto) Lymph # (Auto) [place] # (Auto) Eos # (Auto) Baso # (Auto) Sodium Potassium Chloride Carbon Dioxide BUN Creatinine Estimated GFR BUN/Creatinine Ratio Glucose Calcium Magnesium Troponin I TSH 0.75 Assessment & Plan Assessment & Plan narrative: 1. Acute Diarrhea, s/p chemotherapy for Colon Cancer, present on admission-now resolved 2.Paroxsymal Atrial Fibrillation, resolved 3. Acute Renal Failure, present on admission-secondary to volume depletion from diarrhea 4. Urinary Tract Infection, secondary to Klebsiella Pneumonia, present on admisson 5.Hypertension-chronic 6. Hyperlipdiemia-chronic 7. History of Prostate Cancer, with a prior history of urinary retention Plan: Continue IV hydration, advance diet to clear liquid diet, change antibiotic to ceftriaxone ( narrow coverage),continue imodium, Home when no longer dizzy and able to tolerate oral intake. Will recheck labs tomorrow. Quality VTE Deep Vein Thrombosis/Pulmonary Embolism Present on Admission: No
--- NOTE | 2018-05-19 13:39 | CM.DANOTE ---
Discharge Planning/Care Management DCP: assessment: Case received, EMR reviewed and went to room to meet with pt for introduction of self and role. Pt is found lying in bed, eyes closed, snoring. He has been reporting ongoing dizziness and weakness to nursing today. Did not attempt to waken him. Pt is an 82 year old male who admitted to care of hospitalist team last night: 23:56. Payer: [employer] PCP: Dr. Kimo Florentino Oncologist: Dr. Reyes/ oncology clinic. (oncologist social welfare administrator Dayana Tafoya has been alerted to his presence here. Her ext at the clinic: [phone]) Reviewed also Dr. Reyes's last oncology note of 05/15/18: Pt is scheduled for another chemo infusion this Sunday: 05/22 and then he was scheduled for a 2 week break. POA is designated: Saira Murray/spouse and EFFIE Welch notes she and their daughter were here earlier today. . Have called her now and left a vm re the d/c planning role and contact info. Encouraged her to ask for the DCPlanner on for tomorrow when she visits (will likely be in the morning). Dr. Hearn did say in Team Rounds that pt may d/c home either today (but now confirmed pt will stay) or tomorrow. UR EFFIE Nguyen confirms admission status: OBS: at this time. P: will be following. Pt may benefit from a PT eval just to make sure he is strong enough to mobilize before home. At this time he continues with orthostatic hypotension. Advanced directive, confirm from FAMILY Start: 05/19/18 01:17 Freq: Q24H Status: Active Protocol: Document 05/19/18 01:17 RL (Rec: 05/19/18 01:19 RL [id number]) Advance Directive, confirm on record Time 00:45 Person contacted Saira Spears received No CM Discharge Assessment Start: 05/19/18 13:37 Freq: Status: Active Protocol: Document 05/19/18 13:37 ITV (Rec: 05/19/18 13:38 ITV [email or web address]) Discharge Planning Assessment Advance Directives? Yes Advance Directives on File No History Provided By Medical Record Prior Living Arrangements House Household Members spouse Is patient alert and oriented? Yes Whiteboard Updated in Patient Room with Yes name and ext. # of Flake Or Shred Roll Operator Review Status In Process Next Review Type Continued Stay Review Document 05/19/18 13:39 ITV (Rec: 05/19/18 13:39 ITV [email or web address]) Discharge Planning Assessment Advance Directives? Yes Advance Directives on File No History Provided By Medical Record Prior Living Arrangements House Household Members spouse Is patient alert and oriented? Yes Whiteboard Updated in Patient Room with Yes name and ext. # of Flake Or Shred Roll Operator Review Status In Process Next Review Type Continued Stay Review
[2018-05-19] MEDS: CEFTRIAXONE 1 GM/50 ML FROZ.PIGGY IV (14:33)
[2018-05-19] MEDS: SODIUM CHLORIDE 0.9% FLUSH 10 ML IV (16:20)
--- NOTE | 2018-05-19 17:27 | PC.NURSE ---
1500- Safe handoff from day RN. Pt sleeping w/ D5 1/2 NS running into implanted port. IV infusion complete; port hep locked. Pt helped RN empty iliostomy bag. Normal active bowel sounds; w/ dark green coloring to output. Tele SR w/ 1 degree BBB. 1845- Othrostatic BP checked; pt cont to become pale & symptomatic when standing as well as hypotensive. 2000- L periph IV removed per pt's request. Denies any abdominal discomfort.
[2018-05-20] VITALS (8 sets, daily range): BP systolic 82–145; BP diastolic 44–78; PULSE 66–117; RESP 16–20; TEMP 36.1–37; O2SAT 93–100; BMI 18.3
[2018-05-20] MEDS: CEFTRIAXONE 1 GM/50 ML FROZ.PIGGY IV ×2 (01:05→12:13)
--- NOTE | 2018-05-20 04:35 | PC.NURSE ---
Patient has called twice so far to empty ileostomy. No n/v reported or noted. Uses call light . Liquid stools in ileostomy. No c/o pain this shift so far.
[2018-05-20 06:21] LABS: Add Manual Diff / Slide Review NO; Basophils Absolute Auto 0 /uL (0-100); Basophils Percent Auto 0.5 % (0-2); Eosinophils Absolute Auto 0 /uL (0-450); Eosinophils Percent Auto 1.5 % (2-4); Hemoglobin 8.2 g/dL (13.5-17.5); Lymphocytes Absolute Auto 600 /uL (1100-4500); Lymphocytes Percent Auto 18.8 % (25-40); Mean Corpuscular HGB Conc 35.2 % (30-36); Mean Corpuscular Hemoglobin 36.1 PG (26-34); Mean Corpuscular Volume 102.5 fL (80-100); Monocytes Absolute Auto 200 /uL (0-900); Monocytes Percent Auto 7.5 % (3-14); Neutrophils Absolute Auto 2300 /uL (1500-7000); Neutrophils Percent Auto 71.7 % (50-75); Platelet Count 178 X10^3/uL (150-400); Red Blood Cell Count 2.28 X10^6/uL (4.5-5.9); Red Cell Distribution Width 17.7 % (11.6-14.8); White Blood Cell Count 3.2 X10^3/uL (4.5-11.0)
[2018-05-20 06:29] LABS: BUN Creatinine Ratio 38.3 (6-22); Blood Urea Nitrogen 46 mg/dL (9-20); Calcium 8.8 mg/dL (8.4-10.2); Carbon Dioxide 27 mmol/L (22-32); Chloride 101 mmol/L (98-107); Glucose 111 mg/dL (80-110); HEMOLYSIS < 15 (0-50); Hematocrit 23.4 % (41-53); Potassium 3.7 mmol/L (3.4-5.1); Sodium 135 mmol/L (137-145)
[2018-05-20] MEDS: TAMSULOSIN 0.4 MG CAPSULE PO (08:37)
[2018-05-20] MEDS: ENOXAPARIN 40 MG/0.4 ML SYRINGE SUBCUT (08:37)
--- NOTE | 2018-05-20 09:01 | PC.NURSE ---
Day shift: Dr Styles made aware of Pt's HR of 170. Pt's HR now is WNL. Pt remains on tele.
--- NOTE | 2018-05-20 10:35 | CM.DPC ---
DCP Cont: Met briefly with patient in his room, was resting. Stated that he was not sure if he needed home health again, although they were helpful. He was originally scheduled to have his next chemo this Sunday, but he stated, I don't know if I will need it again. Has a supportive at home, along with his sons. Discussed patient at team rounds. Asked about patient having physical and occupational therapy. Hospital is ok with this. Went ahead and put orders in. P: DCP will continue to monitor patient, and assist with any resources that he may need. Patient continues to be observation status at this time. Helga Penaloza RN/Branding Machine Tender
--- NOTE | 2018-05-20 11:04 | PT.IPTN ---
Physical Therapy Treatment Note Notes Per chart review pt is presenting with significant orthostatic hypotension in addition to tachy runs up to 170bpm. Pt is currently not appropriate to participate in mobility assesment for physical therapy evaluation, will hold until pt is more medically able to participate.
--- NOTE | 2018-05-20 13:48 | PM.PN.1 ---
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 The patient is resting in bed comfortably. He continues to endorse lightheadedness and dizziness when sitting up. He continues to have a substantial amount of non infected diarrhea through his ostomy. He denies headache, shortness of breath, chest pain, abdominal pain, nausea, vomiting, fever, chills, dysuria, diarrhea or constipation. He is voiding and eliminating without difficulty. He is up ambulating minimally due to symptomatic orthostasis without assistance. Exam Vital Signs (past 8 hours): - 05/20/18 07:52 05/20/18 08:26 05/20/18 12:09 Temperature 97.3 F L 97.3 F L Pulse Rate 75 81 Pulse Rate [Orthostatic Lying] 81 Pulse Rate [Orthostatic Sitting] 111 H Pulse Rate [Orthostatic Standing] 117 H Respiratory Rate 16 18 Blood Pressure 131/66 139/78 Blood Pressure [Orthostatic Lying] 139/78 Blood Pressure [Orthostatic Sitting] 82/50 L Blood Pressure [Orthostatic Standing] 85/44 L Pulse Oximetry 100 96 100 Fraction of Inspired Oxygen 21 Oxygen Delivery Method Room Air Oxygen Flow Rate 0 Narrative Exam Narrative: General: Elderly gentleman lying in bed in no acute distress, well-developed, well-nourished, appropriately interactive. HEENT: Normocephalic, atraumatic. External ears without defect. Pupils equal, round, and reactive to light. Anicteric sclerae, moist conjunctivae, and no lid lag. Neck: Supple with full range of motion. No lymphadenopathy or thyromegaly. Cardiovascular: Regular rate and rhythm without murmurs, rubs, or gallops appreciated Pulmonary: Clear to auscultation bilaterally without crackles, wheezes, or rhonchi. Normal respiratory effort with no use of accessory muscles. Abdomen: Soft, bowel sounds present, nontender, nondistended. No hepatosplenomegaly or masses appreciated. Extremities: No clubbing, cyanosis, or edema. Skin: Normal temperature, turgor, and texture; no rash, ulcers, or subcutaneous nodules appreciated. Neurological: Cranial nerves grossly intact. Psychiatric: Normal mood and affect. Alert and oriented to person, place, and time. Objective Labs Result Diagrams: 05/20/18 06:05 05/20/18 06:05 Labs: Laboratory Results - last 24 hr 05/20/18 05/20/18 06:05 06:05 WBC 3.2 L RBC 2.28 L Hgb 8.2 L Hct 23.4 L MCV 102.5 H MCH 36.1 H MCHC 35.2 RDW 17.7 H Plt Count 178 Neut % (Auto) 71.7 Lymph % (Auto) 18.8 L [place] % (Auto) 7.5 Eos % (Auto) 1.5 L Baso % (Auto) 0.5 Neut # (Auto) 2300 Lymph # (Auto) 600 L [place] # (Auto) 200 Eos # (Auto) 0 Baso # (Auto) 0 Sodium 135 L Potassium 3.7 Chloride 101 Carbon Dioxide 27 BUN 46 H Creatinine 1.20 Estimated GFR 58.0 L BUN/Creatinine Ratio 38.3 H Glucose 111 H Calcium 8.8 Assessment & Plan Assessment & Plan narrative: Barry Murray is an 82-year-old male patient with a past medical history significant for hypertension, hyperlipidemia, prostate cancer status post prostatectomy, 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 1. Acute diarrhea, status post chemotherapy for colon cancer, present on admission. Active. -GI panel negative. -Continue to slowly advance diet. -May use imodium as needed for diarrhea as infectious diarrhea has been ruled out and if that does not help will try somatostatin. -Will give another 1L of NS as patient continues to be symptomatic of diarrhea have been stopped as patient is keeping up with p.o. intake of fluids. 2. Paroxsymal atrial fibrillation, present on admission. Resolved. -After further review of telemetry it is unclear whether he has truely ever been in atrial fibrillation rather it appears to be SVT. However, will talk to patient about aspirin to help prevent VTE. -Echocardiogram ordered and pending. 3. Acute kidney injury, secondary to volume depletion from diarrhea and UTI, present on admission. Resolved. -Initial creatinine 1.4. Baseline creatinine 1.1-1.2 -Patient adequately rehydrated with IV fluids. -Avoid nephrotoxin agents. -Monitor creatinine daily. 4. Acute Klebsiella oxytoca urinary tract infection, present on admission. Active. -Urine culture positive for Klebsiella oxytoca resistant to ampicillin. -Switched ceftriaxone to oral antibiotic with cefuroxime 500 mg twice daily for 7 days total. 5. Hypertension, chronic, present on admission. Stable. -Not medically treated. 6. Hyperlipdiemia, chronic, present on admission. Stable. -Not medically treated. 7. History of prostate cancer status post prostatectomy. -Patient is thought to be in remission. -He has had prior history of urinary retention. Continue tamsulosin 0.4 mg daily. Plan: Continue to advance diet to clear liquid diet, change antibiotic to oral, continue imodium, and will discharge home likely tomorrow when he is no longer dizzy and able to tolerate oral intake. Quality VTE Deep Vein Thrombosis/Pulmonary Embolism Present on Admission: No
[2018-05-20] MEDS: SODIUM CHLORIDE 0.9% 1,000 ML 100 ML IV (15:43)
[2018-05-20] MEDS: LOPERAMIDE 2 MG/10 ML UDC PO ×2 (15:44→20:26)
--- NOTE | 2018-05-20 15:47 | PT.IPTN ---
Physical Therapy Treatment Note Notes Pt still too dizzy, not feeling well enough to participate. RN going to start more fluids. Will attempt PT eval again tomorrow.
--- NOTE | 2018-05-20 15:51 | OT.IP.TRT ---
Occupational Therapy Treatment Note M3 OT- IP Subjective and Pain Start: 05/20/18 15:47 Freq: Status: Active Protocol: Document 05/20/18 15:48 [facility] (Rec: 05/20/18 15:51 [facility] [email or web address]) OT- Subjective Occupational Therapy Visit Type Type Patient Refusal Notes Pt states would rather try OT eval tomorrow as states feeling dizzy when getting to the edge of the bed earlier and would rather wait until tomorrow. Able to ask pt and for home set-up and prior needs. NO charge.
--- NOTE | 2018-05-20 19:04 | PC.NURSE ---
Pt reports feeling tired today. Bowel tones hyperactive with large amt of liquid stool being passed into ileostomy (500, 650, 400) within a few hours. Pt advised not to eat so much fruit. Does say he feels slightly improved though. Denies nausea or stomach cramps, fatigue is main problem.
[2018-05-20] MEDS: cefUROXime 250 MG TABLET 500 MG PO (20:26)
[2018-05-20] MEDS: ONDANSETRON 4 MG/2 ML INJ IV (22:22)
[2018-05-21] VITALS (9 sets, daily range): BP systolic 67–145; BP diastolic 46–85; PULSE 65–128; RESP 18–24; TEMP 36.4; O2SAT 97–100
[2018-05-21] MEDS: SODIUM CHLORIDE 0.9% 1,000 ML 100 ML IV ×2 (01:22→17:58)
[2018-05-21] MEDS: SODIUM CHLORIDE 0.9% 1,000 ML 1000 ML IV (04:23)
[2018-05-21 05:31] LABS: Alanine Aminotransferase 49 IU/L (21-72); Albumin 3.2 g/dL (3.5-5.0); Albumin Globulin Ratio 1.5 (1.0-2.8); Alkaline Phosphatase 66 U/L (38-126); Aspartate Aminotransferase 38 IU/L (17-59); Bilirubin Total 1.6 mg/dL (0.2-1.3); Blood Urea Nitrogen 44 mg/dL (9-20); Calcium 8.2 mg/dL (8.4-10.2); Carbon Dioxide 28 mmol/L (22-32); Chloride 100 mmol/L (98-107); Estimated Glomerular Filt Rate > 60.0 mL/min (>60); Globulin 2.2 g/dL (1.7-4.1); Glucose 114 mg/dL (80-110); HEMOLYSIS < 15 (0-50); Magnesium 1.9 mg/dL (1.6-2.3); Potassium 3.1 mmol/L (3.4-5.1); Sodium 136 mmol/L (137-145); Total Protein 5.4 g/dL (6.3-8.2)
[2018-05-21 05:37] LABS: Add Manual Diff / Slide Review NO; Basophils Absolute Auto 0 /uL (0-100); Basophils Percent Auto 0.3 % (0-2); Eosinophils Absolute Auto 100 /uL (0-450); Eosinophils Percent Auto 1.9 % (2-4); Hemoglobin 8.1 g/dL (13.5-17.5); Lymphocytes Absolute Auto 500 /uL (1100-4500); Lymphocytes Percent Auto 13.6 % (25-40); Mean Corpuscular HGB Conc 35.2 % (30-36); Mean Corpuscular Hemoglobin 36.1 PG (26-34); Mean Corpuscular Volume 102.4 fL (80-100); Monocytes Absolute Auto 300 /uL (0-900); Monocytes Percent Auto 7.6 % (3-14); Neutrophils Absolute Auto 3000 /uL (1500-7000); Neutrophils Percent Auto 76.6 % (50-75); Platelet Count 195 X10^3/uL (150-400); Red Blood Cell Count 2.25 X10^6/uL (4.5-5.9); Red Cell Distribution Width 17.4 % (11.6-14.8); White Blood Cell Count 3.9 X10^3/uL (4.5-11.0)
[2018-05-21 05:50] LABS: Procalcitonin 1.77 ng/mL (<0.5)
--- NOTE | 2018-05-21 07:55 | P.PN_ITS ---
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 Overnight: The patient required 1 L NS bolus due to symptomatic hypotension from continued significant output from ostomy. The patient is resting in bed comfortably. He continues to endorse lightheadedness and dizziness when standing only. He continues to have a substantial amount of non-infectious diarrhea through his ostomy. Plan is to start somatostatin today to help annie diarrhea. He denies headache, shortness of breath, chest pain, abdominal pain, nausea, vomiting, fever, chills, dysuria, diarrhea or constipation. He is voiding and eliminating without difficulty. He is up ambulating minimally due to symptomatic orthostasis without assistance. Exam Vital Signs (past 8 hours): - 05/20/18 23:55 05/21/18 03:26 05/21/18 03:36 Temperature 97.0 F L Pulse Rate 66 72 Pulse Rate [Orthostatic Lying] 72 Pulse Rate [Orthostatic Sitting] 94 H Pulse Rate [Orthostatic Standing] 128 H Respiratory Rate 18 18 Blood Pressure 145/66 H 145/77 H Blood Pressure [Orthostatic Lying] 145/77 H Blood Pressure [Orthostatic Sitting] 99/65 Blood Pressure [Orthostatic Standing] 67/49 L Pulse Oximetry 99 97 Fraction of Inspired Oxygen 21 Oxygen Delivery Method Room Air Oxygen Flow Rate 0 Narrative Exam Narrative: General: Elderly gentleman lying in bed in no acute distress, well-developed, well-nourished, appropriately interactive. HEENT: Normocephalic, atraumatic. External ears without defect. Pupils equal, round, and reactive to light. Anicteric sclerae, moist conjunctivae, and no lid lag. Neck: Supple with full range of motion. No lymphadenopathy or thyromegaly. Cardiovascular: Regular rate and rhythm without murmurs, rubs, or gallops appreciated Pulmonary: Clear to auscultation bilaterally without crackles, wheezes, or rhonchi. Normal respiratory effort with no use of accessory muscles. Abdomen: Soft, bowel sounds present, nontender, nondistended. No hepatosplenomegaly or masses appreciated. Extremities: No clubbing, cyanosis, or edema. Skin: Normal temperature, turgor, and texture; no rash, ulcers, or subcutaneous nodules appreciated. Neurological: Cranial nerves grossly intact. Psychiatric: Normal mood and affect. Alert and oriented to person, place, and time. Objective Labs Result Diagrams: 05/21/18 05:08 05/21/18 05:08 Labs: Laboratory Results - last 24 hr 05/21/18 05/21/18 05/21/18 05:08 05:08 05:08 WBC 3.9 L RBC 2.25 L Hgb 8.1 L Hct 23.0 L MCV 102.4 H MCH 36.1 H MCHC 35.2 RDW 17.4 H Plt Count 195 Neut % (Auto) 76.6 H Lymph % (Auto) 13.6 L [place] % (Auto) 7.6 Eos % (Auto) 1.9 L Baso % (Auto) 0.3 Neut # (Auto) 3000 Lymph # (Auto) 500 L [place] # (Auto) 300 Eos # (Auto) 100 Baso # (Auto) 0 Sodium 136 L Potassium 3.1 L Chloride 100 Carbon Dioxide 28 BUN 44 H Creatinine 1.10 Estimated GFR > 60.0 BUN/Creatinine Ratio 40.0 H Glucose 114 H Calcium 8.2 L Magnesium 1.9 Total Bilirubin 1.6 H AST 38 ALT 49 Alkaline Phosphatase 66 Total Protein 5.4 L Albumin 3.2 L Globulin 2.2 Albumin/Globulin Ratio 1.5 Procalcitonin 1.77 H Assessment & Plan Assessment & Plan narrative: Barry Murray is an 82-year-old male patient with a past medical history significant for hypertension, hyperlipidemia, prostate cancer status post prostatectomy, 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 1. Acute diarrhea, status post chemotherapy for colon cancer, present on admission. Active. -GI panel negative. Patient has a history of C difficile. -Continue diet as tolerated. -Ordered imodium as needed for diarrhea and started somatostatin 100 mcg subcutaneous every 8 hr as he continues to have significant diarrhea through ostomy. Infectious diarrhea ruled out. -Will give NS boluses as needed for symptomatic hypotension. Continue IV fluids at 100 mL/hr to finish 2L total over 24 hours. -Discussed with patient's oncologist Dr. Reyes who related that his chemotherapy may cause some diarrhea. Infectious etiology ruled out. He also suggested somatostatin if Imodium does not improve diarrhea. 2. Paroxsymal atrial fibrillation, present on admission. Resolved. -After further review of telemetry it is unclear whether he has truely ever been in atrial fibrillation rather it appears to be SVT. However, will need to discuss at least aspirin to help prevent VTE. -Echocardiogram demonstrated preserved systolic function with EF of 45-50% with global hypokinesis, RV is mildly dilated with normal RV function and mild MAC. 3. Acute kidney injury, secondary to volume depletion from diarrhea and UTI, present on admission. Resolved. -Initial creatinine 1.4. Baseline creatinine 1.1-1.2 -Patient adequately rehydrated with IV fluids. -Avoid nephrotoxin agents. -Monitor creatinine daily. 4. Acute Klebsiella oxytoca urinary tract infection, present on admission. Resolving. -Urine culture positive for Klebsiella oxytoca resistant to ampicillin. -Switched ceftriaxone to oral antibiotic with cefuroxime 500 mg twice daily for 7 days total. Added probiotic today. 5. Hypertension, chronic, present on admission. Stable. -Not medically treated. 6. Hyperlipdiemia, chronic, present on admission. Stable. -Not medically treated. 7. History of prostate cancer status post prostatectomy. -Patient is thought to be in remission. -He has had prior history of urinary retention. Continue tamsulosin 0.4 mg daily. Plan: Continue to PO antibiotic to treat UTI, added probiotic, continue imodium and somatostatin to help annie diarrhea, and will discharge home in 1-2 days w hen his diarrhea has improved and he is no longer orthostatic. Quality VTE Deep Vein Thrombosis/Pulmonary Embolism Present on Admission: No
--- NOTE | 2018-05-21 09:00 | OT.IP.TRT ---
Occupational Therapy Treatment Note M3 OT- IP Subjective and Pain Start: 05/20/18 15:47 Freq: Status: Active Protocol: Document 05/21/18 09:00 [email or web address] (Rec: 05/21/18 16:31 [facility] [id number]) OT- Subjective Occupational Therapy Visit Type Type Administrative Note Visit Start Time 09:00 Notes Attempted to see pt but pt remains severely orthostatic. Will attempt again as schedule permits. No charge.
[2018-05-21] MEDS: cefUROXime 250 MG TABLET 500 MG PO ×2 (10:16→20:50)
[2018-05-21] MEDS: ENOXAPARIN 40 MG/0.4 ML SYRINGE SUBCUT (10:17)
[2018-05-21] MEDS: POTASSIUM CHLORIDE 40 MEQ in SODIUM CHLORIDE 0.9% 500 ML 130 ML IV (10:17)
[2018-05-21] MEDS: TAMSULOSIN 0.4 MG CAPSULE PO (10:17)
[2018-05-21] MEDS: OCTREOTIDE 100 MCG/ML VIAL IV (10:18)
[2018-05-21] MEDS: ONDANSETRON 4 MG/2 ML INJ IV (10:37)
--- NOTE | 2018-05-21 12:46 | PC.NURSE ---
Day shift arrived on shift and pt states his ileostomy is leaking. reinforced with duoderm and this was holding. however pt wanted to eat breakfast and so we decided to change it prior to him eating. Once appliance was removed, there was an area of peristomal skin that was macerated and raw. pt had been opening wafer all the way to the edges and placing around stoma so peristomal skin was exposed to ileostomy output. Picture taken and placed in the chart. crusting technique with stoma powder and no-sting barrier applied to peristomal skin. difficulty with wafer sticking to skin. edges of wafer reinforced with duoderm and this seems to be holding. notified MD and order obtained for wound care consult. spoke with wound RN and she will see pt later today.
--- NOTE | 2018-05-21 13:28 | PT.IPTN ---
Physical Therapy Treatment Note Notes Pt still extremely orthostatic this afternoon, even just to sitting. Pt not appropriate to participate in therapy at this time, but recommended to nursing staff to get him up to chair later or at the very least put him in chair position in bed to get more upright.
[2018-05-21] MEDS: LACTOBACILLUS ACIDOPHILUS TABLET 1 EACH PO (17:16)
--- NOTE | 2018-05-21 17:35 | PC.NURSE ---
Ostomy Nurse Consult Note Mr. Murray is not new to me, as I was his ostomy nurse when he had his colostomy. I was not involved with his care when he had his ileostomy, per patient's request. I am seeing him today because of poor pouching technique and we discussed going forward with me helping him with his ostomy needs. Barry gave me his medical history from after his colostomy reversal until now. From listing to him I have identified several areas that Barry will need education on taking care of his ileostomy and prevention of dehydration and prevention of food blockage. I will return tomorrow to provide education materials and review teaching for an ileostomy. I did not change Barry's pouching appliance as his day nurse, Shayy changed his appliance today and it is maintaining a seal. Barry did show me his appliance and the he has liquid to semi formed effluent that is watery and clear in color. He is wearing an appliance provided by the hospital a [employer] moldable two piece appliance without filter. Barry uses a two piece cut to fit [employer] appliance with filter when he is at home. Barry states that his has not been out of bed yet because he get's dizzy. He hope to regain his equilibrium soon and hopes that he will be well enough to be discharged tomorrow.
[2018-05-21] MEDS: OCTREOTIDE 100 MCG/ML VIAL SUBCUT (18:51)
[2018-05-22] VITALS (10 sets, daily range): BP systolic 85–147; BP diastolic 50–75; PULSE 54–102; RESP 16–18; TEMP 36.3–36.8; O2SAT 97–100
[2018-05-22] MEDS: OCTREOTIDE 100 MCG/ML VIAL SUBCUT ×3 (02:47→18:00)
[2018-05-22] MEDS: SODIUM CHLORIDE 0.9% 1,000 ML 100 ML IV ×2 (03:41→13:48)
[2018-05-22] MEDS: ENOXAPARIN 40 MG/0.4 ML SYRINGE SUBCUT (09:40)
[2018-05-22] MEDS: cefUROXime 250 MG TABLET 500 MG PO ×2 (09:40→20:01)
[2018-05-22] MEDS: TAMSULOSIN 0.4 MG CAPSULE PO (09:40)
[2018-05-22] MEDS: LACTOBACILLUS ACIDOPHILUS TABLET 1 EACH PO ×2 (09:40→17:59)
[2018-05-22 09:57] LABS: Blood Urea Nitrogen 32 mg/dL (9-20); Calcium 8.1 mg/dL (8.4-10.2); Carbon Dioxide 26 mmol/L (22-32); Chloride 102 mmol/L (98-107); Estimated Glomerular Filt Rate > 60.0 mL/min (>60); Glucose 121 mg/dL (80-110); HEMOLYSIS < 15 (0-50); Potassium 3.4 mmol/L (3.4-5.1); Sodium 135 mmol/L (137-145)
--- NOTE | 2018-05-22 13:12 | PT.IIE ---
Current Diagnoses Acute kidney failure, unspecified (05/21/18) Surgical History (Last Reviewed 05/19/18 @ 02:13 by NICK Reilly) History of prostatectomy (Acute) H/O shoulder surgery (Acute) History of colon resection (Acute) S/P colostomy takedown (Acute) Status post ORIF of fracture of ankle (Acute) Medical History (Last Reviewed 05/19/18 @ 02:13 by NICK Reilly) C. difficile colitis (Acute) Chest pain (Acute) Colon cancer (Acute) HTN (hypertension) (Acute) Hoarseness (Acute) Hyperlipidemia (Acute) Ileostomy in place (Acute) Ringing in ears (Acute) Physical Therapy Inpatient Evaluation/Re-Eval M1 PT/OT-IP Prior Functional Status Start: 05/20/18 10:42 Freq: NEEDED Status: Active Protocol: Document 05/22/18 12:00 [facility] (Rec: 05/22/18 13:12 [email or web address]) Medical Review Prior Functional Status Medical History Reviewed Yes Diet/Fluid Consistency Regular Communication No deficits noted Mobility and Gait Pt was an independent ambulator at home and community without using AD. He was able to drive as well Activities of Daily Living and IADL's Pt was independent for all ADLs and IADLs without using AD. Social History Household Members spouse Living Arrangements House Number of Floors (Floors) Two Floors Number of Stairs To Enter/Railing? 3 LEATHA with R rail Home Environment Standard Height Toilet Walk in Shower Built-In Shower Seat Home Equipment Grab Bars In Shower Employment Status Retired Additional Social History Comment Pt lives with his in a 2 story home with a basement. Pt primaily lives on first floor with access to bathroom, bedroom, kitchen and living room. Pt was very active prior to hospitalization and he was still able to drive and graveled last week. 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 M2 PT-IP Current Condition Start: 05/20/18 10:42 Freq: NEEDED Status: Active Protocol: Document 05/22/18 12:00 [facility] (Rec: 05/22/18 13:12 [email or web address]) Physical Therapy Current Condition Current Condition Evaluation Date 05/22/18 Treatment Diagnosis Intractable diarrhea, UTI, acute dehydation, OHTN, impairment mobility Onset Date 05/20/18 Weight Bearing Status Weight Bearing Status Weight Bear as Tolerated M3 PT-IP Subjective Start: 05/20/18 10:42 Freq: NEEDED Status: Active Protocol: Document 05/22/18 12:00 (Rec: 05/22/18 13:12 [email or web address]) Subjective Physical Therapy Visit Type Type Initial Evaluation Visit Start Time 12:00 Visit Stop Time 12:30 Total Visit Minutes 30 Notes Per RN, pt has asymptomatic OHTN. Mobilize pt as tolerated . Number of WINDOW AND DOOR INSTALLER Visits 0 Physical Therapy Visit Comments Patient Comments I feel much better today. Patient Goals To return home with his . Therapy Pain Assessment Pain Present Pain Present Denied Pain M4 PT-IP Mobility and Gait Start: 05/20/18 10:42 Freq: NEEDED Status: Active Protocol: Document 05/22/18 12:00 (Rec: 05/22/18 13:12 [email or web address]) PT-Bed Mobility Assessment Supine to Sit Supine to Sit Contact Guard Assistance Head of Bed Elevated Bedrails Sit to Supine Sit to Supine Contact Guard Assistance Head of Bed Elevated Bedrails Scooting Scooting to Edge of Bed Contact Guard Assistance PT-Transfer Assessment Sit to and From Stand Sit to and from Stand Contact Guard Assistance Use of Upper Extremities Equipment Transfer Assistive Device Bed Rail Front Wheeled Walker Transfers Transfer Destination Bed Transfer Ability Level of Assist Contact Guard Assistance Comments Mobility Comments Pt was in bed upon assessment. Supine BP 122/67 HR 58; sitting BP 90/52 HR 67, 130/79 HR 66 at 1st minute and 5th minute; standing at bedside BP 90/58 HR 78, 109/56 HR74 , 92/60 HR 98 at 1st, 5th and 8 th minute . Pt was then transferred back to bed due to OHTN. Pt did c/o slight dizziness upon standing but dimished after couple minutes. Gait Assessment Comments Gait Comments did not attempt due to OHTN Stair Climbing Assessment Comments Stair Climbing Comments did not attempt due to OHTN PT-Balance Assessment Sitting Balance and Reactions Static Sitting Balance Ability Good Dynamic Sitting Balance Ability Good Standing Balance and Reactions Static Standing Balance Ability Good Dynamic Standing Balance Ability Good Device Used FWW M5 PT-IP Objective Assessments Start: 05/20/18 10:42 Freq: NEEDED Status: Active Protocol: Document 05/22/18 12:00 (Rec: 05/22/18 13:12 [email or web address]) Orientation Orientation/Cognition Level of Alertness Alert Orientation Name Age Birthday Month Date Year Day of Week Place Situation Language Function Ability No Deficits Noted Safety Awareness Understands Safety Issues Memory Description No Deficits Noted Gross Range of Motion Upper Extremity ROM Assessment Within Functional Limits Lower Extremity ROM Assessment Within Functional Limits Strength Upper Extremity Strength Assessment Within Functional Limits Lower Extremity Strength Assessment Within Functional Limits Coordination Assessment Gross Coordination Gross Coordination WNL Sensation Assessment Sensation Gross Sensation WNL Muscle Tone Muscle Tone WNL Yes M6 PT-IP Treatment Start: 05/20/18 10:42 Freq: NEEDED Status: Active Protocol: Document 05/22/18 12:00 (Rec: 05/22/18 13:12 [email or web address]) Physical Therapy Treatment Exercises Exercises Ankle Pumps Gluteal Sets Quad Sets Heel Slides Education Education Provided Safety M7 PT-IP Assessment and Plan Start: 05/20/18 10:42 Freq: NEEDED Status: Active Protocol: Document 05/22/18 12:00 (Rec: 05/22/18 13:12 [email or web address]) PT Summary Assessment and Plan Potential Rehabilitation Potential Good Status of Condition at Evaluation Evolving Summary Impairments Transfers Gait Activity Tolerance Assessment Summary Pt is a pleasant 82 yo male admitted to for intractable diarrhea, UTI and acute dehydration. Upon assessment, pt appeared A x O x 4 and he states I feel a lot better today. Pt cont presented severe OHTN but he was able to recover to baseline BP within 2-3 mins. Pt did not amb today due to his OHTN to 90s/ 50s after standing for 8 minutes. He also c/o slight dizziness during standing and requested to bed rest after but he is willing to get up to bedside chair later this pm. Pt at this point is far from his baseline and would not be safe to d/c home. He is not able to tolerate skilled PT twice a day as well. Based on his current mobility, pt will benefit from d/c to SNF to cont improve his mobility and address his medical need, unless, his OHTN will be resolved during hospital stay and reach his rehab goals in order to d/c home with his 's assistance and therapy service.. Goals Bed Mobility Goal Independent Transfer Goal Independent Gait Goal Independent Gait Distance 200 Other Goals climb 3 steps with R rail independently Days to Meet Goals 5 Frequency of Treatment Frequency Of Treatment Once a Day Treatment Plan Physical Therapy Treatment Plan Bed Mobility Training Transfer Training Gait Training Therapeutic Exercise Discharge Planning Other Recommendations and Next Treatment close monitoring on VSS Focus LE ex gait transfer training as evens with FWW Recommendations To Nursing Amount of Assist Needed 1 Person Assist Discharge Recommendations PT Discharge Recommendations Home with Assistance Home Health SNF Rehab Other Discharge Recommendations Based on his current mobility, pt will benefit from d/c to SNF to cont improve his mobility and address his medical need,unless, his OHTN will be resolved during hospital stay and reach his rehab goals in order to d/c home with his 's assistance and HH therapy service. Equipment Needed for Home Before FWW Discharge
--- NOTE | 2018-05-22 13:30 | P.PN_ITS ---
Subjective Date Patient Seen: 05/22/18 Time Patient Seen: 13:27 Interval history: Follow up on chemotherapy induced intractable diarrhea. Patient seen at bedside. Diarrhea is now slowing down with octreotide therapy. Less liquid stool seen in the ostomy bag. Patient continues to have positive orthostasis, however he denies any headaches, shortness of breath, chest pain, abdominal pain, nausea, vomiting, fever, chills. He feels like his strength is coming back in he is able to ambulate to bathroom without difficulty. Patient did need 1 L of NS bolus again overnight due to positive orthostats. Exam Vital Signs (past 8 hours): - 05/22/18 07:42 05/22/18 08:30 05/22/18 11:34 Temperature 97.3 F L 97.4 F L Pulse Rate 58 L 54 L Pulse Rate [Orthostatic Lying] 58 L Pulse Rate [Orthostatic Sitting] 67 Pulse Rate [Orthostatic Standing] 98 H Respiratory Rate 16 18 Blood Pressure 130/57 L 121/62 Blood Pressure [Orthostatic Lying] 130/57 L Blood Pressure [Orthostatic Sitting] 112/56 L Blood Pressure [Orthostatic Standing] 89/62 L Pulse Oximetry 100 97 100 Fraction of Inspired Oxygen 21 Oxygen Delivery Method Room Air Oxygen Flow Rate 0 Narrative Exam Narrative: General: No acute distress, AAO x3 HEENT: Normocephalic, atraumatic. EOM I bilaterally, PERRLA bilaterally Neck: Supple, no LAD CV: Regular rate rhythm, no murmurs or gallops Chest: Port-A-Cath in place Respiratory: Clear to auscultation bilaterally without any crackles wheezes or rhonchi. GI: Soft, normoactive bowel sounds present. Nontender abdomen. Ostomy bag in place with liquid yellow stool. Extremities: No clubbing, cyanosis, or edema Skin: No rashes or lesions present Neuro: No focal deficits, AAO x3 Psych: Normal mood and affect, patient is able to make his own decisions Objective Labs Result Diagrams: 05/21/18 05:08 05/22/18 09:30 Labs: Laboratory Results - last 24 hr 05/22/18 09:30 Sodium 135 L Potassium 3.4 Chloride 102 Carbon Dioxide 26 BUN 32 H Creatinine 1.00 Estimated GFR > 60.0 BUN/Creatinine Ratio 32.0 H Glucose 121 H Calcium 8.1 L Assessment & Plan Assessment & Plan narrative: 82yo M with a past medical history significant for hypertension, hyperlipidemia, prostate cancer status post prostatectomy, 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 1. Acute diarrhea -status post chemotherapy for colon cancer -GI panel negative. -Continue diet as tolerated. -Continue imodium as needed for diarrhea and somatostatin 100 mcg subcutaneous every 8 hrs. Titrate off somatostatin as possible. -Continue IV fluids at 100 mL/hr and give itnermittent NS boluses for hypotension. -Dr. Reyes , oncology, is aware of patient's condition. Recommends Imm odium/Somatostatin. 2. Paroxsymal atrial fibrillation -Resolved -After further review of telemetry it is unclear whether he has truly ever been in atrial fibrillation rather it appears to be SVT. -Echocardiogram demonstrated preserved systolic function with EF of 45-50% with global hypokinesis, RV is mildly dilated with normal RV function and mild MAC. -Will discuss at least aspirin to help prevent VTE. 3. Acute kidney injury -Likely secondary to volume depletion from diarrhea and UTI, Resolved. -Initial creatinine 1.4 now down to 1.0 -Continue IVF hydration and monitoring 4. Acute Klebsiella oxytoca urinary tract infection, present on admission. -Resolving. -Urine culture positive for Klebsiella oxytoca resistant to ampicillin. -Switched ceftriaxone to oral antibiotic with cefuroxime 500 mg twice daily for 7 days total and probiotic 5. Hypertension, chronic, present on admission. -Stable. -Not medically treated. 6. Hyperlipdiemia, chronic, present on admission. -Stable. -Not medically treated. 7. History of prostate cancer -status post prostatectomy. -Patient is thought to be in remission. 8. Urinary retention -Continue tamsulosin 0.4 mg daily. Dispo: Continue to PO antibiotic to treat UTI, as well as imodium and somatostatin for diarrhea, and NS boluses for orthostatic hypotension. Quality VTE Deep Vein Thrombosis/Pulmonary Embolism Present on Admission: No
--- NOTE | 2018-05-22 15:57 | OT.IP.EVAL ---
Current Diagnoses Acute kidney failure, unspecified (05/21/18) Past Medical History (Last Reviewed 05/19/18 @ 02:13 by NICK Reilly) C. difficile colitis (Acute) Chest pain (Acute) Colon cancer (Acute) HTN (hypertension) (Acute) Hoarseness (Acute) Hyperlipidemia (Acute) Ileostomy in place (Acute) Ringing in ears (Acute) Surgical History (Last Reviewed 05/19/18 @ 02:13 by NICK Reilly) History of prostatectomy (Acute) H/O shoulder surgery (Acute) History of colon resection (Acute) S/P colostomy takedown (Acute) Status post ORIF of fracture of ankle (Acute) Occupational Therapy Inpatient Evaluation/Re-Eval M1 PT/OT-IP Prior Functional Status Start: 05/20/18 10:42 Freq: NEEDED Status: Active Protocol: Document 05/22/18 12:00 (Rec: 05/22/18 13:12 [id number]) Medical Review Prior Functional Status Medical History Reviewed Yes Diet/Fluid Consistency Regular Communication No deficits noted Mobility and Gait Pt was an independent ambulator at home and community without using AD. He was able to drive as well Activities of Daily Living and IADL's Pt was independent for all ADLs and IADLs without using AD. Social History Household Members spouse Living Arrangements House Number of Floors (Floors) Two Floors Number of Stairs To Enter/Railing? 3 LEATHA with R rail Home Environment Standard Height Toilet Walk in Shower Built-In Shower Seat Home Equipment Grab Bars In Shower Employment Status Retired Additional Social History Comment Pt lives with his in a 2 story home with a basement. Pt primaily lives on first floor with access to bathroom, bedroom, kitchen and living room. Pt was very active prior to hospitalization and he was still able to drive and graveled last week. 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 M1 PT/OT-IP Prior Functional Status Start: 05/20/18 15:47 Freq: NEEDED Status: Active Protocol: Document 05/22/18 14:00 [facility] (Rec: 05/22/18 15:56 [facility] [id number]) Medical Review Prior Functional Status Medical History Reviewed Yes Diet/Fluid Consistency Regular Communication No deficits noted Mobility and Gait Pt was an independent ambulator at home and community without using AD. He was able to drive as well Activities of Daily Living and IADL's Pt was independent for all ADLs and IADLs without using AD. Social History Household Members spouse Living Arrangements House Number of Floors (Floors) Two Floors Number of Stairs To Enter/Railing? 3 [place]HA with R rail Home Environment Standard Height Toilet Walk in Shower Built-In Shower Seat Home Equipment Grab Bars In Shower Employment Status Retired Additional Social History Comment Pt lives with his in a 2 story home with a basement. Pt primaily lives on first floor with access to bathroom, bedroom, kitchen and living room. Pt was very active prior to hospitalization and he was still able to drive and graveled last week. 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 M2 OT-IP Current Condition Start: 05/20/18 15:47 Freq: Status: Active Protocol: Document 05/22/18 14:00 [facility] (Rec: 05/22/18 15:56 [facility] [email or web address]) Occupational Therapy Current Condition Current Condition Evaluation Date 05/22/18 Treatment Diagnosis Dehydration Diagnosis Onset Date 05/18/18 M3 OT- IP Subjective and Pain Start: 05/20/18 15:47 Freq: Status: Active Protocol: Document 05/22/18 14:00 [facility] (Rec: 05/22/18 15:56 [facility] [email or web address]) OT- Subjective Occupational Therapy Visit Type Type Initial Evaluation Visit Start Time 14:00 Visit Stop Time 14:20 Total Visit Minutes 20 Occupational Therapy Visit Comments Patient Comments Pt agreeable to get up to sit up in the recliner, but not wanting to use the bathroom or do grooming at this time. OT Pain Assessment Pain When Pain Assessed At Rest M5 OT- IP IADL's Start: 05/20/18 15:47 Freq: Status: Active Protocol: Document 05/22/18 14:00 [facility] (Rec: 05/22/18 15:56 [facility] [email or web address]) OT-Instrumental Activities of Daily Living Home Safety Awareness Awareness of Need for Assistance at Home Good Awareness Ability to Problem Solve Emergency Able to Problem Solve Situations Medication Management Medication Management No Deficits Identified Money Management Money Management Caregiver Provides Assistance Money Management Comments does all. Meal Preparation Meal Preparation Caregiver Provides Assist Meal Preparation Comments does all. M6 OT- IP Functional Cognition Start: 05/20/18 15:47 Freq: Status: Active Protocol: Document 05/22/18 14:00 [facility] (Rec: 05/22/18 15:56 [facility] [email or web address]) Cognitive Factors Limiting Selfcare Function Cognitive Ability Level of Alertness Alert Attention Span Ability Capable of Focused Attention Capable of Sustained Attention Ability to Follow Commands Able to Follow Multi-Step Commands Memory Description No Deficits Noted Safety Awareness No Deficits Noted Problem Solving Ability No deficits Noted Cognitive Comments Cognitive Assessment Comments No deificits noted. OT- Vision and Hearing OT- Hearing Assessment OT- Hearing Assessment WFL OT- Vision Assessment Visual Acuity WFL M7 OT- IP Mobility and Balance Start: 05/20/18 15:47 Freq: Status: Active Protocol: Document 05/22/18 14:00 [facility] (Rec: 05/22/18 15:56 [facility] [email or web address]) OT-Transfer Assessment Sit to and From Stand Sit to and from Stand Standby Assistance Transfers Transfer Ability Standby Assistance Contact Guard Assistance 1 Person Assistance Technique Transfer Destination Chair Transfer Technique Stand Step Pivot Devices Transfer Assistive Devices Gait Belt Front Wheeled Walker Comments Mobility Comments Pt had slight lose of balance but able to rebalance himself while walking with FWW. BP supine at 30 degrees 129/58, sitting EOB 121/59 , standing 101/69 , after able to walk to recliner 129/73, after standing up again 2nd time 110 /60 and after standing for 5 minutes 136/91. Initial stance pt tends to quickly stand and then complains of dizziness , however when asked to try to gradually stand, pt states dizziness better and BP reading also better. OT- Balance Assessment Sitting Balance and Reactions Static Sitting Balance Ability Normal Dynamic Sitting Balance Ability Normal Standing Balance and Reactions Static Standing Balance Ability Good M8 OT- IP Objective Assessments Start: 05/20/18 15:47 Freq: Status: Active Protocol: Document 05/22/18 14:00 [facility] (Rec: 05/22/18 15:56 [facility] [email or web address]) OT Gross Range of Motion Upper Extremity Range of Motion Assessment Within Functional Limits OT Strength Upper Extremity Strength Assessment Within Functional Limits M9 OT- IP Assessment and Plan Start: 05/20/18 15:47 Freq: Status: Active Protocol: Document 05/22/18 14:00 [facility] (Rec: 05/22/18 15:56 [facility] [email or web address]) OT Summary Assessment and Plan Potential Rehabilitation Potential Good Analytic Complexity at Evaluation Low Summary OT Impairments Balance Functional Mobility Dressing Toileting Bathing Progress Towards Goals Progressing Toward Goals Assessment Summary Pt low complexity and and main barrier is hypotension and decreased activity tolerance. Pt looking to go home when medically stable, pt's able to assist at home for needs. Goals Grooming Goal Independent Dressing Goal Standby Assistance Toileting Goal Standby Assistance Bathing Goal Standby Assistance Toilet Transfer Goal Independent Shower Transfer Goal Minimal Assistance Patient/Caregiver Education Goal Demonstrate Energy Conservation and Pacing Caregiver Independent Assisting Patient Days to Meet Goals 5 Frequency of Treatment Frequency Of Treatment Once a Day Treatment Plan OT Treatment Plan ADL Training Functional Mobility Patient/Family Education Discharge Planning Other Treatment Recommendations and Next standing for grooming needs. Treatment Focus Discharge Recommendations OT Discharge Recommendations Home with Assistance Home Health Home Equipment Needs Shower chair
--- NOTE | 2018-05-22 16:06 | PC.NURSE ---
1500- Safe handoff from day RN. Pt lying in bed, denies any dizziness or discomfort. Pt has red irritated stoma--pt & educated on how to apply colostomy bag to skin. Bag changed w/ previous RN. Site appears less irritated at this time. NS running into implanted port. Orthostatic BP being checked qshift. 1730- Pt ate most of dinner, denies any nausea. Ileostomy bag emptied, pt reeducated on stoma size and how to cut piece for bag at home. Verbalizes understanding.
--- NOTE | 2018-05-22 17:54 | PC.NURSE ---
Ostomy Nurse Consult Note Barry just finished eating. He states his nurse, Shayy changed his ileostomy appliance and I know she did because she called me this afternoon stating she was going to change it. Barry states the redness is gone and so is the pain. Shayy used the crusting technique which I would also recommend. I review the crusting technique with Barry and showed him in the [facility] New Patient Guide. Barry verbalized understanding and has used this technique when he had his colostomy. We reviewed cutting the wafer to the correct size to fit around stoma with an 1/8 of an inch. Barry verbalized understanding. I review food blockage with him and showed him in the [facility] Guide how to prevent and what to do in case of a food blockage. I suggest he speak with his oncologist regarding his episodes of diarrhea after receiving chemo since this will cause him to become dehydrated especially because of his reabsorption of fluid is through is ilium. He said he would discuss this with his oncologist. It may be that when he has his worst diarrhea he may need to go to the ER for fluid replacement. I will order some [employer] sample products for Barry. He states he saw an advertisement but was unable to get samples, I'll place a sample order for him.
[2018-05-23] VITALS (19 sets, daily range): BP systolic 88–163; BP diastolic 52–96; PULSE 53–121; RESP 13–18; TEMP 36.2–37; O2SAT 96–100
[2018-05-23] MEDS: SODIUM CHLORIDE 0.9% 1,000 ML 100 ML IV (01:01)
--- NOTE | 2018-05-23 01:17 | PC.NURSE ---
Addendum entered by Elaine Grant R.N. 05/23/18 06:51: Critical lab values: H/H: 6.7/18.8 Original Note: Shift note: Received pt from evening shift. Report including appliance change earlier in the day. Pt used call light and [employer] alerted me to pt reporting his ileostomy bag was leaking. Found that seal around ostomy had come off and pt was leaking from site. Pt requested a full appliance change at this time. Stoma was beefy red and appeared intact. Skin proximal to the waist was excoriated and bled during cleaning of helen-stomal area. Pt used supplies to prep the skin and this RN assisted only in applying the wafer around the stoma itself. Pt did the majority of the care regarding changing the appliance. During this pt reported that he felt like after he left the hospital I will dehydrate and soon after. Questioned the pt if he felt like he was dying to which he denied but that he knew what was going to happen. It was a very matter of fact conversation to which this RN tried to reassure the patient that his condition was improving and very manageable. Pt appeared to be in good spirits after care was complete. Reported conversation to NICK Marrero dbryant the nature of the conversation to which he acknowledged.
[2018-05-23] MEDS: OCTREOTIDE 100 MCG/ML VIAL SUBCUT ×3 (02:46→20:23)
[2018-05-23] MEDS: SODIUM CHLORIDE 0.9% 500 ML 250 ML IV (05:55)
[2018-05-23 06:40] LABS: Blood Urea Nitrogen 25 mg/dL (9-20); Calcium 8.2 mg/dL (8.4-10.2); Carbon Dioxide 26 mmol/L (22-32); Chloride 105 mmol/L (98-107); Estimated Glomerular Filt Rate > 60.0 mL/min (>60); Glucose 109 mg/dL (80-110); HEMOLYSIS < 15 (0-50); Potassium 3.3 mmol/L (3.4-5.1); Sodium 136 mmol/L (137-145)
[2018-05-23 06:47] LABS: Mean Corpuscular HGB Conc 35.5 % (30-36); Mean Corpuscular Hemoglobin 36.1 PG (26-34); Mean Corpuscular Volume 101.7 fL (80-100); Platelet Count 193 X10^3/uL (150-400); Red Blood Cell Count 1.85 X10^6/uL (4.5-5.9); Red Cell Distribution Width 17.4 % (11.6-14.8); White Blood Cell Count 3.1 X10^3/uL (4.5-11.0)
[2018-05-23 06:48] LABS: Add Manual Diff / Slide Review YES
[2018-05-23 06:50] LABS: Hematocrit 18.8 % (41-53); Hemoglobin 6.7 g/dL (13.5-17.5)
[2018-05-23 08:01] LABS: Neutrophils Absolute Manual 2263 /uL (3000-5900); Total Cells Counted 100
[2018-05-23 08:05] LABS: Anisocytosis 2+
[2018-05-23] MEDS: ENOXAPARIN 40 MG/0.4 ML SYRINGE SUBCUT (09:05)
[2018-05-23] MEDS: LACTOBACILLUS ACIDOPHILUS TABLET 1 EACH PO ×2 (09:05→20:23)
[2018-05-23] MEDS: cefUROXime 250 MG TABLET 500 MG PO ×2 (09:05→20:23)
[2018-05-23] MEDS: TAMSULOSIN 0.4 MG CAPSULE PO (09:06)
--- NOTE | 2018-05-23 09:16 | PM.PN.1 ---
Subjective Date Patient Seen: 05/23/18 Time Patient Seen: 09:19 Interval history: Follow up on chemotherapy induced intractable diarrhea. Patient seen at bedside. Overnight patient's hemoglobin has dropped to 6.2. He does not have any obvious signs of bleeding. Patient continues to be orthostatic, and received 500 cc bolus overnight. Overall, patient feels well. He states that his strength is coming back. He denies any pain currently. His stool is becoming more formed now. Exam Vital Signs (past 8 hours): - 05/23/18 05:52 05/23/18 07:58 Temperature 97.3 F L 97.3 F L Pulse Rate 63 Respiratory Rate 13 16 Blood Pressure 122/53 L 120/55 L Pulse Oximetry 100 99 Fraction of Inspired Oxygen 21 Oxygen Delivery Method Room Air Oxygen Flow Rate 0 Narrative Exam Narrative: General: No acute distress, AAO x3 HEENT: Normocephalic, atraumatic. EOM I bilaterally, PERRLA bilaterally Neck: Supple, no LAD CV: Regular rate rhythm, no murmurs or gallops Chest: Port-A-Cath in place Respiratory: Clear to auscultation bilaterally without any crackles wheezes or rhonchi. GI: Soft, normoactive bowel sounds present. Nontender abdomen. Ostomy bag in place with liquid as well as some formed greenish stool Extremities: No clubbing, cyanosis, or edema Skin: No rashes or lesions present Neuro: No focal deficits, AAO x3 Psych: Normal mood and affect, patient is able to make his own decisions Objective Labs Result Diagrams: 05/23/18 05:56 05/23/18 05:56 Labs: Laboratory Results - last 24 hr 05/22/18 05/23/18 05/23/18 09:30 05:56 05:56 WBC 3.1 L RBC 1.85 L Hgb 6.7 L* Hct 18.8 L* MCV 101.7 H MCH 36.1 H MCHC 35.5 RDW 17.4 H Plt Count 193 Neut % (Auto) Not Reportable Lymph % (Auto) Not Reportable [place] % (Auto) Not Reportable Eos % (Auto) Not Reportable Baso % (Auto) Not Reportable Lymph # (Auto) Not Reportable [place] # (Auto) Not Reportable Baso # (Auto) Not Reportable Total Counted 100 Seg Neutrophils % 67.0 Band Neutrophils % 6.0 Lymphocytes % (Manual) 15.0 L Monocytes % (Manual) 10.0 Metamyelocytes % 1.0 H Myelocytes % 1.0 H Neutrophils # (Manual) 2263 L RBC Morphology See below Anisocytosis 2+ H Sodium 135 L 136 L Potassium 3.4 3.3 L Chloride 102 105 Carbon Dioxide 26 26 BUN 32 H 25 H Creatinine 1.00 1.00 Estimated GFR > 60.0 > 60.0 BUN/Creatinine Ratio 32.0 H 25.0 H Glucose 121 H 109 Calcium 8.1 L 8.2 L Blood Type Antibody Screen Crossmatch 05/23/18 07:45 WBC RBC Hgb Hct MCV MCH MCHC RDW Plt Count Neut % (Auto) Lymph % (Auto) [place] % (Auto) Eos % (Auto) Baso % (Auto) Lymph # (Auto) [place] # (Auto) Baso # (Auto) Total Counted Seg Neutrophils % Band Neutrophils % Lymphocytes % (Manual) Monocytes % (Manual) Metamyelocytes % Myelocytes % Neutrophils # (Manual) RBC Morphology Anisocytosis Sodium Potassium Chloride Carbon Dioxide BUN Creatinine Estimated GFR BUN/Creatinine Ratio Glucose Calcium Blood Type A Positive Antibody Screen Negative Crossmatch See Detail Assessment & Plan Assessment & Plan narrative: 82yo M with a past medical history significant for hypertension, hyperlipidemia, prostate cancer status post prostatectomy, 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 1. Acute diarrhea -likely due to chemotherapy for colon cancer -GI panel negative. -Continue diet as tolerated. -Continue imodium as needed for diarrhea and somatostatin 100 mcg subcutaneous every 8 hrs. Titrate off somatostatin as possible. -Continue IV fluids at 100 mL/hr and give itnermittent NS boluses for hypotension. -Dr. Reyes , oncology, is aware of patient's condition. Recommends Immodium/Somatostatin. 2. Acute Macrocytic Anemia -Likely due to dilutional vs chemotherapy induced (patient is on 5FU) -Hb 6.7 this am -Will transfuse 2UPRBC -Will order Folate and B12 levels and in the mean time start Folic Acid 1mg PO Daily 3. Paroxsymal atrial fibrillation -Resolved -After further review of telemetry it is unclear whether he has truly ever been in atrial fibrillation rather it appears to be SVT. -Echocardiogram demonstrated preserved systolic function with EF of 45-50% with global hypokinesis, RV is mildly dilated with normal RV function and mild MAC. -Will discuss at least aspirin to help prevent VTE. 4. Acute Klebsiella oxytoca urinary tract infection, present on admission. -Resolving. -Urine culture positive for Klebsiella oxytoca resistant to ampicillin. -Switched ceftriaxone to oral antibiotic with cefuroxime 500 mg twice daily for 7 days total and probiotic 5. Hypertension, chronic, present on admission. -Stable. -Not medically treated. 6. Hyperlipdiemia, chronic, present on admission. -Stable. -Not medically treated. 7. History of prostate cancer -status post prostatectomy. -Patient is thought to be in remission. 8. Urinary retention -Continue tamsulosin 0.4 mg daily. Dispo: Continue to PO antibiotic to treat UTI, as well as imodium and somatostatin for diarrhea, and NS boluses for orthostatic hypotension. Will transfuse 2U PRBC and initiate Folate supplementation Quality VTE Deep Vein Thrombosis/Pulmonary Embolism Present on Admission: No
--- NOTE | 2018-05-23 09:59 | OT.IP.TRT ---
Current Diagnoses Acute kidney failure, unspecified (05/21/18) Occupational Therapy Treatment Note M2 OT-IP Current Condition Start: 05/20/18 15:47 Freq: Status: Active Protocol: Document 05/22/18 14:00 [facility] (Rec: 05/22/18 15:56 [facility] [email or web address]) Occupational Therapy Current Condition Current Condition Evaluation Date 05/22/18 Treatment Diagnosis Dehydration Diagnosis Onset Date 05/18/18 M3 OT- IP Subjective and Pain Start: 05/20/18 15:47 Freq: Status: Active Protocol: Document 05/23/18 09:57 [facility] (Rec: 05/23/18 09:59 [facility] [email or web address]) OT- Subjective Occupational Therapy Visit Type Type Patient Unavailable Notes Pt's hemoglobin now 6.2 and to be getting 2 units of blood today, therefore hold from OT until tomorrow.
--- NOTE | 2018-05-23 10:05 | OT.IP.TRT ---
Current Diagnoses Acute kidney failure, unspecified (05/21/18) Occupational Therapy Treatment Note M2 OT-IP Current Condition Start: 05/20/18 15:47 Freq: Status: Active Protocol: Document 05/22/18 14:00 [facility] (Rec: 05/22/18 15:56 [facility] [email or web address]) Occupational Therapy Current Condition Current Condition Evaluation Date 05/22/18 Treatment Diagnosis Dehydration Diagnosis Onset Date 05/18/18 M3 OT- IP Subjective and Pain Start: 05/20/18 15:47 Freq: Status: Active Protocol: Document 05/23/18 09:57 [facility] (Rec: 05/23/18 09:59 [facility] [email or web address]) OT- Subjective Occupational Therapy Visit Type Type Patient Unavailable Notes Pt's hemoglobin now 6.7 and to be getting 2 units of blood today, therefore hold from OT until tomorrow.
[2018-05-23] MEDS: FOLIC ACID 1 MG TABLET PO (10:06)
[2018-05-23 10:55] LABS: Folate > 20.0 ng/mL (2.76-20.0); Vitamin B12 239 pg/mL (239-931)
--- NOTE | 2018-05-23 11:44 | PC.NURSE ---
1130 First unit PRBCs infusing , Pt evens well. Plan is to infuse the blood products then infuse the K rider for the K+of 3.3. Pt has a burt cath. Pt cont w/lge volume greenish liq from ileostomy.
--- NOTE | 2018-05-23 14:08 | PC.NURSE ---
1400 @nd unit PRBCs infusing, Pt putting out lge volume of fluid from ileostomy,>3000 ml. Pt has mgood mPO intake. All info reported to MD. Harris, ostomy nurse, to come assess site, possibly change out appliance that will support a drainage bag.
--- NOTE | 2018-05-23 15:23 | PT.IPTN ---
Current Diagnoses Acute kidney failure, unspecified (05/21/18) Physical Therapy Treatment Note M2 PT-IP Current Condition Start: 05/20/18 10:42 Freq: NEEDED Status: Active Protocol: Document 05/22/18 12:00 [facility] (Rec: 05/22/18 13:12 [id number]) Physical Therapy Current Condition Current Condition Evaluation Date 05/22/18 Treatment Diagnosis Intractable diarrhea, UTI, acute dehydation, OHTN, impairment mobility Onset Date 05/20/18 Weight Bearing Status Weight Bearing Status Weight Bear as Tolerated M3 PT-IP Subjective Start: 05/20/18 10:42 Freq: NEEDED Status: Active Protocol: Document 05/23/18 15:23 AB (Rec: 05/23/18 15:23 AB [id number]) Subjective Physical Therapy Visit Type Notes pt is on hold for PT. pt currently receiving transfusion for low Hgb and Hct. will f/u tomorrow.
[2018-05-23] MEDS: POTASSIUM CHLORIDE 40 MEQ in SODIUM CHLORIDE 0.9% 500 ML 130 ML IV (16:57)
--- NOTE | 2018-05-23 17:10 | PC.NURSE ---
Ostomy Nurse Consult Note Call received from EFFIE Newby that Barry's ileostomy was having a very high output of liquid and asked that I come up and change his appliance to a urostomy drainage appliance. I was unable to come up until 4:50. I happened to have some [employer] urostomy drainage pouching systems and an adaptor. I brought them up to Barry. He said he is doing fine now. He is wearing his own [employer] appliance, which he changed into last night because the one place yesterday came off. His is retaining it seal. The urostomy pouches do fit his wafer. I gave him two and two adaptors and a urinary drainage bag. I showed him how to use the urostomy pouch with the urinary drainage bag incase he needs to use it tonight. I ordered samples today from [employer], [employer]. Barry was interested in trying this appliance. I also ordered him a high output ileostomy pouch for days when he has diarrhea after chemo. I will follow up with Barry tomorrow.
[2018-05-24] VITALS (8 sets, daily range): BP systolic 111–152; BP diastolic 56–76; PULSE 55–103; RESP 14–18; TEMP 36.2–36.4; O2SAT 100
[2018-05-24] MEDS: SODIUM CHLORIDE 0.9% 1,000 ML 100 ML IV ×3 (01:13→20:59)
[2018-05-24] MEDS: OCTREOTIDE 100 MCG/ML VIAL SUBCUT ×3 (03:25→20:51)
[2018-05-24 06:33] LABS: Hemoglobin 8.8 g/dL (13.5-17.5); Mean Corpuscular HGB Conc 35.7 % (30-36); Mean Corpuscular Hemoglobin 34.8 PG (26-34); Mean Corpuscular Volume 97.3 fL (80-100); Platelet Count 175 X10^3/uL (150-400); Red Blood Cell Count 2.52 X10^6/uL (4.5-5.9); Red Cell Distribution Width 17.4 % (11.6-14.8); White Blood Cell Count 4.1 X10^3/uL (4.5-11.0)
[2018-05-24 06:36] LABS: Hematocrit 24.5 % (41-53)
[2018-05-24 06:37] LABS: Add Manual Diff / Slide Review YES
[2018-05-24 06:40] LABS: Blood Urea Nitrogen 20 mg/dL (9-20); Calcium 8.3 mg/dL (8.4-10.2); Carbon Dioxide 25 mmol/L (22-32); Chloride 109 mmol/L (98-107); Estimated Glomerular Filt Rate > 60.0 mL/min (>60); Glucose 120 mg/dL (80-110); HEMOLYSIS < 15 (0-50); Potassium 3.8 mmol/L (3.4-5.1); Sodium 139 mmol/L (137-145)
[2018-05-24 07:33] LABS: Neutrophils Absolute Manual 2911 /uL (3000-5900); Total Cells Counted 100
[2018-05-24 07:34] LABS: Anisocytosis 1+; Toxic Vacuolation Present
[2018-05-24] MEDS: TAMSULOSIN 0.4 MG CAPSULE PO (08:30)
[2018-05-24] MEDS: LACTOBACILLUS ACIDOPHILUS TABLET 1 EACH PO ×2 (08:30→17:23)
[2018-05-24] MEDS: cefUROXime 250 MG TABLET 500 MG PO ×2 (08:30→20:51)
[2018-05-24] MEDS: ENOXAPARIN 40 MG/0.4 ML SYRINGE SUBCUT (08:30)
[2018-05-24] MEDS: FOLIC ACID 1 MG TABLET PO (08:31)
[2018-05-24] MEDS: LOPERAMIDE 2 MG/10 ML UDC PO ×4 (08:42→20:51)
--- NOTE | 2018-05-24 10:04 | OT.IP.TRT ---
Current Diagnoses Acute kidney failure, unspecified (05/21/18) Occupational Therapy Treatment Note M2 OT-IP Current Condition Start: 05/20/18 15:47 Freq: Status: Active Protocol: Document 05/22/18 14:00 [facility] (Rec: 05/22/18 15:56 [facility] [id number]) Occupational Therapy Current Condition Current Condition Evaluation Date 05/22/18 Treatment Diagnosis Dehydration Diagnosis Onset Date 05/18/18 M3 OT- IP Subjective and Pain Start: 05/20/18 15:47 Freq: Status: Active Protocol: Document 05/24/18 09:54 [facility] (Rec: 05/24/18 10:04 [facility] [id number]) OT- Subjective Occupational Therapy Visit Type Type Treatment Note Visit Start Time 08:55 Visit Stop Time 09:25 Total Visit Minutes 30 Occupational Therapy Visit Comments Patient Comments Pt wanting to get up to do grooming needs. OT Pain Assessment Pain When Pain Assessed At Rest Pain Present Pain Present Denied Pain M4 OT- IP ADL's Start: 05/20/18 15:47 Freq: Status: Active Protocol: Document 05/24/18 09:54 [facility] (Rec: 05/24/18 10:04 [facility] [id number]) OT ADL-Grooming General Evaluation Grooming Ability Independent OT ADL-Dressing General Eval Lower Body Dressing Ability Standby Assistance Areas Needing Assistance Socks Support Stockings Comments OT Dressing Comments Pt needing intial vc for how to qasim/doff compression stocking. Pt able to do with increased time. M5 OT- IP IADL's Start: 05/20/18 15:47 Freq: Status: Active Protocol: Document 05/22/18 14:00 [facility] (Rec: 05/22/18 15:56 [facility] [id number]) OT-Instrumental Activities of Daily Living Home Safety Awareness Awareness of Need for Assistance at Home Good Awareness Ability to Problem Solve Emergency Able to Problem Solve Situations Medication Management Medication Management No Deficits Identified Money Management Money Management Caregiver Provides Assistance Money Management Comments does all. Meal Preparation Meal Preparation Caregiver Provides Assist Meal Preparation Comments does all. M6 OT- IP Functional Cognition Start: 05/20/18 15:47 Freq: Status: Active Protocol: Document 05/24/18 09:54 [facility] (Rec: 05/24/18 10:04 [facility] [id number]) Cognitive Factors Limiting Selfcare Function Cognitive Ability Level of Alertness Alert Patient Orientation Name Age Birthday Month Date Year Day of Week Place Situation Attention Span Ability Capable of Focused Attention Capable of Sustained Attention Ability to Follow Commands Able to Follow Multi-Step Commands Memory Description No Deficits Noted Safety Awareness No Deficits Noted Problem Solving Ability No deficits Noted Cognitive Comments Cognitive Assessment Comments No deificits noted. M7 OT- IP Mobility and Balance Start: 05/20/18 15:47 Freq: Status: Active Protocol: Document 05/24/18 09:54 [facility] (Rec: 05/24/18 10:04 [facility] [id number]) OT-Transfer Assessment Sit to and From Stand Sit to and from Stand Independent Transfers Transfer Ability Standby Assistance Technique Transfer Destination Chair Transfer Technique Stand Step Pivot Devices Transfer Assistive Devices Gait Belt Front Wheeled Walker Comments Mobility Comments SBA mainly for management of IV pole. Otherwise pt able to use fww with good safety. Pt most;y not symptomatic except for after coming back from standing and brushinig his teeth felt a little dizzy. BP reading with compression stocking on and use of small adult cuff which fits pt more appropriately. BP supine 147/68 hr 57, sitting 136/65 hr 57, standing 98/54 hr 85, sitting 140/64 hr 59, standing 103/50 hr 89, after brushing his teeth 101/ 60 hr 74, and after sitting again 153/78 hr 81. Numbers written to give to physicain at rounds. OT- Balance Assessment Sitting Balance and Reactions Static Sitting Balance Ability Normal Dynamic Sitting Balance Ability Normal Standing Balance and Reactions Static Standing Balance Ability Good M8 OT- IP Objective Assessments Start: 05/20/18 15:47 Freq: Status: Active Protocol: Document 05/22/18 14:00 [facility] (Rec: 05/22/18 15:56 [facility] [id number]) OT Gross Range of Motion Upper Extremity Range of Motion Assessment Within Functional Limits OT Strength Upper Extremity Strength Assessment Within Functional Limits M9 OT- IP Assessment and Plan Start: 05/20/18 15:47 Freq: Status: Active Protocol: Document 05/24/18 09:54 [facility] (Rec: 05/24/18 10:04 [facility] [id number]) OT Summary Assessment and Plan Potential Rehabilitation Potential Good Analytic Complexity at Evaluation Low Summary OT Impairments Balance Functional Mobility Bathing Progress Towards Goals Progressing Toward Goals Assessment Summary Pt continues to have orthostatic hypotension whish is his main barrier otherwise capable for doing basic ADl's, but have not been able to try showering yet for OT. Pt looking to go home with 's assist when medically cleared Goals Grooming Goal Independent Dressing Goal Independent Toileting Goal Standby Assistance Bathing Goal Standby Assistance Toilet Transfer Goal Independent Shower Transfer Goal Standby Assistance Patient/Caregiver Education Goal Demonstrate Energy Conservation and Pacing Caregiver Independent Assisting Patient Days to Meet Goals 5 Frequency of Treatment Frequency Of Treatment Once a Day Treatment Plan OT Treatment Plan ADL Training Functional Mobility Patient/Family Education Discharge Planning Other Treatment Recommendations and Next shower, go over energy Treatment Focus conservation needs Discharge Recommendations OT Discharge Recommendations Home with Assistance Home Health Home Equipment Needs Shower chair
--- NOTE | 2018-05-24 11:01 | PC.NURSE ---
Addendum entered by Blanca Olson R.N. 05/24/18 11:18: Gagandeep-PT reported walking with patient approx 80 feet out of room. Prior to ambulation, pt was sitting and BP was 127/49 and after walking in halls, pt's BP while sitting was 142/58. Original Note: Day Shift- Pt A&OX4, able to make needs known using call light. Denies pain, discomfort, nausea. Orthostatis BP/P done this AM, see vital sign flowsheet. Pt did have a 30 point drop from lying to standing with systolic BP. Pt denied light-headed or dizziness. Ileostomy in place, appliance last changed on 05/22. Output is liquid green/light brown. PRN Immodium given, per Dr. Cross, plan to given Immodium on prn Q4hr schedule as ordered until stool consistency changes. IVF infusing well to left chest port, enc po fluids. High fall risk precautions in place, bed alarm on.
--- NOTE | 2018-05-24 11:25 | PT.IPTN ---
Current Diagnoses Acute kidney failure, unspecified (05/21/18) Physical Therapy Treatment Note M2 PT-IP Current Condition Start: 05/20/18 10:42 Freq: NEEDED Status: Active Protocol: Document 05/22/18 12:00 HH (Rec: 05/22/18 13:12 [id number]) Physical Therapy Current Condition Current Condition Evaluation Date 05/22/18 Treatment Diagnosis Intractable diarrhea, UTI, acute dehydation, OHTN, impairment mobility Onset Date 05/20/18 Weight Bearing Status Weight Bearing Status Weight Bear as Tolerated M3 PT-IP Subjective Start: 05/20/18 10:42 Freq: NEEDED Status: Active Protocol: Document 05/24/18 11:25 [facility]GD (Rec: 05/24/18 12:05 [facility]GD [id number]) Subjective Physical Therapy Visit Type Type Treatment Note Visit Start Time 11:00 Visit Stop Time 11:25 Total Visit Minutes 25 Number of ALUMINUM SIDING MECHANIC Visits 1 Physical Therapy Visit Comments Patient Comments Pt states he is feeling better . M4 PT-IP Mobility and Gait Start: 05/20/18 10:42 Freq: NEEDED Status: Active Protocol: Document 05/24/18 11:25 [facility] (Rec: 05/24/18 12:05 [facility] [id number]) PT-Transfer Assessment Sit to and From Stand Sit to and from Stand Contact Guard Assistance Use of Upper Extremities Equipment Transfer Assistive Device Gait Belt Front Wheeled Walker Transfers Transfer Destination Chair Transfer Ability Level of Assist Contact Guard Assistance Comments Mobility Comments Bp in sitting 127/49 HR 59, after activity in sitting 142/ 58 HR 66 M5 PT-IP Objective Assessments Start: 05/20/18 10:42 Freq: NEEDED Status: Active Protocol: Document 05/22/18 12:00 HH (Rec: 05/22/18 13:12 [id number]) Orientation Orientation/Cognition Level of Alertness Alert Orientation Name Age Birthday Month Date Year Day of Week Place Situation Language Function Ability No Deficits Noted Safety Awareness Understands Safety Issues Memory Description No Deficits Noted Gross Range of Motion Upper Extremity ROM Assessment Within Functional Limits Lower Extremity ROM Assessment Within Functional Limits Strength Upper Extremity Strength Assessment Within Functional Limits Lower Extremity Strength Assessment Within Functional Limits Coordination Assessment Gross Coordination Gross Coordination WNL Sensation Assessment Sensation Gross Sensation WNL Muscle Tone Muscle Tone WNL Yes M6 PT-IP Treatment Start: 05/20/18 10:42 Freq: NEEDED Status: Active Protocol: Document 05/22/18 12:00 HH (Rec: 05/22/18 13:12 HH [id number]) Physical Therapy Treatment Exercises Exercises Ankle Pumps Gluteal Sets Quad Sets Heel Slides Education Education Provided Safety M7 PT-IP Assessment and Plan Start: 05/20/18 10:42 Freq: NEEDED Status: Active Protocol: Document 05/24/18 11:25 GGD (Rec: 05/24/18 12:05 GGD [id number]) PT Summary Assessment and Plan Summary Assessment Summary Pt improving with mobility. He was safe and stable with gait. BP was stable with mobility. He is safe for home D/C when medically stable. Frequency of Treatment Frequency Of Treatment Once a Day Treatment Plan Physical Therapy Treatment Plan Bed Mobility Training Transfer Training Gait Training Therapeutic Exercise Discharge Planning Other Recommendations and Next Treatment gait without AD Focus Recommendations To Nursing Amount of Assist Needed 1 Person Assist Discharge Recommendations PT Discharge Recommendations Home with Assistance
--- NOTE | 2018-05-24 12:06 | PM.PN.1 ---
Subjective Date Patient Seen: 05/24/18 Time Patient Seen: 12:12 Interval history: Follow up on chemotherapy induced intractable diarrhea. Patient seen at bedside. He continues to have volumous bowel movements, with negative fluid volume. No symptoms, able to ambulate. Hb improved after transfusion. Exam Vital Signs (past 8 hours): - 05/24/18 05:05 05/24/18 08:30 05/24/18 08:38 Temperature 97.4 F L 97.4 F L Pulse Rate 55 L 58 L Pulse Rate [Orthostatic Lying] 56 L Pulse Rate [Orthostatic Sitting] 55 L Pulse Rate [Orthostatic Standing] 74 Respiratory Rate 14 18 Blood Pressure 128/59 L 143/74 H Blood Pressure [Orthostatic Lying] 143/74 H Blood Pressure [Orthostatic Sitting] 129/56 L Blood Pressure [Orthostatic Standing] 111/60 Pulse Oximetry 100 100 100 Fraction of Inspired Oxygen 21 Oxygen Delivery Method Room Air Oxygen Flow Rate 0 Narrative Exam Narrative: General: No acute distress, AAO x3 HEENT: Normocephalic, atraumatic. EOM I bilaterally, PERRLA bilaterally Neck: Supple, no LAD CV: Regular rate rhythm, no murmurs or gallops Chest: Port-A-Cath in place Respiratory: Clear to auscultation bilaterally without any crackles wheezes or rhonchi. GI: Soft, normoactive bowel sounds present. Nontender abdomen. Ostomy bag in place with liquid as well as some formed greenish stool Extremities: No clubbing, cyanosis, or edema Skin: No rashes or lesions present Neuro: No focal deficits, AAO x3 Psych: Normal mood and affect, patient is able to make his own decisions Objective Labs Result Diagrams: 05/24/18 06:20 05/24/18 06:20 Labs: Laboratory Results - last 24 hr 05/23/18 05/24/18 05/24/18 07:45 06:20 06:20 WBC 4.1 L RBC 2.52 L Hgb 8.8 L Hct 24.5 L MCV 97.3 D MCH 34.8 H MCHC 35.7 RDW 17.4 H Plt Count 175 Neut % (Auto) Not Reportable Lymph % (Auto) Not Reportable [place] % (Auto) Not Reportable Eos % (Auto) Not Reportable Baso % (Auto) Not Reportable Lymph # (Auto) Not Reportable [place] # (Auto) Not Reportable Baso # (Auto) Not Reportable Total Counted 100 Seg Neutrophils % 67.0 Band Neutrophils % 4.0 Lymphocytes % (Manual) 12.0 L Atypical Lymphs % 5.0 H Monocytes % (Manual) 8.0 Eosinophils % (Manual) 1.0 L Basophils % (Manual) 1.0 Metamyelocytes % 2.0 H Neutrophils # (Manual) 2911 L Toxic Vacuolation Present H RBC Morphology See below Anisocytosis 1+ H Sodium 139 Potassium 3.8 Chloride 109 H Carbon Dioxide 25 BUN 20 Creatinine 1.00 Estimated GFR > 60.0 BUN/Creatinine Ratio 20.0 Glucose 120 H Calcium 8.3 L Blood Type A Positive Antibody Screen Negative Crossmatch See Detail Assessment & Plan Assessment & Plan narrative: 82yo M with a past medical history significant for hypertension, hyperlipidemia, prostate cancer status post prostatectomy, 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 1. Acute diarrhea -likely due to chemotherapy for colon cancer -GI panel negative. -Continue diet as tolerated. -Continue imodium SCHEDULED and somatostatin 100 mcg subcutaneous every 8 hrs. Titrate off somatostatin as possible. -Continue IV fluids at 100 mL/hr and give itnermittent NS boluses for hypotension. -Dr. Reyes, oncology, is aware of patient's condition. Recommends Immodium/Somatostatin. Given no improvement in symptoms, I attempted to call Dr. Reyes for more recommendations but unable to get a hold of him. Will change Immodium to scheduled Q4H, as it has not been given consistently. 2. Acute Macrocytic Anemia -Likely due to dilutional vs chemotherapy induced (patient is on 5FU) -Hb 8.8 after 2U transfusion -Continue to monitor -B12 levels at the bottom low-normal, therefore will start B12 supplementation and stop Folate 3. Paroxysmal atrial fibrillation -Resolved -After further review of telemetry it is unclear whether he has truly ever been in atrial fibrillation rather it appears to be SVT. -Echocardiogram demonstrated preserved systolic function with EF of 45-50% with global hypokinesis, RV is mildly dilated with normal RV function and mild MAC. -Will discuss at least aspirin to help prevent VTE. 4. Acute Klebsiella oxytoca urinary tract infection, present on admission. -Resolving. -Urine culture positive for Klebsiella oxytoca resistant to ampicillin. -Switched ceftriaxone to oral antibiotic with cefuroxime 500 mg twice daily for 7 days total and probiotic 5. Hypertension, chronic, present on admission. -Stable. -Not medically treated. 6. Hyperlipdiemia, chronic, present on admission. -Stable. -Not medically treated. 7. History of prostate cancer -status post prostatectomy. -Patient is thought to be in remission. 8. Urinary retention -Continue tamsulosin 0.4 mg daily. Dispo: Continue to PO antibiotic to treat UTI, as well as imodium and somatostatin for diarrhea, and NS boluses for orthostatic hypotension. Quality VTE Deep Vein Thrombosis/Pulmonary Embolism Present on Admission: No
[2018-05-25] VITALS (10 sets, daily range): BP systolic 106–171; BP diastolic 59–85; PULSE 50–105; RESP 12–20; TEMP 35.9–36.9; O2SAT 97–100
[2018-05-25] MEDS: LOPERAMIDE 2 MG/10 ML UDC PO ×3 (00:03→09:10)
[2018-05-25] MEDS: OCTREOTIDE 100 MCG/ML VIAL SUBCUT ×3 (02:57→19:16)
--- NOTE | 2018-05-25 03:14 | PC.NURSE ---
2300- Safe report from evening RN. Port accessed at this time w/ NS running. Strict I&O as pt's had inc output from ileostomy. Denies pain/dizziness; qshift orthostatic BP's taking place. Skin surrounding stoma looking more intact, less irritated. Education has been given to this pt regarding how to care for his ileostomy at home. 0300- Ileostomy output remains watery/green. Standing at bedside using urinal, reports no dizziness. 0530- Labs drawn from port w/o difficulty. New dressing applied on top of current port dressing to keep device secure & intact.
[2018-05-25 06:05] LABS: Add Manual Diff / Slide Review YES; Hematocrit 25.9 % (41-53); Mean Corpuscular HGB Conc 34.9 % (30-36); Mean Corpuscular Hemoglobin 34.6 PG (26-34); Platelet Count 186 X10^3/uL (150-400); Red Blood Cell Count 2.61 X10^6/uL (4.5-5.9); Red Cell Distribution Width 17.4 % (11.6-14.8); White Blood Cell Count 3.6 X10^3/uL (4.5-11.0)
[2018-05-25 06:06] LABS: BUN Creatinine Ratio 22.2 (6-22); Blood Urea Nitrogen 20 mg/dL (9-20); Calcium 8.5 mg/dL (8.4-10.2); Carbon Dioxide 25 mmol/L (22-32); Chloride 109 mmol/L (98-107); Estimated Glomerular Filt Rate > 60.0 mL/min (>60); Glucose 129 mg/dL (80-110); HEMOLYSIS < 15 (0-50); Potassium 3.7 mmol/L (3.4-5.1); Sodium 141 mmol/L (137-145)
[2018-05-25] MEDS: SODIUM CHLORIDE 0.9% 1,000 ML 100 ML IV ×2 (06:54→16:24)
[2018-05-25 08:01] LABS: Anisocytosis 2+; Neutrophils Absolute Manual 2016 /uL (3000-5900); Total Cells Counted 100
[2018-05-25] MEDS: ENOXAPARIN 40 MG/0.4 ML SYRINGE SUBCUT (09:09)
[2018-05-25] MEDS: CYANOCOBALAMIN (VITAMIN B-12) 500 MCG TABLET 1000 MCG PO (09:11)
[2018-05-25] MEDS: cefUROXime 250 MG TABLET 500 MG PO ×2 (09:11→20:41)
[2018-05-25] MEDS: LACTOBACILLUS ACIDOPHILUS TABLET 1 EACH PO (09:11)
[2018-05-25] MEDS: TAMSULOSIN 0.4 MG CAPSULE PO (09:11)
--- NOTE | 2018-05-25 10:09 | PC.NURSE ---
Addendum entered by Shaun Solomon R.N. 05/25/18 14:03: Meds adjusted per orders. Pt continues to put out 450cc at a time via colostomy bag. Dr. Duke aware. attentive at bedside. Home probiotics started per orders. Original Note: Alert and oriented, offers no overt c/o pain or issues other than concern about probiotics. Dr Duke to see Pt. Pt up with 1 person assist. Up in chair. Asking to take shower. attentive at bedside.
--- NOTE | 2018-05-25 10:19 | P.PN_ITS ---
Subjective Date Patient Seen: 05/25/18 Interval history: He is seen here today to follow-up his high-output ileostomy, chemotherapy related diarrhea, colon cancer with metastasis, anemia of chronic disease. 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 Imodium was initiated routinely yesterday without apparent change in his high output. He tells me several times that he has a colostomy but then finally settles on the fact that he has an ileostomy. 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 He wants florastor instead of the current probiotic so we will need to clarify that. His C diff testing has apparently been negative. His hemoglobin is 9.0. He tells me the entire story of his diagnosis and talks for a long, long time. He is quite upset and repeats the whole story in great detail. He tells me that he was within a week of getting a fecal transplant for C diff when this particular change in his diarrhea pattern occurred and that testing has subsequently been negative for C diff. The potassium is up to 3.7. Exam Vital Signs (past 8 hours): - 05/25/18 03:00 05/25/18 07:00 05/25/18 08:00 Temperature 97.2 F L 98.4 F Pulse Rate 59 L 76 Pulse Rate [Orthostatic Lying] 50 L Pulse Rate [Orthostatic Sitting] 65 Pulse Rate [Orthostatic Standing] 76 Respiratory Rate 13 20 Blood Pressure 148/68 H 148/68 H Blood Pressure [Orthostatic Lying] 145/65 H Blood Pressure [Orthostatic Sitting] 162/75 H Blood Pressure [Orthostatic Standing] 148/68 H Pulse Oximetry 100 99 100 Fraction of Inspired Oxygen 21 Oxygen Delivery Method Room Air Oxygen Flow Rate 0 Narrative Exam Narrative: He is alert and oriented x3. He is quite upset but after talking for a long time he seems to calm himself down. Heart is regular rate and rhythm without murmur. Lungs are clear to auscultation bilaterally. Extremities have no ankle edema. Abdomen is soft, bowel sounds positive, no organomegaly. Ileostomy is in place. The amount of fluid in the bag is nearly bursting it. Objective Labs Result Diagrams: 05/25/18 05:30 05/25/18 05:30 Labs: Laboratory Results - last 24 hr 05/25/18 05/25/18 05:30 05:30 WBC 3.6 L RBC 2.61 L Hgb 9.0 L Hct 25.9 L MCV 99.0 MCH 34.6 H MCHC 34.9 RDW 17.4 H Plt Count 186 Neut % (Auto) Not Reportable Lymph % (Auto) Not Reportable [place] % (Auto) Not Reportable Eos % (Auto) Not Reportable Baso % (Auto) Not Reportable Lymph # (Auto) Not Reportable [place] # (Auto) Not Reportable Baso # (Auto) Not Reportable Total Counted 100 Seg Neutrophils % 56.0 Lymphocytes % (Manual) 25.0 Atypical Lymphs % 5.0 H Monocytes % (Manual) 11.0 Eosinophils % (Manual) 3.0 Neutrophils # (Manual) 2016 L RBC Morphology Not Reportable Anisocytosis 2+ H Sodium 141 Potassium 3.7 Chloride 109 H Carbon Dioxide 25 BUN 20 Creatinine 0.90 Estimated GFR > 60.0 BUN/Creatinine Ratio 22.2 H Glucose 129 H Calcium 8.5 Assessment & Plan Assessment & Plan narrative: 1. Acute diarrhea/high output ileostomy -likely due to chemotherapy for colon cancer or progression of high-output ileostomy syndrome -GI panel negative. C diff is negative. -Continue diet as tolerated. -Continue imodium SCHEDULED and increase dose to 24 mg q.i.d.. Doses as high as 100 mg q.i.d. have been reported to control these symptoms. Continue somatostatin 100 mcg subcutaneous every 8 hrs. Titrate off somatostatin as possible. -Continue IV fluids at 100 mL/hr and give intermittent NS boluses for hypotension. -Dr. Reyes, oncology, is aware of patient's condition. Recommends Imodium/Somatostatin. -Will change Imodium to scheduled 24 mg q.i.d. as it has not been been effective at standard doses. 2. Acute Macrocytic Anemia -Likely due to dilutional vs chemotherapy induced (patient is on 5FU) -Hb 9.0 after 2U transfusion -Continue to monitor -B12 levels at the bottom low-normal, therefore will start B12 supplementation and stop Folate 3. Paroxysmal atrial fibrillation -Resolved -After further review of telemetry it is unclear whether he has truly ever been in atrial fibrillation rather it appears to be SVT. -Echocardiogram demonstrated preserved systolic function with EF of 45-50% with global hypokinesis, RV is mildly dilated with normal RV function and mild MAC. -Will discuss at least aspirin to help prevent VTE. 4. Acute Klebsiella oxytoca urinary tract infection, present on admission. -Resolving. -Urine culture positive for Klebsiella oxytoca resistant to ampicillin. -Switched ceftriaxone to oral antibiotic with cefuroxime 500 mg twice daily for 7 days total and probiotic 5. Hypertension, chronic, present on admission. -Stable. -Not medically treated. 6. Hyperlipdiemia, chronic, present on admission. -Stable. -Not medically treated. 7. History of prostate cancer -status post prostatectomy. -Patient is thought to be in remission. 8. Urinary retention -Continue tamsulosin 0.4 mg daily. Dispo: Continue to PO antibiotic to treat UTI, as well as increasing imodium and somatostatin for diarrhea/high output ileostomy, and NS boluses for orthostatic hypotension. Quality VTE Deep Vein Thrombosis/Pulmonary Embolism Present on Admission: No
--- NOTE | 2018-05-25 11:15 | PT.IPTN ---
Current Diagnoses Acute kidney failure, unspecified (05/21/18) Physical Therapy Treatment Note M2 PT-IP Current Condition Start: 05/20/18 10:42 Freq: NEEDED Status: Active Protocol: Document 05/22/18 12:00 HH (Rec: 05/22/18 13:12 [email or web address]) Physical Therapy Current Condition Current Condition Evaluation Date 05/22/18 Treatment Diagnosis Intractable diarrhea, UTI, acute dehydation, OHTN, impairment mobility Onset Date 05/20/18 Weight Bearing Status Weight Bearing Status Weight Bear as Tolerated M3 PT-IP Subjective Start: 05/20/18 10:42 Freq: NEEDED Status: Active Protocol: Document 05/25/18 11:15 GGD (Rec: 05/25/18 12:41 GGD [email or web address]) Subjective Physical Therapy Visit Type Type Treatment Note Visit Start Time 11:00 Visit Stop Time 11:15 Total Visit Minutes 15 Number of INTERFACE ANALYST Visits 2 Physical Therapy Visit Comments Patient Comments Pt states he improving. M4 PT-IP Mobility and Gait Start: 05/20/18 10:42 Freq: NEEDED Status: Active Protocol: Document 05/25/18 11:15 GGD (Rec: 05/25/18 12:41 GGD [email or web address]) PT-Transfer Assessment Sit to and From Stand Sit to and from Stand Standby Assistance Use of Upper Extremities Equipment Transfer Assistive Device Bed Rail Gait Belt Transfers Transfer Destination Chair Transfer Ability Level of Assist Contact Guard Assistance Comments Mobility Comments BP sitting before activity 148 /92, after activity 149/71 Gait Assessment Gait Gait Assistance Required: Standby Assistance Distance (Feet) 220 Assistive Devices Assistive Device None Gait Belt Orthotic/Prosthetic Devices or Brace: No Factors Limiting Gait Function Factors Limiting Gait Function Decreased Activity Tolerance Decreased Strength Stair Climbing Assessment Evaluation Level of Assist On Stairs Contact Guard Assistance Devices Stair Climbing Assistive Devices Right Railing Technique/Endurance Stair Climbing Direction Ascend and Descend Stair Climbing Technique Step to Step Number of Steps Climbed 3 Query Text: Stair Climbing Set # Repetitions (reps) 1 M5 PT-IP Objective Assessments Start: 05/20/18 10:42 Freq: NEEDED Status: Active Protocol: Document 05/22/18 12:00 HH (Rec: 05/22/18 13:12 [email or web address]) Orientation Orientation/Cognition Level of Alertness Alert Orientation Name Age Birthday Month Date Year Day of Week Place Situation Language Function Ability No Deficits Noted Safety Awareness Understands Safety Issues Memory Description No Deficits Noted Gross Range of Motion Upper Extremity ROM Assessment Within Functional Limits Lower Extremity ROM Assessment Within Functional Limits Strength Upper Extremity Strength Assessment Within Functional Limits Lower Extremity Strength Assessment Within Functional Limits Coordination Assessment Gross Coordination Gross Coordination WNL Sensation Assessment Sensation Gross Sensation WNL Muscle Tone Muscle Tone WNL Yes M6 PT-IP Treatment Start: 05/20/18 10:42 Freq: NEEDED Status: Active Protocol: Document 05/22/18 12:00 HH (Rec: 05/22/18 13:12 HH [email or web address]) Physical Therapy Treatment Exercises Exercises Ankle Pumps Gluteal Sets Quad Sets Heel Slides Education Education Provided Safety M7 PT-IP Assessment and Plan Start: 05/20/18 10:42 Freq: NEEDED Status: Active Protocol: Document 05/25/18 11:15 GGD (Rec: 05/25/18 12:41 GGD [email or web address]) PT Summary Assessment and Plan Summary Assessment Summary Pt improving with mobility. He is safe and stable with gait and stairs. He had stable BP with mobility. His is at base line with mobility and no skilled PT is needed at this time. Frequency of Treatment Frequency Of Treatment Discharge Discharge Recommendations PT Discharge Recommendations Home with Assistance
[2018-05-25] MEDS: LOPERAMIDE 2 MG CAPSULE 24 MG PO ×3 (11:56→20:42)
--- NOTE | 2018-05-25 16:00 | OT.IP.TRT ---
Current Diagnoses Acute kidney failure, unspecified (05/21/18) Occupational Therapy Treatment Note M2 OT-IP Current Condition Start: 05/20/18 15:47 Freq: Status: Active Protocol: Document 05/22/18 14:00 [facility] (Rec: 05/22/18 15:56 [facility] [email or web address]) Occupational Therapy Current Condition Current Condition Evaluation Date 05/22/18 Treatment Diagnosis Dehydration Diagnosis Onset Date 05/18/18 M3 OT- IP Subjective and Pain Start: 05/20/18 15:47 Freq: Status: Active Protocol: Document 05/25/18 16:00 PJM (Rec: 05/25/18 17:58 PJM [email or web address]) OT- Subjective Occupational Therapy Visit Type Type Administrative Note Visit Start Time 14:00 Notes Checked in with pt/ and they feel no further OT services are needed. Pt known to this therapist from previous admit and they are familiar with adapted ADLS and energy conservation/pacing techniques. Supportive and family can assist pt PRN
--- NOTE | 2018-05-25 19:12 | PC.NURSE ---
Addendum entered by Josefina Joaquin R.N. 05/25/18 20:26: No further reports of afib per DEPARTMENT SUPERVISOR (s). Informed by same pt has had four such episodes during this admission. This abstract writer reviewed physician prog notes and see this was addressed in H&P by NICK Marrero. Original Note: Pt sitting at edge of bed requesting staff assist with emptying of ileostomy. Emptied of 725 cc's light brown/magalys colored watery stool with fine particulate matter. DEPARTMENT SUPERVISOR Kallie/Shayy notify this abstract writer pt had brief burst of afib with rate as high as 200, but not sustained for any length of time. Pt is awake, alert, conversant and without any stated complaints at this time. Heartrate currently 77. Tele in place and will continue to monitor and observe pt. Orthostatic vital signs as entered.
[2018-05-26] VITALS (11 sets, daily range): BP systolic 101–157; BP diastolic 53–79; PULSE 51–86; RESP 14–18; TEMP 36.4–36.9; O2SAT 99–100
[2018-05-26] MEDS: SODIUM CHLORIDE 0.9% 1,000 ML 100 ML IV ×3 (02:46→20:54)
[2018-05-26] MEDS: OCTREOTIDE 100 MCG/ML VIAL SUBCUT (02:47)
--- NOTE | 2018-05-26 05:53 | PC.NURSE ---
Slept well in between cares. No c/o pain this shift.
[2018-05-26] MEDS: ENOXAPARIN 40 MG/0.4 ML SYRINGE SUBCUT (08:21)
[2018-05-26] MEDS: CYANOCOBALAMIN (VITAMIN B-12) 500 MCG TABLET 1000 MCG PO (08:22)
[2018-05-26] MEDS: LOPERAMIDE 2 MG CAPSULE 24 MG PO ×4 (08:22→20:38)
[2018-05-26] MEDS: TAMSULOSIN 0.4 MG CAPSULE PO (08:23)
[2018-05-26] MEDS: OCTREOTIDE 100 MCG/ML VIAL 200 MCG SUBCUT ×3 (08:58→20:38)
--- NOTE | 2018-05-26 09:43 | PC.NURSE ---
Addendum entered by Shaun Solomon R.N. 05/26/18 14:11: Pt feels progress is being made. Emptied pouch twice today, last being 700 cc's. Pt feels there is more particulate matter today. Pt appears more energetic. attentive at bedside. Original Note: Addendum entered by Shaun Solomon R.N. 05/26/18 10:52: Family present at bedside. Pt more animated today stating he feels much better today. Original Note: Pt a&o offers no overt c/o pain. Concerned about appliance. Pt will be here again tomorrow. I am leaving a message for Kimberly CHOU in wound clinic as Pt would like her to see stoma and appliance. Appliance is intact presently. Pt up in room, released from PT. [place] activity.
--- NOTE | 2018-05-26 10:17 | CM.DPC ---
DCP Cont: Discussed patient at team rounds. Hospitalist, Dr. Duke, stated that patient continues to improve. Is ambulating with no difficulties, UtI is resolved, and they have been able to control his bowel movements with medication. It will be questionable if patient needs to go home with injections, for he has been getting them here. May have some medication changes at discharge. P: DCP to continue to follow. Could go home today or tomorrow. Helga Penaloza RN/Certified Pesticide Applicator
--- NOTE | 2018-05-26 11:09 | P.PN_ITS ---
Subjective Date Patient Seen: 05/26/18 Time Patient Seen: 11:09 Interval history: He is seen today to follow-up the high output ileostomy, atrial fibrillation, hypertension, colon cancer. He is much happier. He has seen good changes in the amount of fluid output, noting that there are now solids in the ileostomy bag and even his urine output has increased. His input was 4675 yesterday with an output of 7525. 6700 of that was stool and 625 of that was urine. His weight has dropped by 0.9 kg since yesterday. Exam Vital Signs (past 8 hours): - 05/26/18 05:00 05/26/18 07:00 05/26/18 07:45 Temperature 97.7 F Pulse Rate 51 L Pulse Rate [Orthostatic Lying] 61 Pulse Rate [Orthostatic Sitting] 74 Pulse Rate [Orthostatic Standing] 84 Respiratory Rate 18 Blood Pressure 149/67 H Blood Pressure [Orthostatic Lying] 138/53 L Blood Pressure [Orthostatic Sitting] 128/62 Blood Pressure [Orthostatic Standing] 108/64 Pulse Oximetry 100 99 05/26/18 08:55 Temperature 97.6 F Pulse Rate 84 Pulse Rate [Orthostatic Lying] Pulse Rate [Orthostatic Sitting] Pulse Rate [Orthostatic Standing] Respiratory Rate 18 Blood Pressure 108/64 Blood Pressure [Orthostatic Lying] Blood Pressure [Orthostatic Sitting] Blood Pressure [Orthostatic Standing] Pulse Oximetry 99 Fraction of Inspired Oxygen 21 Oxygen Delivery Method Room Air Oxygen Flow Rate 0 Narrative Exam Narrative: He is alert and oriented x3. He is no longer upset today Heart is regular rate and rhythm without murmur. Lungs are clear to auscultation bilaterally. Extremities have no ankle edema. Abdomen is soft, bowel sounds much more active, no organomegaly. Ileostomy is in place. The amount of fluid in the bag has diminished greatly. Objective Labs Result Diagrams: 05/25/18 05:30 05/25/18 05:30 Assessment & Plan Assessment & Plan narrative: 1. Acute diarrhea/high output ileostomy -likely due to chemotherapy for colon cancer or progression of high-output ileostomy syndrome -GI panel negative. C diff is negative. -Continue diet as tolerated. -Continue imodium scheduled at 24 mg q.i.d. Doses as high as 100 mg q.i.d. have been reported in the literature to control this condition. Continue somatostatin subcutaneous every 8 hrs. Based on the input/output mismatch yesterday we have increased the Sandostatin to 200 mcg. That will likely need to be tapered and stopped before discharge. -Continue IV fluids at 100 mL/hr -Dr. Reyes, oncology, is aware of patient's condition. Recommends Imodium/Somatostatin. -with the 2 changes yesterday, of increased Imodium dosing and addition of Florastor instead of the other probiotic, his fluid output seems to be improving. 2. Acute Macrocytic Anemia -Likely due to dilutional vs chemotherapy induced (patient is on 5FU) -Hb 9.0 after 2U transfusion -Continue to monitor -B12 levels at the bottom low-normal so started B12 supplementation and stopped Folate 3. Paroxysmal atrial fibrillation -Resolved -After further review of telemetry it is unclear whether he has truly ever been in atrial fibrillation rather it appears to be SVT. -Echocardiogram demonstrated preserved systolic function with EF of 45-50% with global hypokinesis, RV is mildly dilated with normal RV function and mild MAC. -Will discuss at least aspirin to help prevent VTE. 4. Acute Klebsiella oxytoca urinary tract infection, present on admission. -completed full antibiotic course yesterday. 5. Hypertension, chronic, present on admission. -Stable. -Not medically treated. 6. Hyperlipdiemia, chronic, present on admission. -Stable. -Not medically treated. 7. History of prostate cancer -status post prostatectomy. -Patient is thought to be in remission. 8. Urinary retention -Continue tamsulosin 0.4 mg daily. Dispo: Home in 1-3 days based on ongoing improvements with somatostatin/high- dose Imodium and continued IV fluid needs. Quality VTE Deep Vein Thrombosis/Pulmonary Embolism Present on Admission: No
--- NOTE | 2018-05-26 21:57 | PC.NURSE ---
Implanted port needle changed 2030, pt. had output of 2190 total for the shift. 200 mcg octriotide given, pt is reporting that illeostomy drainage is getting to be more brown in color, and less liquid and has more particulate.
[2018-05-27] VITALS (7 sets, daily range): BP systolic 87–151; BP diastolic 47–74; PULSE 54–86; RESP 18; TEMP 36.3–36.4; O2SAT 97–100
[2018-05-27] MEDS: CYANOCOBALAMIN (VITAMIN B-12) 500 MCG TABLET 1000 MCG PO (09:04)
[2018-05-27] MEDS: ENOXAPARIN 40 MG/0.4 ML SYRINGE SUBCUT (09:04)
[2018-05-27] MEDS: TAMSULOSIN 0.4 MG CAPSULE PO (09:05)
[2018-05-27] MEDS: LOPERAMIDE 2 MG CAPSULE 24 MG PO ×2 (09:06→13:11)
[2018-05-27] MEDS: OCTREOTIDE 100 MCG/ML VIAL 200 MCG SUBCUT (09:30)
--- NOTE | 2018-05-27 13:33 | P.DS_ITS ---
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 Patient was seen in the ER yesterday at which time was evaluated for exacerbation post chemo diarrhea. The patient reports that he is on his 5th round of chemotherapy and a 2nd session with significant reduction in his CEA to 0.7 and has a typical diarrhea 2 days following treatment that lasts for 2 days. The patient indicates that this time the diarrhea is much more perfuse having to change his ileostomy bag multiple times with progressive weakness prompting him to present to the ER yesterday. He had been taking Imodium which has been his usual treatment of his diarrhea symptoms. On ER evaluation he was found to be dehydrated and hypokalemic and was discharged to home following repletion of potassium and rehydration and able tolerate oral fluids. While in the ER yesterday the patient had a GI PCR completed which was negative for GI infection including C difficile. He did have a urine sample that was sent for culture which demonstrates gram-negative bacilli with susceptibilities to follow. Today the patient had ongoing diarrhea and had episode of nausea and vomiting. He reports becoming severely orthostatic stating that when he sat up be felt he was going to pass out prompting to return to the ER today. Patient denies complaints of pain only that of malaise and fatigue with marked orthostatic dizziness. The patient denies syncopal episode, falls or injury. Reports no complaints of headache or visual changes, head congestion or sore throat. He has had a history of chest pain associated with activity and relieved with rest, his last episode was a couple of months ago. He has been prescribed nitroglycerin which he has not used. He denies palpitations, shortness of breath or cough. He denies abdominal pain. He does have left leg swelling following prostatectomy. He has been able to keep down Ensure and drinking Coca -Cola. He reports urinating every 2-1/2 hours otherwise he has urinary leakage and is taking tamsulosin daily Patient presented tonight to the ER at 9:33 p.m. at which time was found to be afebrile with temperature of 98.7? has a BP of 123/71, heart rate of 92, respirations of 18 and 100% oxygen saturation on room air. Did have lab work repeated which showed a white count of 3.1, hemoglobin of 9.9 and a hematocrit of 27.6. His sodium and potassium within normal range and he has a BUN of 45 a nd a creatinine of 1.5 up from 1.2. His BUN creatinine ratio is 30-1. He has is his serum glucose of 147. At this time the patient is admitted to the hospital for intractable diarrhea post chemotherapy, UTI that has not been treated and acute dehydration. Discharge Providers Date of admission: 05/21/18 17:16 Discharge Date: 05/27/18 Primary care physician: Silvia Florentino MD Consults: 05/19/18 01:17 Consult to Dietitian, Adult Routine Comment: Reason For Exam: exacerbation of chemo induced diarrhea, ileostomy Consult to Discharge Planning Routine Comment: Consult to Pastoral Services Routine Comment: Per patient request 05/19/18 14:27 Consult to Dietitian, Adult Routine Comment: Reason For Exam: current cancer treatment, ileostomy, prevent dehyd 05/20/18 10:14 Consult to Occupational Therapy Evaluate & Treat Comment: Physician Instructions: Evaluate and treat Consult to Physical Therapy Evaluate & Treat Comment: Physician Instructions: Evaluate and Treat 05/21/18 09:21 Consult to Wound Care Routine Comment: ileostomy peristomal skin raw, education Consulting Provider: [facility] Discharge provider: Parag Kuo MD Summary Discharge Diagnosis: 1. Chemotherapy associated diarrhea 2. Klebsiella urinary tract infection present on admission 3. Anemia due to chemotherapy 4. Supraventricular tachycardia 5. Acute renal injury, pre renal Hospital Course: Patient admitted due to uncontrolled severe diarrhea which started 4 days after his last chemotherapy. He was dehydrated and in mild acute renal failure. He got treated with IV fluids and Imodium 24 mg 4 times daily and octreotide 200 mcg every 8 hr. He is also on probiotic therapy with Florastor. Since yesterday his ileostomy output has greatly reduced and he is getting some formed stools in his ostomy. Patient feels his GI status is back to baseline. He also did grow Klebsiella in urine cultures and completed antibiotic course. He got transfused 2 units for chemotherapy associated anem ia. There was question of heart arrhythmia, more likely SVT than AFib, and currently in sinus rhythm. He had echo which showed global LV hypokinesis, LVEF 45-50%, mild MAC but no significant valvular abnormality. Patient is discharged home to follow up with Oncology. Exam Vital Signs (past 8 hours): - 05/27/18 06:00 05/27/18 07:20 05/27/18 07:47 Temperature 97.3 F L Pulse Rate 54 L Pulse Rate [Orthostatic Lying] 56 L Pulse Rate [Orthostatic Sitting] 71 Pulse Rate [Orthostatic Standing] 86 Respiratory Rate 18 Blood Pressure 126/66 Blood Pressure [Orthostatic Lying] 151/65 H Blood Pressure [Orthostatic Sitting] 122/61 Blood Pressure [Orthostatic Standing] 109/52 L Pulse Oximetry 100 97 05/27/18 09:15 05/27/18 11:45 Temperature 97.5 F L Pulse Rate 58 L Pulse Rate [Orthostatic Lying] 57 L Pulse Rate [Orthostatic Sitting] 66 Pulse Rate [Orthostatic Standing] 82 Respiratory Rate 18 Blood Pressure 143/74 H Blood Pressure [Orthostatic Lying] 141/67 H Blood Pressure [Orthostatic Sitting] 114/65 Blood Pressure [Orthostatic Standing] 87/47 L Pulse Oximetry 100 Fraction of Inspired Oxygen 21 Oxygen Delivery Method Room Air Oxygen Flow Rate 0 Objective Labs Result Diagrams: 05/25/18 05:30 05/25/18 05:30 Discharge Plan Discharge Plan Patient Disposition: Home Discharge Med Rec/Prescriptions Prescriptions: Continued potassium chloride 20 mEq tablet extended release 20 meq PO DAILY Qty: 2 RF: 0 tamsulosin 0.4 mg capsule 0.4 mg PO DAILY RF: 0 nitroglycerin 0.4 mg tablet, sublingual 1 tab Sublingual PRN PRN (Reason: Chest Pain) RF: 0 Follow up/Referrals: Silvia Florentino MD [Primary Care Provider] - Provider Discharge Instructions Diet: Diet as Tolerated Discharge Data Primary Care Provider: Silvia Florentino Attending Provider: Cody Marrero Admit Date/Time: 05/21/18 17:16 Quality VTE Deep Vein Thrombosis/Pulmonary Embolism Present on Admission: No
--- NOTE | 2018-05-27 14:09 | PC.NURSE ---
Addendum entered by Rhiannon Hayes R.N. 05/27/18 14:23: Off unit at approx 1425 Original Note: Day shift: Pt was asked if you would like any information about his current stay and he declined. Pt left unit at approx 1430 in WC with his spouse to private car. Port removed and covered with 2x2 and tegaderm. He tolerated that well. Has meds from pharmacy and all personal belongings. Esther signed and all questions answered.
== END 2018-05-27 14:23 | disposition home or self-care (01) | DRG 393 ==
LOC: ED 23:44 → AC 05-19 10:59
PROVIDERS: Internal Medicine; Admitting Provider Nurse Practitioner Adult Health; Emergency Provider Emergency Medicine; Family Provider Internal Medicine; PCP Internal Medicine; Visit Provider Nurse Practitioner Adult Health
DX: K52.1 Toxic gastroenteritis and colitis (principal); E43 Unspecified severe protein-calorie malnutrition; N17.9 Acute kidney failure, unspecified; C18.9 Malignant neoplasm of colon, unspecified; C78.7 Secondary malignant neoplasm of liver and intrahepatic bile duct; N39.0 Urinary tract infection, site not specified; T45.1X5A Adverse effect of antineoplastic and immunosuppressive drugs, initial encounter; E86.9 Volume depletion, unspecified; I48.0 Paroxysmal atrial fibrillation; Z93.2 Ileostomy status; B96.1 Klebsiella pneumoniae [K. pneumoniae] as the cause of diseases classified elsewhere; Z68.21 Body mass index [BMI] 21.0-21.9, adult; D53.9 Nutritional anemia, unspecified
CPT/HCPCS: 36415; 36430; 36591; 51798; 74022; 80048; 80053; 82607; 82746; 83735; 84145; 84443; 84484; 85025; 86644; 86850; 86900; 86901; 93005; 93010; 93306; 94760; 94762; 96360; 96361; 97116; 97162; 97166; 97530; 97535; 99283; 99284; G0378; P9016; J0692; J1642; J1650; J2354; J2405; J3480

== ENCOUNTER → 2018-06-05 09:38 | Outpatient (CLI) | payer OTHER, SELFPAY ==
[2018-05-19 00:51] VITALS: BMI 23.6
--- NOTE | 2018-06-05 09:56 | DI.CT.S_ITS ---
PROCEDURE: CT CHEST ABD PEL W CON INDICATIONS: Restaging Colon cancer TECHNIQUE: After the administration of oral and intravenous contrast, 5 mm thick sections acquired from the lung apices to the symphysis. 5 mm coronal and sagittal reformats were performed, with additional 7 mm coronal MIP reformats through the lungs. For radiation dose reduction, the following was used: automated exposure control, adjustment of mA and/or kV according to patient size. COMPARISON: [facility], CT, CHEST/ABD/PEL WITH CONTRAST, 08/10/2016, 9:09. [facility], CT, CT ABDOMEN PELVIS W CON, 12/26/2017, 14:28. [facility], CT, CT ABDOMEN PELVIS W CON, 11/22/2017, 15:18. [facility], CT, CT CHEST ABD PEL W CON, 01/29/2018, 13:56. FINDINGS: Image quality: Excellent. CHEST: Lungs and pleura: No acute airspace opacities. No pleural effusions or pneumothorax. Central and peripheral airways appear patent and normal in caliber. 4 mm nodular opacity in the posterior segment right upper lobe is stable. Reference current image 19/3 no new or increasing pulmonary nodules. Mediastinum: Heart size is normal. No pericardial effusion. No mediastinal or hilar adenopathy by size criteria. Thoracic aorta and central pulmonary arteries are normal in size. Esophagus is normal in caliber. No hiatal hernia. Chest wall: No axillary or supraclavicular adenopathy by size criteria. Thyroid gland is unremarkable. ABDOMEN: Solid organs: Anterior segment right lobe liver mass has decreased in size from the most recent previous study, decreasing from 2.5 cm to 2.1 cm. It is also less conspicuous. There is a second liver lesion present in the posterior segment of the right lobe which has also decreased in size. It previously measured approximately 0.8 cm on the 02/08/18 study. It now measures approximately 0.3 cm. It was not present on the initial study, and is consistent with a second metastatic lesion which is also decreasing in size. No new or increasing liver lesions. The Gallbladder is unremarkable. Biliary system is non dilated. Pancreas enhances normally. Spleen is normal in size and enhancement. No adrenal nodules. Kidneys demonstrate normal size and enhancement, without hydronephrosis. Peritoneum and bowel: There are findings which suggest possible peritoneal carcinomatosis, which appears to have improved since the most recent prior study. Reference image 79/2 of the January 2018 study and current image 82/2. . Also compare previous image 101/2 and current images 103 and 104/2. Colostomy again noted. Presacral thickening is not significantly changed. Nodes and vessels: No retroperitoneal or mesenteric adenopathy by size criteria. Aorta and inferior vena cava are normal in size. Miscellaneous: No ventral hernias. PELVIS: Genitourinary: Bladder wall thickness is normal. Miscellaneous: No inguinal hernias or adenopathy. Bones: No suspicious bony lesions. No vertebral body compression fractures. IMPRESSION: 1. Definite interval response to treatment. There apparently were 2 liver lesions on the most recent previous CT 2. The anterior segment right lobe liver lesion has definitely decreased in size from 2.5 to 2.1 cm. There is also a very subtle, small posterior segment right lobe liver lesion which has decreased in size from 0.8 to 0.3 cm. 3. There is also a question of subtle peritoneal implant disease, which appears to have decreased in size. 4. Stable 4 mm nodular opacity in the right upper lobe. 5. No new or increasing lesions. Dictated by: Ayo Kirby M.D. on 06/05/2018 at 11:34 Approved by: Ayo Kirby M.D. on 06/05/2018 at 12:29
== END ==
PROVIDERS: Family Provider Internal Medicine; PCP Internal Medicine
DX: C18.9 Malignant neoplasm of colon, unspecified (principal); K76.9 Liver disease, unspecified; R91.1 Solitary pulmonary nodule
CPT/HCPCS: 71260; 74177; Q9967

== ENCOUNTER → 2018-09-11 10:30 | Outpatient (CLI) | payer OTHER, SELFPAY ==
[2018-05-19 00:51] VITALS: BMI 23.6
--- NOTE | 2018-09-11 10:36 | DI.CT.S_ITS ---
PROCEDURE: CT CHEST ABD PEL W CON INDICATIONS: Re staginig colon cancer TECHNIQUE: After the administration of oral and intravenous contrast, 5 mm thick sections acquired from the lung apices to the symphysis. 5 mm coronal and sagittal reformats were performed, with additional 7 mm coronal MIP reformats through the lungs. For radiation dose reduction, the following was used: automated exposure control, adjustment of mA and/or kV according to patient size. COMPARISON: [facility], CT, CT CHEST ABD PEL W CON, 06/05/2018, 10:54. FINDINGS: Image quality: Excellent. CHEST: Lungs and pleura: 3.2 x 2.6 cm area of groundglass opacity is seen involving anterior lateral aspect of right lower lobe posterior to right major fissure extending to lateral pleura. No other air space opacity is seen. Stable 4 mm nodular density in posterior lateral aspect of right upper lobe is unchanged series 3 image 21. No new pulmonary nodule or mass is noted. No pleural effusions or pneumothorax. Central and peripheral airways appear patent and normal in caliber. Mediastinum: Heart size is normal. No pericardial effusion. No mediastinal or hilar adenopathy by size criteria. Thoracic aorta and central pulmonary arteries are normal in size. Esophagus is normal in caliber. No hiatal hernia. Chest wall: Left chest wall Port-A-Cath tip is in SVC. No axillary or supraclavicular adenopathy by size criteria. Thyroid gland is within normal limits. ABDOMEN: Solid organs: Numerous hypodense lesions are seen scattered in left and right hepatic lobes and measures up to 4.3 x 4.2 cm in anterior segment of right hepatic lobe. This has significantly increased in size and number compared to previous study and is consistent with worsening liver metastases. Gallbladder is within normal limits. Biliary system is non dilated. Pancreas enhances normally. Spleen is normal in size and enhancement. No adrenal nodules. Kidneys demonstrate normal size and enhancement, without hydronephrosis. Peritoneum and bowel: There is a small hiatal hernia.. Post surgical changes in lower sigmoid/rectal region is seen. Appendix is visualized and is within normal limits. A right-sided colostomy is seen. No evidence of bowel obstruction. No free fluid or free air. There is interval slight increase in soft tissue density scattered in peritoneal space measures up to 7 x 4 mm in size in left anterior peritoneal space series 2 image 82 and 8 mm in size deep to the umbilicus series 2 image 89. Finding is suggestive of worsening peritoneal carcinomatosis. Nodes and vessels: No retroperitoneal or mesenteric adenopathy by size criteria. Aorta and inferior vena cava are normal in size. Miscellaneous: No ventral hernias. PELVIS: Genitourinary: Diffuse bladder wall thickening is seen, no discrete bladder wall mass is noted. Miscellaneous: No inguinal hernias or adenopathy. Bones: No suspicious bony lesions. No vertebral body compression fractures. Degenerative disc disease throughout lumbar spine and lower thoracic spine is seen. IMPRESSION: 1. Interval significant increase in size and numbers of patient's known liver metastatic lesions consistent with worsening liver metastasis. 2. Interval slight increase in number and size of patient's known peritoneal carcinomatosis. 3. No bowel obstruction. No free fluid or free air. 4. Ill-defined ground glass opacity area involving the lateral aspect of right lower lung field adjacent to right major fissure and may represent focal area of pneumonitis. Stable 4 mm right upper lobe nodule. No new pulmonary nodule is seen. Dictated by: Yehuda Freeman M.D. on 09/11/2018 at 14:36 Approved by: Yehuda Freeman M.D. on 09/11/2018 at 15:07
== END ==
PROVIDERS: PCP Family Medicine
DX: C18.9 Malignant neoplasm of colon, unspecified (principal); C78.7 Secondary malignant neoplasm of liver and intrahepatic bile duct; C78.6 Secondary malignant neoplasm of retroperitoneum and peritoneum; R91.1 Solitary pulmonary nodule; Z93.3 Colostomy status
CPT/HCPCS: 71260; 74177; Q9967

== ENCOUNTER → 2018-10-01 15:20 | Oncology outpatient (ONC) | payer OTHER, SELFPAY ==
[2018-01-02 16:22] VITALS: BP 102/63; PULSE 95; RESP 16; TEMP 36.8; O2SAT 96
--- NOTE | 2018-01-02 16:30 | ONC.CONS ---
History of Present Illness - Data of Consult Consult date: 01/02/18 Primary Care Provider: Silvia Florentino MD - Consult Narrative Narrative: Diagnosis: Colon cancer initially T3 N1, now metastatic Previous treatment: 1. Surgical resection in August 2016. History of present illness: Barry Murray is a 82 year old male who is referred for further evaluation of newly discovered recurrent colon cancer. He had a routine colonoscopy done in 2016 and was found to have a colon cancer. He underwent surgical resection in August. He was found to have 1 of 15 nodes with metastatic disease. There was no evidence of mismatch repair mutations. About 3 months later he had his colonoscopy me reversed. Over the last several months he has been battling C diff. In late October he developed increased abdominal pain with nausea and vomiting was found to have likely bowel obstruction. He was taken to the OR and found to have evidence of tumor studding throughout the abdomen. Biopsies did confirm recurrent colon cancer. He had a section of bowel resected and an ileostomy placed. When he left the hospital, he was able to eat and drink. For the 1st week or 10 days at home, he was able to go about many of his normal activities and was feeling good. He then developed recurrent lower abdominal pain. He was seen in the emergency room about a week ago. A CT scan done at that time did not show any evidence of obstruction. He did have an enlarging liver lesion noted. Over the last 4 days or so, he has been feeling worse. He has been taking oxycodone for pain but really not finding it particularly helpful. He has been unable to tolerate any solid food and minimal liquids. He has noted a lot of belching and nausea as well as abdominal pain. He denies any fevers or chills. He is not having any shortness of breath cough for chest pain. The patient and his family note that he has been feeling more depressed. He has been spending most of his days in bed and really even struggling to sit up. His past medical history is notable for colon cancers described above. He has a history of prostate cancer treated with prostatectomy and radiation. He has a history of hypertension and hyperlipidemia. He does have a history of C diff. He has no known drug allergies. He does take enalapril simvastatin. He has been using oxycodone recently. Social history he is . He does not smoke. Family history is notable for a sister and a son who had cancer. His father also had cancer. CC: Venancio Reyes MD Home Medications and Allergies Home Medications Medication Instructions Recorded Confirmed Type enalapril maleate 5 mg PO QDAY #0 07/25/16 12/26/17 History simvastatin 5 mg PO DAILY #0 07/25/16 12/26/17 History nitroglycerin 0.3 mg sublingual 0.3 mg SL Q5-15M PRN #10 tab 12/28/17 Rx tablet nitroglycerin 0.4 mg sublingual 0.4 mg SL Q5-15M PRN #10 tab 12/28/17 Rx tablet Allergies Allergy/AdvReac Type Severity Reaction Status Date / Time No Known Drug Allergies Allergy Verified 12/18/17 17:54 Medical History - Medical, Surgical, Family History Medical History: Medical History (Last Reviewed 12/19/17 @ 04:13 by Valdo Landis DO) C. difficile colitis Colon cancer Surgical History: Surgical History (Last Reviewed 12/19/17 @ 04:13 by Valdo Landis DO) History of colon resection - Social History Smoking Status: Former smoker Household Members: spouse Current Occupational Status: retired Review of Systems - Patient Self-Reported Symptoms SR Constitution: Weight loss/gain, Fatigue/Malaise SR ears, nose, mouth, throat issues: Ears ringing, Hoarseness SR respiratory issues: Mucous SR Cardiovascular issues: Chest pain, discomfort, tightness SR Skin issues: Dry skin, Skin rash or itching SR Gastrointestinal issues: Poor or no appetite, Change in bowel pattern, Nausea, Vomiting SR Genitourinary issues: Frequent urination, Incontinence SR Musculoskeletal issues: Muscle weakness, Cold hands or feet, Difficulty walking SR Neuro issues: Lightheaded/dizzy, Difficulty balancing SR Endocrine issues: Cold intolerance, Excessive urination Constitutional: weight loss, decreased activity level Gastrointestinal: change in appetite, indigestion, abdominal pain, nausea, vomiting Psychiatric: depression Exam Vital signs: Last Vital Signs Temp 98.3 F 01/02/18 16:22 Pulse 95 H 01/02/18 16:22 Resp 16 01/02/18 16:22 BP 102/63 01/02/18 16:22 Pulse Ox 96 01/02/18 16:22 - Constitutional positive mild distress, positive average body habitus - Routine HEENT Exam Head: Present: normocephalic, atraumatic Eye: Present: EOMI, PERRL. Absent: conjunctival icterus, scleral injection ENT: Present: mucous membranes moist, oropharynx clear - Routine Neck Exam Present: supple. Absent: lymphadenopathy, thyromegaly - Routine Respiratory Exam Present: Clear to auscultation bilaterally. Absent: rales, wheezes - Routine Cardiovascular Exam Present: RRR, S1, S2. Absent: murmur - Routine Abdominal Exam Present: soft, tenderness. Absent: rebound, organomegaly, mass Bowel sounds abdominal exam standard: hypoactive - Routine Extremities Exam Absent: cyanosis, clubbing, edema - Routine Skin Exam Present: intact. Absent: petechiae, rash - Routine Neurological Exam Present: alert, oriented X3 - Routine Psychiatric Exam Present: normal affect, normal thought process Results - Imaging CT scan - abdomen: image reviewed Additional studies: Procedures Bypass Ileum to Cutaneous, Open Approach (11/22/17) Bypass Sigmoid Colon to Cutaneous, Open Approach (09/13/16) Dilation of Bilateral Ureters with Intraluminal Device, Via Natural or Artificial Opening Endoscopic (09/13/16) Dilation of Bladder Neck, Via Natural or Artificial Opening Endoscopic (09/13/16) Excision of Rectum, Open Approach (09/13/16) Excision of Sigmoid Colon, Open Approach (11/22/16) Excision of Small Intestine, Open Approach (11/22/17) Insertion of Infusion Device into Superior Vena Cava, Percutaneous Approach (11/22/17) Inspection of Lower Intestinal Tract, Via Natural or Artificial Opening Endoscopic (09/13/16) Release Small Intestine, Open Approach (11/22/17) Repair Sigmoid Colon, Open Approach (11/22/16) Assessment and Plan (1) Cancer of sigmoid colon Problem details: 82-year-old man with a history of stage III colon cancer. He now has evidence of a recurrence with peritoneal involvement as well as an enlarging liver lesion. Today, he has quite a bit of abdominal pain and inability to eat or drink which suggested he may have a bowel obstruction. Will send him to the ER for further evaluation. It is likely that he will require IV fluids. Currently his performance status is inadequate to tolerate any chemotherapy. If he is able to improved to the point review eating and drinking reasonably well and able to increase his performance status, we may be able to consider chemotherapy with a goal of improving quality of life and improving survival. If his performance status remains marginal, we could put up consider 5 FU with leucovorin which would have a response rate of about 25% in improvement in median survival for about 6 months to 1 year. This should be fairly well tolerated. Side effects would include primarily nausea and vomiting diarrhea mouth sores and skin rash. Risk for alopecia in cytopenias should be fairly low. If he desires more aggressive therapy, irinotecan or oxaliplatin could be added to the regimen. In addition we could consider adding Avastin. This would boost response rate up to about 40% and median survival up to about 16-18 months but the cost of additional toxicity mostly in the forms of cytopenias risk for neuropathy nausea and vomiting. With Avastin therapy risk for thrombosis or bleeding complications. In addition hypertension or proteinuria could be seen. Currently, the patient does not feel well enough to withstand chemotherapy. If he is not able to get to the point where he is eating and drinking adequately, we might need to consider hospice therapy. Current visit: No Status: Acute
[2018-01-22 15:56] VITALS: BP 128/70; PULSE 83; RESP 17; TEMP 36.7; O2SAT 95
--- NOTE | 2018-01-22 16:29 | ONC.PN ---
PN -Subjective Interval history: Diagnosis: Colon cancer initially T3 N1, now metastatic Previous treatment: 1. Surgical resection in August 2016. Interval history: The patient is an 82-year-old man who was diagnosed with a stage III colon cancer last summer. He had a complicated recovery. He had prolonged C diff infection. More recently, he developed a bowel obstruction and underwent surgical exploration. 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 He was seen here initially about 3 weeks ago. At that time he was noted to have abdominal pain nausea vomiting weakness and fatigue. He was referred to the emergency room was found to have acute renal insufficiency due to obstruction. He had a catheter placed and was treated for a urinary tract infection. Since then, he has markedly improved. His appetite has returned to normal. He has been able to gain a few lb. He is not having any further nausea or vomiting. He does have a in ostomy which has been working well. No fevers chills or sweats. He did have his Perez catheter removed last week and is urinating without difficulty currently. He denies any shortness of breath or cough. He is not having any abdominal pain. Overall, he is markedly improved. - Patient Self-Reported Symptoms SR Constitution: Weight loss/gain SR ears, nose, mouth, throat issues: Ears ringing, Hoarseness SR respiratory issues: Mucous SR Cardiovascular issues: Chest pain, discomfort, tightness SR Skin issues: Dry skin, Skin rash or itching SR Gastrointestinal issues: Poor or no appetite SR Genitourinary issues: Frequent urination, Incontinence SR Musculoskeletal issues: Muscle weakness SR Neuro issues: Lightheaded/dizzy, Difficulty balancing SR Endocrine issues: Cold intolerance, Excessive urination Home Medications and Allergies Home Medications Medication Instructions Recorded Confirmed Type enalapril maleate 5 mg PO QDAY #0 07/25/16 01/22/18 History simvastatin 5 mg PO DAILY #0 07/25/16 01/22/18 History nitroglycerin 0.4 mg sublingual 0.4 mg SL Q5-15M PRN #10 tab 12/28/17 01/22/18 Rx tablet ondansetron 1 tab PO PRN PRN 01/02/18 01/22/18 History oxycodone 1 tab PO DIRECTED 01/02/18 01/22/18 History amoxicillin-pot clavulanate 1 tab PO BID #16 tab 01/04/18 01/22/18 Rx [Augmentin] tamsulosin [Flomax] 0.4 mg PO DAILY #30 cap 01/04/18 01/22/18 Rx capecitabine 2,000 mg PO BID 14 Days #112 tab 01/22/18 Rx Allergies Allergy/AdvReac Type Severity Reaction Status Date / Time No Known Drug Allergies Allergy Verified 12/18/17 17:54 Exam - Constitutional positive no acute distress, positive average body habitus - Routine HEENT Exam Head: Present: normocephalic, atraumatic Eye: Present: EOMI, PERRL. Absent: conjunctival icterus, scleral injection ENT: Present: mucous membranes moist, oropharynx clear - Routine Neck Exam Present: supple. Absent: lymphadenopathy, thyromegaly - Routine Respiratory Exam Present: Clear to auscultation bilaterally. Absent: rales, wheezes - Routine Cardiovascular Exam Present: RRR, S1, S2. Absent: murmur - Routine Abdominal Exam Present: soft, normoactive bowel sounds. Absent: organomegaly, mass Comments: He has a an ileostomy in the right lower quadrant that is functioning well. - Routine Extremities Exam Absent: cyanosis, clubbing, edema - Routine Back/Spine Exam Back/Spine: Absent: paraspinal tenderness, vertebral tenderness - Routine Skin Exam Present: intact. Absent: petechiae, rash - Routine Neurological Exam Present: alert, oriented X3 - Routine Psychiatric Exam Present: normal affect, normal thought process Results - Imaging Additional studies: Procedures Bypass Ileum to Cutaneous, Open Approach (11/22/17) Bypass Sigmoid Colon to Cutaneous, Open Approach (09/13/16) Dilation of Bilateral Ureters with Intraluminal Device, Via Natural or Artificial Opening Endoscopic (09/13/16) Dilation of Bladder Neck, Via Natural or Artificial Opening Endoscopic (09/13/16) Excision of Rectum, Open Approach (09/13/16) Excision of Sigmoid Colon, Open Approach (11/22/16) Excision of Small Intestine, Open Approach (11/22/17) Insertion of Infusion Device into Superior Vena Cava, Percutaneous Approach (11/22/17) Inspection of Lower Intestinal Tract, Via Natural or Artificial Opening Endoscopic (09/13/16) Release Small Intestine, Open Approach (11/22/17) Repair Sigmoid Colon, Open Approach (11/22/16) Assessment and Plan (1) Cancer of sigmoid colon Problem details: 82-year-old man with metastatic colon cancer as evidence by biopsy proven carcinomatosis. He also has an enlarging liver lesion by CT scan about a month ago. His performance status has improved and I think he would tolerate chemotherapy. I explained that the goal was to prolong survival and maintain or improve quality of life. Options would include single agent 5 FU with leucovorin or oral Xeloda as the least invasive. These would have the response rate of about 25% or so. Side effects would include mouth sores skin rash diarrhea and fatigue. That have a low risk for alopecia and cytopenias or nausea and vomiting. More aggressive option would include oxaliplatin or irinotecan with or without Avastin. This would potentially add toxicity but would boost response rate. After discussing the pros and cons with the patient, we will acted to start with oral Xeloda. He will start on a dose of 2000 mg b.i.d. for 14 days every 21 days. Given that his cancer is growing relatively rapidly and it has been about a month since his last CT, we will trying get him scheduled for new baseline scan. He will return to clinic in about 3 weeks for follow-up but sooner should any new symptoms arise. Current visit: No Status: Acute
[2018-01-29 13:34] LABS: BUN Creatinine Ratio 39.2 (6-22); Blood Urea Nitrogen 47 mg/dL (9-20)
--- NOTE | 2018-01-31 16:02 | PC.NURSE ---
Received a call from pts wanting results of his recent CT scan. I explained to her that as nurses, our scope of practice prohibited us from interpreting or reading results especially before the provider has reviewed them. 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 I did so at her request.
[2018-02-08 10:32] LABS: Add Manual Diff / Slide Review NO; Basophils Percent Auto 0.6 % (0-2); Eosinophils Percent Auto 1.2 % (2-4); Hematocrit 34.6 % (41-53); Hemoglobin 12.2 g/dL (13.5-17.5); Lymphocytes Percent Auto 10.8 % (25-40); Mean Corpuscular HGB Conc 35.3 % (30-36); Mean Corpuscular Hemoglobin 31.3 PG (26-34); Mean Corpuscular Volume 88.6 fL (80-100); Monocytes Percent Auto 8.6 % (3-14); Neutrophils Absolute Auto 4500 /uL (3000-5900); Neutrophils Percent Auto 78.8 % (50-75); Platelet Count 264 X10^3/uL (150-400); Red Blood Cell Count 3.91 X10^6/uL (4.5-5.9); Red Cell Distribution Width 15.6 % (11.6-14.8); White Blood Cell Count 5.7 X10^3/uL (4.5-11.0)
[2018-02-08 10:47] LABS: HEMOLYSIS < 15 (0-50)
[2018-02-08 10:54] LABS: Alanine Aminotransferase 27 IU/L (21-72); Albumin 4.2 g/dL (3.5-5.0); Albumin Globulin Ratio 1.6 (1.0-2.8); Alkaline Phosphatase 73 U/L (38-126); Aspartate Aminotransferase 31 IU/L (17-59); BUN Creatinine Ratio 27.5 (6-22); Bilirubin Total 0.9 mg/dL (0.2-1.3); Blood Urea Nitrogen 33 mg/dL (9-20); Calcium 9.5 mg/dL (8.4-10.2); Carbon Dioxide 23 mmol/L (22-32); Chloride 95 mmol/L (98-107); Globulin 2.7 g/dL (1.7-4.1); Glucose 126 mg/dL (80-110); Potassium 5.1 mmol/L (3.4-5.1); Sodium 131 mmol/L (137-145); Total Protein 6.9 g/dL (6.3-8.2)
[2018-02-08 11:36] LABS: Carcinoembryonic Antigen 9.6 ng/mL (0.1-3.0)
[2018-02-12 10:18] VITALS: BP 129/72; PULSE 81; RESP 18; TEMP 36.4; O2SAT 98
--- NOTE | 2018-02-12 12:52 | ONC.PN ---
PN -Subjective Interval history: Diagnosis: Colon cancer initially T3 N1, now metastatic Previous treatment: 1. Surgical resection in August 2016. 2. Metastatic disease treated with the Xeloda for about 2 days. Interval history: The patient is an 82-year-old man who was diagnosed with a stage III colon cancer last summer. He had a complicated recovery. He had prolonged C diff infection. More recently, he developed a bowel obstruction and underwent surgical exploration. 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 He started chemotherapy with Xeloda 1000 milligrams/meter squared about 3 weeks ago. Reports that after taking the medication for only 2 days, he noted extreme side effects. He had abdominal pain and diarrhea. He did note some blood in the stool. His appetite was poor. He had a lot of fatigue and weakness. He stopped the medication. Over the last week or 2, he has begun to feel better. Currently, he is not having any pain. His diarrhea has resolved. Appetite and energy level are improving almost daily. He is able to go about all of his normal activities. He denies any new aches or pains. No fever chills or sweats. He has not noted any adenopathy. He denies any other changes in his health. He does have an appointment later today with his surgeon to discuss colostomy takedown. - Patient Self-Reported Symptoms SR Constitution: Weight loss/gain SR ears, nose, mouth, throat issues: Ears ringing, Hoarseness SR respiratory issues: Mucous SR Cardiovascular issues: Chest pain, discomfort, tightness SR Skin issues: Dry skin, Skin rash or itching SR Gastrointestinal issues: Poor or no appetite SR Genitourinary issues: Frequent urination, Incontinence SR Musculoskeletal issues: Muscle weakness SR Neuro issues: Lightheaded/dizzy, Difficulty balancing SR Endocrine issues: Cold intolerance, Excessive urination Home Medications and Allergies Home Medications Medication Instructions Recorded Confirmed Type enalapril maleate 5 mg PO QDAY #0 07/25/16 01/22/18 History simvastatin 5 mg PO DAILY #0 07/25/16 01/22/18 History nitroglycerin 0.4 mg sublingual 0.4 mg SL Q5-15M PRN #10 tab 12/28/17 01/22/18 Rx tablet ondansetron 1 tab PO PRN PRN 01/02/18 01/22/18 History oxycodone 1 tab PO DIRECTED 01/02/18 01/22/18 History amoxicillin-pot clavulanate 1 tab PO BID #16 tab 01/04/18 01/22/18 Rx [Augmentin] tamsulosin [Flomax] 0.4 mg PO DAILY #30 cap 01/04/18 01/22/18 Rx Allergies Allergy/AdvReac Type Severity Reaction Status Date / Time No Known Drug Allergies Allergy Verified 12/18/17 17:54 Exam - Constitutional positive no acute distress, positive average body habitus - Routine HEENT Exam Head: Present: normocephalic, atraumatic Eye: Present: EOMI, PERRL. Absent: conjunctival icterus, scleral injection ENT: Present: mucous membranes moist, oropharynx clear - Routine Neck Exam Present: supple. Absent: lymphadenopathy, thyromegaly - Routine Respiratory Exam Present: Clear to auscultation bilaterally. Absent: rales, wheezes - Routine Cardiovascular Exam Present: RRR, S1, S2. Absent: murmur - Routine Abdominal Exam Present: soft, normoactive bowel sounds, wound. Absent: tenderness, organomegaly, mass Comments: His ostomy is in place and functioning well. - Routine Neurological Exam Present: alert, oriented X3 - Routine Psychiatric Exam Present: normal affect, normal thought process Results - Labs Laboratory Last Values WBC 5.7 X10^3/uL (4.5-11.0) 02/08/18 10:22 RBC 3.91 X10^6/uL (4.5-5.9) L 02/08/18 10:22 Hgb 12.2 g/dL (13.5-17.5) L 02/08/18 10:22 Hct 34.6 % (41-53) L 02/08/18 10:22 MCV 88.6 fL (80-100) 02/08/18 10:22 MCH 31.3 PG (26-34) 02/08/18 10:22 MCHC 35.3 % (30-36) 02/08/18 10:22 RDW 15.6 % (11.6-14.8) H 02/08/18 10:22 Plt Count 264 X10^3/uL (150-400) 02/08/18 10:22 Neut % (Auto) 78.8 % (50-75) H 02/08/18 10:22 Lymph % (Auto) 10.8 % (25-40) L 02/08/18 10:22 [place] % (Auto) 8.6 % (3-14) 02/08/18 10:22 Eos % (Auto) 1.2 % (2-4) L 02/08/18 10:22 Baso % (Auto) 0.6 % (0-2) 02/08/18 10:22 Neut # (Auto) 4500 /uL (0645-3809) 02/08/18 10:22 Sodium 131 mmol/L (137-145) L 02/08/18 10:22 Potassium 5.1 mmol/L (3.4-5.1) 02/08/18 10:22 Chloride 95 mmol/L (98-107) L 02/08/18 10:22 Carbon Dioxide 23 mmol/L (22-32) 02/08/18 10:22 BUN 33 mg/dL (9-20) H 02/08/18 10:22 Creatinine 1.20 mg/dL (0.66-1.25) 02/08/18 10:22 Estimated GFR 58.0 mL/min (>60) L 02/08/18 10:22 BUN/Creatinine Ratio 27.5 (6-22) H 02/08/18 10:22 Glucose 126 mg/dL (80-110) H 02/08/18 10:22 Calcium 9.5 mg/dL (8.4-10.2) 02/08/18 10:22 Total Bilirubin 0.9 mg/dL (0.2-1.3) 02/08/18 10:22 AST 31 IU/L (17-59) 02/08/18 10:22 ALT 27 IU/L (21-72) 02/08/18 10:22 Alkaline Phosphatase 73 U/L (38-126) 02/08/18 10:22 Total Protein 6.9 g/dL (6.3-8.2) 02/08/18 10:22 Albumin 4.2 g/dL (3.5-5.0) 02/08/18 10:22 Globulin 2.7 g/dL (1.7-4.1) 02/08/18 10:22 Albumin/Globulin Ratio 1.6 (1.0-2.8) 02/08/18 10:22 Carcinoembryonic Ag 9.6 ng/mL (0.1-3.0) H 02/08/18 10:22 - Imaging CT scan - abdomen: image reviewed CT scan - chest: image reviewed CT scan - pelvis: image reviewed (His vision has nearly doubled in size over about a 4-6 weeks span) Additional studies: Procedures Bypass Ileum to Cutaneous, Open Approach (11/22/17) Bypass Sigmoid Colon to Cutaneous, Open Approach (09/13/16) Dilation of Bilateral Ureters with Intraluminal Device, Via Natural or Artificial Opening Endoscopic (09/13/16) Dilation of Bladder Neck, Via Natural or Artificial Opening Endoscopic (09/13/16) Excision of Rectum, Open Approach (09/13/16) Excision of Sigmoid Colon, Open Approach (11/22/16) Excision of Small Intestine, Open Approach (11/22/17) Insertion of Infusion Device into Superior Vena Cava, Percutaneous Approach (11/22/17) Inspection of Lower Intestinal Tract, Via Natural or Artificial Opening Endoscopic (09/13/16) Release Small Intestine, Open Approach (11/22/17) Repair Sigmoid Colon, Open Approach (11/22/16) Assessment and Plan (1) Cancer of sigmoid colon Problem details: 82-year-old man with metastatic colon cancer as evidence by biopsy proven carcinomatosis. He also has an enlarging liver lesion. Unfortunately, he did not tolerate Xeloda. We discussed other options with him today I think we could perhaps consider intravenous 5 FU with leucovorin. He may tolerate this better than the oral formulation. On the other hand, side effects could be similar. I described an old [facility] schedule with 5 FU leucovorin given weekly bolus for 6 weeks in a row with 2 weeks off. I would be nervous about starting him on an infusional regimen given his prior side effects. A we also talked about the possibility of not pursuing chemotherapy. However, his cancer appears to be growing rapidly. Although he is not currently sick from it, I suspect that he would run into trouble before too long without treatment. He does wish to proceed with some therapy. I will plan on starting 5 FU and leucovorin next week. He will return to clinic in about 2-3 weeks for follow-up. 40 min was spent with the patient and his the majority in counseling. Current visit: No Status: Acute
--- NOTE | 2018-02-19 11:21 | P.CHEMO_ITS ---
Chemotherapy Counseling - History of present illness History of present illness: The patient is an 82-year-old male presenting today for chemotherapy counseling. He has a recently confirmed metastatic colon cancer. He was initially diagnosed stage III colon cancer last summer. Initially treated with xeloda unfortunately he had progression of disease. Additionally, it is noted he had a prolonged C difficile infection, bowel obstruction resulting in surgical exploration which identified carcinomatosis as well as liver metastases. Currently has a colostomy. The patient has consulted with Dr. Reyes plan is to move forward with 5 FU, leucovorin given weekly x6 weeks as per [place] protocol. After 6 weeks, 2 weeks off . This treatment will cont until there is disease progression of toxicities are severe - General New Chemotherapy Patient: Yes Treatment Plan Reviewed: yes - Chemotherapy Counseling Chemotherapy Counseling: Chemotherapy Education: Barry Murray provided written information on all topics discussed. Written materials printed from [email or web address] and www.[email or web address].org. Barry was given an overview of cancer and mechanism of action of cancer cells, that cancer is caused by cells that are dividing rapidly, and out of control. Traditional chemotherapy works by targeting the fast dividing cells and killing them. Chemotherapy affecting healthy cells dividing quickly causes many of the side effects (hair follicles, bone marrow, mucus membranes). Overview of blood cell functions of white cells to fight infection, red cells to carry oxygen, and platelets to stop bleeding was discussed, and that when bone marrow is affected by chemo, there is a decrease in production of these cells. Home care of the patient following chemotherapy was discussed. Body fluids will be contaminated for 48 hours following treatment, and any body fluids handled by caregivers should be handled wearing gloves, surfaces need to be cleaned with soap and water, any soiled linens or clothing need to be washed separately in hot water, toilet lid should be closed when flushing, person cleaning the toilet should wear gloves. How chemotherapy is administered by the RN?s in the clinic, that orders are double checked by pharmacy and checked again by two RN?s prior to administration. Nurses wear protective gear to prevent exposure to them of the chemotherapy agents which can also cause cancer. Cancer center information discussed and written hand out provided listing on- call oncologist available weekends and after hours triage R.N. hours and infusion room guide. New patient binder given to Barry, which includes clinic names, phone numbers, clinic information, calendar, cancer glossary, and list of resources. Handout on advanced directives Common side effects of chemotherapy were discussed with self care tips for prevention of complications. Information also provided in writing. These included: Low blood counts (anemia, thrombocytopenia, neutropenia) Hair loss (alopecia) Nausea and vomiting Decreased appetite Loss of fertility Diarrhea Mouth sores Constipation Peripheral neuropathy Chemo brain/cognitive changes Fatigue Instructions on when to call your healthcare team or on-call physician immediately: Fever of 100.4 or higher, chills, any signs of infection Shortness of breath, wheezing, difficulty breathing, closing of throat, swelling of face, hives (signs of possible allergic reaction) Chest pain, fast heart beat or feelings of a different heart rhythm Swelling of an extremity with or without pain signs of stroke Instructions on when to call your healthcare team within the next 24 hours Nausea that interferes with ability to eat and unrelieved with prescribed medication Diarrhea (4-6 episodes in 24 hour period). Unusual bleeding or bruising Black or tarry stools, or blood in your stools Blood in the urine pain or burning with urination Extreme fatigue (unable to perform self-care activities) Mouth sores or sore areas in your mouth Bad headache Dizziness or lightheadedness Large weight gain over a short period of time General self-care tips while undergoing treatment discussed were as follows. Written materials were provided covering in detail and additional self care tips. Drink at least 2-3 quarts (8-10 glasses) of no-caffeinated beverages daily unless you are instructed otherwise and empty your bladder frequently Report any concerning symptoms to your healthcare team Avoid crowds and sick people, wash your hands frequently Use a soft bristled toothbrush, rinse three times a day with 1 tsp baking soda or 1 tsp salt mixed with warm water Avoid any mouthwashes or oral and skin products containing alcohol or fragrances Use electric razors to avoid cutting yourself Avoid contact sports or activities that could cause head injury or bleeding Avoid sun exposure, wear SPF 15 or higher, wear protective clothing Get plenty of rest, meter your activities Maintain good nutrition Avoid alcoholic beverages Attend your scheduled appointments and lab draws Treatment regimen reviewed and medications were discussed with attention to specific side effects and self care for the pt?s treatment regimen which includes [5 FU, leucovorin]. Barry was provided with literature regarding [5 FU, leucovorin] and common side effects. Additionally, Barry was provided with literature regarding the diagnosis of [ metastatic colon cancer]. Barry instructed to read literature at home. Keep a list of questions which we are happy to go over at future visits. For any urgent questions please feel free to call any time. - Response to Teaching Response to Teaching: Reinforcement Needed - Referrals Referrals: [facility] (pt repeatedly reported i wont have any of those symptoms. I emphasized it is aggressive treatment)
[2018-02-19] MEDS: DEXAMETHASONE 10 MG/ML VIAL 8 MG IV (11:53)
[2018-02-19] MEDS: SODIUM CHLORIDE 0.9% 100 ML 20 ML IV (11:54)
[2018-02-19] MEDS: ONDANSETRON 8 MG in SODIUM CHLORIDE 0.9% 50 ML 216 ML IV (11:56)
[2018-02-19] MEDS: DEXTROSE 5% IV (12:36)
[2018-02-19] MEDS: LEUCOVORIN IV (12:36)
[2018-02-19] MEDS: FLUOROURACIL IV (13:42)
[2018-02-19] MEDS: ISOOSMOTIC VEHICLE IV (13:42)
[2018-02-26 09:17] LABS: Hematocrit 31.5 % (41-53); Hemoglobin 10.9 g/dL (13.5-17.5); Mean Corpuscular HGB Conc 34.5 % (30-36); Mean Corpuscular Hemoglobin 31.2 PG (26-34); Mean Corpuscular Volume 90.4 fL (80-100); Platelet Count 236 X10^3/uL (150-400); Red Blood Cell Count 3.49 X10^6/uL (4.5-5.9); Red Cell Distribution Width 15.6 % (11.6-14.8)
[2018-02-26 09:20] LABS: Add Manual Diff / Slide Review YES
[2018-02-26 09:29] VITALS: BP 118/71; PULSE 75; RESP 16; TEMP 36.8; O2SAT 100
[2018-02-26 09:32] LABS: Alanine Aminotransferase 23 IU/L (21-72); Albumin Globulin Ratio 1.4 (1.0-2.8); Alkaline Phosphatase 61 U/L (38-126); Aspartate Aminotransferase 22 IU/L (17-59); Bilirubin Total 0.7 mg/dL (0.2-1.3); Blood Urea Nitrogen 25 mg/dL (9-20); Calcium 9.4 mg/dL (8.4-10.2); Carbon Dioxide 26 mmol/L (22-32); Chloride 97 mmol/L (98-107); Estimated Glomerular Filt Rate > 60.0 mL/min (>60); Globulin 2.8 g/dL (1.7-4.1); Glucose 117 mg/dL (80-110); HEMOLYSIS < 15 (0-50); Potassium 4.9 mmol/L (3.4-5.1); Sodium 135 mmol/L (137-145); Total Protein 6.8 g/dL (6.3-8.2)
[2018-02-26 09:32] LABS: Magnesium 1.6 mg/dL (1.6-2.3)
[2018-02-26 09:55] LABS: Neutrophils Absolute Manual 4680 /uL (3000-5900); Total Cells Counted 100
[2018-02-26 09:56] LABS: RBC Morphology Normal Morphology
--- NOTE | 2018-02-26 10:01 | ONC.PN ---
PN -Subjective Interval history: Diagnosis: Colon cancer initially T3 N1, now metastatic Previous treatment: 1. Surgical resection in August 2016. 2. Metastatic disease treated with the Xeloda for about 2 days, stopping because of toxicity. 3. One dose of 5 FU and leucovorin on a weekly schedule Interval history: The patient is an 82-year-old man who was diagnosed with a stage III colon cancer last summer. He had a complicated recovery. He had prolonged C diff infection. More recently, he developed a bowel obstruction and underwent surgical exploration. 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 He did not tolerate Xeloda but did start on 5 FU using [place] schedule. He has just had 1 dose so far. He has been tolerating it with minimal difficulty. He has had some nausea that is been responding to oral antiemetics. He has not had any vomiting. His bowel movements have been unchanged. He does have some increased gas. No mouth sores or skin rash. He denies any pain. His appetite has been good and he has been able to gain a few lb. Strength and energy level have been good. He denies any other changes in his health. - Patient Self-Reported Symptoms SR Constitution: Weight loss/gain SR ears, nose, mouth, throat issues: Ears ringing, Hoarseness SR respiratory issues: Mucous SR Cardiovascular issues: Chest pain, discomfort, tightness SR Skin issues: Dry skin, Skin rash or itching SR Gastrointestinal issues: Poor or no appetite SR Genitourinary issues: Frequent urination, Incontinence SR Musculoskeletal issues: Muscle weakness SR Neuro issues: Lightheaded/dizzy, Difficulty balancing SR Endocrine issues: Cold intolerance, Excessive urination Home Medications and Allergies Home Medications Medication Instructions Recorded Confirmed Type enalapril maleate 5 mg PO QDAY #0 07/25/16 02/26/18 History simvastatin 5 mg PO DAILY #0 07/25/16 02/26/18 History nitroglycerin 0.4 mg sublingual 0.4 mg SL Q5-15M PRN #10 tab 12/28/17 02/26/18 Rx tablet oxycodone 1 tab PO DIRECTED 01/02/18 02/26/18 History amoxicillin-pot clavulanate 1 tab PO BID #16 tab 01/04/18 02/26/18 Rx [Augmentin] tamsulosin [Flomax] 0.4 mg PO DAILY #30 cap 01/04/18 02/26/18 Rx ondansetron 1 tab PO Q6HR PRN #30 tab 02/19/18 02/26/18 Rx Allergies Allergy/AdvReac Type Severity Reaction Status Date / Time No Known Drug Allergies Allergy Verified 12/18/17 17:54 Exam - Constitutional positive no acute distress, positive average body habitus - Routine HEENT Exam Head: Present: normocephalic, atraumatic Eye: Present: EOMI, PERRL. Absent: conjunctival icterus, scleral injection ENT: Present: mucous membranes moist, oropharynx clear - Routine Neck Exam Present: supple. Absent: lymphadenopathy, thyromegaly - Routine Respiratory Exam Present: Clear to auscultation bilaterally. Absent: rales, wheezes - Routine Cardiovascular Exam Present: RRR, S1, S2. Absent: murmur - Routine Abdominal Exam Present: soft, normoactive bowel sounds. Absent: tenderness, organomegaly, mass Comments: His colostomy is functioning well. - Routine Extremities Exam Absent: cyanosis, clubbing, edema - Routine Back/Spine Exam Back/Spine: Absent: paraspinal tenderness, vertebral tenderness - Routine Skin Exam Present: intact. Absent: petechiae, rash - Routine Neurological Exam Present: alert, oriented X3 Results - Labs Laboratory Last Values WBC 6.0 X10^3/uL (4.5-11.0) 02/26/18 09:04 RBC 3.49 X10^6/uL (4.5-5.9) L 02/26/18 09:04 Hgb 10.9 g/dL (13.5-17.5) L 02/26/18 09:04 Hct 31.5 % (41-53) L 02/26/18 09:04 MCV 90.4 fL (80-100) 02/26/18 09:04 MCH 31.2 PG (26-34) 02/26/18 09:04 MCHC 34.5 % (30-36) 02/26/18 09:04 RDW 15.6 % (11.6-14.8) H 02/26/18 09:04 Plt Count 236 X10^3/uL (150-400) 02/26/18 09:04 Neut % (Auto) Not Reportable 02/26/18 09:04 Lymph % (Auto) Not Reportable 02/26/18 09:04 [place] % (Auto) Not Reportable 02/26/18 09:04 Eos % (Auto) Not Reportable 02/26/18 09:04 Baso % (Auto) Not Reportable 02/26/18 09:04 Neut # (Auto) 4500 /uL (5503-4718) 02/08/18 10:22 Total Counted 100 02/26/18 09:04 Seg Neutrophils % 62.0 % (38-70) 02/26/18 09:04 Band Neutrophils % 16.0 % (3-7) H 02/26/18 09:04 Lymphocytes % (Manual) 7.0 % (25-45) L 02/26/18 09:04 Atypical Lymphs % 1.0 % (-0) H 02/26/18 09:04 Monocytes % (Manual) 7.0 % (2-11) 02/26/18 09:04 Eosinophils % (Manual) 2.0 % (2-4) 02/26/18 09:04 Basophils % (Manual) 3.0 % (0-1) H 02/26/18 09:04 Metamyelocytes % 2.0 % (-0) H 02/26/18 09:04 Neutrophils # (Manual) 4680 /uL (2108-8196) 02/26/18 09:04 RBC Morphology Normal morphology 02/26/18 09:04 Sodium 135 mmol/L (137-145) L 02/26/18 09:04 Potassium 4.9 mmol/L (3.4-5.1) 02/26/18 09:04 Chloride 97 mmol/L (98-107) L 02/26/18 09:04 Carbon Dioxide 26 mmol/L (22-32) 02/26/18 09:04 BUN 25 mg/dL (9-20) H 02/26/18 09:04 Creatinine 1.00 mg/dL (0.66-1.25) 02/26/18 09:04 Estimated GFR > 60.0 mL/min (>60) 02/26/18 09:04 BUN/Creatinine Ratio 25.0 (6-22) H 02/26/18 09:04 Glucose 117 mg/dL (80-110) H 02/26/18 09:04 Calcium 9.4 mg/dL (8.4-10.2) 02/26/18 09:04 Magnesium 1.6 mg/dL (1.6-2.3) 02/26/18 09:05 Total Bilirubin 0.7 mg/dL (0.2-1.3) 02/26/18 09:04 AST 22 IU/L (17-59) 02/26/18 09:04 ALT 23 IU/L (21-72) 02/26/18 09:04 Alkaline Phosphatase 61 U/L (38-126) 02/26/18 09:04 Total Protein 6.8 g/dL (6.3-8.2) 02/26/18 09:04 Albumin 4.0 g/dL (3.5-5.0) 02/26/18 09:04 Globulin 2.8 g/dL (1.7-4.1) 02/26/18 09:04 Albumin/Globulin Ratio 1.4 (1.0-2.8) 02/26/18 09:04 Carcinoembryonic Ag 9.6 ng/mL (0.1-3.0) H 02/08/18 10:22 - Imaging Additional studies: Procedures Bypass Ileum to Cutaneous, Open Approach (11/22/17) Bypass Sigmoid Colon to Cutaneous, Open Approach (09/13/16) Dilation of Bilateral Ureters with Intraluminal Device, Via Natural or Artificial Opening Endoscopic (09/13/16) Dilation of Bladder Neck, Via Natural or Artificial Opening Endoscopic (09/13/16) Excision of Rectum, Open Approach (09/13/16) Excision of Sigmoid Colon, Open Approach (11/22/16) Excision of Small Intestine, Open Approach (11/22/17) Insertion of Infusion Device into Superior Vena Cava, Percutaneous Approach (11/22/17) Inspection of Lower Intestinal Tract, Via Natural or Artificial Opening Endoscopic (09/13/16) Release Small Intestine, Open Approach (11/22/17) Repair Sigmoid Colon, Open Approach (11/22/16) Assessment and Plan (1) Cancer of sigmoid colon Problem details: 82-year-old man with metastatic colon cancer as evidence by biopsy proven carcinomatosis. He also has an enlarging liver lesion. Unfortunately, he did not tolerate Xeloda. He seems to be doing better with weekly 5 FU and leucovorin at least thus far. He will proceed with his 2nd dose today. He will continue with weekly treatment for a total of 6 weeks on with 2 weeks off. Return to clinic in about 2-3 weeks for follow-up. He will continue with antiemetics as needed. I would anticipate a CT scan after 2 full cycles of treatment but sooner if his CEA is rising or if he develops new symptoms. Current visit: No Status: Acute
[2018-02-26] MEDS: ONDANSETRON 8 MG in SODIUM CHLORIDE 0.9% 50 ML 216 ML IV (10:26)
[2018-02-26] MEDS: DEXAMETHASONE 10 MG/ML VIAL 8 MG IV (10:26)
[2018-02-26] MEDS: SODIUM CHLORIDE 0.9% 100 ML 20 ML IV (11:00)
[2018-02-26] MEDS: LEUCOVORIN IV (11:00)
[2018-02-26] MEDS: DEXTROSE 5% IV (11:00)
[2018-02-26] MEDS: FLUOROURACIL IV (12:05)
[2018-02-26] MEDS: ISOOSMOTIC VEHICLE IV (12:05)
[2018-03-05 09:10] VITALS: BP 112/64; PULSE 67; RESP 16; O2SAT 100
[2018-03-05 09:17] LABS: Add Manual Diff / Slide Review YES; Hematocrit 28.9 % (41-53); Hemoglobin 10.4 g/dL (13.5-17.5); Mean Corpuscular Hemoglobin 32.1 PG (26-34); Mean Corpuscular Volume 89.2 fL (80-100); Platelet Count 191 X10^3/uL (150-400); Red Blood Cell Count 3.24 X10^6/uL (4.5-5.9); Red Cell Distribution Width 15.8 % (11.6-14.8); White Blood Cell Count 5.6 X10^3/uL (4.5-11.0)
[2018-03-05 09:35] LABS: Neutrophils Absolute Manual 4256 /uL (3000-5900); Total Cells Counted 100
[2018-03-05 09:36] LABS: Macrocytosis 1+
[2018-03-05] MEDS: DEXAMETHASONE 10 MG/ML VIAL 8 MG IV (09:45)
[2018-03-05] MEDS: SODIUM CHLORIDE 0.9% 100 ML 20 ML IV (09:45)
[2018-03-05] MEDS: ONDANSETRON 8 MG in SODIUM CHLORIDE 0.9% 50 ML 216 ML IV (10:13)
[2018-03-05] MEDS: DEXTROSE 5% IV (11:08)
[2018-03-05] MEDS: LEUCOVORIN IV (11:08)
[2018-03-05] MEDS: FLUOROURACIL IV (12:05)
[2018-03-05] MEDS: ISOOSMOTIC VEHICLE IV (12:05)
[2018-03-12 08:55] LABS: Add Manual Diff / Slide Review YES; Hematocrit 27.1 % (41-53); Hemoglobin 9.5 g/dL (13.5-17.5); Mean Corpuscular HGB Conc 35.1 % (30-36); Mean Corpuscular Hemoglobin 32.2 PG (26-34); Mean Corpuscular Volume 91.6 fL (80-100); Platelet Count 193 X10^3/uL (150-400); Red Blood Cell Count 2.96 X10^6/uL (4.5-5.9); Red Cell Distribution Width 16.9 % (11.6-14.8); White Blood Cell Count 5.2 X10^3/uL (4.5-11.0)
[2018-03-12 09:03] LABS: Alanine Aminotransferase 30 IU/L (21-72); Albumin 3.8 g/dL (3.5-5.0); Albumin Globulin Ratio 1.5 (1.0-2.8); Alkaline Phosphatase 59 U/L (38-126); Aspartate Aminotransferase 24 IU/L (17-59); Blood Urea Nitrogen 20 mg/dL (9-20); Carbon Dioxide 25 mmol/L (22-32); Chloride 100 mmol/L (98-107); Estimated Glomerular Filt Rate > 60.0 mL/min (>60); Globulin 2.5 g/dL (1.7-4.1); Glucose 105 mg/dL (80-110); HEMOLYSIS < 15 (0-50); Potassium 4.7 mmol/L (3.4-5.1); Sodium 135 mmol/L (137-145); Total Protein 6.3 g/dL (6.3-8.2)
[2018-03-12 09:15] LABS: Anisocytosis 1+; Neutrophils Absolute Manual 3588 /uL (3000-5900); Total Cells Counted 100
[2018-03-12 09:19] VITALS: BP 121/68; PULSE 73; RESP 17; TEMP 36.7; O2SAT 100
[2018-03-12 09:34] LABS: Carcinoembryonic Antigen 6.8 ng/mL (0.1-3.0)
--- NOTE | 2018-03-12 09:42 | ONC.PN ---
PN -Subjective Interval history: Diagnosis: Colon cancer initially T3 N1, now metastatic Previous treatment: 1. Surgical resection in August 2016. 2. Metastatic disease treated with the Xeloda for about 2 days, stopping because of toxicity. 3. 3 doses of 5 FU and leucovorin on a weekly schedule Interval history: The patient is an 82-year-old man who was diagnosed with a stage III colon cancer last summer. He had a complicated recovery. He had prolonged C diff infection. More recently, he developed a bowel obstruction and underwent surgical exploration. 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 He did not tolerate Xeloda but did start on 5 FU using [place] schedule. He has completed 3 doses so far. He has been tolerating them reasonably well. He notes that he does have some diarrhea that lasts for a couple of days. He had 1 episode of nausea and vomiting. Otherwise, he has been feeling quite well. He is not having any skin rash. He has had a little bit sore in the mouth. Strength and energy level have been good. He denies any shortness of breath or cough. His appetite has been low but stable. He does have a little bit of irritation around his ileostomy when the diarrhea gets worse. He denies any other changes in his health. - Patient Self-Reported Symptoms SR Constitution: Weight loss/gain SR ears, nose, mouth, throat issues: Ears ringing, Hoarseness SR respiratory issues: Mucous SR Cardiovascular issues: Chest pain, discomfort, tightness SR Skin issues: Dry skin, Skin rash or itching SR Gastrointestinal issues: Diarrhea SR Genitourinary issues: Frequent urination, Incontinence SR Musculoskeletal issues: Muscle weakness SR Neuro issues: Lightheaded/dizzy, Difficulty balancing SR Endocrine issues: Cold intolerance, Excessive urination Home Medications and Allergies Home Medications Medication Instructions Recorded Confirmed Type enalapril maleate 5 mg PO QDAY #0 07/25/16 02/26/18 History simvastatin 5 mg PO DAILY #0 07/25/16 02/26/18 History nitroglycerin 0.4 mg sublingual 0.4 mg SL Q5-15M PRN #10 tab 12/28/17 02/26/18 Rx tablet oxycodone 1 tab PO DIRECTED 01/02/18 02/26/18 History amoxicillin-pot clavulanate 1 tab PO BID #16 tab 01/04/18 02/26/18 Rx [Augmentin] tamsulosin [Flomax] 0.4 mg PO DAILY #30 cap 01/04/18 02/26/18 Rx ondansetron 1 tab PO Q6HR PRN #30 tab 02/19/18 02/26/18 Rx Allergies Allergy/AdvReac Type Severity Reaction Status Date / Time No Known Drug Allergies Allergy Verified 12/18/17 17:54 Exam - Constitutional positive no acute distress, positive average body habitus - Routine HEENT Exam Head: Present: normocephalic, atraumatic Eye: Present: EOMI, PERRL. Absent: conjunctival icterus, scleral injection ENT: Present: mucous membranes moist, oropharynx clear Comments: He does have some tenderness on the lower lip but no open sores. - Routine Neck Exam Present: supple. Absent: lymphadenopathy, thyromegaly - Routine Respiratory Exam Present: Clear to auscultation bilaterally. Absent: rales, wheezes - Routine Cardiovascular Exam Present: RRR, S1, S2. Absent: murmur - Routine Abdominal Exam Present: soft, normoactive bowel sounds, ostomy. Absent: tenderness, organomegaly - Routine Extremities Exam Absent: cyanosis, clubbing, edema - Routine Back/Spine Exam Back/Spine: Absent: vertebral tenderness - Routine Skin Exam Present: intact. Absent: petechiae, rash - Routine Neurological Exam Present: alert, oriented X3 - Routine Psychiatric Exam Present: normal affect, normal thought process Results - Labs Laboratory Last Values WBC 5.2 X10^3/uL (4.5-11.0) 03/12/18 08:43 RBC 2.96 X10^6/uL (4.5-5.9) L 03/12/18 08:43 Hgb 9.5 g/dL (13.5-17.5) L 03/12/18 08:43 Hct 27.1 % (41-53) L 03/12/18 08:43 MCV 91.6 fL (80-100) 03/12/18 08:43 MCH 32.2 PG (26-34) 03/12/18 08:43 MCHC 35.1 % (30-36) 03/12/18 08:43 RDW 16.9 % (11.6-14.8) H 03/12/18 08:43 Plt Count 193 X10^3/uL (150-400) 03/12/18 08:43 Neut % (Auto) Not Reportable 03/12/18 08:43 Lymph % (Auto) Not Reportable 03/12/18 08:43 [place] % (Auto) Not Reportable 03/12/18 08:43 Eos % (Auto) Not Reportable 03/12/18 08:43 Baso % (Auto) Not Reportable 03/12/18 08:43 Neut # (Auto) 4500 /uL ([id number]) 02/08/18 10:22 Total Counted 100 03/12/18 08:43 Seg Neutrophils % 64.0 % (38-70) 03/12/18 08:43 Band Neutrophils % 5.0 % (3-7) 03/12/18 08:43 Lymphocytes % (Manual) 16.0 % (25-45) L 03/12/18 08:43 Atypical Lymphs % 1.0 % (-0) H 03/05/18 08:57 Monocytes % (Manual) 8.0 % (2-11) 03/12/18 08:43 Eosinophils % (Manual) 7.0 % (2-4) H 03/12/18 08:43 Basophils % (Manual) 3.0 % (0-1) H 02/26/18 09:04 Metamyelocytes % 2.0 % (-0) H 02/26/18 09:04 Neutrophils # (Manual) 3588 /uL ([id number]) 03/12/18 08:43 RBC Morphology Not Reportable 03/12/18 08:43 Anisocytosis 1+ H 03/12/18 08:43 Macrocytosis 1+ H 03/05/18 08:57 Sodium 135 mmol/L (137-145) L 03/12/18 08:43 Potassium 4.7 mmol/L (3.4-5.1) 03/12/18 08:43 Chloride 100 mmol/L (98-107) 03/12/18 08:43 Carbon Dioxide 25 mmol/L (22-32) 03/12/18 08:43 BUN 20 mg/dL (9-20) 03/12/18 08:43 Creatinine 1.00 mg/dL (0.66-1.25) 03/12/18 08:43 Estimated GFR > 60.0 mL/min (>60) 03/12/18 08:43 BUN/Creatinine Ratio 20.0 (6-22) 03/12/18 08:43 Glucose 105 mg/dL (80-110) 03/12/18 08:43 Calcium 9.0 mg/dL (8.4-10.2) 03/12/18 08:43 Magnesium 1.6 mg/dL (1.6-2.3) 02/26/18 09:05 Total Bilirubin 1.0 mg/dL (0.2-1.3) 03/12/18 08:43 AST 24 IU/L (17-59) 03/12/18 08:43 ALT 30 IU/L (21-72) 03/12/18 08:43 Alkaline Phosphatase 59 U/L (38-126) 03/12/18 08:43 Total Protein 6.3 g/dL (6.3-8.2) 03/12/18 08:43 Albumin 3.8 g/dL (3.5-5.0) 03/12/18 08:43 Globulin 2.5 g/dL (1.7-4.1) 03/12/18 08:43 Albumin/Globulin Ratio 1.5 (1.0-2.8) 03/12/18 08:43 Carcinoembryonic Ag 6.8 ng/mL (0.1-3.0) H 03/12/18 08:43 - Imaging Additional studies: Procedures Bypass Ileum to Cutaneous, Open Approach (11/22/17) Bypass Sigmoid Colon to Cutaneous, Open Approach (09/13/16) Dilation of Bilateral Ureters with Intraluminal Device, Via Natural or Artificial Opening Endoscopic (09/13/16) Dilation of Bladder Neck, Via Natural or Artificial Opening Endoscopic (09/13/16) Excision of Rectum, Open Approach (09/13/16) Excision of Sigmoid Colon, Open Approach (11/22/16) Excision of Small Intestine, Open Approach (11/22/17) Insertion of Infusion Device into Superior Vena Cava, Percutaneous Approach (11/22/17) Inspection of Lower Intestinal Tract, Via Natural or Artificial Opening Endoscopic (09/13/16) Release Small Intestine, Open Approach (11/22/17) Repair Sigmoid Colon, Open Approach (11/22/16) Assessment and Plan (1) Cancer of sigmoid colon Problem details: 82-year-old man with metastatic colon cancer as evidence by biopsy proven carcinomatosis. He also has an enlarging liver lesion. Unfortunately, he did not tolerate Xeloda. He seems to be doing better with weekly 5 FU and leucovorin at least thus far. He will proceed with his 4th dose today. He will continue with weekly treatment for a total of 6 weeks on with 2 weeks off. Return to clinic in about 2-3 weeks for follow-up. He will continue with antiemetics as needed. I would anticipate a CT scan after 2 full cycles of treatment. His CEA has decreased slightly from 9-6. Current visit: No Status: Acute
[2018-03-12] MEDS: DEXAMETHASONE 10 MG/ML VIAL 8 MG IV (10:57)
[2018-03-12] MEDS: ONDANSETRON 8 MG in SODIUM CHLORIDE 0.9% 50 ML 216 ML IV (11:05)
[2018-03-12] MEDS: DEXTROSE 5% IV (11:40)
[2018-03-12] MEDS: LEUCOVORIN IV (11:40)
[2018-03-12] MEDS: FLUOROURACIL IV (13:00)
[2018-03-12] MEDS: ISOOSMOTIC VEHICLE IV (13:00)
[2018-03-12] MEDS: SODIUM CHLORIDE 0.9% 100 ML 20 ML IV (16:25)
[2018-03-20] MEDS: SODIUM CHLORIDE 0.9% 100 ML 20 ML IV (09:50)
[2018-03-20 09:56] LABS: Add Manual Diff / Slide Review YES; Hematocrit 26.1 % (41-53); Hemoglobin 9.4 g/dL (13.5-17.5); Mean Corpuscular HGB Conc 35.9 % (30-36); Mean Corpuscular Hemoglobin 33.7 PG (26-34); Mean Corpuscular Volume 93.9 fL (80-100); Platelet Count 176 X10^3/uL (150-400); Red Blood Cell Count 2.78 X10^6/uL (4.5-5.9); Red Cell Distribution Width 20.1 % (11.6-14.8); White Blood Cell Count 3.9 X10^3/uL (4.5-11.0)
[2018-03-20 10:11] LABS: Macrocytosis 2+; Neutrophils Absolute Manual 2691 /uL (3000-5900); Polychromasia 1+; Total Cells Counted 100
[2018-03-20] MEDS: DEXAMETHASONE 10 MG/ML VIAL 8 MG IV (10:15)
[2018-03-20] MEDS: ONDANSETRON 8 MG in SODIUM CHLORIDE 0.9% 50 ML 216 ML IV (10:34)
[2018-03-20] MEDS: LEUCOVORIN IV (11:22)
[2018-03-20] MEDS: DEXTROSE 5% IV (11:22)
[2018-03-20 11:30] VITALS: BP 117/57; PULSE 64; RESP 16; TEMP 36.7; O2SAT 100
[2018-03-20] MEDS: ISOOSMOTIC VEHICLE IV (12:28)
[2018-03-20] MEDS: FLUOROURACIL IV (12:28)
[2018-03-27 09:15] VITALS: BP 107/62; PULSE 66; RESP 18; TEMP 36.6; O2SAT 99
[2018-03-27 09:15] LABS: Add Manual Diff / Slide Review YES; Hemoglobin 8.7 g/dL (13.5-17.5); Mean Corpuscular Volume 97.2 fL (80-100); Platelet Count 150 X10^3/uL (150-400); Red Blood Cell Count 2.57 X10^6/uL (4.5-5.9); Red Cell Distribution Width 22.6 % (11.6-14.8); White Blood Cell Count 5.3 X10^3/uL (4.5-11.0)
[2018-03-27 09:22] LABS: Alanine Aminotransferase 33 IU/L (21-72); Albumin 3.9 g/dL (3.5-5.0); Albumin Globulin Ratio 1.6 (1.0-2.8); Alkaline Phosphatase 52 U/L (38-126); Aspartate Aminotransferase 30 IU/L (17-59); BUN Creatinine Ratio 21.8 (6-22); Bilirubin Total 1.3 mg/dL (0.2-1.3); Blood Urea Nitrogen 24 mg/dL (9-20); Calcium 9.2 mg/dL (8.4-10.2); Carbon Dioxide 26 mmol/L (22-32); Chloride 99 mmol/L (98-107); Estimated Glomerular Filt Rate > 60.0 mL/min (>60); Globulin 2.4 g/dL (1.7-4.1); Glucose 103 mg/dL (80-110); HEMOLYSIS < 15 (0-50); Potassium 4.9 mmol/L (3.4-5.1); Sodium 134 mmol/L (137-145); Total Protein 6.3 g/dL (6.3-8.2)
[2018-03-27 09:27] LABS: Neutrophils Absolute Manual 3551 /uL (3000-5900); Total Cells Counted 100
--- NOTE | 2018-03-27 09:27 | ONC.PN ---
PN -Subjective Interval history: Diagnosis: Colon cancer initially T3 N1, now metastatic Previous treatment: 1. Surgical resection in August 2016. 2. Metastatic disease treated with the Xeloda for about 2 days, stopping because of toxicity. 3. 5 doses of 5 FU and leucovorin on a weekly schedule Interval history: The patient is an 82-year-old man who was diagnosed with a stage III colon cancer last summer. He had a complicated recovery. He had prolonged C diff infection. More recently, he developed a bowel obstruction and underwent surgical exploration. 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 He did not tolerate Xeloda but did start on 5 FU using [place] schedule. He has completed 5 doses so far. He has been tolerating them reasonably well. He notes that he has had some increase in his ostomy output for couple of days after each treatment. He has not noted any blood in the stool. He has had some occasional nausea for which she has been taking ondansetron. He finds effective. He denies any emesis. His appetite has been improving and he has been able to gain about 2 lb over the last week. He denies any fevers or chills. No mouth sores. He has noticed a little bit of cracking on the skin of his hands and has been using some moisturizer. He has not had any rash or erythema. He denies any skin problems on his feet. No shortness of breath or cough. No fevers or chills. He is not having any pain. His strength and energy level have been good. 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 His medications include Flomax and Zofran. He has been holding his enalapril and simvastatin. - Patient Self-Reported Symptoms SR Constitution: Weight loss/gain SR ears, nose, mouth, throat issues: Ears ringing, Hoarseness SR respiratory issues: Mucous SR Cardiovascular issues: Chest pain, discomfort, tightness SR Skin issues: Dry skin, Skin rash or itching SR Gastrointestinal issues: Diarrhea SR Genitourinary issues: Frequent urination, Incontinence SR Musculoskeletal issues: Muscle weakness SR Neuro issues: Lightheaded/dizzy, Difficulty balancing SR Endocrine issues: Cold intolerance, Excessive urination Home Medications and Allergies Home Medications Medication Instructions Recorded Confirmed Type enalapril maleate 5 mg PO QDAY #0 07/25/16 03/27/18 History simvastatin 5 mg PO DAILY #0 07/25/16 03/27/18 History nitroglycerin 0.4 mg sublingual 0.4 mg SL Q5-15M PRN #10 tab 12/28/17 03/27/18 Rx tablet oxycodone 1 tab PO DIRECTED 01/02/18 03/27/18 History tamsulosin [Flomax] 0.4 mg PO DAILY #30 cap 01/04/18 03/27/18 Rx ondansetron 1 tab PO Q6HR PRN #30 tab 02/19/18 03/27/18 Rx Allergies Allergy/AdvReac Type Severity Reaction Status Date / Time No Known Drug Allergies Allergy Verified 12/18/17 17:54 Exam - Constitutional positive no acute distress, positive average body habitus - Routine HEENT Exam Head: Present: normocephalic, atraumatic Eye: Present: EOMI, PERRL. Absent: conjunctival icterus, scleral injection ENT: Present: mucous membranes moist, oropharynx clear - Routine Neck Exam Present: supple. Absent: lymphadenopathy, thyromegaly - Routine Respiratory Exam Present: Clear to auscultation bilaterally. Absent: rales, wheezes - Routine Cardiovascular Exam Present: RRR, S1, S2. Absent: murmur - Routine Abdominal Exam Present: soft, normoactive bowel sounds. Absent: tenderness Comments: He has a colostomy in the right lower quadrant which is functioning well. There are no palpable masses. - Routine Extremities Exam Absent: cyanosis, clubbing, edema - Routine Back/Spine Exam Back/Spine: Absent: paraspinal tenderness, vertebral tenderness - Routine Skin Exam Present: intact. Absent: petechiae, rash - Routine Neurological Exam Present: alert, oriented X3 - Routine Psychiatric Exam Present: normal affect, normal thought process Results - Labs Laboratory Last Values WBC 5.3 X10^3/uL (4.5-11.0) 03/27/18 09:05 RBC 2.57 X10^6/uL (4.5-5.9) L 03/27/18 09:05 Hgb 8.7 g/dL (13.5-17.5) L 03/27/18 09:05 Hct 25.0 % (41-53) L 03/27/18 09:05 MCV 97.2 fL (80-100) D 03/27/18 09:05 MCH 34.0 PG (26-34) 03/27/18 09:05 MCHC 35.0 % (30-36) 03/27/18 09:05 RDW 22.6 % (11.6-14.8) H 03/27/18 09:05 Plt Count 150 X10^3/uL (150-400) 03/27/18 09:05 Neut % (Auto) Not Reportable 03/27/18 09:05 Lymph % (Auto) Not Reportable 03/27/18 09:05 [place] % (Auto) Not Reportable 03/27/18 09:05 Eos % (Auto) Not Reportable 03/27/18 09:05 Baso % (Auto) Not Reportable 03/27/18 09:05 Neut # (Auto) 4500 /uL ([id number]) 02/08/18 10:22 Total Counted 100 03/20/18 08:59 Seg Neutrophils % 59.0 % (38-70) 03/20/18 08:59 Band Neutrophils % 10.0 % (3-7) H 03/20/18 08:59 Lymphocytes % (Manual) 16.0 % (25-45) L 03/20/18 08:59 Atypical Lymphs % 3.0 % (-0) H 03/20/18 08:59 Monocytes % (Manual) 8.0 % (2-11) 03/20/18 08:59 Eosinophils % (Manual) 4.0 % (2-4) 03/20/18 08:59 Basophils % (Manual) 3.0 % (0-1) H 02/26/18 09:04 Metamyelocytes % 2.0 % (-0) H 02/26/18 09:04 Neutrophils # (Manual) 2691 /uL (5801-1140) L 03/20/18 08:59 RBC Morphology Not Reportable 03/20/18 08:59 Polychromasia 1+ H 03/20/18 08:59 Anisocytosis 1+ H 03/12/18 08:43 Macrocytosis 2+ H 03/20/18 08:59 Sodium 134 mmol/L (137-145) L 03/27/18 09:05 Potassium 4.9 mmol/L (3.4-5.1) 03/27/18 09:05 Chloride 99 mmol/L (98-107) 03/27/18 09:05 Carbon Dioxide 26 mmol/L (22-32) 03/27/18 09:05 BUN 24 mg/dL (9-20) H 03/27/18 09:05 Creatinine 1.10 mg/dL (0.66-1.25) 03/27/18 09:05 Estimated GFR > 60.0 mL/min (>60) 03/27/18 09:05 BUN/Creatinine Ratio 21.8 (6-22) 03/27/18 09:05 Glucose 103 mg/dL (80-110) 03/27/18 09:05 Calcium 9.2 mg/dL (8.4-10.2) 03/27/18 09:05 Magnesium 1.6 mg/dL (1.6-2.3) 02/26/18 09:05 Total Bilirubin 1.3 mg/dL (0.2-1.3) 03/27/18 09:05 AST 30 IU/L (17-59) 03/27/18 09:05 ALT 33 IU/L (21-72) 03/27/18 09:05 Alkaline Phosphatase 52 U/L (38-126) 03/27/18 09:05 Total Protein 6.3 g/dL (6.3-8.2) 03/27/18 09:05 Albumin 3.9 g/dL (3.5-5.0) 03/27/18 09:05 Globulin 2.4 g/dL (1.7-4.1) 03/27/18 09:05 Albumin/Globulin Ratio 1.6 (1.0-2.8) 03/27/18 09:05 Carcinoembryonic Ag 6.8 ng/mL (0.1-3.0) H 03/12/18 08:43 - Imaging Additional studies: Procedures Bypass Ileum to Cutaneous, Open Approach (11/22/17) Bypass Sigmoid Colon to Cutaneous, Open Approach (09/13/16) Dilation of Bilateral Ureters with Intraluminal Device, Via Natural or Artificial Opening Endoscopic (09/13/16) Dilation of Bladder Neck, Via Natural or Artificial Opening Endoscopic (09/13/16) Excision of Rectum, Open Approach (09/13/16) Excision of Sigmoid Colon, Open Approach (11/22/16) Excision of Small Intestine, Open Approach (11/22/17) Insertion of Infusion Device into Superior Vena Cava, Percutaneous Approach (11/22/17) Inspection of Lower Intestinal Tract, Via Natural or Artificial Opening Endoscopic (09/13/16) Release Small Intestine, Open Approach (11/22/17) Repair Sigmoid Colon, Open Approach (11/22/16) Assessment and Plan (1) Cancer of sigmoid colon Problem details: 82-year-old man with metastatic colon cancer as evidence by biopsy proven carcinomatosis and a liver metastasis. He has been tolerating weekly 5 FU and leucovorin. He will proceed with his 6th treatment today. He will then have 2 weeks off. He will return to clinic here on April 17 to be set to begin his 2nd cycle at that time. His CEA has been decreasing. He will be due for CT scan after his next 6 week treatment cycle. He had questions today regarding additional chemotherapy, length of treatment and expected survival. I explained that with the 5 FU and leucovorin alone, average survival was about 1 year, but some patients can do much better than average. We also talked about adding additional medications such as oxaliplatin or irinotecan can further prolong survival but the cost of additional toxicity. I also explained that in general continuous therapy was associated with a better outcome than intermittent treatment. As long as he is tolerating his chemotherapy well and not having any serious side effects and as long as his cancer was not growing, it would be best to continue therapy indefinitely. A return to clinic in about 3 weeks or so for follow-up. He will be due to start his next chemotherapy cycle at that time. Current visit: No Status: Acute
[2018-03-27 09:28] LABS: Anisocytosis 2+
[2018-03-27 09:53] LABS: Carcinoembryonic Antigen 3.2 ng/mL (0.1-3.0)
[2018-03-27] MEDS: DEXAMETHASONE 10 MG/ML VIAL 8 MG IV (10:10)
[2018-03-27] MEDS: ONDANSETRON 8 MG in SODIUM CHLORIDE 0.9% 50 ML 216 ML IV (10:44)
[2018-03-27] MEDS: SODIUM CHLORIDE 0.9% 100 ML 20 ML IV (11:12)
[2018-03-27] MEDS: DEXTROSE 5% IV (11:12)
[2018-03-27] MEDS: LEUCOVORIN IV (11:12)
[2018-03-27] MEDS: ISOOSMOTIC VEHICLE IV (12:23)
[2018-03-27] MEDS: FLUOROURACIL IV (12:23)
--- NOTE | 2018-03-29 08:59 | PC.NURSE ---
AT END OF LEUCOVORIN INFUSION, BEFORE FLUSHING, LOWER RIGHT ARM BY PERIPHERAL IV OBSERVED TO BE SWOLLEN. PATIENT STATED IT TO HAVE BEEN FEELING UNUSUAL THE LAST PART OF INFUSION. NO ERYTHEMA OR PAIN. NO BLOOD RETURN OBTAINED. LEUCOVORIN NOT KNOWN TO BE IRRITANT OR VESICANT. IV CATHETER REMOVED, PATIENT ADVISED TO COOL AND DISCHARGED TO HOME.
[2018-04-17 09:21] LABS: Add Manual Diff / Slide Review NO; Basophils Absolute Auto 100 /uL (0-100); Basophils Percent Auto 1.2 % (0-2); Eosinophils Absolute Auto 200 /uL (0-450); Eosinophils Percent Auto 3.4 % (2-4); Hematocrit 33.1 % (41-53); Hemoglobin 11.7 g/dL (13.5-17.5); Lymphocytes Absolute Auto 700 /uL (1100-4500); Lymphocytes Percent Auto 13.5 % (25-40); Mean Corpuscular HGB Conc 35.3 % (30-36); Mean Corpuscular Hemoglobin 36.3 PG (26-34); Mean Corpuscular Volume 102.9 fL (80-100); Monocytes Absolute Auto 700 /uL (0-900); Monocytes Percent Auto 14.2 % (3-14); Neutrophils Absolute Auto 3400 /uL (1500-7000); Neutrophils Percent Auto 67.7 % (50-75); Platelet Count 229 X10^3/uL (150-400); Red Blood Cell Count 3.22 X10^6/uL (4.5-5.9); Red Cell Distribution Width 20.1 % (11.6-14.8)
[2018-04-17 09:29] VITALS: BP 124/66; PULSE 83; RESP 18; TEMP 37; O2SAT 99
[2018-04-17 09:36] LABS: Alanine Aminotransferase 28 IU/L (21-72); Albumin 4.6 g/dL (3.5-5.0); Albumin Globulin Ratio 1.6 (1.0-2.8); Alkaline Phosphatase 68 U/L (38-126); Aspartate Aminotransferase 35 IU/L (17-59); BUN Creatinine Ratio 26.3 (6-22); Bilirubin Total 1.7 mg/dL (0.2-1.3); Blood Urea Nitrogen 42 mg/dL (9-20); Calcium 9.8 mg/dL (8.4-10.2); Carbon Dioxide 25 mmol/L (22-32); Chloride 89 mmol/L (98-107); Estimated Glomerular Filt Rate 41.6 mL/min (>60); Globulin 2.8 g/dL (1.7-4.1); Glucose 128 mg/dL (80-110); HEMOLYSIS < 15 (0-50); Potassium 3.8 mmol/L (3.4-5.1); Sodium 130 mmol/L (137-145); Total Protein 7.4 g/dL (6.3-8.2)
[2018-04-17 09:41] LABS: Anisocytosis 2+; Poikilocytosis 1+
--- NOTE | 2018-04-17 09:56 | ONC.PN ---
PN -Subjective Interval history: Diagnosis: Colon cancer initially T3 N1, now metastatic Previous treatment: 1. Surgical resection in August 2016. 2. Metastatic disease treated with the Xeloda for about 2 days, stopping because of toxicity. 3. One cycle of 5 FU and leucovorin on a [place] schedule Interval history: The patient is an 82-year-old man who was diagnosed with a stage III colon cancer last summer. He had a complicated recovery. He had prolonged C diff infection. More recently, he developed a bowel obstruction and underwent surgical exploration. 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 He did not tolerate Xeloda but did start on 5 FU using [place] schedule. He has completed 1 cycle. He notes that over the last couple of weeks, his diarrhea has improved. His strength and energy level have been fairly good. He is not having any pain. Appetite has been normal. About 3 days ago, he had an episode of abdominal pain and nausea with the decreased ostomy output. He had a couple episodes of emesis. After her about 12-16 hours, things started moving again. He had a lot of ostomy output and then felt his normal self. He did have questions today regarding potential port. He also had questions about potential ostomy reversal. - Patient Self-Reported Symptoms SR Constitution: Weight loss/gain SR ears, nose, mouth, throat issues: Ears ringing, Hoarseness SR respiratory issues: Mucous SR Cardiovascular issues: Chest pain, discomfort, tightness SR Skin issues: Dry skin, Skin rash or itching SR Gastrointestinal issues: Diarrhea SR Genitourinary issues: Frequent urination, Incontinence SR Musculoskeletal issues: Muscle weakness SR Neuro issues: Lightheaded/dizzy, Difficulty balancing SR Endocrine issues: Cold intolerance, Excessive urination Home Medications and Allergies Home Medications Medication Instructions Recorded Confirmed Type enalapril maleate 5 mg PO QDAY #0 07/25/16 03/27/18 History simvastatin 5 mg PO DAILY #0 07/25/16 03/27/18 History nitroglycerin 0.4 mg sublingual 0.4 mg SL Q5-15M PRN #10 tab 12/28/17 03/27/18 Rx tablet oxycodone 1 tab PO DIRECTED 01/02/18 03/27/18 History tamsulosin [Flomax] 0.4 mg PO DAILY #30 cap 01/04/18 03/27/18 Rx ondansetron 1 tab PO Q6HR PRN #30 tab 02/19/18 03/27/18 Rx ondansetron 8 mg PO BID-TID PRN #20 tab 03/27/18 Rx Allergies Allergy/AdvReac Type Severity Reaction Status Date / Time No Known Drug Allergies Allergy Verified 12/18/17 17:54 Exam - Constitutional positive no acute distress, positive average body habitus - Routine HEENT Exam Head: Present: normocephalic, atraumatic Eye: Present: EOMI, PERRL. Absent: conjunctival icterus, scleral injection ENT: Present: mucous membranes moist, oropharynx clear - Routine Neck Exam Present: supple. Absent: lymphadenopathy, thyromegaly - Routine Respiratory Exam Present: Clear to auscultation bilaterally. Absent: rales, wheezes - Routine Cardiovascular Exam Present: RRR, S1, S2. Absent: murmur - Routine Abdominal Exam Present: soft, normoactive bowel sounds. Absent: tenderness, organomegaly, mass Comments: His ostomy appears to be functioning well. - Routine Extremities Exam Absent: cyanosis, clubbing, edema - Routine Skin Exam Present: intact, ecchymosis. Absent: petechiae, rash - Routine Neurological Exam Present: alert, oriented X3 - Routine Psychiatric Exam Present: normal affect, normal thought process Results - Labs Laboratory Last Values WBC 5.0 X10^3/uL (4.5-11.0) 04/17/18 09:05 RBC 3.22 X10^6/uL (4.5-5.9) L 04/17/18 09:05 Hgb 11.7 g/dL (13.5-17.5) L 04/17/18 09:05 Hct 33.1 % (41-53) L 04/17/18 09:05 MCV 102.9 fL (80-100) H 04/17/18 09:05 MCH 36.3 PG (26-34) H 04/17/18 09:05 MCHC 35.3 % (30-36) 04/17/18 09:05 RDW 20.1 % (11.6-14.8) H 04/17/18 09:05 Plt Count 229 X10^3/uL (150-400) 04/17/18 09:05 Neut % (Auto) 67.7 % (50-75) 04/17/18 09:05 Lymph % (Auto) 13.5 % (25-40) L 04/17/18 09:05 [place] % (Auto) 14.2 % (3-14) H 04/17/18 09:05 Eos % (Auto) 3.4 % (2-4) 04/17/18 09:05 Baso % (Auto) 1.2 % (0-2) 04/17/18 09:05 Neut # (Auto) 3400 /uL ([id number]) 04/17/18 09:05 Lymph # (Auto) 700 /uL (5566-0555) L 04/17/18 09:05 [place] # (Auto) 700 /uL (0-900) 04/17/18 09:05 Eos # (Auto) 200 /uL (0-450) 04/17/18 09:05 Baso # (Auto) 100 /uL (0-100) 04/17/18 09:05 Total Counted 100 03/27/18 09:05 Seg Neutrophils % 65.0 % (38-70) 03/27/18 09:05 Band Neutrophils % 2.0 % (3-7) L 03/27/18 09:05 Lymphocytes % (Manual) 23.0 % (25-45) L 03/27/18 09:05 Atypical Lymphs % 3.0 % (-0) H 03/20/18 08:59 Monocytes % (Manual) 4.0 % (2-11) 03/27/18 09:05 Eosinophils % (Manual) 6.0 % (2-4) H 03/27/18 09:05 Basophils % (Manual) 3.0 % (0-1) H 02/26/18 09:04 Metamyelocytes % 2.0 % (-0) H 02/26/18 09:04 Neutrophils # (Manual) 3551 /uL ([id number]) 03/27/18 09:05 RBC Morphology Not Reportable 04/17/18 09:05 Polychromasia 1+ H 03/20/18 08:59 Poikilocytosis 1+ H 04/17/18 09:05 Anisocytosis 2+ H 04/17/18 09:05 Macrocytosis 2+ H 03/20/18 08:59 Sodium 130 mmol/L (137-145) L 04/17/18 09:05 Potassium 3.8 mmol/L (3.4-5.1) 04/17/18 09:05 Chloride 89 mmol/L (98-107) L 04/17/18 09:05 Carbon Dioxide 25 mmol/L (22-32) 04/17/18 09:05 BUN 42 mg/dL (9-20) H 04/17/18 09:05 Creatinine 1.60 mg/dL (0.66-1.25) H 04/17/18 09:05 Estimated GFR 41.6 mL/min (>60) L 04/17/18 09:05 BUN/Creatinine Ratio 26.3 (6-22) H 04/17/18 09:05 Glucose 128 mg/dL (80-110) H 04/17/18 09:05 Calcium 9.8 mg/dL (8.4-10.2) 04/17/18 09:05 Magnesium 1.6 mg/dL (1.6-2.3) 02/26/18 09:05 Total Bilirubin 1.7 mg/dL (0.2-1.3) H 04/17/18 09:05 AST 35 IU/L (17-59) 04/17/18 09:05 ALT 28 IU/L (21-72) 04/17/18 09:05 Alkaline Phosphatase 68 U/L (38-126) 04/17/18 09:05 Total Protein 7.4 g/dL (6.3-8.2) 04/17/18 09:05 Albumin 4.6 g/dL (3.5-5.0) 04/17/18 09:05 Globulin 2.8 g/dL (1.7-4.1) 04/17/18 09:05 Albumin/Globulin Ratio 1.6 (1.0-2.8) 04/17/18 09:05 Carcinoembryonic Ag 3.2 ng/mL (0.1-3.0) H 03/27/18 09:05 - Imaging Additional studies: Procedures Bypass Ileum to Cutaneous, Open Approach (11/22/17) Bypass Sigmoid Colon to Cutaneous, Open Approach (09/13/16) Dilation of Bilateral Ureters with Intraluminal Device, Via Natural or Artificial Opening Endoscopic (09/13/16) Dilation of Bladder Neck, Via Natural or Artificial Opening Endoscopic (09/13/16) Excision of Rectum, Open Approach (09/13/16) Excision of Sigmoid Colon, Open Approach (11/22/16) Excision of Small Intestine, Open Approach (11/22/17) Insertion of Infusion Device into Superior Vena Cava, Percutaneous Approach (11/22/17) Inspection of Lower Intestinal Tract, Via Natural or Artificial Opening Endoscopic (09/13/16) Release Small Intestine, Open Approach (11/22/17) Repair Sigmoid Colon, Open Approach (11/22/16) Assessment and Plan (1) Cancer of sigmoid colon Problem details: 82-year-old man with metastatic colon cancer as evidence by biopsy proven carcinomatosis and a liver metastasis. He has been tolerating weekly 5 FU and leucovorin. He will begin his 2nd cycle today. His CEA has been dropping and it appears that he has been responding. He will return to clinic here in 3-4 weeks for follow-up. Will make referral to his surgeon to discuss port placement. I think he could also discuss on room takes out of his ostomy. We did have a very luzmaria discussion about expected survival. Average survival for patients treated with 5 FU leucovorin is about a year. Addition of other drugs can push that out to close to 2 years but with the potential for additional side effects. He would I think very carefully need to consider whether he wants to go through the potential complications and recovery from ostomy reversal given a potentially relatively short life span. I explained that in general, we would continue therapy as long as he was not having any intolerable side effects and no evidence of cancer progression. He is willing to continue with his treatment. He would like to have a port placed and will trying get that scheduled whenever it is convenient for him. 40 min was spent with the patient the majority in counseling. Current visit: No Status: Acute
[2018-04-17 10:06] LABS: Carcinoembryonic Antigen 1.3 ng/mL (0.1-3.0)
[2018-04-17] MEDS: DEXAMETHASONE 10 MG/ML VIAL 8 MG IV (10:52)
[2018-04-17] MEDS: ONDANSETRON 8 MG in SODIUM CHLORIDE 0.9% 50 ML 216 ML IV (10:52)
[2018-04-17] MEDS: SODIUM CHLORIDE 0.9% 100 ML 20 ML IV (10:53)
[2018-04-17] MEDS: LEUCOVORIN IV (11:33)
[2018-04-17] MEDS: DEXTROSE 5% IV (11:33)
[2018-04-17] MEDS: ISOOSMOTIC VEHICLE IV (12:29)
[2018-04-17] MEDS: FLUOROURACIL IV (12:29)
[2018-04-24 09:37] LABS: Add Manual Diff / Slide Review NO; Basophils Absolute Auto 100 /uL (0-100); Basophils Percent Auto 0.8 % (0-2); Eosinophils Absolute Auto 100 /uL (0-450); Eosinophils Percent Auto 2.1 % (2-4); Hematocrit 31.3 % (41-53); Hemoglobin 11.1 g/dL (13.5-17.5); Lymphocytes Absolute Auto 800 /uL (1100-4500); Lymphocytes Percent Auto 12.2 % (25-40); Mean Corpuscular HGB Conc 35.4 % (30-36); Mean Corpuscular Hemoglobin 35.9 PG (26-34); Mean Corpuscular Volume 101.3 fL (80-100); Monocytes Absolute Auto 600 /uL (0-900); Monocytes Percent Auto 8.7 % (3-14); Neutrophils Absolute Auto 5100 /uL (1500-7000); Neutrophils Percent Auto 76.2 % (50-75); Platelet Count 177 X10^3/uL (150-400); Red Blood Cell Count 3.09 X10^6/uL (4.5-5.9); Red Cell Distribution Width 18.5 % (11.6-14.8); White Blood Cell Count 6.7 X10^3/uL (4.5-11.0)
[2018-04-24 09:39] VITALS: BP 111/69; PULSE 78; RESP 16; TEMP 36.4; O2SAT 99
[2018-04-24] MEDS: DEXAMETHASONE 10 MG/ML VIAL 8 MG IV (09:41)
[2018-04-24 09:45] LABS: Alanine Aminotransferase 21 IU/L (21-72); Albumin 4.3 g/dL (3.5-5.0); Albumin Globulin Ratio 1.7 (1.0-2.8); Alkaline Phosphatase 52 U/L (38-126); Aspartate Aminotransferase 27 IU/L (17-59); BUN Creatinine Ratio 36.7 (6-22); Bilirubin Total 1.2 mg/dL (0.2-1.3); Blood Urea Nitrogen 44 mg/dL (9-20); Calcium 9.4 mg/dL (8.4-10.2); Carbon Dioxide 19 mmol/L (22-32); Chloride 96 mmol/L (98-107); Globulin 2.6 g/dL (1.7-4.1); Glucose 136 mg/dL (80-110); HEMOLYSIS 33 (0-50); Potassium 4.6 mmol/L (3.4-5.1); Sodium 129 mmol/L (137-145); Total Protein 6.9 g/dL (6.3-8.2)
[2018-04-24] MEDS: ONDANSETRON 8 MG in SODIUM CHLORIDE 0.9% 50 ML 216 ML IV (10:48)
[2018-04-24] MEDS: LEUCOVORIN IV (11:36)
[2018-04-24] MEDS: DEXTROSE 5% IV (11:36)
[2018-04-24] MEDS: FLUOROURACIL IV (12:42)
[2018-04-24] MEDS: ISOOSMOTIC VEHICLE IV (12:42)
[2018-04-24] MEDS: SODIUM CHLORIDE 0.9% 100 ML 20 ML IV (14:02)
[2018-05-01 09:36] LABS: Add Manual Diff / Slide Review NO; Basophils Absolute Auto 0 /uL (0-100); Basophils Percent Auto 0.7 % (0-2); Eosinophils Absolute Auto 200 /uL (0-450); Eosinophils Percent Auto 2.5 % (2-4); Hematocrit 28.1 % (41-53); Hemoglobin 9.9 g/dL (13.5-17.5); Lymphocytes Absolute Auto 700 /uL (1100-4500); Lymphocytes Percent Auto 11.2 % (25-40); Mean Corpuscular HGB Conc 35.2 % (30-36); Mean Corpuscular Hemoglobin 35.9 PG (26-34); Mean Corpuscular Volume 101.9 fL (80-100); Monocytes Absolute Auto 400 /uL (0-900); Monocytes Percent Auto 6.1 % (3-14); Neutrophils Absolute Auto 4900 /uL (1500-7000); Neutrophils Percent Auto 79.5 % (50-75); Platelet Count 118 X10^3/uL (150-400); Red Blood Cell Count 2.75 X10^6/uL (4.5-5.9); Red Cell Distribution Width 17.5 % (11.6-14.8); White Blood Cell Count 6.2 X10^3/uL (4.5-11.0)
[2018-05-01 09:54] LABS: Alanine Aminotransferase 20 IU/L (21-72); Albumin 4.1 g/dL (3.5-5.0); Albumin Globulin Ratio 1.8 (1.0-2.8); Alkaline Phosphatase 54 U/L (38-126); Aspartate Aminotransferase 21 IU/L (17-59); Bilirubin Total 1.1 mg/dL (0.2-1.3); Blood Urea Nitrogen 30 mg/dL (9-20); Calcium 9.2 mg/dL (8.4-10.2); Carbon Dioxide 25 mmol/L (22-32); Chloride 98 mmol/L (98-107); Globulin 2.3 g/dL (1.7-4.1); Glucose 131 mg/dL (80-110); HEMOLYSIS < 15 (0-50); Potassium 4.1 mmol/L (3.4-5.1); Sodium 135 mmol/L (137-145); Total Protein 6.4 g/dL (6.3-8.2)
[2018-05-01] MEDS: DEXAMETHASONE 10 MG/ML VIAL 8 MG IV (10:05)
[2018-05-01] MEDS: SODIUM CHLORIDE 0.9% 100 ML 20 ML IV (10:05)
[2018-05-01] MEDS: ONDANSETRON 8 MG in SODIUM CHLORIDE 0.9% 50 ML 216 ML IV (10:20)
[2018-05-01 11:23] VITALS: BP 114/57; PULSE 76; RESP 16; TEMP 36.4; O2SAT 98
[2018-05-01] MEDS: DEXTROSE 5% IV (11:26)
[2018-05-01] MEDS: LEUCOVORIN IV (11:26)
[2018-05-01] MEDS: ISOOSMOTIC VEHICLE IV (12:31)
[2018-05-01] MEDS: FLUOROURACIL IV (12:31)
[2018-05-08 09:13] LABS: Add Manual Diff / Slide Review NO; Basophils Absolute Auto 0 /uL (0-100); Basophils Percent Auto 0.5 % (0-2); Eosinophils Absolute Auto 100 /uL (0-450); Eosinophils Percent Auto 4.4 % (2-4); Hemoglobin 8.6 g/dL (13.5-17.5); Lymphocytes Absolute Auto 500 /uL (1100-4500); Lymphocytes Percent Auto 14.6 % (25-40); Mean Corpuscular HGB Conc 35.4 % (30-36); Mean Corpuscular Volume 101.6 fL (80-100); Monocytes Absolute Auto 300 /uL (0-900); Monocytes Percent Auto 8.4 % (3-14); Neutrophils Absolute Auto 2400 /uL (1500-7000); Neutrophils Percent Auto 72.1 % (50-75); Platelet Count 124 X10^3/uL (150-400); Red Cell Distribution Width 16.9 % (11.6-14.8); White Blood Cell Count 3.4 X10^3/uL (4.5-11.0)
[2018-05-08 09:16] LABS: Hematocrit 24.4 % (41-53)
[2018-05-08 09:26] LABS: Alanine Aminotransferase 27 IU/L (21-72); Albumin 3.8 g/dL (3.5-5.0); Albumin Globulin Ratio 1.7 (1.0-2.8); Alkaline Phosphatase 48 U/L (38-126); Aspartate Aminotransferase 22 IU/L (17-59); BUN Creatinine Ratio 24.5 (6-22); Bilirubin Total 1.3 mg/dL (0.2-1.3); Blood Urea Nitrogen 27 mg/dL (9-20); Calcium 9.1 mg/dL (8.4-10.2); Carbon Dioxide 26 mmol/L (22-32); Chloride 97 mmol/L (98-107); Estimated Glomerular Filt Rate > 60.0 mL/min (>60); Globulin 2.3 g/dL (1.7-4.1); Glucose 114 mg/dL (80-110); HEMOLYSIS < 15 (0-50); Potassium 3.8 mmol/L (3.4-5.1); Sodium 134 mmol/L (137-145); Total Protein 6.1 g/dL (6.3-8.2)
[2018-05-08] MEDS: SODIUM CHLORIDE 0.9% 100 ML 20 ML IV (09:30)
[2018-05-08 09:35] VITALS: BP 106/56; PULSE 73; RESP 16; TEMP 36.3
[2018-05-08] MEDS: DEXAMETHASONE 10 MG/ML VIAL 8 MG IV (10:12)
[2018-05-08] MEDS: ONDANSETRON 8 MG in SODIUM CHLORIDE 0.9% 50 ML 216 ML IV (10:24)
[2018-05-08] MEDS: LEUCOVORIN IV (11:05)
[2018-05-08] MEDS: DEXTROSE 5% IV (11:05)
[2018-05-08] MEDS: FLUOROURACIL IV (12:21)
[2018-05-08] MEDS: ISOOSMOTIC VEHICLE IV (12:21)
--- NOTE | 2018-05-08 12:36 | PC.NURSE ---
Patient reports while in for chemo treatment that he si having increasing diahrrea during the treatment cycle and has stinging pain on the lower half of the stoma tissue with each diarrhea. When stool firmer he has no pain. He is not using any medication against the diarrhea. This nurse recommended starting Imodium taking 2 at beginning of day when diarrhea and after each additional diarrhea up to 8/day as instructed on bottle. When stool becomes firmer he was instructed to stop and start again if recurrence. He was given written materials on diahea including diet recommendations and told to call into triage if continuing diahrrea.
--- NOTE | 2018-05-13 14:48 | PC.NURSE ---
Pt called to report a temp of 101.4 He stated he felt fine over the weekend but when he awoke this morning he said he felt like crap and vomited. However, he had some soup and was able to keep this down. I advised him that his labs were stable at his last tx but that there is a stomach virus going around and he may have picked this up. I asked him to take tylenol and if his temp did not resolve or if his sx worsened to call back mathew.
[2018-05-15 09:27] LABS: Add Manual Diff / Slide Review NO; Basophils Absolute Auto 0 /uL (0-100); Basophils Percent Auto 0.5 % (0-2); Eosinophils Absolute Auto 100 /uL (0-450); Eosinophils Percent Auto 2.2 % (2-4); Hemoglobin 8.1 g/dL (13.5-17.5); Lymphocytes Absolute Auto 400 /uL (1100-4500); Lymphocytes Percent Auto 10.8 % (25-40); Mean Corpuscular HGB Conc 35.4 % (30-36); Mean Corpuscular Hemoglobin 35.9 PG (26-34); Mean Corpuscular Volume 101.6 fL (80-100); Monocytes Absolute Auto 500 /uL (0-900); Monocytes Percent Auto 14.1 % (3-14); Neutrophils Absolute Auto 2500 /uL (1500-7000); Neutrophils Percent Auto 72.4 % (50-75); Platelet Count 164 X10^3/uL (150-400); Red Blood Cell Count 2.26 X10^6/uL (4.5-5.9); Red Cell Distribution Width 17.1 % (11.6-14.8); White Blood Cell Count 3.5 X10^3/uL (4.5-11.0)
[2018-05-15 09:33] VITALS: BP 131/68; PULSE 81; RESP 18; TEMP 36.5; O2SAT 100
[2018-05-15 09:36] LABS: Alanine Aminotransferase 32 IU/L (21-72); Albumin 3.8 g/dL (3.5-5.0); Albumin Globulin Ratio 1.6 (1.0-2.8); Alkaline Phosphatase 54 U/L (38-126); Aspartate Aminotransferase 34 IU/L (17-59); BUN Creatinine Ratio 20.7 (6-22); Blood Urea Nitrogen 29 mg/dL (9-20); Calcium 8.4 mg/dL (8.4-10.2); Carbon Dioxide 25 mmol/L (22-32); Chloride 91 mmol/L (98-107); Estimated Glomerular Filt Rate 48.5 mL/min (>60); Globulin 2.4 g/dL (1.7-4.1); Glucose 140 mg/dL (80-110); HEMOLYSIS < 15 (0-50); Potassium 3.2 mmol/L (3.4-5.1); Sodium 129 mmol/L (137-145); Total Protein 6.2 g/dL (6.3-8.2)
--- NOTE | 2018-05-15 10:01 | P.PNONC_ITS ---
PN -Subjective Interval history: Diagnosis: Colon cancer initially T3 N1, now metastatic Previous treatment: 1. Surgical resection in August 2016. 2. Metastatic disease treated with the Xeloda for about 2 days, stopping because of toxicity. 3. One cycle of 5 FU and leucovorin on a [place] schedule Interval history: The patient is an 82-year-old man who was diagnosed with a stage III colon cancer last summer. He had a complicated recovery. He had prolonged C diff infection. More recently, he developed a bowel obstruction and underwent surgical exploration. 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 He did not tolerate Xeloda but did start on 5 FU using [place] schedule. He has completed 4 weeks of his 2nd cycle. He is due for his 5th today. He was doing well up until last weekend. On Sunday he developed rigors and fever associated with nausea, poor appetite in increased diarrhea. He basia ated himself with Tylenol in the fevers have resolved. He has been using Imodium and the diarrhea has slowed down. His appetite has not yet recovered although he is getting more fluids. He does note some dizziness when he stands. He is not having any pain. No shortness of breath or cough. No mouth sores or skin rash. His had a similar episode with the diarrhea that did not last quite as long as his. He denies any other changes in his health. He did have a port placed since his last visit. His medications include Imodium oxycodone as needed Flomax and Zofran. - Patient Self-Reported Symptoms SR Constitution: Fatigue/Malaise SR ears, nose, mouth, throat issues: Hoarseness SR respiratory issues: Mucous SR Cardiovascular issues: Dizzy/lightheaded SR Skin issues: Dry skin, Skin rash or itching SR Gastrointestinal issues: Poor or no appetite, Nausea, Vomiting, Diarrhea, Black/tarry stool SR Genitourinary issues: Frequent urination, Incontinence SR Musculoskeletal issues: Muscle weakness SR Neuro issues: Difficulty balancing SR Endocrine issues: Cold intolerance Home Medications and Allergies Home Medications Medication Instructions Recorded Confirmed Type nitroglycerin 0.4 mg sublingual 0.4 mg SL Q5-15M PRN #10 tab 12/28/17 04/23/18 Rx tablet oxycodone 1 tab PO DIRECTED 01/02/18 04/23/18 History tamsulosin [Flomax] 0.4 mg PO DAILY #30 cap 01/04/18 04/23/18 Rx ondansetron 1 tab PO Q6HR PRN #30 tab 02/19/18 04/23/18 Rx ondansetron 8 mg PO BID-TID PRN #20 tab 03/27/18 04/23/18 Rx lidocaine-prilocaine See Rx Instructions .ROUTE 04/30/18 Rx .COMPLEX #30 gram oxycodone 5 mg PO Q3H PRN #20 tab 04/30/18 Rx loperamide-simethicone [Imodium 05/15/18 History Multi-Symptom Relief] Allergies Allergy/AdvReac Type Severity Reaction Status Date / Time No Known Drug Allergies Allergy Verified 12/18/17 17:54 Exam - Constitutional positive no acute distress, positive average body habitus - Routine HEENT Exam Head: Present: normocephalic, atraumatic Eye: Present: EOMI, PERRL. Absent: conjunctival icterus, scleral injection ENT: Present: mucous membranes moist, oropharynx clear - Routine Neck Exam Present: supple. Absent: lymphadenopathy, thyromegaly - Routine Respiratory Exam Present: Clear to auscultation bilaterally. Absent: rales, wheezes - Routine Cardiovascular Exam Present: RRR, S1, S2. Absent: murmur - Routine Abdominal Exam Present: soft, normoactive bowel sounds, ostomy. Absent: tenderness, organomegaly - Routine Extremities Exam Absent: cyanosis, clubbing, edema - Routine Skin Exam Present: intact, pallor. Absent: petechiae, rash - Routine Neurological Exam Present: alert, oriented X3 Results - Labs Laboratory Last Values WBC 3.5 X10^3/uL (4.5-11.0) L 05/15/18 09:09 RBC 2.26 X10^6/uL (4.5-5.9) L 05/15/18 09:09 Hgb 8.1 g/dL (13.5-17.5) L 05/15/18 09:09 Hct 23.0 % (41-53) L 05/15/18 09:09 MCV 101.6 fL (80-100) H 05/15/18 09:09 MCH 35.9 PG (26-34) H 05/15/18 09:09 MCHC 35.4 % (30-36) 05/15/18 09:09 RDW 17.1 % (11.6-14.8) H 05/15/18 09:09 Plt Count 164 X10^3/uL (150-400) 05/15/18 09:09 Neut % (Auto) 72.4 % (50-75) 05/15/18 09:09 Lymph % (Auto) 10.8 % (25-40) L 05/15/18 09:09 [place] % (Auto) 14.1 % (3-14) H 05/15/18 09:09 Eos % (Auto) 2.2 % (2-4) 05/15/18 09:09 Baso % (Auto) 0.5 % (0-2) 05/15/18 09:09 Neut # (Auto) 2500 /uL (7004-2163) 05/15/18 09:09 Lymph # (Auto) 400 /uL (9204-7742) L 05/15/18 09:09 [place] # (Auto) 500 /uL (0-900) 05/15/18 09:09 Eos # (Auto) 100 /uL (0-450) 05/15/18 09:09 Baso # (Auto) 0 /uL (0-100) 05/15/18 09:09 Total Counted 100 03/27/18 09:05 Seg Neutrophils % 65.0 % (38-70) 03/27/18 09:05 Band Neutrophils % 2.0 % (3-7) L 03/27/18 09:05 Lymphocytes % (Manual) 23.0 % (25-45) L 03/27/18 09:05 Atypical Lymphs % 3.0 % (-0) H 03/20/18 08:59 Monocytes % (Manual) 4.0 % (2-11) 03/27/18 09:05 Eosinophils % (Manual) 6.0 % (2-4) H 03/27/18 09:05 Basophils % (Manual) 3.0 % (0-1) H 02/26/18 09:04 Metamyelocytes % 2.0 % (-0) H 02/26/18 09:04 Neutrophils # (Manual) 3551 /uL (4971-0016) 03/27/18 09:05 RBC Morphology Not Reportable 04/17/18 09:05 Polychromasia 1+ H 03/20/18 08:59 Poikilocytosis 1+ H 04/17/18 09:05 Anisocytosis 2+ H 04/17/18 09:05 Macrocytosis 2+ H 03/20/18 08:59 Sodium 129 mmol/L (137-145) L 05/15/18 09:09 Potassium 3.2 mmol/L (3.4-5.1) L 05/15/18 09:09 Chloride 91 mmol/L (98-107) L 05/15/18 09:09 Carbon Dioxide 25 mmol/L (22-32) 05/15/18 09:09 BUN 29 mg/dL (9-20) H 05/15/18 09:09 Creatinine 1.40 mg/dL (0.66-1.25) H 05/15/18 09:09 Estimated GFR 48.5 mL/min (>60) L 05/15/18 09:09 BUN/Creatinine Ratio 20.7 (6-22) 05/15/18 09:09 Glucose 140 mg/dL (80-110) H 05/15/18 09:09 Calcium 8.4 mg/dL (8.4-10.2) 05/15/18 09:09 Magnesium 1.6 mg/dL (1.6-2.3) 02/26/18 09:05 Total Bilirubin 2.0 mg/dL (0.2-1.3) H 05/15/18 09:09 AST 34 IU/L (17-59) 05/15/18 09:09 ALT 32 IU/L (21-72) 05/15/18 09:09 Alkaline Phosphatase 54 U/L (38-126) 05/15/18 09:09 Total Protein 6.2 g/dL (6.3-8.2) L 05/15/18 09:09 Albumin 3.8 g/dL (3.5-5.0) 05/15/18 09:09 Globulin 2.4 g/dL (1.7-4.1) 05/15/18 09:09 Albumin/Globulin Ratio 1.6 (1.0-2.8) 05/15/18 09:09 Carcinoembryonic Ag 1.3 ng/mL (0.1-3.0) 04/17/18 09:05 - Imaging Additional studies: Procedures Bypass Ileum to Cutaneous, Open Approach (11/22/17) Bypass Sigmoid Colon to Cutaneous, Open Approach (09/13/16) Dilation of Bilateral Ureters with Intraluminal Device, Via Natural or Artificial Opening Endoscopic (09/13/16) Dilation of Bladder Neck, Via Natural or Artificial Opening Endoscopic (09/13/16) Excision of Rectum, Open Approach (09/13/16) Excision of Sigmoid Colon, Open Approach (11/22/16) Excision of Small Intestine, Open Approach (11/22/17) Insertion of Infusion Device into Superior Vena Cava, Percutaneous Approach (11/22/17) Inspection of Lower Intestinal Tract, Via Natural or Artificial Opening Endoscopic (09/13/16) Release Small Intestine, Open Approach (11/22/17) Repair Sigmoid Colon, Open Approach (11/22/16) Assessment and Plan (1) Cancer of sigmoid colon Problem details: 82-year-old man with metastatic colon cancer as evidence by biopsy proven carcinomatosis and a liver metastasis. He has been tolerating weekly 5 FU and leucovorin. He is feeling well enough to go ahead with his treatment today. He will have 1 more infusion next week and then a 2 week break. Will try and give him some extra IV fluid today as well as some potassium replacement. He will return to clinic in 4 weeks for follow-up. He will be due for CT scan at that time. Current visit: No Status: Acute
[2018-05-15 10:07] LABS: Carcinoembryonic Antigen 0.7 ng/mL (0.1-3.0)
[2018-05-15] MEDS: DEXAMETHASONE 10 MG/ML VIAL 8 MG IV (10:24)
[2018-05-15] MEDS: SODIUM CHLORIDE 0.9% 100 ML 20 ML IV (10:24)
[2018-05-15] MEDS: ONDANSETRON 8 MG in SODIUM CHLORIDE 0.9% 50 ML 216 ML IV (10:41)
[2018-05-15] MEDS: KCL 40 MEQ IN NS 1,000 ML 250 MEQ IV (11:10)
[2018-05-15] MEDS: DEXTROSE 5% IV (11:42)
[2018-05-15] MEDS: LEUCOVORIN IV (11:42)
[2018-05-15] MEDS: ISOOSMOTIC VEHICLE IV (12:47)
[2018-05-15] MEDS: FLUOROURACIL IV (12:47)
--- NOTE | 2018-05-27 16:52 | PC.NURSE ---
Ostomy Nurse Consult Note Barry asked that I come up to see him while he changed is ileostomy appliance. He had one already cut ready to go, but I noticed that this too was cut too big. I measured his stoma which is oval 09/30. His stoma is well budded but the os tends to point down at the 6:00 position. The peristomal skin is macerated from having his appliance on too long. The back of the wafer had eroded. He said he should of changed it over the weekend. I reinforced with him to change the wafer every three days. Barry crusted around the stoma correctly. I used 1/2 of an travis ring around the stoma to add more protection. Barry said he would do this at home. He seems to understand the importance of keeping the effluent off of his skin to not to cut to wafer too big so that skin is showing. Barry did a very good job of crusting and as I have said verbalizes understanding of proper pouching technique.
[2018-06-05 10:18] LABS: Alanine Aminotransferase 36 IU/L (21-72); Albumin 4.2 g/dL (3.5-5.0); Albumin Globulin Ratio 1.6 (1.0-2.8); Alkaline Phosphatase 70 U/L (38-126); Aspartate Aminotransferase 30 IU/L (17-59); BUN Creatinine Ratio 24.6 (6-22); Bilirubin Total 1.5 mg/dL (0.2-1.3); Blood Urea Nitrogen 32 mg/dL (9-20); Calcium 9.5 mg/dL (8.4-10.2); Carbon Dioxide 23 mmol/L (22-32); Chloride 94 mmol/L (98-107); Estimated Glomerular Filt Rate 52.9 mL/min (>60); Globulin 2.6 g/dL (1.7-4.1); Glucose 95 mg/dL (80-110); HEMOLYSIS < 15 (0-50); Potassium 4.5 mmol/L (3.4-5.1); Sodium 129 mmol/L (137-145); Total Protein 6.8 g/dL (6.3-8.2)
[2018-06-05 10:19] LABS: Hematocrit 28.9 % (41-53); Hemoglobin 10.4 g/dL (13.5-17.5); Mean Corpuscular HGB Conc 36.1 % (30-36); Mean Corpuscular Hemoglobin 35.9 PG (26-34); Mean Corpuscular Volume 99.5 fL (80-100); Platelet Count 171 X10^3/uL (150-400); Red Cell Distribution Width 19.7 % (11.6-14.8); White Blood Cell Count 3.7 X10^3/uL (4.5-11.0)
[2018-06-05 10:25] LABS: Add Manual Diff / Slide Review YES
[2018-06-05 10:48] LABS: Neutrophils Absolute Manual 2479 /uL (3000-5900); Total Cells Counted 100
[2018-06-05 10:50] LABS: Anisocytosis 2+
[2018-06-12 09:35] VITALS: BP 123/55; PULSE 55; RESP 16; TEMP 36.3
--- NOTE | 2018-06-12 10:05 | P.PNONC_ITS ---
PN -Subjective Interval history: Diagnosis: Colon cancer initially T3 N1, now metastatic Previous treatment: 1. Surgical resection in August 2016. 2. Metastatic disease treated with the Xeloda for about 2 days, stopping because of toxicity. 3. 2 cycles of 5 FU and leucovorin on a [place] schedule Interval history: The patient is an 82-year-old man who was diagnosed with a stage III colon cancer last summer. He had a complicated recovery. He had prolonged C diff infection. More recently, he developed a bowel obstruction and underwent surgical exploration. 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 He did not tolerate Xeloda but did start on 5 FU using [place] schedule. After the 5th week of his 2nd cycle, he developed a marked increase in his diarrhea. He had weight loss and dehydration and was hospitalized. C diff was negative. He was treated with Imodium and with somatostatin. Since hi s hospital discharge, he has been slowly improving and feels like over the last 3 or 4 days a things have begun to improve more quickly. He is eating and drinking normally. He denies any nausea or vomiting. He is getting more solid stool through his stoma. His weight is still down from his baseline. No fevers or chills. No mouth sores. He did have some cracking and redness of the skin on his fingers which has been healing. He is not having any pain. He denies any other changes in his health. His medications include Imodium oxycodone as needed Flomax and Zofran. - Patient Self-Reported Symptoms SR Constitution: Fatigue/Malaise SR ears, nose, mouth, throat issues: Hoarseness SR respiratory issues: Mucous SR Cardiovascular issues: Dizzy/lightheaded SR Skin issues: Dry skin, Skin rash or itching SR Gastrointestinal issues: Poor or no appetite, Nausea, Vomiting, Diarrhea, Black/tarry stool SR Genitourinary issues: Frequent urination, Incontinence SR Musculoskeletal issues: Muscle weakness SR Neuro issues: Difficulty balancing SR Endocrine issues: Cold intolerance Home Medications and Allergies Home Medications Medication Instructions Recorded Confirmed Type tamsulosin 0.4 mg PO DAILY 05/19/18 05/19/18 History Lacto.acidophilus-Bif.animalis PO DAILY 06/12/18 History [Daily Probiotic] loperamide [Imodium A-D] 2 mg PO Q2-4H PRN 06/12/18 06/12/18 History Allergies Allergy/AdvReac Type Severity Reaction Status Date / Time No Known Drug Allergies Allergy Verified 05/17/18 13:56 Exam Vital signs: Vital Signs Temp Pulse Resp BP 06/12/18 09:35 97.3 F L 55 L 16 123/55 L Intake and Output 06/11/18 06/12/18 06/12/18 23:59 07:59 15:59 Other: Weight 71.6 kg Patient Weight 06/12/18 23:59 Weight 71.6 kg - Constitutional positive no acute distress, positive average body habitus - Routine HEENT Exam Head: Present: normocephalic, atraumatic Eye: Present: EOMI, PERRL. Absent: conjunctival icterus, scleral injection ENT: Present: mucous membranes moist, oropharynx clear - Routine Neck Exam Present: supple. Absent: lymphadenopathy, thyromegaly - Routine Respiratory Exam Present: Clear to auscultation bilaterally. Absent: rales, wheezes - Routine Cardiovascular Exam Present: RRR, S1, S2. Absent: murmur - Routine Abdominal Exam Present: soft, normoactive bowel sounds, ostomy. Absent: tenderness, organomegaly, mass - Routine Extremities Exam Absent: cyanosis, clubbing, edema - Routine Back/Spine Exam Back/Spine: Absent: paraspinal tenderness, vertebral tenderness - Routine Skin Exam Present: intact. Absent: petechiae, rash - Routine Neurological Exam Present: alert, oriented X3 - Routine Psychiatric Exam Present: normal affect, normal thought process Results - Labs Laboratory Last Values WBC 3.7 X10^3/uL (4.5-11.0) L 06/05/18 10:00 RBC 2.90 X10^6/uL (4.5-5.9) L 06/05/18 10:00 Hgb 10.4 g/dL (13.5-17.5) L 06/05/18 10:00 Hct 28.9 % (41-53) L 06/05/18 10:00 MCV 99.5 fL (80-100) 06/05/18 10:00 MCH 35.9 PG (26-34) H 06/05/18 10:00 MCHC 36.1 % (30-36) H 06/05/18 10:00 RDW 19.7 % (11.6-14.8) H 06/05/18 10:00 Plt Count 171 X10^3/uL (150-400) 06/05/18 10:00 Neut % (Auto) Not Reportable 06/05/18 10:00 Lymph % (Auto) Not Reportable 06/05/18 10:00 [place] % (Auto) Not Reportable 06/05/18 10:00 Eos % (Auto) Not Reportable 06/05/18 10:00 Baso % (Auto) Not Reportable 06/05/18 10:00 Neut # (Auto) 2500 /uL (3069-3398) 05/15/18 09:09 Lymph # (Auto) Not Reportable 06/05/18 10:00 [place] # (Auto) Not Reportable 06/05/18 10:00 Eos # (Auto) 100 /uL (0-450) 05/15/18 09:09 Baso # (Auto) Not Reportable 06/05/18 10:00 Total Counted 100 06/05/18 10:00 Seg Neutrophils % 62.0 % (38-70) 06/05/18 10:00 Band Neutrophils % 5.0 % (3-7) 06/05/18 10:00 Lymphocytes % (Manual) 18.0 % (25-45) L 06/05/18 10:00 Atypical Lymphs % 1.0 % (-0) H 06/05/18 10:00 Monocytes % (Manual) 8.0 % (2-11) 06/05/18 10:00 Eosinophils % (Manual) 4.0 % (2-4) 06/05/18 10:00 Basophils % (Manual) 3.0 % (0-1) H 02/26/18 09:04 Metamyelocytes % 1.0 % (-0) H 06/05/18 10:00 Myelocytes % 1.0 % (-0) H 06/05/18 10:00 Neutrophils # (Manual) 2479 /uL (3735-6758) L 06/05/18 10:00 RBC Morphology See below 06/05/18 10:00 Polychromasia 1+ H 03/20/18 08:59 Poikilocytosis 1+ H 04/17/18 09:05 Anisocytosis 2+ H 06/05/18 10:00 Macrocytosis 2+ H 03/20/18 08:59 Sodium 129 mmol/L (137-145) L 06/05/18 10:00 Potassium 4.5 mmol/L (3.4-5.1) 06/05/18 10:00 Chloride 94 mmol/L (98-107) L 06/05/18 10:00 Carbon Dioxide 23 mmol/L (22-32) 06/05/18 10:00 BUN 32 mg/dL (9-20) H 06/05/18 10:00 Creatinine 1.30 mg/dL (0.66-1.25) H 06/05/18 10:00 Estimated GFR 52.9 mL/min (>60) L 06/05/18 10:00 BUN/Creatinine Ratio 24.6 (6-22) H 06/05/18 10:00 Glucose 95 mg/dL (80-110) 06/05/18 10:00 Calcium 9.5 mg/dL (8.4-10.2) 06/05/18 10:00 Magnesium 1.6 mg/dL (1.6-2.3) 02/26/18 09:05 Total Bilirubin 1.5 mg/dL (0.2-1.3) H 06/05/18 10:00 AST 30 IU/L (17-59) 06/05/18 10:00 ALT 36 IU/L (21-72) 06/05/18 10:00 Alkaline Phosphatase 70 U/L (38-126) 06/05/18 10:00 Total Protein 6.8 g/dL (6.3-8.2) 06/05/18 10:00 Albumin 4.2 g/dL (3.5-5.0) 06/05/18 10:00 Globulin 2.6 g/dL (1.7-4.1) 06/05/18 10:00 Albumin/Globulin Ratio 1.6 (1.0-2.8) 06/05/18 10:00 Carcinoembryonic Ag 1.0 ng/mL (0.1-3.0) 06/05/18 10:00 - Imaging CT scan - abdomen: image reviewed CT scan - chest: image reviewed CT scan - pelvis: image reviewed (Decrease in the size of his liver metastasis.) Additional studies: Procedures Bypass Sigmoid Colon to Cutaneous, Open Approach (06/21/17) Dilation of Bilateral Ureters with Intraluminal Device, Via Natural or Artificial Opening Endoscopic (09/13/16) Dilation of Bladder Neck, Via Natural or Artificial Opening Endoscopic (09/13/16) Excision of Rectum, Open Approach (09/13/16) Excision of Sigmoid Colon, Open Approach (11/22/16) Inspection of Lower Intestinal Tract, Via Natural or Artificial Opening Endoscopic (09/13/16) Repair Sigmoid Colon, Open Approach (11/22/16) Assessment and Plan (1) Cancer of sigmoid colon Problem details: 82-year-old man with metastatic colon cancer as evidence by biopsy proven carcinomatosis and a liver metastasis. He has had some increase diarrhea and skin toxicity at the end of his 2nd cycle. He is slowly recovering and I think needs another week or so before beginning his 3rd cycle. On I think it is likely that will need to shorten his cycle length to 4 weeks on 2 weeks off to try and prevent recurrence of his diarrhea and skin toxicity. Fortunately, his CT demonstrates partial response to his treatment. He will continue with his current regimen on an abbreviated schedule beginning next week. He will return to clinic in about 3 weeks for follow-up. Current visit: No Status: Acute
[2018-06-19 09:09] LABS: Add Manual Diff / Slide Review NO; Basophils Absolute Auto 100 /uL (0-100); Eosinophils Absolute Auto 100 /uL (0-450); Eosinophils Percent Auto 2.3 % (2-4); Hematocrit 32.3 % (41-53); Hemoglobin 11.5 g/dL (13.5-17.5); Lymphocytes Absolute Auto 600 /uL (1100-4500); Lymphocytes Percent Auto 11.4 % (25-40); Mean Corpuscular HGB Conc 35.7 % (30-36); Mean Corpuscular Hemoglobin 35.1 PG (26-34); Mean Corpuscular Volume 98.3 fL (80-100); Monocytes Absolute Auto 600 /uL (0-900); Monocytes Percent Auto 10.2 % (3-14); Neutrophils Absolute Auto 4200 /uL (1500-7000); Neutrophils Percent Auto 75.1 % (50-75); Platelet Count 186 X10^3/uL (150-400); Red Blood Cell Count 3.28 X10^6/uL (4.5-5.9); Red Cell Distribution Width 16.9 % (11.6-14.8); White Blood Cell Count 5.6 X10^3/uL (4.5-11.0)
[2018-06-19 09:32] VITALS: BP 109/71; PULSE 56; RESP 16; TEMP 36.4; O2SAT 100
[2018-06-19] MEDS: DEXAMETHASONE 10 MG/ML VIAL 8 MG IV (09:41)
[2018-06-19] MEDS: SODIUM CHLORIDE 0.9% 100 ML 20 ML IV (09:57)
[2018-06-19] MEDS: ONDANSETRON 8 MG in SODIUM CHLORIDE 0.9% 50 ML 216 ML IV (09:57)
[2018-06-19] MEDS: LEUCOVORIN IV (10:57)
[2018-06-19] MEDS: DEXTROSE 5% IV (10:57)
[2018-06-19] MEDS: ISOOSMOTIC VEHICLE IV (12:10)
[2018-06-19] MEDS: FLUOROURACIL IV (12:10)
[2018-06-26 09:33] LABS: Add Manual Diff / Slide Review NO; Basophils Absolute Auto 0 /uL (0-100); Basophils Percent Auto 0.6 % (0-2); Eosinophils Absolute Auto 200 /uL (0-450); Hematocrit 29.5 % (41-53); Hemoglobin 10.3 g/dL (13.5-17.5); Lymphocytes Absolute Auto 600 /uL (1100-4500); Lymphocytes Percent Auto 9.2 % (25-40); Mean Corpuscular Hemoglobin 34.5 PG (26-34); Mean Corpuscular Volume 98.5 fL (80-100); Monocytes Absolute Auto 500 /uL (0-900); Monocytes Percent Auto 8.3 % (3-14); Neutrophils Absolute Auto 4800 /uL (1500-7000); Neutrophils Percent Auto 78.9 % (50-75); Platelet Count 161 X10^3/uL (150-400); Red Blood Cell Count 2.99 X10^6/uL (4.5-5.9); Red Cell Distribution Width 15.7 % (11.6-14.8); White Blood Cell Count 6.1 X10^3/uL (4.5-11.0)
[2018-06-26 09:51] LABS: Alanine Aminotransferase 17 IU/L (21-72); Albumin Globulin Ratio 1.7 (1.0-2.8); Alkaline Phosphatase 59 U/L (38-126); Aspartate Aminotransferase 20 IU/L (17-59); Blood Urea Nitrogen 22 mg/dL (9-20); Calcium 9.1 mg/dL (8.4-10.2); Carbon Dioxide 21 mmol/L (22-32); Chloride 101 mmol/L (98-107); Estimated Glomerular Filt Rate > 60.0 mL/min (>60); Globulin 2.3 g/dL (1.7-4.1); Glucose 98 mg/dL (80-110); HEMOLYSIS < 15 (0-50); Potassium 4.3 mmol/L (3.4-5.1); Sodium 130 mmol/L (137-145); Total Protein 6.3 g/dL (6.3-8.2)
[2018-06-26 10:18] VITALS: BP 119/61; PULSE 63; RESP 16; TEMP 36.5; O2SAT 100
[2018-06-26] MEDS: DEXAMETHASONE 10 MG/ML VIAL 8 MG IV (10:24)
[2018-06-26] MEDS: SODIUM CHLORIDE 0.9% 100 ML 20 ML IV (10:25)
[2018-06-26] MEDS: ONDANSETRON 8 MG in SODIUM CHLORIDE 0.9% 50 ML 216 ML IV (10:25)
[2018-06-26] MEDS: DEXTROSE 5% IV (11:10)
[2018-06-26] MEDS: LEUCOVORIN IV (11:10)
[2018-06-26] MEDS: FLUOROURACIL IV (12:17)
[2018-06-26] MEDS: ISOOSMOTIC VEHICLE IV (12:17)
[2018-07-03 09:04] VITALS: BP 116/75; PULSE 68; RESP 18; TEMP 36.4; O2SAT 100
[2018-07-03 09:15] LABS: Add Manual Diff / Slide Review NO; Basophils Absolute Auto 0 /uL (0-100); Basophils Percent Auto 0.8 % (0-2); Eosinophils Absolute Auto 100 /uL (0-450); Eosinophils Percent Auto 2.6 % (2-4); Hematocrit 26.4 % (41-53); Hemoglobin 9.6 g/dL (13.5-17.5); Lymphocytes Absolute Auto 500 /uL (1100-4500); Lymphocytes Percent Auto 10.7 % (25-40); Mean Corpuscular HGB Conc 36.1 % (30-36); Mean Corpuscular Hemoglobin 35.1 PG (26-34); Mean Corpuscular Volume 97.3 fL (80-100); Monocytes Absolute Auto 300 /uL (0-900); Neutrophils Absolute Auto 3800 /uL (1500-7000); Neutrophils Percent Auto 78.9 % (50-75); Platelet Count 153 X10^3/uL (150-400); Red Blood Cell Count 2.72 X10^6/uL (4.5-5.9); Red Cell Distribution Width 16.5 % (11.6-14.8); White Blood Cell Count 4.8 X10^3/uL (4.5-11.0)
[2018-07-03 09:28] LABS: Alanine Aminotransferase 17 IU/L (21-72); Albumin Globulin Ratio 1.7 (1.0-2.8); Alkaline Phosphatase 55 U/L (38-126); Aspartate Aminotransferase 21 IU/L (17-59); BUN Creatinine Ratio 27.3 (6-22); Bilirubin Total 1.2 mg/dL (0.2-1.3); Blood Urea Nitrogen 30 mg/dL (9-20); Calcium 9.1 mg/dL (8.4-10.2); Carbon Dioxide 22 mmol/L (22-32); Chloride 100 mmol/L (98-107); Estimated Glomerular Filt Rate > 60.0 mL/min (>60); Globulin 2.4 g/dL (1.7-4.1); Glucose 107 mg/dL (80-110); HEMOLYSIS < 15 (0-50); Potassium 4.2 mmol/L (3.4-5.1); Sodium 131 mmol/L (137-145); Total Protein 6.4 g/dL (6.3-8.2)
--- NOTE | 2018-07-03 09:37 | P.PNONC_ITS ---
PN -Subjective Interval history: Diagnosis: Colon cancer initially T3 N1, now metastatic Previous treatment: 1. Surgical resection in August 2016. 2. Metastatic disease treated with the Xeloda for about 2 days, stopping because of toxicity. 3. 2 cycles of 5 FU and leucovorin on a [place] schedule Interval history: The patient is an 82-year-old man who was diagnosed with a stage III colon cancer last summer. He had a complicated recovery. He had prolonged C diff infection. More recently, he developed a bowel obstruction and underwent surgical exploration. 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 He did not tolerate Xeloda but did start on 5 FU using [place] schedule. After the 5th week of his 2nd cycle, he developed a marked increase in his diarrhea. He had weight loss and dehydration and was hospitalized. C diff was negative. He was treated with Imodium and with somatostatin. He has n ow completed 2 weeks of his 3rd cycle. He did have a little bit of increase in his diarrhea on Sunday and Sunday of this week but it has begun to subside again. He has had a little bit of nausea but no vomiting. He denies any skin rash or mouth sores. No new aches or pains. No fevers or chills. His appetite has been good. No shortness of breath or cough. He remains quite active and is working full days. He does find that he needs to rest a little bit more than he has in the past but is still able to do all of his normal activities. He denies any other changes in his health. His medications include Imodium oxycodone as needed Flomax and Zofran. - Patient Self-Reported Symptoms SR Constitution: Fatigue/Malaise SR ears, nose, mouth, throat issues: Hoarseness SR respiratory issues: Mucous SR Cardiovascular issues: Dizzy/lightheaded SR Skin issues: Dry skin, Skin rash or itching SR Gastrointestinal issues: Poor or no appetite, Nausea, Vomiting, Diarrhea, Black/tarry stool SR Genitourinary issues: Frequent urination, Incontinence SR Musculoskeletal issues: Muscle weakness SR Neuro issues: Difficulty balancing SR Endocrine issues: Cold intolerance Home Medications and Allergies Home Medications Medication Instructions Recorded Confirmed Type tamsulosin 0.4 mg PO DAILY 05/19/18 07/03/18 History Lacto.acidophilus-Bif.animalis PO DAILY 06/12/18 History [Daily Probiotic] loperamide [Imodium A-D] 2 mg PO Q2-4H PRN 06/12/18 07/03/18 History Allergies Allergy/AdvReac Type Severity Reaction Status Date / Time No Known Drug Allergies Allergy Verified 05/17/18 13:56 Exam Vital signs: Vital Signs Temp Pulse Resp BP Pulse Ox 07/03/18 09:04 97.6 F 68 18 116/75 100 Intake and Output 07/02/18 07/03/18 07/03/18 23:59 07:59 15:59 Other: Weight 73 kg Patient Weight 07/03/18 23:59 Weight 73 kg - Constitutional positive no acute distress, positive average body habitus - Routine HEENT Exam Head: Present: normocephalic, atraumatic Eye: Present: EOMI, PERRL. Absent: conjunctival icterus, scleral injection ENT: Present: mucous membranes moist, oropharynx clear - Routine Neck Exam Present: supple. Absent: lymphadenopathy, thyromegaly - Routine Respiratory Exam Present: Clear to auscultation bilaterally. Absent: rales, wheezes - Routine Cardiovascular Exam Present: RRR, S1, S2. Absent: murmur - Routine Abdominal Exam Present: soft, normoactive bowel sounds. Absent: tenderness, organomegaly Comments: His ostomy is functioning well. - Routine Extremities Exam Absent: cyanosis, clubbing, edema - Routine Skin Exam Present: intact. Absent: petechiae, rash - Routine Neurological Exam Present: alert, oriented X3 - Routine Psychiatric Exam Present: normal affect, normal thought process Results - Labs Laboratory Last Values WBC 4.8 X10^3/uL (4.5-11.0) 07/03/18 09:00 RBC 2.72 X10^6/uL (4.5-5.9) L 07/03/18 09:00 Hgb 9.6 g/dL (13.5-17.5) L 07/03/18 09:00 Hct 26.4 % (41-53) L 07/03/18 09:00 MCV 97.3 fL (80-100) 07/03/18 09:00 MCH 35.1 PG (26-34) H 07/03/18 09:00 MCHC 36.1 % (30-36) H 07/03/18 09:00 RDW 16.5 % (11.6-14.8) H 07/03/18 09:00 Plt Count 153 X10^3/uL (150-400) 07/03/18 09:00 Neut % (Auto) 78.9 % (50-75) H 07/03/18 09:00 Lymph % (Auto) 10.7 % (25-40) L 07/03/18 09:00 [place] % (Auto) 7.0 % (3-14) 07/03/18 09:00 Eos % (Auto) 2.6 % (2-4) 07/03/18 09:00 Baso % (Auto) 0.8 % (0-2) 07/03/18 09:00 Neut # (Auto) 3800 /uL (8532-2592) 07/03/18 09:00 Lymph # (Auto) 500 /uL (8979-4079) L 07/03/18 09:00 [place] # (Auto) 300 /uL (0-900) 07/03/18 09:00 Eos # (Auto) 100 /uL (0-450) 07/03/18 09:00 Baso # (Auto) 0 /uL (0-100) 07/03/18 09:00 Total Counted 100 06/05/18 10:00 Seg Neutrophils % 62.0 % (38-70) 06/05/18 10:00 Band Neutrophils % 5.0 % (3-7) 06/05/18 10:00 Lymphocytes % (Manual) 18.0 % (25-45) L 06/05/18 10:00 Atypical Lymphs % 1.0 % (-0) H 06/05/18 10:00 Monocytes % (Manual) 8.0 % (2-11) 06/05/18 10:00 Eosinophils % (Manual) 4.0 % (2-4) 06/05/18 10:00 Basophils % (Manual) 3.0 % (0-1) H 02/26/18 09:04 Metamyelocytes % 1.0 % (-0) H 06/05/18 10:00 Myelocytes % 1.0 % (-0) H 06/05/18 10:00 Neutrophils # (Manual) 2479 /uL (2198-8460) L 06/05/18 10:00 RBC Morphology See below 06/05/18 10:00 Polychromasia 1+ H 03/20/18 08:59 Poikilocytosis 1+ H 04/17/18 09:05 Anisocytosis 2+ H 06/05/18 10:00 Macrocytosis 2+ H 03/20/18 08:59 Sodium 131 mmol/L (137-145) L 07/03/18 09:00 Potassium 4.2 mmol/L (3.4-5.1) 07/03/18 09:00 Chloride 100 mmol/L (98-107) 07/03/18 09:00 Carbon Dioxide 22 mmol/L (22-32) 07/03/18 09:00 BUN 30 mg/dL (9-20) H 07/03/18 09:00 Creatinine 1.10 mg/dL (0.66-1.25) 07/03/18 09:00 Estimated GFR > 60.0 mL/min (>60) 07/03/18 09:00 BUN/Creatinine Ratio 27.3 (6-22) H 07/03/18 09:00 Glucose 107 mg/dL (80-110) 07/03/18 09:00 Calcium 9.1 mg/dL (8.4-10.2) 07/03/18 09:00 Magnesium 1.6 mg/dL (1.6-2.3) 02/26/18 09:05 Total Bilirubin 1.2 mg/dL (0.2-1.3) 07/03/18 09:00 AST 21 IU/L (17-59) 07/03/18 09:00 ALT 17 IU/L (21-72) L 07/03/18 09:00 Alkaline Phosphatase 55 U/L (38-126) 07/03/18 09:00 Total Protein 6.4 g/dL (6.3-8.2) 07/03/18 09:00 Albumin 4.0 g/dL (3.5-5.0) 07/03/18 09:00 Globulin 2.4 g/dL (1.7-4.1) 07/03/18 09:00 Albumin/Globulin Ratio 1.7 (1.0-2.8) 07/03/18 09:00 Carcinoembryonic Ag 1.0 ng/mL (0.1-3.0) 06/05/18 10:00 - Imaging Additional studies: Procedures Bypass Sigmoid Colon to Cutaneous, Open Approach (09/13/16) Dilation of Bilateral Ureters with Intraluminal Device, Via Natural or Artificial Opening Endoscopic (09/13/16) Dilation of Bladder Neck, Via Natural or Artificial Opening Endoscopic (09/13/16) Excision of Rectum, Open Approach (09/13/16) Excision of Sigmoid Colon, Open Approach (11/22/16) Inspection of Lower Intestinal Tract, Via Natural or Artificial Opening Endoscopic (09/13/16) Repair Sigmoid Colon, Open Approach (11/22/16) Assessment and Plan (1) Cancer of sigmoid colon Problem details: 82-year-old man with metastatic colon cancer as evidence by biopsy proven carcinomatosis and a liver metastasis. He is tolerating his 3rd cycle of chemotherapy reasonably well and will continue with his treatment today. He will be due for 1 more dose next week and then will have a 2 week break. He will return to clinic in about 4 weeks for follow-up. I would anticipate that he will start his 4th cycle at that time. He will continue with a 4 week on 2 week off regimen. He will be due for another restaging CT scan at the end of his 4th cycle. Current visit: No Status: Acute
[2018-07-03] MEDS: SODIUM CHLORIDE 0.9% 100 ML 20 ML IV (10:00)
[2018-07-03 10:19] LABS: Carcinoembryonic Antigen 1.7 ng/mL (0.1-3.0)
[2018-07-03] MEDS: DEXAMETHASONE 10 MG/ML VIAL 8 MG IV (10:23)
[2018-07-03] MEDS: ONDANSETRON 8 MG in SODIUM CHLORIDE 0.9% 50 ML 216 ML IV (10:29)
[2018-07-03] MEDS: LEUCOVORIN IV (11:06)
[2018-07-03] MEDS: DEXTROSE 5% IV (11:06)
[2018-07-03] MEDS: ISOOSMOTIC VEHICLE IV (12:21)
[2018-07-03] MEDS: FLUOROURACIL IV (12:21)
[2018-07-10 10:07] LABS: Add Manual Diff / Slide Review NO; Basophils Absolute Auto 0 /uL (0-100); Basophils Percent Auto 1.1 % (0-2); Eosinophils Absolute Auto 100 /uL (0-450); Eosinophils Percent Auto 4.9 % (2-4); Hematocrit 24.4 % (41-53); Hemoglobin 8.6 g/dL (13.5-17.5); Lymphocytes Absolute Auto 500 /uL (1100-4500); Lymphocytes Percent Auto 17.8 % (25-40); Mean Corpuscular HGB Conc 35.4 % (30-36); Mean Corpuscular Hemoglobin 34.7 PG (26-34); Mean Corpuscular Volume 98.2 fL (80-100); Monocytes Absolute Auto 300 /uL (0-900); Monocytes Percent Auto 9.1 % (3-14); Neutrophils Absolute Auto 2000 /uL (1500-7000); Neutrophils Percent Auto 67.1 % (50-75); Platelet Count 163 X10^3/uL (150-400); Red Blood Cell Count 2.49 X10^6/uL (4.5-5.9); Red Cell Distribution Width 16.8 % (11.6-14.8); White Blood Cell Count 2.9 X10^3/uL (4.5-11.0)
[2018-07-10 10:12] VITALS: BP 129/64; PULSE 74; RESP 16; TEMP 36.8; O2SAT 100
[2018-07-10 10:20] LABS: Alanine Aminotransferase 17 IU/L (21-72); Albumin 3.8 g/dL (3.5-5.0); Albumin Globulin Ratio 1.7 (1.0-2.8); Alkaline Phosphatase 57 U/L (38-126); Aspartate Aminotransferase 20 IU/L (17-59); BUN Creatinine Ratio 24.5 (6-22); Bilirubin Total 1.6 mg/dL (0.2-1.3); Blood Urea Nitrogen 27 mg/dL (9-20); Calcium 8.7 mg/dL (8.4-10.2); Carbon Dioxide 22 mmol/L (22-32); Chloride 99 mmol/L (98-107); Estimated Glomerular Filt Rate > 60.0 mL/min (>60); Globulin 2.3 g/dL (1.7-4.1); Glucose 96 mg/dL (80-110); HEMOLYSIS < 15 (0-50); Potassium 3.9 mmol/L (3.4-5.1); Sodium 130 mmol/L (137-145); Total Protein 6.1 g/dL (6.3-8.2)
[2018-07-10] MEDS: SODIUM CHLORIDE 0.9% 100 ML 20 ML IV (10:32)
[2018-07-10] MEDS: DEXAMETHASONE 10 MG/ML VIAL 8 MG IV (10:32)
[2018-07-10] MEDS: ONDANSETRON 8 MG in SODIUM CHLORIDE 0.9% 50 ML 216 ML IV (10:49)
[2018-07-10] MEDS: LEUCOVORIN IV (11:21)
[2018-07-10] MEDS: DEXTROSE 5% IV (11:21)
[2018-07-10] MEDS: ISOOSMOTIC VEHICLE IV (12:30)
[2018-07-10] MEDS: FLUOROURACIL IV (12:30)
[2018-07-11 10:05] VITALS: BP 118/62; PULSE 65; RESP 18; TEMP 36.7
[2018-07-11 10:21] VITALS: BP 124/60; PULSE 58; RESP 18; TEMP 36.5
[2018-07-11 12:30] VITALS: BP 132/66; PULSE 62; RESP 18
[2018-07-11 12:45] VITALS: BP 132/66; PULSE 62; RESP 18; TEMP 36.4
[2018-07-11 12:46] VITALS: BP 113/62; PULSE 54; RESP 18; TEMP 36.4
[2018-07-11 13:00] VITALS: BP 119/51; PULSE 55; RESP 16; TEMP 36.4
--- NOTE | 2018-07-25 09:23 | PC.NURSE ---
Pt's , Anne Marie, called and spoke to this global technical writer. Per Anne Marie, pt is experiencing increased weakness and fatigue. Per Anne Marie last time he felt this way he needed blood. I think he may need blood again. agreeable to bring pt in for RN evaluation and CBC.
[2018-07-25 10:27] LABS: Add Manual Diff / Slide Review NO; Basophils Absolute Auto 100 /uL (0-100); Basophils Percent Auto 1.2 % (0-2); Eosinophils Absolute Auto 100 /uL (0-450); Eosinophils Percent Auto 2.3 % (2-4); Hematocrit 30.8 % (41-53); Hemoglobin 10.9 g/dL (13.5-17.5); Lymphocytes Absolute Auto 500 /uL (1100-4500); Lymphocytes Percent Auto 9.9 % (25-40); Mean Corpuscular HGB Conc 35.4 % (30-36); Mean Corpuscular Hemoglobin 33.8 PG (26-34); Mean Corpuscular Volume 95.5 fL (80-100); Monocytes Absolute Auto 700 /uL (0-900); Neutrophils Absolute Auto 3400 /uL (1500-7000); Neutrophils Percent Auto 71.6 % (50-75); Platelet Count 163 X10^3/uL (150-400); Red Blood Cell Count 3.22 X10^6/uL (4.5-5.9); Red Cell Distribution Width 19.2 % (11.6-14.8); White Blood Cell Count 4.8 X10^3/uL (4.5-11.0)
[2018-07-25 11:53] LABS: Clostridium Difficile Tox PCR Negative for C. diff
--- NOTE | 2018-07-25 13:45 | PC.NURSE ---
Pt seen in clinic today for sx management and CBC. Pt lab results reviewed, no blood products required. Pt reports ongoing diarrhea, declined IV fluids stating I eat and drink plenty. Pt reports that today he feels better than yesterday My called this morning because I wasn't feeling too well yesterday, but I am feeling better today. C diff sample obtained, negative result, Pt aware of result. Pt scheduled to see Dr. Reyes on July 31, pt will discuss possible dose modification at that time.
[2018-07-31] VITALS: BP 95/56
[2018-07-31 10:00] VITALS: BP 125/67; PULSE 80; RESP 18; TEMP 36.8; O2SAT 100
[2018-07-31 10:04] LABS: Hemoglobin 11.1 g/dL (13.5-17.5); Mean Corpuscular HGB Conc 35.7 % (30-36); Mean Corpuscular Hemoglobin 33.7 PG (26-34); Mean Corpuscular Volume 94.4 fL (80-100); Platelet Count 225 X10^3/uL (150-400); Red Blood Cell Count 3.28 X10^6/uL (4.5-5.9); Red Cell Distribution Width 18.8 % (11.6-14.8); White Blood Cell Count 6.1 X10^3/uL (4.5-11.0)
[2018-07-31 10:08] LABS: Add Manual Diff / Slide Review YES
[2018-07-31 10:10] LABS: Alanine Aminotransferase 17 IU/L (21-72); Albumin 4.3 g/dL (3.5-5.0); Albumin Globulin Ratio 1.5 (1.0-2.8); Alkaline Phosphatase 90 U/L (38-126); Aspartate Aminotransferase 29 IU/L (17-59); BUN Creatinine Ratio 31.7 (6-22); Bilirubin Total 1.5 mg/dL (0.2-1.3); Blood Urea Nitrogen 57 mg/dL (9-20); Calcium 9.6 mg/dL (8.4-10.2); Carbon Dioxide 24 mmol/L (22-32); Chloride 87 mmol/L (98-107); Estimated Glomerular Filt Rate 36.3 mL/min (>60); Globulin 2.8 g/dL (1.7-4.1); Glucose 125 mg/dL (80-110); HEMOLYSIS < 15 (0-50); Potassium 4.3 mmol/L (3.4-5.1); Sodium 124 mmol/L (137-145); Total Protein 7.1 g/dL (6.3-8.2)
--- NOTE | 2018-07-31 10:25 | ONC.PN ---
PN -Subjective Interval history: Diagnosis: Colon cancer initially T3 N1, now metastatic Previous treatment: 1. Surgical resection in August 2016. 2. Metastatic disease treated with the Xeloda for about 2 days, stopping because of toxicity. 3. 3 cycles of 5 FU and leucovorin on a [place] schedule Interval history: The patient is an 82-year-old man who was diagnosed with a stage III colon cancer in 2016. He had a complicated recovery. He had prolonged C diff infection. More recently, he developed a bowel obstruction and underwent surgical exploration. 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 He did not tolerate Xeloda but did start on 5 FU using [place] schedule. After the 5th week of his 2nd cycle, he developed a marked increase in his diarrhea. He had weight loss and dehydration and was hospitalized. C diff was negative. He was treated with Imodium and with somatostatin. He has now completed his 3rd cycle. Over the last 2 weeks, he has been bothered by a marked increase in his diarrhea is only just recently subsided. He is having dizziness and did have an episode of syncope and a couple of falls. He did not have any mouth sores. He did have some dry skin on the hands but no rash. No fevers or chills. He is not having any shortness of breath or cough. His appetite has been poor. He did lose some weight but has been able to gain back a couple lb. He had been using Imodium 4 times a day but without any improvement. His medications include Imodium oxycodone as needed Flomax and Zofran. - Patient Self-Reported Symptoms SR Constitution: Weight loss/gain, Fatigue/Malaise SR ears, nose, mouth, throat issues: Hoarseness SR respiratory issues: Mucous SR Cardiovascular issues: Dizzy/lightheaded SR Skin issues: Dry skin, Skin rash or itching SR Gastrointestinal issues: Diarrhea SR Genitourinary issues: Frequent urination, Incontinence SR Musculoskeletal issues: Muscle weakness SR Neuro issues: Difficulty balancing SR Endocrine issues: Cold intolerance Home Medications and Allergies Home Medications Medication Instructions Recorded Confirmed Type tamsulosin 0.4 mg PO DAILY 05/19/18 07/31/18 History Lacto.acidophilus-Bif.animalis PO DAILY 06/12/18 History [Daily Probiotic] loperamide [Imodium A-D] 2 mg PO Q2-4H PRN 06/12/18 07/31/18 History Allergies Allergy/AdvReac Type Severity Reaction Status Date / Time No Known Drug Allergies Allergy Verified 05/17/18 13:56 Exam Vital signs: Vital Signs Temp Pulse Resp BP Pulse Ox 07/31/18 10:00 98.2 F 80 18 125/67 100 07/31/18 00:00 95/56 L Intake and Output 07/30/18 07/31/18 07/31/18 23:59 07:59 15:59 Other: Weight 70.1 kg Patient Weight 07/31/18 23:59 Weight 70.1 kg - Constitutional positive no acute distress, positive average body habitus - Routine HEENT Exam Head: Present: normocephalic, atraumatic Eye: Present: EOMI, PERRL. Absent: conjunctival icterus, scleral injection ENT: Present: mucous membranes moist, oropharynx clear - Routine Neck Exam Present: supple. Absent: lymphadenopathy, thyromegaly - Routine Chest/Breast/Axilla Exam Axillae: Absent: lymphadenopathy - Routine Respiratory Exam Present: Clear to auscultation bilaterally. Absent: rales, wheezes - Routine Cardiovascular Exam Present: RRR, S1, S2. Absent: murmur - Routine Abdominal Exam Present: soft, normoactive bowel sounds. 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 - Routine Extremities Exam Absent: cyanosis, clubbing, edema - Routine Back/Spine Exam Back/Spine: Absent: vertebral tenderness - Routine Skin Exam Present: intact. Absent: petechiae, rash - Routine Neurological Exam Present: alert, oriented X3 - Routine Psychiatric Exam Present: normal affect, normal thought process Results - Labs Laboratory Last Values WBC 6.1 X10^3/uL (4.5-11.0) 07/31/18 09:50 RBC 3.28 X10^6/uL (4.5-5.9) L 07/31/18 09:50 Hgb 11.1 g/dL (13.5-17.5) L 07/31/18 09:50 Hct 31.0 % (41-53) L 07/31/18 09:50 MCV 94.4 fL (80-100) 07/31/18 09:50 MCH 33.7 PG (26-34) 07/31/18 09:50 MCHC 35.7 % (30-36) 07/31/18 09:50 RDW 18.8 % (11.6-14.8) H 07/31/18 09:50 Plt Count 225 X10^3/uL (150-400) 07/31/18 09:50 Neut % (Auto) Not Reportable 07/31/18 09:50 Lymph % (Auto) Not Reportable 07/31/18 09:50 [place] % (Auto) Not Reportable 07/31/18 09:50 Eos % (Auto) Not Reportable 07/31/18 09:50 Baso % (Auto) Not Reportable 07/31/18 09:50 Neut # (Auto) 3400 /uL (1059-7651) 07/25/18 10:26 Lymph # (Auto) Not Reportable 07/31/18 09:50 [place] # (Auto) Not Reportable 07/31/18 09:50 Eos # (Auto) 100 /uL (0-450) 07/25/18 10:26 Baso # (Auto) Not Reportable 07/31/18 09:50 Total Counted 100 06/05/18 10:00 Seg Neutrophils % 62.0 % (38-70) 06/05/18 10:00 Band Neutrophils % 5.0 % (3-7) 06/05/18 10:00 Lymphocytes % (Manual) 18.0 % (25-45) L 06/05/18 10:00 Atypical Lymphs % 1.0 % (-0) H 06/05/18 10:00 Monocytes % (Manual) 8.0 % (2-11) 06/05/18 10:00 Eosinophils % (Manual) 4.0 % (2-4) 06/05/18 10:00 Basophils % (Manual) 3.0 % (0-1) H 02/26/18 09:04 Metamyelocytes % 1.0 % (-0) H 06/05/18 10:00 Myelocytes % 1.0 % (-0) H 06/05/18 10:00 Neutrophils # (Manual) 2479 /uL (4152-5388) L 06/05/18 10:00 RBC Morphology See below 06/05/18 10:00 Polychromasia 1+ H 03/20/18 08:59 Poikilocytosis 1+ H 04/17/18 09:05 Anisocytosis 2+ H 06/05/18 10:00 Macrocytosis 2+ H 03/20/18 08:59 Sodium 124 mmol/L (137-145) L 07/31/18 09:50 Potassium 4.3 mmol/L (3.4-5.1) 07/31/18 09:50 Chloride 87 mmol/L (98-107) L 07/31/18 09:50 Carbon Dioxide 24 mmol/L (22-32) 07/31/18 09:50 BUN 57 mg/dL (9-20) H 07/31/18 09:50 Creatinine 1.80 mg/dL (0.66-1.25) H 07/31/18 09:50 Estimated GFR 36.3 mL/min (>60) L 07/31/18 09:50 BUN/Creatinine Ratio 31.7 (6-22) H 07/31/18 09:50 Glucose 125 mg/dL (80-110) H 07/31/18 09:50 Calcium 9.6 mg/dL (8.4-10.2) 07/31/18 09:50 Magnesium 1.6 mg/dL (1.6-2.3) 02/26/18 09:05 Total Bilirubin 1.5 mg/dL (0.2-1.3) H 07/31/18 09:50 AST 29 IU/L (17-59) 07/31/18 09:50 ALT 17 IU/L (21-72) L 07/31/18 09:50 Alkaline Phosphatase 90 U/L (38-126) 07/31/18 09:50 Total Protein 7.1 g/dL (6.3-8.2) 07/31/18 09:50 Albumin 4.3 g/dL (3.5-5.0) 07/31/18 09:50 Globulin 2.8 g/dL (1.7-4.1) 07/31/18 09:50 Albumin/Globulin Ratio 1.5 (1.0-2.8) 07/31/18 09:50 Carcinoembryonic Ag 1.7 ng/mL (0.1-3.0) 07/03/18 09:00 C. difficile Tox (PCR) Negative for c. diff 07/25/18 10:45 Blood Type A Positive 07/10/18 13:50 Antibody Screen Negative 07/10/18 13:50 Crossmatch See Detail 07/10/18 13:50 - Imaging Additional studies: Procedures Bypass Sigmoid Colon to Cutaneous, Open Approach (09/13/16) Dilation of Bilateral Ureters with Intraluminal Device, Via Natural or Artificial Opening Endoscopic (09/13/16) Dilation of Bladder Neck, Via Natural or Artificial Opening Endoscopic (09/13/16) Excision of Rectum, Open Approach (09/13/16) Excision of Sigmoid Colon, Open Approach (11/22/16) Inspection of Lower Intestinal Tract, Via Natural or Artificial Opening Endoscopic (09/13/16) Repair Sigmoid Colon, Open Approach (11/22/16) Assessment and Plan (1) Cancer of sigmoid colon Problem details: 82-year-old man with metastatic colon cancer as evidence by biopsy proven carcinomatosis and a liver metastasis. He has had more difficulty with diarrhea at the end of his 3rd cycle. It has taken him a couple weeks to recover. We will plan on treating with IV fluids and delaying the next round of chemotherapy. He will return to clinic in 1 week for follow-up. I think he is going to need a dose reduction with his next round of treatment. He will be due for CT scan after the 4th cycle. Current visit: No Status: Acute
[2018-07-31] MEDS: SODIUM CHLORIDE 0.9% 1,000 ML 1000 ML IV (10:44)
[2018-07-31 10:50] LABS: Neutrophils Absolute Manual 4087 /uL (3000-5900); Total Cells Counted 100
[2018-07-31 10:51] LABS: Anisocytosis 1+
[2018-08-07 09:41] VITALS: BP 136/69; PULSE 79; RESP 18; TEMP 36.8; O2SAT 98
--- NOTE | 2018-08-07 09:58 | ONC.PN ---
PN -Subjective Interval history: Diagnosis: Colon cancer initially T3 N1, now metastatic Previous treatment: 1. Surgical resection in August 2016. 2. Metastatic disease treated with the Xeloda for about 2 days, stopping because of toxicity. 3. 3 cycles of 5 FU and leucovorin on a [place] schedule Interval history: The patient is an 82-year-old man who was diagnosed with a stage III colon cancer in 2016. He had a complicated recovery. He had prolonged C diff infection. More recently, he developed a bowel obstruction and underwent surgical exploration. 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 He did not tolerate Xeloda but did start on 5 FU using [place] schedule. He has completed her 3 cycles of 5 FU on an abbreviated [place] schedule. He had a lot of diarrhea with her last dose. He has had taken an extra week break. Over the last week, he feels like his strength and energy level have been fair. He is still having some trouble with the diarrhea particularly is a later in the day. No nausea or vomiting. No fevers chills or sweats. He is not having any pain. his biggest complaint has been trouble with his ostomy due to the diarrhea. He denies any other changes in his health. His medications include Imodium oxycodone as needed Flomax and Zofran. - Patient Self-Reported Symptoms SR Constitution: Weight loss/gain, Fatigue/Malaise SR ears, nose, mouth, throat issues: Hoarseness SR respiratory issues: Mucous SR Cardiovascular issues: Dizzy/lightheaded SR Skin issues: Dry skin, Skin rash or itching SR Gastrointestinal issues: Diarrhea SR Genitourinary issues: Frequent urination, Incontinence SR Musculoskeletal issues: Muscle weakness SR Neuro issues: Difficulty balancing SR Endocrine issues: Cold intolerance Home Medications and Allergies Home Medications Medication Instructions Recorded Confirmed Type tamsulosin 0.4 mg PO DAILY 05/19/18 07/31/18 History Lacto.acidophilus-Bif.animalis PO DAILY 06/12/18 History [Daily Probiotic] loperamide [Imodium A-D] 2 mg PO Q2-4H PRN 06/12/18 07/31/18 History diphenoxylate-atropine [Lomotil] 1 tab PO Q6-8H PRN #30 tab 07/31/18 Rx Allergies Allergy/AdvReac Type Severity Reaction Status Date / Time No Known Drug Allergies Allergy Verified 05/17/18 13:56 Exam Vital signs: Vital Signs Temp Pulse Resp BP Pulse Ox 08/07/18 09:41 98.2 F 79 18 136/69 98 Intake and Output 08/06/18 08/07/18 08/07/18 23:59 07:59 15:59 Other: Weight 70.1 kg Patient Weight 08/07/18 23:59 Weight 70.1 kg - Constitutional positive no acute distress, positive average body habitus - Routine HEENT Exam Head: Present: normocephalic, atraumatic Eye: Present: EOMI, PERRL. Absent: conjunctival icterus, scleral injection ENT: Present: mucous membranes moist, oropharynx clear - Routine Neck Exam Present: supple. Absent: lymphadenopathy, thyromegaly - Routine Respiratory Exam Present: Clear to auscultation bilaterally. Absent: rales, wheezes - Routine Cardiovascular Exam Present: RRR, S1, S2. Absent: murmur - Routine Abdominal Exam Present: soft, normoactive bowel sounds. Absent: tenderness, organomegaly, mass Comments: Is ostomy appears to be functioning well. - Routine Extremities Exam Absent: cyanosis, clubbing, edema - Routine Back/Spine Exam Back/Spine: Absent: paraspinal tenderness, vertebral tenderness - Routine Skin Exam Present: intact. Absent: petechiae, rash - Routine Neurological Exam Present: alert, oriented X3 - Routine Psychiatric Exam Present: normal affect, normal thought process Results - Labs Laboratory Last Values WBC 6.1 X10^3/uL (4.5-11.0) 07/31/18 09:50 RBC 3.28 X10^6/uL (4.5-5.9) L 07/31/18 09:50 Hgb 11.1 g/dL (13.5-17.5) L 07/31/18 09:50 Hct 31.0 % (41-53) L 07/31/18 09:50 MCV 94.4 fL (80-100) 07/31/18 09:50 MCH 33.7 PG (26-34) 07/31/18 09:50 MCHC 35.7 % (30-36) 07/31/18 09:50 RDW 18.8 % (11.6-14.8) H 07/31/18 09:50 Plt Count 225 X10^3/uL (150-400) 07/31/18 09:50 Neut % (Auto) Not Reportable 07/31/18 09:50 Lymph % (Auto) Not Reportable 07/31/18 09:50 [place] % (Auto) Not Reportable 07/31/18 09:50 Eos % (Auto) Not Reportable 07/31/18 09:50 Baso % (Auto) Not Reportable 07/31/18 09:50 Neut # (Auto) 3400 /uL (7974-1609) 07/25/18 10:26 Lymph # (Auto) Not Reportable 07/31/18 09:50 [place] # (Auto) Not Reportable 07/31/18 09:50 Eos # (Auto) 100 /uL (0-450) 07/25/18 10:26 Baso # (Auto) Not Reportable 07/31/18 09:50 Total Counted 100 07/31/18 09:50 Seg Neutrophils % 62.0 % (38-70) 07/31/18 09:50 Band Neutrophils % 5.0 % (3-7) 07/31/18 09:50 Lymphocytes % (Manual) 10.0 % (25-45) L 07/31/18 09:50 Atypical Lymphs % 1.0 % (-0) H 06/05/18 10:00 Monocytes % (Manual) 20.0 % (2-11) H 07/31/18 09:50 Eosinophils % (Manual) 4.0 % (2-4) 06/05/18 10:00 Basophils % (Manual) 3.0 % (0-1) H 02/26/18 09:04 Metamyelocytes % 2.0 % (-0) H 07/31/18 09:50 Myelocytes % 1.0 % (-0) H 07/31/18 09:50 Neutrophils # (Manual) 4087 /uL (1258-9705) 07/31/18 09:50 RBC Morphology See below 07/31/18 09:50 Polychromasia 1+ H 03/20/18 08:59 Poikilocytosis 1+ H 04/17/18 09:05 Anisocytosis 1+ H 07/31/18 09:50 Macrocytosis 2+ H 03/20/18 08:59 Sodium 124 mmol/L (137-145) L 07/31/18 09:50 Potassium 4.3 mmol/L (3.4-5.1) 07/31/18 09:50 Chloride 87 mmol/L (98-107) L 07/31/18 09:50 Carbon Dioxide 24 mmol/L (22-32) 07/31/18 09:50 BUN 57 mg/dL (9-20) H 07/31/18 09:50 Creatinine 1.80 mg/dL (0.66-1.25) H 07/31/18 09:50 Estimated GFR 36.3 mL/min (>60) L 07/31/18 09:50 BUN/Creatinine Ratio 31.7 (6-22) H 07/31/18 09:50 Glucose 125 mg/dL (80-110) H 07/31/18 09:50 Calcium 9.6 mg/dL (8.4-10.2) 07/31/18 09:50 Magnesium 1.6 mg/dL (1.6-2.3) 02/26/18 09:05 Total Bilirubin 1.5 mg/dL (0.2-1.3) H 07/31/18 09:50 AST 29 IU/L (17-59) 07/31/18 09:50 ALT 17 IU/L (21-72) L 07/31/18 09:50 Alkaline Phosphatase 90 U/L (38-126) 07/31/18 09:50 Total Protein 7.1 g/dL (6.3-8.2) 07/31/18 09:50 Albumin 4.3 g/dL (3.5-5.0) 07/31/18 09:50 Globulin 2.8 g/dL (1.7-4.1) 07/31/18 09:50 Albumin/Globulin Ratio 1.5 (1.0-2.8) 07/31/18 09:50 Carcinoembryonic Ag 1.7 ng/mL (0.1-3.0) 07/03/18 09:00 C. difficile Tox (PCR) Negative for c. diff 07/25/18 10:45 Blood Type A Positive 07/10/18 13:50 Antibody Screen Negative 07/10/18 13:50 Crossmatch See Detail 07/10/18 13:50 - Imaging Additional studies: Procedures Bypass Sigmoid Colon to Cutaneous, Open Approach (09/13/16) Dilation of Bilateral Ureters with Intraluminal Device, Via Natural or Artificial Opening Endoscopic (09/13/16) Dilation of Bladder Neck, Via Natural or Artificial Opening Endoscopic (09/13/16) Excision of Rectum, Open Approach (09/13/16) Excision of Sigmoid Colon, Open Approach (11/22/16) Inspection of Lower Intestinal Tract, Via Natural or Artificial Opening Endoscopic (09/13/16) Repair Sigmoid Colon, Open Approach (11/22/16) Assessment and Plan (1) Cancer of sigmoid colon Problem details: 82-year-old man with metastatic colon cancer as evidence by biopsy proven carcinomatosis and a liver metastasis. He has had more difficulty with diarrhea at the end of his 3rd cycle. It has taken him a couple weeks to recover. He will proceed with his 4th cycle starting today. He will have a 25% dose reduction. Return to clinic in about 3-4 weeks for follow-up but sooner should the need arise. Current visit: No Status: Acute
[2018-08-07 10:38] LABS: Hematocrit 29.9 % (41-53); Hemoglobin 10.6 g/dL (13.5-17.5); Mean Corpuscular HGB Conc 35.4 % (30-36); Mean Corpuscular Hemoglobin 33.9 PG (26-34); Mean Corpuscular Volume 95.8 fL (80-100); Platelet Count 236 X10^3/uL (150-400); Red Blood Cell Count 3.12 X10^6/uL (4.5-5.9); Red Cell Distribution Width 18.3 % (11.6-14.8)
[2018-08-07 10:40] LABS: Add Manual Diff / Slide Review YES
[2018-08-07 11:05] LABS: Neutrophils Absolute Manual 5530 /uL (3000-5900); RBC Morphology Normal Morphology; Total Cells Counted 100
[2018-08-07] MEDS: DEXAMETHASONE 10 MG/ML VIAL 8 MG IV (11:07)
[2018-08-07] MEDS: ONDANSETRON 8 MG in SODIUM CHLORIDE 0.9% 50 ML 216 ML IV (11:07)
[2018-08-07 11:18] LABS: HEMOLYSIS < 15 (0-50)
[2018-08-07 11:24] LABS: Alanine Aminotransferase 21 IU/L (21-72); Albumin Globulin Ratio 1.3 (1.0-2.8); Alkaline Phosphatase 95 U/L (38-126); Aspartate Aminotransferase 48 IU/L (17-59); Blood Urea Nitrogen 42 mg/dL (9-20); Calcium 9.7 mg/dL (8.4-10.2); Carbon Dioxide 22 mmol/L (22-32); Chloride 97 mmol/L (98-107); Estimated Glomerular Filt Rate 48.5 mL/min (>60); Glucose 100 mg/dL (80-110); Magnesium 1.9 mg/dL (1.6-2.3); Potassium 4.6 mmol/L (3.4-5.1); Sodium 131 mmol/L (137-145)
[2018-08-07 11:58] LABS: Carcinoembryonic Antigen 6.6 ng/mL (0.1-3.0)
[2018-08-07] MEDS: DEXTROSE 5% IV (12:02)
[2018-08-07] MEDS: LEUCOVORIN IV (12:02)
[2018-08-07] MEDS: SODIUM CHLORIDE 0.9% 500 ML 1000 ML IV (12:56)
[2018-08-07] MEDS: ISOOSMOTIC VEHICLE IV (12:57)
[2018-08-07] MEDS: FLUOROURACIL IV (12:57)
[2018-08-07] MEDS: ATROPINE 0.4 MG/ML VIAL 0.25 MG SUBCUT (13:46)
--- NOTE | 2018-08-08 12:37 | PC.NURSE ---
Late entry for 08/07/18 1400: spoke with pt about trying the Lomotil that Dr Reyes prescribed for his loose stools. Instructed pt that since Imodium doesn't seem to be as effective at controlling liquid stools, try Lomotil. Pt states he will try it this time around to see if it makes a difference. Also administered subq atropine so hopefully this will help control his symptoms along with dose reduction of treatment. Will continue to monitor.
[2018-08-14 09:29] LABS: Add Manual Diff / Slide Review NO; Basophils Absolute Auto 0 /uL (0-100); Basophils Percent Auto 0.7 % (0-2); Eosinophils Absolute Auto 100 /uL (0-450); Eosinophils Percent Auto 2.5 % (2-4); Hematocrit 28.1 % (41-53); Hemoglobin 9.6 g/dL (13.5-17.5); Lymphocytes Absolute Auto 500 /uL (1100-4500); Lymphocytes Percent Auto 9.5 % (25-40); Mean Corpuscular Hemoglobin 33.1 PG (26-34); Mean Corpuscular Volume 97.2 fL (80-100); Monocytes Absolute Auto 500 /uL (0-900); Monocytes Percent Auto 8.9 % (3-14); Neutrophils Absolute Auto 4300 /uL (1500-7000); Neutrophils Percent Auto 78.4 % (50-75); Platelet Count 200 X10^3/uL (150-400); Red Blood Cell Count 2.89 X10^6/uL (4.5-5.9); Red Cell Distribution Width 17.5 % (11.6-14.8); White Blood Cell Count 5.5 X10^3/uL (4.5-11.0)
[2018-08-14 09:33] VITALS: BP 112/65; PULSE 68; RESP 16; TEMP 36.8
[2018-08-14 09:42] LABS: Alanine Aminotransferase 16 IU/L (21-72); Albumin 3.9 g/dL (3.5-5.0); Albumin Globulin Ratio 1.5 (1.0-2.8); Alkaline Phosphatase 75 U/L (38-126); Aspartate Aminotransferase 25 IU/L (17-59); BUN Creatinine Ratio 25.8 (6-22); Blood Urea Nitrogen 31 mg/dL (9-20); Calcium 9.4 mg/dL (8.4-10.2); Carbon Dioxide 22 mmol/L (22-32); Chloride 100 mmol/L (98-107); Globulin 2.6 g/dL (1.7-4.1); Glucose 93 mg/dL (80-110); HEMOLYSIS < 15 (0-50); Potassium 4.5 mmol/L (3.4-5.1); Sodium 131 mmol/L (137-145); Total Protein 6.5 g/dL (6.3-8.2)
[2018-08-14] MEDS: SODIUM CHLORIDE 0.9% 100 ML 20 ML IV (09:51)
[2018-08-14] MEDS: DEXAMETHASONE 10 MG/ML VIAL 8 MG IV (10:09)
[2018-08-14] MEDS: ONDANSETRON 8 MG in SODIUM CHLORIDE 0.9% 50 ML 216 ML IV (10:10)
[2018-08-14] MEDS: DEXTROSE 5% IV (10:55)
[2018-08-14] MEDS: LEUCOVORIN IV (10:55)
[2018-08-14] MEDS: ATROPINE 0.4 MG/ML VIAL 0.25 MG SUBCUT (11:52)
[2018-08-14] MEDS: ISOOSMOTIC VEHICLE IV (12:04)
[2018-08-14] MEDS: FLUOROURACIL IV (12:04)
[2018-08-21 09:18] LABS: Eosinophils Absolute Auto 200 /uL (0-450); Hemoglobin 9.1 g/dL (13.5-17.5); Lymphocytes Absolute Auto 500 /uL (1100-4500); Monocytes Absolute Auto 500 /uL (0-900); Neutrophils Absolute Auto 4600 /uL (1500-7000); White Blood Cell Count 5.8 X10^3/uL (4.5-11.0)
[2018-08-21 09:23] LABS: Add Manual Diff / Slide Review NO; Basophils Absolute Auto 0 /uL (0-100); Basophils Percent Auto 0.8 % (0-2); Eosinophils Percent Auto 2.8 % (2-4); Lymphocytes Percent Auto 8.9 % (25-40); Mean Corpuscular Volume 95.6 fL (80-100); Monocytes Percent Auto 8.7 % (3-14); Neutrophils Percent Auto 78.8 % (50-75); Platelet Count 166 X10^3/uL (150-400); Red Blood Cell Count 2.61 X10^6/uL (4.5-5.9); Red Cell Distribution Width 17.5 % (11.6-14.8)
[2018-08-21 09:25] LABS: Mean Corpuscular HGB Conc 36.5 % (30-36)
[2018-08-21 09:50] LABS: Alanine Aminotransferase 14 IU/L (21-72); Albumin 3.8 g/dL (3.5-5.0); Albumin Globulin Ratio 1.4 (1.0-2.8); Alkaline Phosphatase 73 U/L (38-126); Aspartate Aminotransferase 25 IU/L (17-59); BUN Creatinine Ratio 22.9 (6-22); Bilirubin Total 1.5 mg/dL (0.2-1.3); Blood Urea Nitrogen 32 mg/dL (9-20); Calcium 9.4 mg/dL (8.4-10.2); Carbon Dioxide 22 mmol/L (22-32); Chloride 99 mmol/L (98-107); Estimated Glomerular Filt Rate 48.5 mL/min (>60); Globulin 2.7 g/dL (1.7-4.1); Glucose 96 mg/dL (80-110); HEMOLYSIS < 15 (0-50); Potassium 4.6 mmol/L (3.4-5.1); Sodium 130 mmol/L (137-145); Total Protein 6.5 g/dL (6.3-8.2)
[2018-08-21 09:57] VITALS: BP 99/53; PULSE 62; RESP 16; TEMP 36.4; O2SAT 100
[2018-08-21] MEDS: SODIUM CHLORIDE 0.9% 100 ML 20 ML IV (10:05)
[2018-08-21] MEDS: DEXAMETHASONE 10 MG/ML VIAL 8 MG IV (10:22)
[2018-08-21] MEDS: ONDANSETRON 8 MG in SODIUM CHLORIDE 0.9% 50 ML 216 ML IV (10:32)
[2018-08-21] MEDS: DEXTROSE 5% IV (11:28)
[2018-08-21] MEDS: LEUCOVORIN IV (11:28)
[2018-08-21] MEDS: ATROPINE 0.4 MG/ML VIAL 0.25 MG SUBCUT (11:36)
[2018-08-21] MEDS: ISOOSMOTIC VEHICLE IV (12:41)
[2018-08-21] MEDS: FLUOROURACIL IV (12:41)
[2018-08-28 09:21] LABS: Alanine Aminotransferase 21 IU/L (21-72); Albumin 3.8 g/dL (3.5-5.0); Albumin Globulin Ratio 1.5 (1.0-2.8); Alkaline Phosphatase 72 U/L (38-126); Aspartate Aminotransferase 26 IU/L (17-59); BUN Creatinine Ratio 22.7 (6-22); Bilirubin Total 1.4 mg/dL (0.2-1.3); Blood Urea Nitrogen 25 mg/dL (9-20); Calcium 9.2 mg/dL (8.4-10.2); Carbon Dioxide 24 mmol/L (22-32); Chloride 101 mmol/L (98-107); Estimated Glomerular Filt Rate > 60.0 mL/min (>60); Globulin 2.6 g/dL (1.7-4.1); Glucose 104 mg/dL (80-110); HEMOLYSIS < 15 (0-50); Potassium 3.8 mmol/L (3.4-5.1); Sodium 132 mmol/L (137-145); Total Protein 6.4 g/dL (6.3-8.2)
[2018-08-28 09:22] LABS: Add Manual Diff / Slide Review NO; Basophils Absolute Auto 0 /uL (0-100); Basophils Percent Auto 0.8 % (0-2); Eosinophils Absolute Auto 100 /uL (0-450); Eosinophils Percent Auto 2.8 % (2-4); Hemoglobin 8.6 g/dL (13.5-17.5); Lymphocytes Absolute Auto 300 /uL (1100-4500); Lymphocytes Percent Auto 7.2 % (25-40); Mean Corpuscular HGB Conc 35.3 % (30-36); Mean Corpuscular Hemoglobin 34.3 PG (26-34); Monocytes Absolute Auto 500 /uL (0-900); Monocytes Percent Auto 10.7 % (3-14); Neutrophils Absolute Auto 3600 /uL (1500-7000); Neutrophils Percent Auto 78.5 % (50-75); Platelet Count 146 X10^3/uL (150-400); Red Cell Distribution Width 19.2 % (11.6-14.8); White Blood Cell Count 4.6 X10^3/uL (4.5-11.0)
[2018-08-28 09:23] LABS: Hematocrit 24.3 % (41-53)
[2018-08-28] MEDS: DEXAMETHASONE 10 MG/ML VIAL 8 MG IV (10:56)
[2018-08-28] MEDS: ONDANSETRON 8 MG in SODIUM CHLORIDE 0.9% 50 ML 216 ML IV (11:02)
[2018-08-28 11:16] VITALS: BP 100/53; PULSE 65; RESP 17; TEMP 36.4; O2SAT 100
[2018-08-28] MEDS: DEXTROSE 5% IV (12:06)
[2018-08-28] MEDS: LEUCOVORIN IV (12:06)
[2018-08-28] MEDS: ATROPINE 0.4 MG/ML VIAL 0.25 MG SUBCUT (13:02)
[2018-08-28] MEDS: ISOOSMOTIC VEHICLE IV (13:25)
[2018-08-28] MEDS: FLUOROURACIL IV (13:25)
[2018-08-29] VITALS (7 sets, daily range): BP systolic 94–127; BP diastolic 54–92; PULSE 51–71; RESP 16; TEMP 36.3–36.6; O2SAT 100
[2018-08-29] MEDS: DIPHENOXYLATE/ATROP 2.5/0.025 TABLET 1 EACH PO (10:14)
[2018-09-03 09:47] VITALS: BP 111/67; PULSE 73; RESP 18; TEMP 36.8; O2SAT 99
--- NOTE | 2018-09-03 10:15 | P.PNONC_ITS ---
PN -Subjective Interval history: Diagnosis: Colon cancer initially T3 N1, now metastatic Previous treatment: 1. Surgical resection in August 2016. 2. Metastatic disease treated with the Xeloda for about 2 days, stopping because of toxicity. 3. 4 cycles of 5 FU and leucovorin on a [place] schedule Interval history: The patient is an 82-year-old man who was diagnosed with a stage III colon cancer in 2016. He had a complicated recovery. He had prolonged C diff infection. More recently, he developed a bowel obstruction and underwent surgical exploration. 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 He did not tolerate Xeloda but did start on 5 FU using [place] schedule. He has completed 4 cycles of 5 FU on an abbreviated [place] schedule. He has been receiving treatment for 4 weeks on, 2 weeks off. He has continued to struggle with diarrhea that progressively increases throughout the treatment cycle. He has tried Imodium and Lomotil without much improvement. He notes that he is having to empty is colostomy bag about hourly at night over the last week or so. He denies any nausea or vomiting. He is having some burning sensation of the skin around the ostomy but denies any other aches or pains. No mouth sores or skin rash. He has had some dryness on his hands but no blistering or peeling. No shortness of breath or cough. Strength and energy level have been pretty good. 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 He denies any other changes in his health. His medications include Imodium oxycodone as needed Flomax and Zofran. - Patient Self-Reported Symptoms SR Constitution: Weight loss/gain, Fatigue/Malaise SR ears, nose, mouth, throat issues: Hoarseness SR respiratory issues: Mucous SR Cardiovascular issues: Dizzy/lightheaded SR Skin issues: Dry skin, Skin rash or itching SR Gastrointestinal issues: Diarrhea SR Genitourinary issues: Frequent urination, Incontinence SR Musculoskeletal issues: Muscle weakness SR Neuro issues: Difficulty balancing SR Endocrine issues: Cold intolerance Home Medications and Allergies Home Medications Medication Instructions Recorded Confirmed Type tamsulosin 0.4 mg PO DAILY 05/19/18 07/31/18 History Lacto.acidophilus-Bif.animalis PO DAILY 06/12/18 History [Daily Probiotic] loperamide [Imodium A-D] 2 mg PO Q2-4H PRN 06/12/18 07/31/18 History diphenoxylate-atropine [Lomotil] 1 tab PO Q6-8H PRN #30 tab 07/31/18 Rx Allergies Allergy/AdvReac Type Severity Reaction Status Date / Time No Known Drug Allergies Allergy Verified 05/17/18 13:56 Exam Vital signs: Vital Signs Temp Pulse Resp BP Pulse Ox 09/03/18 09:47 98.3 F 73 18 111/67 99 Intake and Output 09/02/18 09/03/18 09/03/18 23:59 07:59 15:59 Other: Weight 71.8 kg Patient Weight 09/03/18 23:59 Weight 71.8 kg - Constitutional positive no acute distress, positive average body habitus - Routine HEENT Exam Head: Present: normocephalic, atraumatic Eye: Present: EOMI, PERRL. Absent: conjunctival icterus, scleral injection ENT: Present: mucous membranes moist, oropharynx clear - Routine Neck Exam Present: supple. Absent: lymphadenopathy, thyromegaly - Routine Respiratory Exam Absent: Clear to auscultation bilaterally, rales, wheezes - Routine Cardiovascular Exam Present: RRR, S1, S2. Absent: murmur - Routine Abdominal Exam Present: soft, normoactive bowel sounds. Absent: tenderness, organomegaly, mass Comments: He has an ostomy in place with greenish liquid stool. - Routine Extremities Exam Present: edema. Absent: cyanosis, clubbing Comments: He has 1+ lower extremity edema more so on the left than the right. - Routine Skin Exam Present: intact. Absent: petechiae, rash - Routine Neurological Exam Present: alert, oriented X3 - Routine Psychiatric Exam Present: normal affect, normal thought process Results - Labs Laboratory Last Values WBC 4.6 X10^3/uL (4.5-11.0) 08/28/18 09:00 RBC 2.50 X10^6/uL (4.5-5.9) L 08/28/18 09:00 Hgb 8.6 g/dL (13.5-17.5) L 08/28/18 09:00 Hct 24.3 % (41-53) L 08/28/18 09:00 MCV 97.0 fL (80-100) 08/28/18 09:00 MCH 34.3 PG (26-34) H 08/28/18 09:00 MCHC 35.3 % (30-36) 08/28/18 09:00 RDW 19.2 % (11.6-14.8) H 08/28/18 09:00 Plt Count 146 X10^3/uL (150-400) L 08/28/18 09:00 Neut % (Auto) 78.5 % (50-75) H 08/28/18 09:00 Lymph % (Auto) 7.2 % (25-40) L 08/28/18 09:00 [place] % (Auto) 10.7 % (3-14) 08/28/18 09:00 Eos % (Auto) 2.8 % (2-4) 08/28/18 09:00 Baso % (Auto) 0.8 % (0-2) 08/28/18 09:00 Neut # (Auto) 3600 /uL (8408-6747) 08/28/18 09:00 Lymph # (Auto) 300 /uL (3389-3024) L 08/28/18 09:00 [place] # (Auto) 500 /uL (0-900) 08/28/18 09:00 Eos # (Auto) 100 /uL (0-450) 08/28/18 09:00 Baso # (Auto) 0 /uL (0-100) 08/28/18 09:00 Total Counted 100 08/07/18 10:15 Seg Neutrophils % 76.0 % (38-70) H 08/07/18 10:15 Band Neutrophils % 3.0 % (3-7) 08/07/18 10:15 Lymphocytes % (Manual) 6.0 % (25-45) L 08/07/18 10:15 Atypical Lymphs % 1.0 % (-0) H 06/05/18 10:00 Monocytes % (Manual) 14.0 % (2-11) H 08/07/18 10:15 Eosinophils % (Manual) 4.0 % (2-4) 06/05/18 10:00 Basophils % (Manual) 1.0 % (0-1) 08/07/18 10:15 Metamyelocytes % 2.0 % (-0) H 07/31/18 09:50 Myelocytes % 1.0 % (-0) H 07/31/18 09:50 Neutrophils # (Manual) 5530 /uL (9506-3995) 08/07/18 10:15 RBC Morphology Normal morphology 08/07/18 10:15 Polychromasia 1+ H 03/20/18 08:59 Poikilocytosis 1+ H 04/17/18 09:05 Anisocytosis 1+ H 07/31/18 09:50 Macrocytosis 2+ H 03/20/18 08:59 Sodium 132 mmol/L (137-145) L 08/28/18 09:00 Potassium 3.8 mmol/L (3.4-5.1) 08/28/18 09:00 Chloride 101 mmol/L (98-107) 08/28/18 09:00 Carbon Dioxide 24 mmol/L (22-32) 08/28/18 09:00 BUN 25 mg/dL (9-20) H 08/28/18 09:00 Creatinine 1.10 mg/dL (0.66-1.25) 08/28/18 09:00 Estimated GFR > 60.0 mL/min (>60) 08/28/18 09:00 BUN/Creatinine Ratio 22.7 (6-22) H 08/28/18 09:00 Glucose 104 mg/dL (80-110) 08/28/18 09:00 Calcium 9.2 mg/dL (8.4-10.2) 08/28/18 09:00 Magnesium 1.9 mg/dL (1.6-2.3) 08/07/18 10:54 Total Bilirubin 1.4 mg/dL (0.2-1.3) H 08/28/18 09:00 AST 26 IU/L (17-59) 08/28/18 09:00 ALT 21 IU/L (21-72) 08/28/18 09:00 Alkaline Phosphatase 72 U/L (38-126) 08/28/18 09:00 Total Protein 6.4 g/dL (6.3-8.2) 08/28/18 09:00 Albumin 3.8 g/dL (3.5-5.0) 08/28/18 09:00 Globulin 2.6 g/dL (1.7-4.1) 08/28/18 09:00 Albumin/Globulin Ratio 1.5 (1.0-2.8) 08/28/18 09:00 Carcinoembryonic Ag 6.6 ng/mL (0.1-3.0) H 08/07/18 10:54 C. difficile Tox (PCR) Negative for c. diff 07/25/18 10:45 Blood Type A Positive 08/28/18 09:00 Antibody Screen Negative 08/28/18 09:00 Crossmatch See Detail 08/28/18 09:00 - Imaging Additional studies: Procedures Bypass Sigmoid Colon to Cutaneous, Open Approach (09/13/16) Dilation of Bilateral Ureters with Intraluminal Device, Via Natural or Artificial Opening Endoscopic (09/13/16) Dilation of Bladder Neck, Via Natural or Artificial Opening Endoscopic (09/13/16) Excision of Rectum, Open Approach (09/13/16) Excision of Sigmoid Colon, Open Approach (11/22/16) Inspection of Lower Intestinal Tract, Via Natural or Artificial Opening Endoscopic (09/13/16) Repair Sigmoid Colon, Open Approach (11/22/16) Assessment and Plan (1) Cancer of sigmoid colon Problem details: 82-year-old man with metastatic colon cancer as evidence by biopsy proven carcinomatosis and a liver metastasis. He is tolerating his chemotherapy reasonably well but has had ongoing diarrhea. His CEA has increased somewhat. He will be due for CT scan here in about 2 weeks. He will return to clinic here at that time for follow-up and will be due to start his 5th cycle assuming that there is no evidence of progression and his toxicity has resolved. Current visit: No Status: Acute
[2018-09-18 08:30] VITALS: BP 111/66; PULSE 63; RESP 18; TEMP 36.8; O2SAT 99
--- NOTE | 2018-09-18 08:56 | P.PNONC_ITS ---
PN -Subjective Interval history: Diagnosis: Colon cancer initially T3 N1, now metastatic Previous treatment: 1. Surgical resection in August 2016. 2. Metastatic disease treated with the Xeloda for about 2 days, stopping because of toxicity. 3. 4 cycles of 5 FU and leucovorin on a [place] schedule Interval history: The patient is an 82-year-old man who was diagnosed with a stage III colon cancer in 2016. He had a complicated recovery. He had prolonged C diff infection. More recently, he developed a bowel obstruction and underwent surgical exploration. 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 He did not tolerate Xeloda but did start on 5 FU using [place] schedule. He has completed 4 cycles of 5 FU on an abbreviated [place] schedule. He has been receiving treatment for 4 weeks on, 2 weeks off. He has continued to struggle with diarrhea that progressively increases throughout the treatment cycle. He has tried Imodium and Lomotil without much improvement. Since his last visit here, he has been feeling reasonably well but his diarrhea has persisted. He is having quite a bit of ostomy output particularly at night. Despite this, he is not having any pain. No nausea or vomiting. His appetite has been good. He has not had any mouth sores or skin rash. Strength and energy level have actually improved. He is feeling like he is getting a lot of work done. He denies any other changes in his health. His medications include Imodium oxycodone as needed Flomax and Zofran. - Patient Self-Reported Symptoms SR Constitution: Weight loss/gain, Fatigue/Malaise SR ears, nose, mouth, throat issues: Hoarseness SR respiratory issues: Mucous SR Cardiovascular issues: Dizzy/lightheaded SR Skin issues: Dry skin, Skin rash or itching SR Gastrointestinal issues: Diarrhea SR Genitourinary issues: Frequent urination, Incontinence SR Musculoskeletal issues: Muscle weakness SR Neuro issues: Difficulty balancing SR Endocrine issues: Cold intolerance Home Medications and Allergies Home Medications Medication Instructions Recorded Confirmed Type tamsulosin 0.4 mg PO DAILY 05/19/18 07/31/18 History Lacto.acidophilus-Bif.animalis 1 PO DAILY 06/12/18 History [Daily Probiotic] loperamide [Imodium A-D] 2 mg PO Q2-4H PRN 06/12/18 07/31/18 History diphenoxylate-atropine [Lomotil] 1 tab PO Q6-8H PRN #30 tab 09/17/18 09/18/18 Rx Allergies Allergy/AdvReac Type Severity Reaction Status Date / Time No Known Drug Allergies Allergy Verified 05/17/18 13:56 Exam Vital signs: Vital Signs Temp Pulse Resp BP Pulse Ox 09/18/18 08:30 98.2 F 63 18 111/66 99 Intake and Output 09/17/18 09/18/18 09/18/18 23:59 07:59 15:59 Other: Weight 71.3 kg Patient Weight 09/18/18 23:59 Weight 71.3 kg - Constitutional positive no acute distress, positive average body habitus Comments: He is not further examined. Results - Labs Laboratory Last Values WBC 4.6 X10^3/uL (4.5-11.0) 08/28/18 09:00 RBC 2.50 X10^6/uL (4.5-5.9) L 08/28/18 09:00 Hgb 8.6 g/dL (13.5-17.5) L 08/28/18 09:00 Hct 24.3 % (41-53) L 08/28/18 09:00 MCV 97.0 fL (80-100) 08/28/18 09:00 MCH 34.3 PG (26-34) H 08/28/18 09:00 MCHC 35.3 % (30-36) 08/28/18 09:00 RDW 19.2 % (11.6-14.8) H 08/28/18 09:00 Plt Count 146 X10^3/uL (150-400) L 08/28/18 09:00 Neut % (Auto) 78.5 % (50-75) H 08/28/18 09:00 Lymph % (Auto) 7.2 % (25-40) L 08/28/18 09:00 [place] % (Auto) 10.7 % (3-14) 08/28/18 09:00 Eos % (Auto) 2.8 % (2-4) 08/28/18 09:00 Baso % (Auto) 0.8 % (0-2) 08/28/18 09:00 Neut # (Auto) 3600 /uL (9417-4080) 08/28/18 09:00 Lymph # (Auto) 300 /uL (9244-9925) L 08/28/18 09:00 [place] # (Auto) 500 /uL (0-900) 08/28/18 09:00 Eos # (Auto) 100 /uL (0-450) 08/28/18 09:00 Baso # (Auto) 0 /uL (0-100) 08/28/18 09:00 Total Counted 100 08/07/18 10:15 Seg Neutrophils % 76.0 % (38-70) H 08/07/18 10:15 Band Neutrophils % 3.0 % (3-7) 08/07/18 10:15 Lymphocytes % (Manual) 6.0 % (25-45) L 08/07/18 10:15 Atypical Lymphs % 1.0 % (-0) H 06/05/18 10:00 Monocytes % (Manual) 14.0 % (2-11) H 08/07/18 10:15 Eosinophils % (Manual) 4.0 % (2-4) 06/05/18 10:00 Basophils % (Manual) 1.0 % (0-1) 08/07/18 10:15 Metamyelocytes % 2.0 % (-0) H 07/31/18 09:50 Myelocytes % 1.0 % (-0) H 07/31/18 09:50 Neutrophils # (Manual) 5530 /uL (5709-1282) 08/07/18 10:15 RBC Morphology Normal morphology 08/07/18 10:15 Polychromasia 1+ H 03/20/18 08:59 Poikilocytosis 1+ H 04/17/18 09:05 Anisocytosis 1+ H 07/31/18 09:50 Macrocytosis 2+ H 03/20/18 08:59 Sodium 132 mmol/L (137-145) L 08/28/18 09:00 Potassium 3.8 mmol/L (3.4-5.1) 08/28/18 09:00 Chloride 101 mmol/L (98-107) 08/28/18 09:00 Carbon Dioxide 24 mmol/L (22-32) 08/28/18 09:00 BUN 25 mg/dL (9-20) H 08/28/18 09:00 Creatinine 1.10 mg/dL (0.66-1.25) 08/28/18 09:00 Estimated GFR > 60.0 mL/min (>60) 08/28/18 09:00 BUN/Creatinine Ratio 22.7 (6-22) H 08/28/18 09:00 Glucose 104 mg/dL (80-110) 08/28/18 09:00 Calcium 9.2 mg/dL (8.4-10.2) 08/28/18 09:00 Magnesium 1.9 mg/dL (1.6-2.3) 08/07/18 10:54 Total Bilirubin 1.4 mg/dL (0.2-1.3) H 08/28/18 09:00 AST 26 IU/L (17-59) 08/28/18 09:00 ALT 21 IU/L (21-72) 08/28/18 09:00 Alkaline Phosphatase 72 U/L (38-126) 08/28/18 09:00 Total Protein 6.4 g/dL (6.3-8.2) 08/28/18 09:00 Albumin 3.8 g/dL (3.5-5.0) 08/28/18 09:00 Globulin 2.6 g/dL (1.7-4.1) 08/28/18 09:00 Albumin/Globulin Ratio 1.5 (1.0-2.8) 08/28/18 09:00 Carcinoembryonic Ag 6.6 ng/mL (0.1-3.0) H 08/07/18 10:54 C. difficile Tox (PCR) Negative for c. diff 07/25/18 10:45 Blood Type A Positive 08/28/18 09:00 Antibody Screen Negative 08/28/18 09:00 Crossmatch See Detail 08/28/18 09:00 - Imaging CT scan - abdomen: image reviewed CT scan - chest: image reviewed CT scan - pelvis: image reviewed (He has dramatic progression in the liver as well as a suggestion of carcinomatosis.) Additional studies: Procedures Bypass Sigmoid Colon to Cutaneous, Open Approach (09/13/16) Dilation of Bilateral Ureters with Intraluminal Device, Via Natural or Artificial Opening Endoscopic (09/13/16) Dilation of Bladder Neck, Via Natural or Artificial Opening Endoscopic (09/13/16) Excision of Rectum, Open Approach (09/13/16) Excision of Sigmoid Colon, Open Approach (11/22/16) Inspection of Lower Intestinal Tract, Via Natural or Artificial Opening Endoscopic (09/13/16) Repair Sigmoid Colon, Open Approach (11/22/16) Assessment and Plan (1) Cancer of sigmoid colon Problem details: 82-year-old man with metastatic colon cancer as evidence by biopsy proven carcinomatosis and a liver metastasis. He is tolerating his chemotherapy reasonably well but has had ongoing diarrhea. Unfortunately, his CT shows dramatic progression over the last 3 months. He has been tolerating single agent 5 FU had shorten schedule in reduced dose with some toxicity. I think at this point, our options are to try stronger chemotherapy which be more likely to cause significant toxicity but would have the potential to decrease the size of his metastasis and prolonged survival but not cure. On average that improvement in survival is couple of months longer than with 5 FU alone. Brooks vides additional toxicity would include worsening diarrhea, mouth sores and skin rash, fatigue, changes in taste and appetite, higher risk for cytopenias and risk for neurotoxicity from oxaliplatin. The alternative would be to focus on comfort and quality of life rather than on prolonging survival. If we adopted this broach, it would be quite reasonable to get hospice involved. At this point, the patient is favoring a palliative approach but does wish the week or so to think about his options. He will return to clinic in 1 week for follow-up. Hopefully at that time, we will be able to arrive at a more definitive treatment plan. A 25 minutes was spent with the patient and his the majority in counseling. Current visit: No Status: Acute
[2018-10-01 15:16] VITALS: BP 117/62; PULSE 69; RESP 18; TEMP 37.1; O2SAT 99
--- NOTE | 2018-10-01 15:35 | P.PNONC_ITS ---
PN -Subjective Interval history: Diagnosis: Colon cancer initially T3 N1, now metastatic Previous treatment: 1. Surgical resection in August 2016. 2. Metastatic disease treated with the Xeloda for about 2 days, stopping because of toxicity. 3. 4 cycles of 5 FU and leucovorin on a [place] schedule Interval history: The patient is an 82-year-old man who was diagnosed with a stage III colon cancer in 2016. He had a complicated recovery. He had prolonged C diff infection. More recently, he developed a bowel obstruction and underwent surgical exploration. 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 He did not tolerate Xeloda but did start on 5 FU using [place] schedule. He has completed 4 cycles of 5 FU on an abbreviated [place] schedule. He has been receiving treatment for 4 weeks on, 2 weeks off. Unfortunately, his most recent CT scan showed marked progression of his cancer. He has been off of his chemotherapy now for couple of extra weeks. He reports that he is feeling much better. His appetite has improved and he has been gaining weight. His diarrhea has largely resolved. He is not having any pain. Strength and energy level have been better. He has been working 3 or 4 hours at a time every day. Overall, he feels like his quality of life has improved since stopping his chemotherapy. His medications include Imodium oxycodone as needed Flomax and Zofran. - Patient Self-Reported Symptoms SR Constitution: Weight loss/gain, Fatigue/Malaise SR ears, nose, mouth, throat issues: Hoarseness SR respiratory issues: Mucous SR Cardiovascular issues: Dizzy/lightheaded SR Skin issues: Dry skin, Skin rash or itching SR Gastrointestinal issues: Diarrhea SR Genitourinary issues: Frequent urination, Incontinence SR Musculoskeletal issues: Muscle weakness SR Neuro issues: Difficulty balancing SR Endocrine issues: Cold intolerance Home Medications and Allergies Home Medications Medication Instructions Recorded Confirmed Type tamsulosin 0.4 mg PO DAILY 05/19/18 07/31/18 History Lacto.acidophilus-Bif.animalis 1 PO DAILY 06/12/18 History [Daily Probiotic] loperamide [Imodium A-D] 2 mg PO Q2-4H PRN 06/12/18 07/31/18 History diphenoxylate-atropine [Lomotil] 1 tab PO Q6-8H PRN #30 tab 09/25/18 10/01/18 Rx Allergies Allergy/AdvReac Type Severity Reaction Status Date / Time No Known Drug Allergies Allergy Verified 05/17/18 13:56 Exam Vital signs: Vital Signs Temp Pulse Resp BP Pulse Ox 10/01/18 15:16 98.8 F 69 18 117/62 99 Intake and Output 09/30/18 10/01/18 10/01/18 23:59 07:59 15:59 Other: Weight 75.2 kg Patient Weight 10/01/18 23:59 Weight 75.2 kg - Constitutional positive no acute distress, positive average body habitus Comments: He is not further examined. Results - Labs Laboratory Last Values WBC 4.6 X10^3/uL (4.5-11.0) 08/28/18 09:00 RBC 2.50 X10^6/uL (4.5-5.9) L 08/28/18 09:00 Hgb 8.6 g/dL (13.5-17.5) L 08/28/18 09:00 Hct 24.3 % (41-53) L 08/28/18 09:00 MCV 97.0 fL (80-100) 08/28/18 09:00 MCH 34.3 PG (26-34) H 08/28/18 09:00 MCHC 35.3 % (30-36) 08/28/18 09:00 RDW 19.2 % (11.6-14.8) H 08/28/18 09:00 Plt Count 146 X10^3/uL (150-400) L 08/28/18 09:00 Neut % (Auto) 78.5 % (50-75) H 08/28/18 09:00 Lymph % (Auto) 7.2 % (25-40) L 08/28/18 09:00 [place] % (Auto) 10.7 % (3-14) 08/28/18 09:00 Eos % (Auto) 2.8 % (2-4) 08/28/18 09:00 Baso % (Auto) 0.8 % (0-2) 08/28/18 09:00 Neut # (Auto) 3600 /uL (1999-5231) 08/28/18 09:00 Lymph # (Auto) 300 /uL (9584-5853) L 08/28/18 09:00 [place] # (Auto) 500 /uL (0-900) 08/28/18 09:00 Eos # (Auto) 100 /uL (0-450) 08/28/18 09:00 Baso # (Auto) 0 /uL (0-100) 08/28/18 09:00 Total Counted 100 08/07/18 10:15 Seg Neutrophils % 76.0 % (38-70) H 08/07/18 10:15 Band Neutrophils % 3.0 % (3-7) 08/07/18 10:15 Lymphocytes % (Manual) 6.0 % (25-45) L 08/07/18 10:15 Atypical Lymphs % 1.0 % (-0) H 06/05/18 10:00 Monocytes % (Manual) 14.0 % (2-11) H 08/07/18 10:15 Eosinophils % (Manual) 4.0 % (2-4) 06/05/18 10:00 Basophils % (Manual) 1.0 % (0-1) 08/07/18 10:15 Metamyelocytes % 2.0 % (-0) H 07/31/18 09:50 Myelocytes % 1.0 % (-0) H 07/31/18 09:50 Neutrophils # (Manual) 5530 /uL (4341-3732) 08/07/18 10:15 RBC Morphology Normal morphology 08/07/18 10:15 Polychromasia 1+ H 03/20/18 08:59 Poikilocytosis 1+ H 04/17/18 09:05 Anisocytosis 1+ H 07/31/18 09:50 Macrocytosis 2+ H 03/20/18 08:59 Sodium 132 mmol/L (137-145) L 08/28/18 09:00 Potassium 3.8 mmol/L (3.4-5.1) 08/28/18 09:00 Chloride 101 mmol/L (98-107) 08/28/18 09:00 Carbon Dioxide 24 mmol/L (22-32) 08/28/18 09:00 BUN 25 mg/dL (9-20) H 08/28/18 09:00 Creatinine 1.10 mg/dL (0.66-1.25) 08/28/18 09:00 Estimated GFR > 60.0 mL/min (>60) 08/28/18 09:00 BUN/Creatinine Ratio 22.7 (6-22) H 08/28/18 09:00 Glucose 104 mg/dL (80-110) 08/28/18 09:00 Calcium 9.2 mg/dL (8.4-10.2) 08/28/18 09:00 Magnesium 1.9 mg/dL (1.6-2.3) 08/07/18 10:54 Total Bilirubin 1.4 mg/dL (0.2-1.3) H 08/28/18 09:00 AST 26 IU/L (17-59) 08/28/18 09:00 ALT 21 IU/L (21-72) 08/28/18 09:00 Alkaline Phosphatase 72 U/L (38-126) 08/28/18 09:00 Total Protein 6.4 g/dL (6.3-8.2) 08/28/18 09:00 Albumin 3.8 g/dL (3.5-5.0) 08/28/18 09:00 Globulin 2.6 g/dL (1.7-4.1) 08/28/18 09:00 Albumin/Globulin Ratio 1.5 (1.0-2.8) 08/28/18 09:00 Carcinoembryonic Ag 6.6 ng/mL (0.1-3.0) H 08/07/18 10:54 C. difficile Tox (PCR) Negative for c. diff 07/25/18 10:45 Blood Type A Positive 08/28/18 09:00 Antibody Screen Negative 08/28/18 09:00 Crossmatch See Detail 08/28/18 09:00 - Imaging Additional studies: Procedures Bypass Sigmoid Colon to Cutaneous, Open Approach (09/13/16) Dilation of Bilateral Ureters with Intraluminal Device, Via Natural or Artificial Opening Endoscopic (09/13/16) Dilation of Bladder Neck, Via Natural or Artificial Opening Endoscopic (09/13/16) Excision of Rectum, Open Approach (09/13/16) Excision of Sigmoid Colon, Open Approach (11/22/16) Inspection of Lower Intestinal Tract, Via Natural or Artificial Opening Endoscopic (09/13/16) Repair Sigmoid Colon, Open Approach (11/22/16) Assessment and Plan (1) Cancer of sigmoid colon Problem details: 82-year-old man with metastatic colon cancer as evidence by biopsy proven carcinomatosis and a liver metastasis. Over the last several months, he has had increasing toxicity with his chemotherapy. He has required dose reduction and schedule modification of his single agent 5 FU. Despite this, he has had a marked progression in his cancer. At his last visit, we talked about the potential for additional chemotherapy with irinotecan or oxaliplatin based therapy. I think that this is likely to be more toxic than the treatment that he has already had. A it is capable of prolong survival but that survival is measured in single digits of months. He does not feel that the additional potential toxicities worth that small of a benefit. Instead, he would prefer to focus on quality of life and a palliative approach. I think that is quite reasonable. Will make a referral for hospice. I have not scheduled a follow-up appointment for him here but would be happy to see him again in the future should the need arise. Current visit: No Status: Acute
--- NOTE | 2018-10-02 08:59 | ONC.MSW ---
Description: Hospice Referral Activity: Faxed pt's clinicals to [facility] for new referral, per Dr. Reyes's request.
--- NOTE | 2018-12-23 12:14 | ONC.MSW ---
*Sent bereavement card.
== END ==
PROVIDERS: Nurse Practitioner Gerontology; Family Provider Internal Medicine; PCP Internal Medicine
DX: C18.7 Malignant neoplasm of sigmoid colon (principal); C78.7 Secondary malignant neoplasm of liver and intrahepatic bile duct; C80.0 Disseminated malignant neoplasm, unspecified
CPT/HCPCS: 36415; 36430; 36592; 71260; 74177; 80053; 82378; 82565; 83735; 84520; 85025; 86644; 86850; 86900; 86901; 87493; 93010; 96360; 96361; 96365; 96366; 96367; 96368; 96372; 96375; 96376; 96409; 96411; 96413; 96415; 99204; 99214; 99215; P9016; J0461; J0640; J1100; J2405; J3480; J9190; Q9967

== ENCOUNTER 2018-11-29 14:42 | Emergency (ER) | payer OTHER, SELFPAY ==
[2018-05-19 00:51] VITALS: BMI 23.6
[2018-11-29 14:44] VITALS: BP 127/69; PULSE 68; RESP 18; TEMP 36.1; O2SAT 100; BMI 23.9
--- NOTE | 2018-11-29 15:13 | ED_ITS ---
HPI - Extremity Injury (Lower) General Chief Complaint: Extremity Injury, Lower Stated Complaint: sent for US of leg Time Seen by Provider: 11/29/18 15:12 Source: patient and family () Mode of arrival: ambulatory Limitations: no limitations History of Present Illness HPI Narrative: This is an 83-year-old male who comes to the emergency department with complaint of swelling and pain of his right calf. Patient states several days ago he was [place] when it bucked and fell onto its side, he states the hose were sort of flailing and caught his right lower leg. The [place] sliced through his pants as well as sock and he had a small laceration to the calf. He also had a bruise that developed. Patient states that the swelling has not seem to increase in size, there has been redness that does not seem to be increasing in size over the last 24 hours. He has felt a little under the weather but been afebrile. He has felt a little nauseated and vomited once today and once yesterday. He has not noted any changes to diarrhea or stool output. He does have an ostomy secondary to colon cancer. Patient is able to walk and states it is uncomfortable initially but then improves the more he walks. He states there is quite a bit of swelling in the lower extremity in general. He has been on antibiotic, Keflex or cephalexin for the past 48 hours. Related Data Home Medications Medication Instructions Recorded Confirmed tamsulosin 0.4 mg PO DAILY 05/19/18 11/29/18 Lacto.acidophilus-Bif.animalis 1 cap PO DAILY 06/12/18 [Daily Probiotic] loperamide [Imodium A-D] 2 mg PO Q2-4H PRN 06/12/18 07/31/18 cephalexin 500 mg PO [id number] 11/29/18 11/29/18 diphenoxylate-atropine [Lomotil] 1 tab PO Q6H PRN 11/29/18 11/29/18 ondansetron HCl 8 mg PO Q8H PRN 11/29/18 11/29/18 Previous Rx's Medication Instructions Recorded dabigatran etexilate [Pradaxa] 150 mg PO BID #60 cap 11/29/18 doxycycline hyclate 100 mg PO BID #20 tab 09/06/19 Allergies Allergy/AdvReac Type Severity Reaction Status Date / Time No Known Drug Allergies Allergy Verified 11/29/18 14:53 Review of Systems Review of Systems ROS Unobtainable: All systems reviewed & are unremarkable except as noted in HPI and below Constitutional Constitutional: Denies chills, Denies fever(s), Denies lethargy and Denies weakness Cardiovascular Cardiovascular: Denies chest pain, Denies dyspnea and Denies dyspnea on exertion Respiratory Respiratory: Denies dyspnea and Denies dyspnea on exertion Gastrointestinal Gastrointestinal: Denies abdominal pain, Denies change in bowel habits, Denies constipation, Denies diarrhea, Reports nausea and Reports vomiting Genitourinary Genitourinary: Denies hematuria, Denies dysuria, Denies flank pain, Denies urinary frequency, Denies urinary incontinence and Denies urinary urgency Musculoskeletal Musculoskeletal: Reports as per HPI, Denies abnormal gait, Denies muscle weakness, Denies numbness, Denies tingling and Reports other (pain, swelling, hematoma in leg) Integumentary/Breasts Skin/Breast: Reports as per HPI, Reports erythema, Reports unusual bruising and Reports wounds Neurologic Neurologic: Denies abnormal gait, Denies focal weakness, Denies numbness, Denies sensory deficit, Denies tingling and Denies weakness [facility] Medical History C. 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) Ringing in ears (Acute) Surgical History H/O shoulder surgery (Acute) History of colon resection (Acute) History of prostatectomy (Acute) S/P colostomy takedown (Acute) Status post ORIF of fracture of ankle (Acute) Family History (Updated 05/19/18 @ 02:22 by NICK Reilly) Son Cancer Father Cancer Mother Smoker Brother Alcoholism /alcohol abuse Sister Smoker Cancer Social History household members: spouse Smoking Status: Former smoker alcohol intake: current Social History household members: spouse Smoking Status: Former smoker alcohol intake: current Exam Narrative Exam Narrative: GENERAL: Alert and oriented x three, well-nourished, well- appearing elderly male in no acute distress. HEENT: Head normocephalic, atraumatic, EOMI, pupils reactive, face symmetric, moist mucous membranes NECK: Supple, full range of motion CARDIOVASCULAR: Regular rate and rhythm without murmurs, rubs or gallops. RESPIRATORY: Breath sounds equal bilaterally, no wheezes rales or rhonchi. ABDOMEN: Soft, nontender. Normoactive bowel sounds all 4 quadrants. No guarding or rebound, rigidity, no mass. Patient has an ostomy. EXTREMITIES: Normal range of motion, no clubbing. Patient has swelling of the right lower extremity, patient has a large hematoma that is about 5-8 cm in size in circumference, it is raised about 2 cm, there is ecchymosis surrounding erythema. There are some small openings with scant bloody drainage. There is no laceration or open wound that could potentially be closed. Patient has 1+ edema in his lower extremity although he does have appreciable edema. He is mildly tender to touch he has full range of motion. He has cap refill less than 2 seconds with normal sensation throughout the leg. Neurovascularly intact NEUROLOGICAL: Cranial nerves II through XII grossly intact. Moving all extremities SKIN: Warm, dry, no petechiae, no rashes or lesions. Initial Vital Signs Initial Vital Signs: Vital Signs Temperature 97.0 F L 11/29/18 14:44 Pulse Rate 68 11/29/18 14:44 Respiratory Rate 18 11/29/18 14:44 Blood Pressure 127/69 11/29/18 14:44 Pulse Oximetry 100 11/29/18 14:44 Course Orders Ordered: ED Orders 11/29/18 15:22 periph venous low extrem rt Stat XR tibia fibula RT 2V Stat 11/29/18 15:40 Basic Metabolic Panel Stat Complete Blood Count AUTO DIFF Stat Lipase Stat Partial Thromboplastin Time Stat Prothrombin Time INR Stat Discontinued Medications Dabigatran (Pradaxa) 150 mg PO NOW ONE Stop: 11/29/18 17:51 Last Admin: 11/29/18 18:05 Dose: 150 mg Documented by: KBROTEM Ondansetron HCl (Zofran Odt) 8 mg SL NOW ONE Stop: 11/29/18 17:17 Last Admin: 11/29/18 17:22 Dose: 8 mg Documented by: TOMAS Vital Signs Vital signs: Vital Signs - 8 hr 11/29/18 14:44 11/29/18 18:08 Temperature 97.0 F L 97.7 F Pulse Rate 68 70 Respiratory Rate 18 18 Blood Pressure 127/69 Blood Pressure [Right Arm] 140/61 Pulse Oximetry 100 99 MDM - Extremity Injury (Lower) Lab Data Attestation: I reviewed the patient's lab results. Result diagrams: 11/29/18 15:40 11/29/18 15:40 Labs: Lab Results 11/29/18 11/29/18 11/29/18 Range/Units 15:40 15:40 15:40 WBC 6.3 (4.5-11.0) X10^3/uL RBC 3.18 L (4.5-5.9) X10^6/uL Hgb 10.2 L (13.5-17.5) g/dL Hct 29.4 L (41-53) % MCV 92.5 (80-100) fL MCH 32.2 (26-34) PG MCHC 34.8 (30-36) % RDW 14.1 (11.6-14.8) % Plt Count 233 (150-400) X10^3/uL Neut % (Auto) 79.9 H (50-75) % Lymph % (Auto) 5.8 L (25-40) % [place] % (Auto) 10.1 (3-14) % Eos % (Auto) 3.1 (2-4) % Baso % (Auto) 1.1 (0-2) % Neut # (Auto) 5000 (9501-7968) /uL Lymph # (Auto) 400 L (4489-4137) /uL [place] # (Auto) 600 (0-900) /uL Eos # (Auto) 200 (0-450) /uL Baso # (Auto) 100 (0-100) /uL PT (10.1-12.7) SECONDS INR (0.9-1.3) APTT (26.4-36.2) SECONDS Sodium 135 L (137-145) mmol/L Potassium 4.1 (3.4-5.1) mmol/L Chloride 97 L (98-107) mmol/L Carbon Dioxide 33 H (22-32) mmol/L BUN 17 (9-20) mg/dL Creatinine 1.00 (0.66-1.25) mg/dL Estimated GFR > 60.0 (>60) mL/min BUN/Creatinine Ratio 17.0 (6-22) Glucose 120 H (80-110) mg/dL Calcium 8.9 (8.4-10.2) mg/dL Lipase 80 (23-300) U/L 11/29/18 Range/Units 15:40 WBC (4.5-11.0) X10^3/uL RBC (4.5-5.9) X10^6/uL Hgb (13.5-17.5) g/dL Hct (41-53) % MCV (80-100) fL MCH (26-34) PG MCHC (30-36) % RDW (11.6-14.8) % Plt Count (150-400) X10^3/uL Neut % (Auto) (50-75) % Lymph % (Auto) (25-40) % [place] % (Auto) (3-14) % Eos % (Auto) (2-4) % Baso % (Auto) (0-2) % Neut # (Auto) (5468-4747) /uL Lymph # (Auto) (7168-0123) /uL [place] # (Auto) (0-900) /uL Eos # (Auto) (0-450) /uL Baso # (Auto) (0-100) /uL PT 13.7 H (10.1-12.7) SECONDS INR 1.2 (0.9-1.3) APTT 30 (26.4-36.2) SECONDS Sodium (137-145) mmol/L Potassium (3.4-5.1) mmol/L Chloride (98-107) mmol/L Carbon Dioxide (22-32) mmol/L BUN (9-20) mg/dL Creatinine (0.66-1.25) mg/dL Estimated GFR (>60) mL/min BUN/Creatinine Ratio (6-22) Glucose (80-110) mg/dL Calcium (8.4-10.2) mg/dL Lipase (23-300) U/L Imaging Data Tib-fib x-ray: Radiologist's impression: [address] [address] XRay Report Signed Patient: Barry Murray CMR#: [id number] : [id number]:[id number] Age/Sex: 83 / MDate of Service: 11/29/18 Loc: ED Accession Number: [id number] Procedure: XR tibia fibula RT 2V Ordering Provider: Maribel Joshi D.O. PROCEDURE: XR TIBIA FUBULA RT 2V INDICATIONS: ? FB, swelling/infectino leg TECHNIQUE: 2 views of the tibia and fibula were acquired. COMPARISON: None. FINDINGS: Bones: No acute fracture or dislocation is appreciated involving the right tibia or fibula. There is deformity evident involving the proximal to mid aspect of the tibia suggesting an old fracture. There is also deformity with cortical irregularity involving the distal fibula, also suggestive of an old healed fracture. Post surgical changes of the distal tibia are evident extending through the medial malleolus, suggesting an old medial malleolus fracture. There appear to be severe degenerative changes of the tibiotalar joint and talonavicular joint. There also appear to be degenerative changes of the knee joint, not well valuated. Soft tissues: No suspicious soft tissue calcifications or masses. Subcutaneous edema about the right lower leg is evident. This is slightly more pronounced along the posterior aspect of the distal soleus muscle near the Achilles myotendinous junction. No soft tissue air or radiopaque foreign bodies are evident. IMPRESSION: 1. No acute osseous abnormality of the right lower leg. 2. Prominent soft tissue swelling of the right lower leg may be related to patient's known infection. If there is high clinical concern for osteomyelitis, MRI with intravenous contrast would be helpful for better evaluation. 3. Postoperative changes and prominent degenerative changes of the ankle. Dictated by: Liban Jiménez M.D. on 11/29/2018 at 14:40 Approved by: Liban Jiménez M.D. on 11/29/2018 at 14:42 Lower extremity ultrasound: Radiologist's impression: [address] [address] Ultrasound Report Signed Patient: Barry Murray CMR#: [id number] : [id number]:[id number] Age/Sex: 83 / MDate of Service: 11/29/18 Loc: ED Accession Number: [id number] Procedure: US periph venous low extrem rt Ordering Provider: Maribel Joshi D.O. PROCEDURE: US PERIPH VENOUS LOW EXTREM RT INDICATIONS: SWELLING, HEMATOMA VS INFXN, ? DVT TECHNIQUE: Real-time imaging, as well as color and pulse Doppler interrogation, were performed of the lower extremity deep veins from the inguinal ligament to the popliteal fossa. COMPARISON: None. FINDINGS: There is a partially occlusive thrombus within the mid right superficial femoral vein with associated wall thickening. The common femoral, and popliteal veins are normally compressible, and free of intraluminal thrombus. Color and pulse D oppler demonstrate normal phasic intraluminal flow. There is normal augmentation response to distal compression maneuver. There is also diffuse subcutaneous soft tissue edema in the area of injury with a 7.9 x 1.4 cm superficial fluid collection probably representing a hematoma. IMPRESSION: 1. Partially occlusive deep venous thrombosis involving the right mid superficial femoral vein. 2. Soft tissue swelling and 7.9 cm superficial subcutaneous fluid collection at the site of injury which probably represents a hematoma. Dictated by: Aleksandr Meng M.D. on 11/29/2018 at 16:58 Approved by: Aleksandr Meng M.D. on 11/29/2018 at 17:02 [facility] Narrative Medical decision making narrative: Patient is on cephalexin we did change antibiotics to doxycycline as I think this would have better coverage for this particular exposure. Patient US shows hematoma, no clear signs of abscess. Patient also has a dvt noted on US. Discussed risks vs. benefits, patient elects for anticoagulation. Given first dose of Pradaxa in department and prescription with plan to recontact us is cost prohibitive. Patient comfortable with plan. Discharge Plan Departure Patient Disposition: Home Clinical Impression: Hematoma of lower extremity, Cellulitis of leg, DVT (deep venous thrombosis) Discharge Date/Time: 11/29/18 18:10 Instructions: Cellulitis, DI for Deep Vein Thrombosis, DI for Hematoma (Bruise) Activity Restrictions/Additional Instructions: Follow up with your physician in the next 3-4 days for recheck. Call for an appointment. You can also follow with your hospice nurse if you prefer. Stop cephalexin. Start doxycycline and continue twice daily. Start Pradaxa 150mg twice daily. Return to the emergency department for fevers greater 100.4 F, rapidly worsening redness, swelling increasing pain in your lower extremity new chest pain, shortness of breath, lightheadedness, passing out, new weakness numbness or other new or concerning symptoms. Prescriptions: New doxycycline hyclate 100 mg tablet 100 mg PO BID Qty: 20 RF: 0 Pradaxa 150 mg capsule 150 mg PO BID Qty: 60 RF: 0 No Action Daily Probiotic 2.5 billion cell Capsule 1 cap PO DAILY RF: 0 loperamide [Imodium A-D] 2 mg Capsule 2 mg PO Q2-4H PRN (Reason: Diarrhea) RF: 0 ondansetron HCl 8 mg tablet 8 mg PO Q8H PRN (Reason: Nausea) RF: 0 cephalexin 500 mg capsule 500 mg PO [id number] RF: 0 diphenoxylate-atropine [Lomotil] 2.5-0.025 mg tablet 1 tab PO Q6H PRN (Reason: Diarrhea) RF: 0 tamsulosin 0.4 mg capsule 0.4 mg PO DAILY RF: 0 Referrals: Silvia Florentino MD [Primary Care Provider] -
--- NOTE | 2018-11-29 15:22 | DI.RAD.S_ITS ---
PROCEDURE: XR TIBIA FUBULA RT 2V INDICATIONS: ? FB, swelling/infectino leg TECHNIQUE: 2 views of the tibia and fibula were acquired. COMPARISON: None. FINDINGS: Bones: No acute fracture or dislocation is appreciated involving the right tibia or fibula. There is deformity evident involving the proximal to mid aspect of the tibia suggesting an old fracture. There is also deformity with cortical irregularity involving the distal fibula, also suggestive of an old healed fracture. Post surgical changes of the distal tibia are evident extending through the medial malleolus, suggesting an old medial malleolus fracture. There appear to be severe degenerative changes of the tibiotalar joint and talonavicular joint. There also appear to be degenerative changes of the knee joint, not well valuated. Soft tissues: No suspicious soft tissue calcifications or masses. Subcutaneous edema about the right lower leg is evident. This is slightly more pronounced along the posterior aspect of the distal soleus muscle near the Achilles myotendinous junction. No soft tissue air or radiopaque foreign bodies are evident. IMPRESSION: 1. No acute osseous abnormality of the right lower leg. 2. Prominent soft tissue swelling of the right lower leg may be related to patient's known infection. If there is high clinical concern for osteomyelitis, MRI with intravenous contrast would be helpful for better evaluation. 3. Postoperative changes and prominent degenerative changes of the ankle. Dictated by: Liban Jiménez M.D. on 11/29/2018 at 14:40 Approved by: Liban Jiménez M.D. on 11/29/2018 at 14:42
--- NOTE | 2018-11-29 15:22 | DI.US.S_ITS ---
PROCEDURE: US PERIPH VENOUS LOW EXTREM RT INDICATIONS: SWELLING, HEMATOMA VS INFXN, ? DVT TECHNIQUE: Real-time imaging, as well as color and pulse Doppler interrogation, were performed of the lower extremity deep veins from the inguinal ligament to the popliteal fossa. COMPARISON: None. FINDINGS: There is a partially occlusive thrombus within the mid right superficial femoral vein with associated wall thickening. The common femoral, and popliteal veins are normally compressible, and free of intraluminal thrombus. Color and pulse Doppler demonstrate normal phasic intraluminal flow. There is normal augmentation response to distal compression maneuver. There is also diffuse subcutaneous soft tissue edema in the area of injury with a 7.9 x 1.4 cm superficial fluid collection probably representing a hematoma. IMPRESSION: 1. Partially occlusive deep venous thrombosis involving the right mid superficial femoral vein. 2. Soft tissue swelling and 7.9 cm superficial subcutaneous fluid collection at the site of injury which probably represents a hematoma. Dictated by: Aleksandr Meng M.D. on 11/29/2018 at 16:58 Approved by: Aleksandr Meng M.D. on 11/29/2018 at 17:02
[2018-11-29 15:52] LABS: Add Manual Diff / Slide Review NO; Basophils Absolute Auto 100 /uL (0-100); Basophils Percent Auto 1.1 % (0-2); Eosinophils Absolute Auto 200 /uL (0-450); Eosinophils Percent Auto 3.1 % (2-4); Hematocrit 29.4 % (41-53); Hemoglobin 10.2 g/dL (13.5-17.5); Lymphocytes Absolute Auto 400 /uL (1100-4500); Lymphocytes Percent Auto 5.8 % (25-40); Mean Corpuscular HGB Conc 34.8 % (30-36); Mean Corpuscular Hemoglobin 32.2 PG (26-34); Mean Corpuscular Volume 92.5 fL (80-100); Monocytes Absolute Auto 600 /uL (0-900); Monocytes Percent Auto 10.1 % (3-14); Neutrophils Absolute Auto 5000 /uL (1500-7000); Neutrophils Percent Auto 79.9 % (50-75); Platelet Count 233 X10^3/uL (150-400); Red Blood Cell Count 3.18 X10^6/uL (4.5-5.9); Red Cell Distribution Width 14.1 % (11.6-14.8); White Blood Cell Count 6.3 X10^3/uL (4.5-11.0)
[2018-11-29 16:06] LABS: Blood Urea Nitrogen 17 mg/dL (9-20); Calcium 8.9 mg/dL (8.4-10.2); Carbon Dioxide 33 mmol/L (22-32); Chloride 97 mmol/L (98-107); Estimated Glomerular Filt Rate > 60.0 mL/min (>60); Glucose 120 mg/dL (80-110); HEMOLYSIS < 15 (0-50); Lipase 80 U/L (23-300); Potassium 4.1 mmol/L (3.4-5.1); Sodium 135 mmol/L (137-145)
[2018-11-29 16:51] LABS: INR 1.2 (0.9-1.3); Prothrombin Time 13.7 SECONDS (10.1-12.7)
[2018-11-29 16:53] LABS: PTT Partial Thromboplastin Tim 30 SECONDS (26.4-36.2)
[2018-11-29] MEDS: ONDANSETRON 4 MG ODT 8 MG SL (17:22)
[2018-11-29] MEDS: DABIGATRAN 75 MG CAPSULE 150 MG PO (18:05)
[2018-11-29 18:08] VITALS: BP 140/61; PULSE 70; RESP 18; TEMP 36.5; O2SAT 99
== END 2018-11-29 18:10 | disposition home or self-care (01) ==
PROVIDERS: Emergency Provider Emergency Medicine; Family Provider Internal Medicine; PCP Internal Medicine
DX: I82.4Z1 Acute embolism and thrombosis of unspecified deep veins of right distal lower extremity (principal); S80.11XA Contusion of right lower leg, initial encounter; L03.115 Cellulitis of right lower limb
CPT/HCPCS: 36415; 73590; 80048; 83690; 85025; 85610; 85730; 93971; 99282; 99284